=== PATIENT | male | born 1945 | race Caucasian/White ===

== ENCOUNTER 2017-07-05 13:41 | Inpatient (IN) ==
[2017-07-05] MEDS ORDERED: LACTATED RINGERS 1,000 ML IV ONE ×2 (14:01→15:40)
--- NOTE | 2017-07-05 14:39 | XRay Report ---
CLINICAL INFORMATION: Shortness of breath COMPARISON: 11/15/2015 FINDINGS: Moderate cardiomegaly is unchanged. Mediastinum is unremarkable. Pulmonary vessels are unremarkable. Moderate consolidated infiltrates have developed in both lung bases with moderate bilateral pleural effusions. IMPRESSION: Moderate sized consolidated bibasilar infiltrates and moderate effusions - new. Consider aspiration Interpreted and Authenticated by: Glen Hartley 07/05/17
[2017-07-05 14:46] LABS: Mean Cell Volume 102.5 fL (80.0-100.0); Mean Corpuscular HGB Conc 33.3 g/dL (31.0-36.0); Mean Corpuscular Hemoglobin 34.1 pg (26.0-34.0); Platelet Count 44 K/mcL (140-440); RBC 3.61 M/mcL (4.50-5.90)
[2017-07-05 15:00] LABS: proBNP 628.1 pg/ml (0-125)
[2017-07-05 15:04] LABS: ALT/SGPT 38 U/l (0-40); Albumin 2.2 gm/dL (3.2-5.2); Albumin/Globulin Ratio 0.6 (1.0-2.3); Alkaline Phosphatase 345 U/L (39-117); Blood Urea Nitrogen 46 mg/dl (8-23)
[2017-07-05] MEDS ORDERED: cefTRIAXone 1 GM in DEXTROSE 5% IN WATER 50 ML IV ONE (15:05)
[2017-07-05] MEDS ORDERED: LEVOFLOXACIN 500 MG/100 ML BAG IV ONE (15:05)
[2017-07-05 15:16] LABS: Anisocytosis 1+ (NONE SEEN); Band Neutrophils % 20 % (0-10); Lymphocytes % 11 % (15-49); Macrocytosis 1+ (NONE SEEN); Monocytes % (Manual) 5 % (1-12); Platelet Estimate MK DECR (NORMAL); RBC Morphology ABNORM (NORMAL); Segmented Neutrophils % 64 % (38-78); Toxic Granulation 1+ (NONE SEEN)
--- NOTE | 2017-07-05 15:42 | XRay Report ---
CLINICAL INFORMATION: Trauma COMPARISON: None. FINDINGS: No fracture identified. Mild degenerative change noted in the tibiofemoral, ankle mortise and posterior facets of the talocalcaneal joint. There is minimal diffuse soft tissue swelling IMPRESSION: No evidence of fracture. Mild degenerative change Interpreted and Authenticated by: Glen Hartley 07/05/17
[2017-07-05] MEDS ORDERED: ALBUTEROL SULFATE 2.5 MG/3 ML NEBULIZER NEB ONE (15:43)
--- NOTE | 2017-07-05 15:44 | XRay Report ---
CLINICAL INFORMATION: Trauma COMPARISON: None. FINDINGS: Intramedullary he and screw transfix a malunified old subtrochanteric fracture of the proximal femur. There is moderate callus providing solid osseous union but with moderate associated deformity. No acute fracture. Mild degenerative changes noted in the patellofemoral and tibiofemoral joint. IMPRESSION: No acute fracture. Malunified old fracture of the proximal femoral diaphysis - bony Union appears solid Interpreted and Authenticated by: Glen Hartley 07/05/17
--- NOTE | 2017-07-05 15:45 | XRay Report ---
CLINICAL INFORMATION: Trauma COMPARISON: 06/16/2013 plain films. FINDINGS: No fracture seen within the pelvis proper. Both SI and hip joint showing minimal degenerative change. There is a HABITAT CONSERVATION PLANNER shunt catheter in stable satisfactory position. IMPRESSION: No evidence of acute fracture following fall Interpreted and Authenticated by: Glen Hartley 07/05/17
--- NOTE | 2017-07-05 15:46 | Emergency Department Note ---
SOB HPI - General Chief Complaint: Shortness of Breath/Dyspnea Stated Complaint: short of breath Time Seen by Provider: 07/05/17 14:12 Source: patient, EMS Mode of arrival: EMS Limitations: physical limitation - History of Present Illness This 68-year-old male comes to the emergency room transported from a skilled facility where he was found to have gurgling respirations, shortness of breath, and was transported for these reasons. He has a history of being weak, gets out of his chair and falls frequently sometimes at night. He's had recent injuries to the elbows and knees. About 5-6 days ago he is evaluated by his lbifvua-un-mbz, Dr. Keenan, with bubble cellulitis to the right arm elbow area and was placed on Bactrim by his local PCP, Dr. Ibarra. Patient has a history of some swallowing difficulties. He has been on Zyprexa for schizophrenia for nearly 25 years. He has a history also of being in a wound clinic for a couple years ago for a long period of time due to chronic cellulitis of his lower extremities. He has a history of significant pretibial and pedal edema for which she wears compression hose. However, has not had a known history of CHF or heart disease. - Related Data Home Medications Medication Instructions Recorded Confirmed divalproex 500 mg tablet,delayed 500 mg PO QHS tab 06/24/15 07/05/17 release fluticasone 0.05 % topical cream 1 applic TOPICAL .COMPLEX g 06/24/15 07/05/17 furosemide 20 mg tablet 20 mg PO QDAY tab 06/24/15 07/05/17 ketoconazole 2 % shampoo 1 applic TOPICAL Q2W ml 06/24/15 07/05/17 loratadine 10 mg tablet 10 mg PO QDAY tab 06/24/15 07/05/17 multivitamin tablet 1 tab PO QDAY tab 06/24/15 07/05/17 olanzapine 15 mg tablet 15 mg PO QHS tab 06/24/15 07/05/17 potassium chloride ER 10 mEq 10 meq PO QDAY cap 06/24/15 07/05/17 capsule,extended release tamsulosin 0.4 mg capsule 0.4 mg PO QHS cap 06/24/15 07/05/17 triamcinolone acetonide-l.s.b. 0.5 0.5 % TOPICAL BID 06/24/15 07/05/17 % topical cream acetaminophen 500 mg tablet 1,000 mg PO Q4H PRN tab 10/19/16 07/05/17 coal tar 0.5 % shampoo 1 applic TOPICAL QDAY 10/19/16 07/05/17 dextromethorphan-guaifenesin 10 10 ml PO ONCE PRN 10/19/16 07/05/17 mg-100 mg/5 mL syrup divalproex 125 mg tablet,delayed 375 mg PO QDAY tab 10/19/16 07/05/17 release fluocinolone 0.01 % topical 1 applic TOPICAL QDAY ml 10/19/16 07/05/17 solution folic acid 1 mg tablet 1 mg PO QDAY 10/19/16 07/05/17 methotrexate sodium 2.5 mg tablet 15 mg PO QWEEK tab 10/19/16 07/05/17 LORazepam [Ativan] 0.5 mg PO PRN PRN 07/05/17 07/05/17 Sulfamethoxazole/Trimethoprim 1 tab PO BID 07/05/17 07/05/17 [Bactrim Ds] Allergies Allergy/AdvReac Type Severity Reaction Status Date / Time penicillin G [PENICILLIN G] Allergy Unknown RASH Verified 11/30/16 13:32 Review of Systems Review of Systems: see HPI and past medical history. Patient is unable to give history in that he is unable to speak significantly and limited additional other information. The difficulty swallowing is chronic and long-term. He has had mood behavior issues for which she is taking Depakote. However he has become sleepier on this when he was at 375 mg in the morning and 500 in the evening, and so was reduced to 250 and 500. This history is per his mnzopoh-ox-idp, Dr. Keenan. Patient usually is able to feed himself. No other specific symptoms reported. 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 Previous to that had fallen in the shower and had a very slow recovery. He has had shunts placed as well. He has had a long history of multiple falls and recurrent problems from falls, including a he in the right tibia due to a spiral fracture from approximately 3 yrs ago. Past Medical History - Past Medical History Source: obtained from family (brother in law, Dr. Keenan (retired car repairman)) Medical history: Reports: other (psoriasis (on methotrexate new 2017?); pneumonia 2015-?; cellulitis; falls; abrasions; alcoholism in his 30's; urinary incontinence; normopressure hydrocephalus.). Denies: asthma, cancer, CHF, coronary artery disease, CVA, diabetes Surgical history ED: Reports: other (right tibial intramedullary he (spiral fracture, 2014-?); shunt for normopressure hydrocephalus.) Psychiatric history: Reports: schizophrenia (long standing) - Social History Alcohol use: Reports: Occasionally Drug use: Reports: none Physical Exam - General Limitations: physical limitation General appearance: alert - Head Head exam: normocephalic, other (multiple scars from surgeries in the right frontal area and elevation compatible with shunt in the area above his Right ear.) - Eye Eye exam: Present: EOMI - Respiratory Respiratory exam: Present: respiratory distress, wheezes - Expanded Respiratory Exam Location: rhonchi: Left, Right (Severe and loud) - Cardiovascular Cardiovascular exam: Present: regular rate (quite difficult to hear due to his rhonchi.) - Abdominal Exam Abdominal exam: Present: soft. Absent: distention, tenderness, guarding, rebound, rigidity - Extremities Exam Extremities exam: Present: pedal edema (And tibial, 2/4 rightand 1/4 left.) - Neurological Exam Neurological exam: Present: alert, other (Unable to respond with words. Occasionalnegative or positive response to yes no questions.) - Psychiatric Psychiatric exam: Present: other (Unable to assess due to above neurologic status.) - Skin Skin exam: Present: warm, dry, other (There is thickening and lymphedema and cellulitis of the rightforearm and elbow area with a laceration on the external olecranon areaapproximately 2 cm across and slightly . Bilateral just below the knees abrasion/ulcers that are with yellow exudateand surrounding erythema.) Course Course Narrative: Patient's evaluation included hypotension, hypoxia, no tachycardia, no fever, and then with labs had an elevated white blood cell count elevated lactic acid and elevated pro calcitonin and elevated alkaline phosphatase. With these findings a sepsis workup and treatment was initiated with IV fluids and IV antibiotics in the form of Rocephin 1 g and Levaquin. Over a two-hour period of time he remained relatively stable but was still with these significant findings. The hospitalist was called with a need for admission to monitor his fluid status, continue antibiotics, continue to treat for aspiration pneumonia. Aspiration pneumonia was assumed given his history of poorly chewing food and swallowing with abnormal tongue protrusion which history was given by his texxplg-lo-ekx who is an car repairman. X-rays were done of his right upper extremity and right lower extremity.The findings included a malunified but solid ossification of a subtrochanteric fracture of the right femur (not of the tibia as given per her history). Right upper extremity exam was unremarkable as was pelvis. Chest x-ray showed bibasilar infiltrates that were moderate with moderate effusions also. cultures were also done of his knee abrasions/ulcer/cellulitis. Of note also was an elevated BNP and the mom moderate effusions bilaterally. He was given thefluid boluses to try to help maintain his perfusion and intravascular blood pressures but the caution of congestive heart failure certainly exists and will be monitored carefully by hospitalist Vital Signs Temperature 97.0 F 07/05/17 13:42 Pulse Rate 88 07/05/17 13:42 Respiratory Rate 20 07/05/17 13:42 Pulse Oximetry (%) 85 L 07/05/17 13:42 Temperature 97.0 F 07/05/17 13:42 Pulse Rate 79 07/05/17 15:30 Respiratory Rate 19 07/05/17 15:30 Blood Pressure 94/53 07/05/17 15:30 Pulse Oximetry (%) 92 07/05/17 15:30 Shortness of Breath/Dyspnea - Lab Data Lab results reviewed: Yes I reviewed the patient's lab results. Result diagrams: 07/05/17 13:55 07/05/17 13:55 Lab Results 07/05/17 07/05/17 07/05/17 Range/Units 13:55 13:55 13:55 WBC 32.0 H* (4.5-11.0) K/mcL RBC 3.61 L (4.50-5.90) M/mcL Hgb 12.3 L (13.5-16.5) g/dL Hct 37.0 L (41.0-55.0) % MCV 102.5 H (80.0-100.0) fL MCH 34.1 H (26.0-34.0) pg MCHC 33.3 (31.0-36.0) g/dL RDW 18.0 H (11.5-14.5) % Plt Count 44 L* (140-440) K/mcL MPV 10.3 (7.4-10.4) fL Total Counted 100 Seg Neutrophils % 64 (38-78) % Band Neutrophils % 20 H (0-10) % Lymphocytes % 11 L (15-49) % Monocytes % (Manual) 5 (1-12) % WBC Morphology Abnorm A (NORMAL) Toxic Granulation 1+ A (NONE SEEN) Platelet Estimate Mk decr A (NORMAL) RBC Morphology Abnorm A (NORMAL) Anisocytosis 1+ A (NONE SEEN) Macrocytosis 1+ A (NONE SEEN) VBG Lactic Acid 2.6 H (0.5-2.2) mmol/L Sodium 133 (133-145) mmol/L Potassium 5.1 (3.3-5.1) mmol/L Chloride 92 L (96-108) mmol/L Carbon Dioxide 25 (22-30) mmol/L Anion Gap 16.0 (8-16) BUN 46 H (8-23) mg/dl Creatinine 1.4 H (0.7-1.2) mg/dl GFR Calculation 49 Glucose 132 H (70-105) mg/dL Calcium 9.4 (8.6-10.4) mg/dl Magnesium (1.6-2.5) mg/dL Total Bilirubin 0.5 (0.0-1.0) mg/dL AST 53 H (0-37) U/l ALT 38 (0-40) U/l Alkaline Phosphatase 345 H (39-117) U/L NT-Pro-B Natriuret Pep 628.1 H (0-125) pg/ml Total Protein 5.8 L (5.9-8.4) gm/dL Albumin 2.2 L (3.2-5.2) gm/dL Globulin 3.6 (2.2-3.7) gm/dL Albumin/Globulin Ratio 0.6 L (1.0-2.3) Procalcitonin (<0.10) ng/mL 07/05/17 07/05/17 Range/Units 13:55 13:55 WBC (4.5-11.0) K/mcL RBC (4.50-5.90) M/mcL Hgb (13.5-16.5) g/dL Hct (41.0-55.0) % MCV (80.0-100.0) fL MCH (26.0-34.0) pg MCHC (31.0-36.0) g/dL RDW (11.5-14.5) % Plt Count (140-440) K/mcL MPV (7.4-10.4) fL Total Counted Seg Neutrophils % (38-78) % Band Neutrophils % (0-10) % Lymphocytes % (15-49) % Monocytes % (Manual) (1-12) % WBC Morphology (NORMAL) Toxic Granulation (NONE SEEN) Platelet Estimate (NORMAL) RBC Morphology (NORMAL) Anisocytosis (NONE SEEN) Macrocytosis (NONE SEEN) VBG Lactic Acid (0.5-2.2) mmol/L Sodium (133-145) mmol/L Potassium (3.3-5.1) mmol/L Chloride (96-108) mmol/L Carbon Dioxide (22-30) mmol/L Anion Gap (8-16) BUN (8-23) mg/dl Creatinine (0.7-1.2) mg/dl GFR Calculation Glucose (70-105) mg/dL Calcium (8.6-10.4) mg/dl Magnesium 3.0 H (1.6-2.5) mg/dL Total Bilirubin (0.0-1.0) mg/dL AST (0-37) U/l ALT (0-40) U/l Alkaline Phosphatase (39-117) U/L NT-Pro-B Natriuret Pep (0-125) pg/ml Total Protein (5.9-8.4) gm/dL Albumin (3.2-5.2) gm/dL Globulin (2.2-3.7) gm/dL Albumin/Globulin Ratio (1.0-2.3) Procalcitonin 3.67 (<0.10) ng/mL - Radiology Data Radiology results reviewed: Yes I reviewed the patient's radiology results. - EKG Data EKG attestation: Yes I reviewed and interpreted this EKG. EKG results narrative: Of note and interest is that patient never mounted a tachycardic response. He was in sinus rhythm. Disposition Pt seen by JAVA APPLICATION DEVELOPER/PA only: No Clinical Impression: SIRS (systemic inflammatory response syndrome), Elevated alkaline phosphatase level, Abrasion of skin with infection, Falls frequently, Hydrocephalus, idiopathic normal pressure, High risk medication use, Hypoxia Sepsis Qualifiers: Sepsis type: sepsis due to unspecified organism Qualified Code(s): A41.9 - Sepsis, unspecified organism Pneumonia Qualifiers: Pneumonia type: aspiration pneumonia Aspiration pneumonia type: unspecified Laterality: bilateral Lung location: lower lobe of lung Qualified Code(s): J69.0 - Pneumonitis due to inhalation of food and vomit Cellulitis Qualifiers: Site of cellulitis: extremity Site of cellulitis of extremity: upper extremity Laterality: right Qualified Code(s): L03.113 - Cellulitis of right upper limb Summary: see COURSE Disposition: Xfer As Inpt ([facility]) Condition: Fair Referrals: Juan Leal MD [Primary Care Provider] -
--- NOTE | 2017-07-05 15:46 | XRay Report ---
CLINICAL INFORMATION: Trauma COMPARISON: None. FINDINGS: No fracture identified. Minor ossification of the triceps tendon insertion on the olecranon noted. Joint spaces are unremarkable. Mild diffuse soft tissue swelling seen in the forearm IMPRESSION: No evidence of fracture or other significant abnormality Interpreted and Authenticated by: Glen Hartley 07/05/17
--- NOTE | 2017-07-05 15:47 | XRay Report ---
CLINICAL INFORMATION: Trauma COMPARISON: None. FINDINGS: No fracture identified. Moderate degenerative changes seen acromioclavicular joint. Glenohumeral joint and elbow are normal. Mild diffuse soft tissue swelling noted IMPRESSION: No evidence of fracture Interpreted and Authenticated by: Glen Hartley 07/05/17
[2017-07-05 16:16] LABS: Appearance,Urine CLEAR; Bacteria,Urine 0 /hpf (0); Bilirubin,Urine NEG (NEG); Color,Urine YELLOW; Glucose,Urine (UA) NEGATIVE (NEG); Leukocyte Esterase,Urine 500 /uL (NEG); Nitrate,Urine NEG (NEG); Protein,Urine NEG (NEG); Specific Gravity,Urine 1.015 (1.000-1.035); Urine Blood NEG mg/dL (<0.03); Urine RBC 2 /hpf (0-1); Urine Squamous Epithelial Cell < 1 /hpf (0-4); Urine WBC 24 /hpf (0-4)
--- NOTE | 2017-07-05 16:50 | Internal Med History&Physical ---
Medical - H&P: HPI Patient information: Note initiated : 07/05/17 at 4:48 pm Service Date, if different from initiated Date: [] Patient: Rodriguez Scales a 72 y/o M admitted on for short of breath. Chief Complaint: [] History of present illness: Mr. Scales is a 72 year old Male with h/o dementia, normal pressure hydrocephalus, schizophrenia, presently living in an assisted living facility, presents to the ER because of altered mentation and shortness of breath. The patient is accompanied byI believe his rwpzpua-dk-nad who is a retired internal medicine physician. the patient has had history of recurrent falls going on for the last few weeks, fall 2 weeks ago resulted in some abrasions in his right lower extremity as well as right upper extremity, one of the abrasions got secondarily infected and his primary care physician had placed the patient on Bactrim for same. The patient's cellulitis was somewhat better. This afternoon when the brother-in- law, i.e., the physician. went to to evaluate the patient, he noticed that the patient was not himself was more confused and also had difficulty in breathing. There was significant amount of conducted breath sounds. The patient was therefore brought to the hospital for further evaluation. in the emergency room, the patient was noted to be hypoxic on presentation and his blood pressure was borderline low with systolic in the 80s,the patient's heart rate was around in the 90s However, the patient was afebrile. Chest x- ray was done which showed bibasal infiltrates as well as effusion suggesting aspiration pneumonia. The labs are significant for white blood cell count of 32 ,000. his hemoglobin is 12, and platelets are 44. Sodium is 133, potassium 5.1 , bicarbonate 25, creatinine is 1.4 and glucose of 132, magnesium is 3.0. Patient has an elevated lactic acid of 2.6. His alkaline phosphatase is elevated at 345. However, the patient's ojvzbwr-nl-lhj noted that this likely is chronically elevated. Patient has low albumin of 2.2. I reviewed the advanced directives with the patient's phkleei-pa-cnr, who noted that he talked to his who is also the patient's power of environmental attorney and confirm that the patient is DNR. However, they're okay with antibiotics, pressors and BiPAP if necessary Patient was admitted to PCU status for further management ROS unobtainable: due to mental status Medical - H&P: PMH Medical history: Medical History (Last Updated 07/05/17 @ 16:17 by Jason Berumen DO) Bronchitis (Acute) Fracture of fifth toe, left, open (Acute) Schizoaffective disorder (Chronic) Pleural effusion (Chronic) Malignant melanoma of skin (Chronic) Obstructive hydrocephalus (Chronic) Gallbladder calculus (Chronic) Fracture of femoral neck, closed (Chronic) COPD (chronic obstructive pulmonary disease) (Chronic) Cholelithiasis (Chronic) Cholecystitis (Chronic) Bladder malignancy (Chronic) Surgical history: Past Surgical History (Last Updated 03/18/17 @ 14:33 by [employer] [place]) History of transurethral resection of prostate (Chronic) History of sebaceous cyst (Chronic) History of femur fracture (Chronic) History of abdominal surgery (Chronic) Pertinent family history: Family History Mother Malignant neoplasm of pancreas Medical - H&P: Meds Home Medications Medication Instructions Recorded Confirmed Type divalproex 500 mg tablet,delayed 500 mg PO QHS tab 06/24/15 07/05/17 History release fluticasone 0.05 % topical cream 1 applic TOPICAL .COMPLEX g 06/24/15 07/05/17 History furosemide 20 mg tablet 20 mg PO QDAY tab 06/24/15 07/05/17 History ketoconazole 2 % shampoo 1 applic TOPICAL Q2W ml 06/24/15 07/05/17 History loratadine 10 mg tablet 10 mg PO QDAY tab 06/24/15 07/05/17 History multivitamin tablet 1 tab PO QDAY tab 06/24/15 07/05/17 History olanzapine 15 mg tablet 15 mg PO QHS tab 06/24/15 07/05/17 History potassium chloride ER 10 mEq 10 meq PO QDAY cap 06/24/15 07/05/17 History capsule,extended release tamsulosin 0.4 mg capsule 0.4 mg PO QHS cap 06/24/15 07/05/17 History triamcinolone acetonide-l.s.b. 0.5 0.5 % TOPICAL BID 06/24/15 07/05/17 History % topical cream acetaminophen 500 mg tablet 1,000 mg PO Q4H PRN tab 10/19/16 07/05/17 History coal tar 0.5 % shampoo 1 applic TOPICAL QDAY 10/19/16 07/05/17 History dextromethorphan-guaifenesin 10 10 ml PO ONCE PRN 10/19/16 07/05/17 History mg-100 mg/5 mL syrup divalproex 125 mg tablet,delayed 375 mg PO QDAY tab 10/19/16 07/05/17 History release fluocinolone 0.01 % topical 1 applic TOPICAL QDAY ml 10/19/16 07/05/17 History solution folic acid 1 mg tablet 1 mg PO QDAY 10/19/16 07/05/17 History methotrexate sodium 2.5 mg tablet 15 mg PO QWEEK tab 10/19/16 07/05/17 History LORazepam [Ativan] 0.5 mg PO PRN PRN 07/05/17 07/05/17 History Sulfamethoxazole/Trimethoprim 1 tab PO BID 07/05/17 07/05/17 History [Bactrim Ds] Allergies Allergy/AdvReac Type Severity Reaction Status Date / Time penicillin G [PENICILLIN G] Allergy Unknown RASH Verified 11/30/16 13:32 Medical - H&P: Exam - Constitutional Vitals: Temp Pulse Resp BP Pulse Ox 97.0 F 88 20 105/68 96 07/05/17 13:42 07/05/17 16:19 07/05/17 16:19 07/05/17 16:16 07/05/17 16:19 Exam: GENERAL: The patient is a well-developed, well-nourished in no apparent distress. Is alert and oriented x 1 VITAL SIGNS: Reviewed and as noted elsewhere. HEENT: Head is normocephalic and atraumatic. Extraocular muscles are intact. Pupils are equal, round, and reactive to light. Nares appeared normal. Mouth appears any without lesions. Mucous membranes are dry NECK: Normal to inspection, Supple, No lymphadenopathy or thyromegaly. LUNGS: Air entry equal on both sides, [place] conducted breath sounds heard, no wheezing but pt has prolonged exp phase, Bibasilar crackles crackles . No accessory muscles of respiration HEART: Regular rate and rhythm normal, S1 and S2 heard, no Gallop, S3 or Rub Noted, No Gross murmur heard. ABDOMEN: Soft, nontender, and nondistended. Positive bowel sounds. No hepatosplenomegaly was noted. EXTREMITIES: No cyanosis, clubbing, rash, [place] edema Rt > left, Also significant edema in the right upper extremity with erythema and induration. [place] lower extremity has chr venous stasis changes. NEUROLOGIC: Cranial nerves II through XII are grossly intact. Motor and Sensory System Grossly Intact PSYCHIATRIC: drowsy, not agitated, SKIN: Noulcers, right arm has healing abrasions, w[place] legs has healing abrasions. , No jaundice, No rash noted. Medical - H&P: Reslt - Labs CBC & Chem 7: 07/05/17 13:55 07/05/17 13:55 Labs: Short CBC 07/05/17 Range/Units 13:55 WBC 32.0 H* (4.5-11.0) K/mcL Hgb 12.3 L (13.5-16.5) g/dL Hct 37.0 L (41.0-55.0) % Plt Count 44 L* (140-440) K/mcL BMP 07/05/17 13:55 Sodium 133 Potassium 5.1 Chloride 92 L Carbon Dioxide 25 BUN 46 H Creatinine 1.4 H Glucose 132 H Calcium 9.4 Liver Function 07/05/17 Range/Units 13:55 Total Bilirubin 0.5 (0.0-1.0) mg/dL AST 53 H (0-37) U/l ALT 38 (0-40) U/l Alkaline Phosphatase 345 H (39-117) U/L Albumin 2.2 L (3.2-5.2) gm/dL Urine 07/05/17 Range/Units 15:35 Urine Color Yellow Urine Appearance Clear Urine pH 7.0 (5.0-9.0) Ur Specific [place] 1.015 (1.000-1.035) Urine Protein Neg (NEG) mg/dL Urine Glucose (UA) Negative (NEG) mg/dL Medical - H&P: A/P - Narrative A/P Narrative: A/P Severe Sepsis: Low BP on presentation, elevated lactic acid, this is secondary to aspiration pneumonitis treated as per protocol, blood pressure is stable at this point in time. Will monitor in the PCU. Recheck lactic acid in 6 hours. Aspiration pneumonia-treat with imipenem as well as vancomycin, among the patient is to be considered as hospital-acquired infection given the fact that he has recently been treated with antibiotics, he also takes methotrexate, which is an immunosuppressant. COPD exacerbation: duo nebs for now. IV Solu-Medrol. He is already on antibiotics. Renal failure-creatinine is 1.4, acute versus chronic IV fluids and monitor. Urine analysis pending. Psoriasis-patient is on methotrexate for same hold methotrexate for now given acute infection. Cellulitis-of the right upper extremity, but it extremity is still swollen and is warm as well as has some erythema. The vancomycin and imipenem should cover the infection, I will get a duplex of the right upper extremity to ensure there is no DVT. Lower extremity swelling-this is a chronic issue, albumin is 2.2. This is likely secondary to same, as well as poor ambulation. According to the patient' s [id number]-uz-spc one week prior. A duplex of the lower extremity was done which was reported as negative for DVT. Elevated alkaline phosphatase- monitor for now, consider liver ultrasound in the a.m. Thrombocytopenia-likely secondary to severe sepsis-we'll get peripheral smear to rule out any other pathology. Check B12 and folic acid levels, thrombocytopenia can also be seen in patients on methotrexate. severe malnutrition-albumin is 2.2. According to the patient's relative. Patient has a good appetite and eats a lot, however, does have some swallowing issues. It is possible that the patient has liver issues resulting in low albumin value. We consider liver sonogram in the morning await urine analysis result, proceed there is significant proteinuria. Dementia/ Schizophremia: received home medications of olanzapine as well as divalproex. Fall precautions. h/o bladder cancer: follows with Dr Best DVT prophylaxis, Lovenox sq for now Diet NPO till seen by ST OT/ PT lavelle Poor prognosis, in light of severe sepsis, multisystem organ failure. Discussed same with the brother in law who was there with the patient. Social History - Tobacco smoking status: Former smoker - Alcohol alcohol intake frequency: former alcohol drinker
[2017-07-05] MEDS ORDERED: 0.9 % SODIUM CHLORIDE 1,000 ML IV ONE (17:26)
[2017-07-05] MEDS ORDERED: MAGNESIUM HYDROXIDE 30 ML ORAL.SUSP PO PRN (17:29)
[2017-07-05] MEDS ORDERED: NALOXONE HCL 0.4 MG/ML VIAL IV PRN (17:29)
[2017-07-05] MEDS ORDERED: VANCOMYCIN PER PHARMACY IV SCH (17:29)
[2017-07-05] MEDS ORDERED: ONDANSETRON 4 MG/2 ML VIAL IV PRN (17:29)
[2017-07-05] MEDS ORDERED: FLUTICASONE PROPIONATE 0.05% TOPICAL PRN (17:29)
[2017-07-05] MEDS ORDERED: ACETAMINOPHEN 325 MG TABLET PO PRN (17:29)
[2017-07-05] MEDS ORDERED: LORazepam 0.5 MG TABLET PO PRN (17:29)
[2017-07-05] MEDS ORDERED: IPRATROPIUM/ALBUTEROL 3 ML AMPUL.NEB NEB ONE (18:10)
[2017-07-05] MEDS ORDERED: LORazepam 2 MG/ML VIAL IV ONE ×2 (18:14→18:40)
[2017-07-05] MEDS: IPRATROPIUM/ALBUTEROL 3 ML AMPUL.NEB NEB SCH ×2 (18:17→22:38)
[2017-07-05] MEDS ORDERED: LORazepam 2 MG/ML VIAL ONE ×2 (18:22→18:37)
[2017-07-05] MEDS ORDERED: NOREPINEPHRINE BITARTRATE 4 MG/4 ML AMPUL IV ONE (18:24)
[2017-07-05] MEDS: NOREPINEPHRINE BITARTRATE 16 MG in 0.9 % SODIUM CHLORIDE 234 ML IV SCH (18:25)
[2017-07-05] MEDS: 0.9 % SODIUM CHLORIDE 250 ML IV SCH (18:25)
[2017-07-05 18:28] LABS: Vitamin B12 > 2000 pg/ml (243-894)
[2017-07-05] MEDS: IMIPENEM/CILASTATIN SODIUM 500 MG in 0.9 % SODIUM CHLORIDE 100 ML IV SCH (19:27)
[2017-07-05] MEDS ORDERED: IMIPENEM/CILASTATIN SODIUM 500 MG VIAL IV ONE (19:28)
[2017-07-05] MEDS ORDERED: VANCOMYCIN 500 MG VIAL ONE (19:28)
--- NOTE | 2017-07-05 19:34 | Procedure Note ---
Procedures - Central Line Placement Left IJ Consent obtained: verbal consent Time out performed: Yes Patient placed on monitor/pulse ox: Yes MD prep: mask, sterile gown, sterile gloves, cap Central line prep: 2% Chlorhexidine scrub Local anesthesia used: lidocaine 2% Ultrasound used for placement: Yes Central line lumen inserted: quad, 16 cm Post procedure: sutured in place, good blood return, all ports aspirated, flushed, capped, sterile dressing applied Post procedure x-ray: tip of catheter in good position, no pneumothorax seen Patient tolerated procedure: well Complications: none
--- NOTE | 2017-07-05 20:14 | XRay Report ---
CLINICAL INFORMATION: Line placement COMPARISON: 07/05/2017 FINDINGS: Moderate cardiomegaly is unchanged. Mediastinum is unremarkable. Left IJ central line tip overlies the SVC/brachycephalic junction. No pneumothorax or other complication from line placement. Bilateral infiltrates have worsened dramatically now with upper lobe involvement. There is dense consolidation of both lower lobes with moderate bilateral pleural effusions IMPRESSION: 1. Marked worsening in bilateral infiltrates with now diffuse involvement and increasing consolidation in bibasilar components. Consider aspiration or ARDS 2. IJ central line in satisfactory position Interpreted and Authenticated by: Glen Hartley 07/05/17
[2017-07-05 20:38] LABS: Basophils # (Auto) 0 K/mcL (0.0-0.3); Basophils % (Auto) 0 % (0.0-2.0); Eosinophils # (Auto) 0 K/mcL (0.0-0.7); Eosinophils % (Auto) 0 % (0.0-7.0); Lymphocytes # (Auto) 0.8 K/mcL (1.5-4.8); Lymphocytes % (Auto) 2.4 % (15.5-49.0); Mean Cell Volume 103.1 fL (80.0-100.0); Monocytes # (Auto) 0.2 K/mcL (0.1-0.9); Monocytes % (Auto) 0.6 % (1.0-12.0); Platelet Count 56 K/mcL (140-440); RBC 3.48 M/mcL (4.50-5.90); Red Cell Distribution Width 18.3 % (11.5-14.5)
[2017-07-05] MEDS: VANCOMYCIN 1,500 MG in 0.9 % SODIUM CHLORIDE 500 ML IV SCH (20:50)
[2017-07-05] MEDS ORDERED: DIVALPROEX 125 MG CAP.SPRINK PO SCH (21:00)
[2017-07-05 21:10] LABS: ALT/SGPT 34 U/l (0-40); Albumin 1.8 gm/dL (3.2-5.2); Albumin/Globulin Ratio 0.5 (1.0-2.3); Alkaline Phosphatase 319 U/L (39-117); Bilirubin,Direct 0.3 mg/dL (0.0-0.3); Blood Urea Nitrogen 41 mg/dl (8-23); Gamma Glutamyl Transpeptidase 156 U/L (8-61); Magnesium 2.1 mg/dL (1.6-2.5); Uric Acid 5.5 mg/dL (2.5-8.0)
[2017-07-05] MEDS: OLANZapine 5 MG TABLET PO SCH (21:23)
[2017-07-05] MEDS: TAMSULOSIN 0.4 MG CAPSULE PO SCH (21:23)
[2017-07-05] MEDS ORDERED: methylPREDNISolone SOD SUCC 125 MG/2 ML VIAL IV SCH (22:00)
[2017-07-05] MEDS: FAMOTIDINE/PF 20 MG/2 ML VIAL IV SCH (22:53)
[2017-07-05] MEDS: 0.9 % SODIUM CHLORIDE 10 ML SYRINGE IV SCH (22:53)
[2017-07-05] MEDS: methylPREDNISolone SOD SUCC 125 MG/2 ML VIAL IV SCH (22:57)
[2017-07-05] MEDS: 0.9 % SODIUM CHLORIDE 1,000 ML IV SCH (22:58)
[2017-07-06] MEDS: HYDROmorphone 2 MG/ML SYRINGE IV PRN ×3 (00:50→21:41)
[2017-07-06] MEDS ORDERED: IPRATROPIUM/ALBUTEROL 3 ML AMPUL.NEB NEB ONE (02:05)
[2017-07-06] MEDS ORDERED: FUROSEMIDE 20 MG/2 ML VIAL IV ONE ×2 (02:06→02:13)
[2017-07-06] MEDS: IMIPENEM/CILASTATIN SODIUM 500 MG in 0.9 % SODIUM CHLORIDE 100 ML IV SCH ×3 (03:00→19:46)
[2017-07-06] MEDS: IPRATROPIUM/ALBUTEROL 3 ML AMPUL.NEB NEB SCH ×6 (03:01→22:55)
[2017-07-06] MEDS ORDERED: IMIPENEM/CILASTATIN SODIUM 500 MG VIAL IV ONE (03:04)
[2017-07-06] MEDS: 0.9 % SODIUM CHLORIDE 1,000 ML IV SCH ×2 (05:13→12:08)
[2017-07-06] MEDS: methylPREDNISolone SOD SUCC 125 MG/2 ML VIAL IV SCH ×3 (05:35→23:37)
[2017-07-06] MEDS: 0.9 % SODIUM CHLORIDE 10 ML SYRINGE IV SCH ×3 (05:36→23:34)
[2017-07-06 05:56] LABS: Basophils # (Auto) 0 K/mcL (0.0-0.3); Basophils % (Auto) 0 % (0.0-2.0); Eosinophils # (Auto) 0 K/mcL (0.0-0.7); Eosinophils % (Auto) 0 % (0.0-7.0); Granulocytes % (Auto) 97.6 % (38.0-78.0); Lymphocytes # (Auto) 0.8 K/mcL (1.5-4.8); Mean Cell Volume 104.6 fL (80.0-100.0); Mean Corpuscular HGB Conc 32.5 g/dL (31.0-36.0); Monocytes # (Auto) 0.2 K/mcL (0.1-0.9); Monocytes % (Auto) 0.4 % (1.0-12.0); Platelet Count 65 K/mcL (140-440); RBC 3.72 M/mcL (4.50-5.90); Red Cell Distribution Width 18.4 % (11.5-14.5)
--- NOTE | 2017-07-06 05:56 | Ultrasound Report ---
CLINICAL INFORMATION: Right arm pain and swelling TECHNIQUE: Grayscale and color flow Doppler spectral imaging COMPARISON: None. FINDINGS: Technically difficult examination. Limited evaluation of the right brachial and basilic veins. No detectable venous thrombosis.] Internal jugular vein and subclavian vein are negative. Visualization of the right brachial and basilic veins is limited but no definite abnormality. The axillary and cephalic vein are negative. Forearm veins are negative IMPRESSION: 1. Technically limited evaluation 2. No detectable deep venous thrombosis Interpreted and Authenticated by: Glen Tejada 07/06/17
[2017-07-06 06:45] LABS: ALT/SGPT 36 U/l (0-40); Albumin 2.2 gm/dL (3.2-5.2); Albumin/Globulin Ratio 0.8 (1.0-2.3); Alkaline Phosphatase 363 U/L (39-117); Bilirubin,Direct 0.5 mg/dL (0.0-0.3); Blood Urea Nitrogen 38 mg/dl (8-23); Gamma Glutamyl Transpeptidase 169 U/L (8-61); Magnesium 2.2 mg/dL (1.6-2.5); Uric Acid 5.9 mg/dL (2.5-8.0)
[2017-07-06 09:32] LABS: Blood Urea Nitrogen 38 mg/dl (8-23)
[2017-07-06] MEDS ORDERED: CALCIUM GLUCONATE 4.65 MEQ/10 ML VIAL IV ONE (09:41)
[2017-07-06] MEDS ORDERED: INSULIN REGULAR, HUMAN 1 UNIT/0.01 ML UNIT IV ONE (09:42)
[2017-07-06] MEDS ORDERED: FUROSEMIDE 40 MG/4 ML VIAL IV ONE (09:42)
[2017-07-06] MEDS ORDERED: DEXTROSE 50% 50 ML VIAL IV ONE (09:42)
[2017-07-06] MEDS ORDERED: CALCIUM GLUCONATE 4.65 MEQ in 0.9 % SODIUM CHLORIDE 50 ML IV ONE (10:00)
[2017-07-06] MEDS: FOLIC ACID 1 MG TABLET PO SCH (11:28)
[2017-07-06] MEDS: DIVALPROEX 125 MG CAP.SPRINK PO SCH (11:28)
[2017-07-06] MEDS: ENOXAPARIN 40 MG/0.4 ML SYRINGE SQ SCH (11:28)
[2017-07-06] MEDS: MULTIVIT,THER IRON,CA,FA & MIN 1 TABLET PO SCH (11:29)
[2017-07-06] MEDS: FLUOCINOLONE ACETONIDE 0.01% TOPICAL SCH (11:29)
[2017-07-06] MEDS ORDERED: DEXTROSE 50% 50 ML SYRINGE IV ONE (11:45)
[2017-07-06] MEDS: 0.9 % SODIUM CHLORIDE 250 ML IV SCH ×2 (12:16→23:35)
[2017-07-06] MEDS: NOREPINEPHRINE BITARTRATE 16 MG in 0.9 % SODIUM CHLORIDE 234 ML IV SCH (12:17)
--- NOTE | 2017-07-06 12:37 | Internal Med Progress Note ---
Medical - PN: Subj Patient information: Note initiated : 07/06/17 at 12:30 pm Service Date, if different from initiated Date: [] Patient: Rodriguez Scales 72 y/o M admitted on 07/05/17 for short of breath. Chief Complaint: [] Interval history: Mr. Scales is a 72 year old Male with h/o dementia, normal pressure hydrocephalus, schizophrenia, presently living in an assisted living facility, presents to the ER because of altered mentation and shortness of breath. The patient is accompanied byI believe his [id number] who is a retired internal medicine physician. the patient has had history of recurrent falls going on for the last few weeks, fall 2 weeks ago resulted in some abrasions in his right lower extremity as well as right upper extremity, one of the abrasions got secondarily infected and his primary care physician had placed the patient on Bactrim for same. The patient's cellulitis was somewhat better. This afternoon when the brother-in- law, i.e., the physician. went to to evaluate the patient, he noticed that the patient was not himself was more confused and also had difficulty in breathing. There was significant amount of conducted breath sounds. The patient was therefore brought to the hospital for further evaluation. in the emergency room, the patient was noted to be hypoxic on presentation and his blood pressure was borderline low with systolic in the 80s,the patient's heart rate was around in the 90s However, the patient was afebrile. Chest x- ray was done which showed bibasal infiltrates as well as effusion suggesting aspiration pneumonia. The labs are significant for white blood cell count of 32 ,000. his hemoglobin is 12, and platelets are 44. Sodium is 133, potassium 5.1 , bicarbonate 25, creatinine is 1.4 and glucose of 132, magnesium is 3.0. Patient has an elevated lactic acid of 2.6. His alkaline phosphatase is elevated at 345. However, the patient's migdqsr-[id number]-spy noted that this likely is chronically elevated. Patient has low albumin of 2.2. I reviewed the advanced directives with the patient's ebumptt-aq-nck, who noted that he talked to his who is also the patient's power of carousel attendant and confirm that the patient is DNR. However, they're okay with antibiotics, pressors and BiPAP if necessary Overnight the patient after c oming to the floor desaturated and became hypotensive, Central line was placed and pressors started, pt was obtunded overnight saturating 95% on 100% via NRB. 07/06: patient seen, examined, overnight events noted. Patient's WBC count continues to trend up, peripheral smear reviewed, platelets stable, the patient' s temperature is now in the normal range, patient is hyperkalemic and has elevated phosphate, CK level is normal, patient becomes hypoxic on minimal movement, unstable to go for a CT scan. I had a meeting with the family members and the power of carousel attendant for the patient today, explaining them the poor prognosis, as well as expectation for medical management. At this point in time, they wish to continue with aggressive medical management short of intubation or CPR. They are waiting for family and was to arrive so they can take a final decision. Pertinent ROS: unable Additional PMFSH (Level 3 Only): Medical History (Last Updated 07/05/17 @ 16:17 by Jason Berumen DO) Bronchitis (Acute) Fracture of fifth toe, left, open (Acute) Schizoaffective disorder (Chronic) Pleural effusion (Chronic) Malignant melanoma of skin (Chronic) Obstructive hydrocephalus (Chronic) Gallbladder calculus (Chronic) Fracture of femoral neck, closed (Chronic) COPD (chronic obstructive pulmonary disease) (Chronic) Cholelithiasis (Chronic) Cholecystitis (Chronic) Bladder malignancy (Chronic) - Constitutional Vitals: Vital Signs Temp Pulse Resp BP Pulse Ox 98.4 F 105 H 23 H 126/66 88 L 07/06/17 12:01 07/06/17 12:05 07/06/17 12:05 07/06/17 12:01 07/06/17 12:05 Period Temp Pulse Resp BP Sys/Navarro Pulse Ox Last 24 Hr 94.0 F-99 F 75-106 13-32 69-126/41-96 76-100 Intake and Output 07/05/17 07/06/17 07/06/17 21:59 05:59 13:59 Intake Total 100 / 2250 52 / 52 2084 / 2084 Output Total 775 / 775 785 / 785 535 / 535 Balance -675 / 1475 -733 / -733 1549 / 1549 Weight 195 lb 9.6 oz Intake & Output: Intake & Output 07/05/17 07/06/17 07/06/17 21:59 05:59 13:59 Intake Total 100 / 2250 52 / 52 2083 Output Total 775 / 775 785 / 785 535 / 535 Balance -675 / 1475 -733 / -733 1549 / 1549 Weight 195 lb 9.6 oz Intake: IV 100 / 200 52 / 52 2083 Sodium Chloride 0.9% 250 250 / 250 ml @ 20 mls/hr IV . [id number] [facility] Rx#:[id number] Calcium Gluconate 4.65 60 / 60 Meq In Sodium Chloride 0. 9% 50 ml @ 120 mls/hr IV ONCE ONE Rx#:[id number] Primaxin 500 mg In Sodium 100 / 100 100 / 100 Chloride 0.9% 100 ml @ 100 mls/hr IV Q8H [facility] Rx# :[id number] Levophed 16 mg In Sodium 52 / 52 174 / 174 Chloride 0.9% 234 ml @ 10 MCG/MIN 9.37 mls/hr IV Q24H [facility] Rx#:[id number] Vancomycin 1,500 mg In 500 / 500 Sodium Chloride 0.9% 500 ml @ 333.3 mls/hr IV DAILY [facility] Rx#:[id number] Output: Urine Catheter Amount 775 / 775 785 / 785 535 / 535 Exam: Constitutional; Afebrile, drowsy, moans to deep stimulii Generalized anasarca Eyes- No icterus, , No periorbital swelling Ears- Ext ear normal, Neck- Midline trachea, supple Respiratory system: Air Entry equal on both sides,conducted breath sounds, wilton crackles CVS- Rate rhythm regular, S1,S2 heard, distant heart sounds. Abdomen- Soft nontender abdomen, no obvious organomegaly, no tenderness, no guarding or rigidity, SECURITIES ATTORNEY- AOOx0, moving all extremities, no gross focal deficit noted. Edema upto the pelvis. RUE is edematous, Medical - PN: Obj Da - Labs CBC & Chem 7: 07/06/17 04:00 07/06/17 08:20 Labs: Abnormal Lab Results 07/06/17 07/06/17 07/06/17 08:20 04:00 04:00 WBC 42.6 H* RBC 3.72 L Hgb 12.7 L Hct 38.9 L MCV 104.6 H RDW 18.4 H Plt Count 65 L Gran % 97.6 H Lymph % (Auto) 2.0 L Cobb % (Auto) 0.4 L Gran # 41.5 H Lymph # (Auto) 0.8 L Sodium Potassium 5.7 H 5.7 H BUN 38 H 38 H Calcium 8.3 L Phosphorus 8.3 H* Direct Bilirubin 0.5 H GGT 169 H AST 43 H Alkaline Phosphatase 363 H Lactate Dehydrogenase 330 H Total Protein 4.8 L Albumin 2.2 L Albumin/Globulin Ratio 0.8 L 07/05/17 07/05/17 19:50 19:50 WBC 35.6 H* RBC 3.48 L Hgb 11.8 L Hct 35.9 L MCV 103.1 H RDW 18.3 H Plt Count 56 L Gran % 97.0 H Lymph % (Auto) 2.4 L Cobb % (Auto) 0.6 L Gran # 34.6 H Lymph # (Auto) 0.8 L Sodium 131 L Potassium BUN 41 H Calcium 8.5 L Phosphorus 6.9 H* Direct Bilirubin GGT 156 H AST 45 H Alkaline Phosphatase 319 H Lactate Dehydrogenase 267 H Total Protein 5.1 L Albumin 1.8 L Albumin/Globulin Ratio 0.5 L Meds: Medications Acetaminophen (Tylenol) 650 mg PO Q4-6HP PRN PRN Reason: PAIN/FEVER > 101 Albuterol/Ipratropium (Duoneb) 3 ml NEB Q4HRT [facility] Last Admin: 07/06/17 11:38 Dose: 3 ml Divalproex Sodium (Depakote Sprinkles) 375 mg PO DAILY [facility] Last Admin: 07/06/17 11:28 Dose: Not Given Divalproex Sodium (Depakote Er) [address] [facility] Enoxaparin Sodium (Lovenox) 40 mg SQ DAILY [facility] Last Admin: 07/06/17 11:28 Dose: Not Given Famotidine (Pepcid) 20 mg IV HS [facility] Last Admin: 07/05/17 22:53 Dose: 20 mg Folic Acid (Folic Acid) 1 mg PO QDAY [facility] Last Admin: 07/06/17 11:28 Dose: Not Given Hydromorphone HCl (Dilaudid) 0.5 mg IV Q2HP PRN PRN Reason: Pain Last Admin: 07/06/17 05:36 Dose: 0.5 mg Imipenem/Cilastatin Sodium 500 (mg/ Sodium Chloride) 100 mls @ 100 mls/hr IV Q8H [facility] Last Admin: 07/06/17 11:06 Dose: 100 mls/hr Vancomycin HCl 1,500 mg/ (Sodium Chloride) 500 mls @ 333.3 mls/hr IV DAILY [facility] Last Infusion: 07/06/17 06:37 Dose: Infused Norepinephrine Bitartrate 16 (mg/ Sodium Chloride) 250 mls @ 9.37 mls/hr IV Q24H [facility]; 10 MCG/MIN PRN Reason: Protocol Last Admin: 07/06/17 12:17 Dose: 15 mcg/min, 14.06 mls/hr Sodium Chloride (Sodium Chloride 0.9%) 250 mls @ 20 mls/hr IV .[id number] [facility] Last Admin: 07/06/17 12:16 Dose: 20 mls/hr Iron Carb/Multivit/Account Resolution Analyst/Folic Acid (Multivitamin W/Minerals) 1 tab PO DAILY [facility] Last Admin: 07/06/17 11:29 Dose: Not Given Lorazepam (Ativan) 0.5 mg PO PRN PRN PRN Reason: Anxiety Magnesium Hydroxide (Milk Of Magnesia) 30 ml PO DAILYP PRN PRN Reason: Constipation Methylprednisolone Sodium Succinate (Solu-Medrol) 62.5 mg IV Q8 [facility] Last Admin: 07/06/17 05:35 Dose: 62.5 mg Naloxone HCl (Narcan) 0.1 mg IV Q2MIN PRN PRN Reason: Opiate Reversal Olanzapine (Zyprexa) 15 mg PO HS [facility] Last Admin: 07/05/17 21:23 Dose: Not Given Ondansetron HCl (Zofran) 4 mg IV Q4-6HP PRN PRN Reason: Nausea And Vomiting Fluocinolone Acetonide [Synalar] 0.01% Topical Solution 1 dose TOPICAL QDAY [facility] Last Admin: 07/06/17 11:29 Dose: Not Given Fluticasone Propionate [Cutivate ] 0.05% Cream 1 dose TOPICAL BIDP PRN PRN Reason: Itching Sodium Chloride (Saline Flush) 10 ml IV Q8 [facility] Last Admin: 07/06/17 05:36 Dose: 10 ml Tamsulosin HCl (Flomax) 0.4 mg PO QHS [facility] Last Admin: 07/05/17 21:23 Dose: Not Given Vancomycin HCl (Vancomycin Per Pharmacy) 1 order IV UD [facility] Medical - PN: A/P - Time Spent With Patient Total time spent is greater than 50% in coordination of care (as documented) at patient's floor/unit and/or counseling patient: - Narrative A/P Narrative: A/P Narrative: Severe Sepsis: Low BP on presentation, elevated lactic acid is now normal, patient is on Levophed, currently on 18-20 mics. Fluticasone station has been held in light of the chest x-ray showing ARDS like picture as well as do not intubation status of the patient. Aspiration pneumonia-treat with imipenem as well as vancomycin, among the patient is to be considered as hospital-acquired infection given the fact that he has recently been treated with antibiotics, he also takes methotrexate, which is an immunosuppressant. sputum culture is positive for gram-positive cocci ARDS/ Acute hypoxic REspiratory failure: supportive management, fluid restriction, IV lasix to clear up lungs to improve oxygenation. given no intubation difficult to manage sepsis as well as hypoxia. Not a candidate for bipap given poor mental status and gurgling sounds in the upper airways. bactermia:patient's blood cultures is positive for gram-positive cocci,his wound cultures are positive for staph aureus, sputum culture positive for staph aureus, urine culture positive for staph aureus. Patient has seated practically everywhere. he remains on vancomycin. We are awaiting sensitivities. COPD exacerbation: duo nebs for now. IV Solu-Medrol. He is already on antibiotics. Renal failure-creatinine is 1.2, acute versus chronic IV fluids and monitor. Psoriasis-patient is on methotrexate for same hold methotrexate for now given acute infection. Cellulitis-of the right upper extremity, but it extremity is still swollen and is warm as well as has some erythema. The vancomycin and imipenem should cover the infection, await result of duplex. Lower extremity swelling-this is a chronic issue, albumin is 2.2. This is likely secondary to same, as well as poor ambulation. According to the patient' s [id number] one week prior. A duplex of the lower extremity was done which was reported as negative for DVT. Elevated alkaline phosphatase- monitor for now, consider liver ultrasound in the a.m. Thrombocytopenia-likely secondary to severe sepsis-periphearl smear does not show any blast cells, b12 folate normal , thrombocytopenia can also be seen in patients on methotrexate. hyperkalemia/ Hyperphosphatemia: Treat Elevated K medically, unable to tolerate kayexalate, on duonebs, IV lasix 40 given, insulin with dextrose severe malnutrition-albumin is 2.2. improve nurtional status. Dementia/ Schizophremia: received home medications of olanzapine as well as divalproex. Fall precautions. h/o bladder cancer: follows with Dr Best DVT prophylaxis, Lovenox sq for now Diet NPO OT/ PT eval Very Poor prognosis, in light of severe sepsis, multisystem organ failure. Discussed same with the family. Medical - PN: Qual - VTE Deep Vein Thrombosis/Pulmonary Embolism Present on Admission: No
[2017-07-06] MEDS: VANCOMYCIN 1,500 MG in 0.9 % SODIUM CHLORIDE 500 ML IV SCH (14:06)
[2017-07-06] MEDS: DIVALPROEX SODIUM 250 MG TAB.ER.24H PO SCH (19:47)
[2017-07-06] MEDS: TAMSULOSIN 0.4 MG CAPSULE PO SCH (19:47)
[2017-07-06] MEDS: OLANZapine 5 MG TABLET PO SCH (19:48)
[2017-07-06] MEDS: FAMOTIDINE/PF 20 MG/2 ML VIAL IV SCH (19:57)
[2017-07-07] MEDS: HYDROmorphone 2 MG/ML SYRINGE IV PRN ×2 (02:37→20:13)
[2017-07-07] MEDS: IPRATROPIUM/ALBUTEROL 3 ML AMPUL.NEB NEB SCH ×6 (03:21→23:23)
[2017-07-07] MEDS: IMIPENEM/CILASTATIN SODIUM 500 MG in 0.9 % SODIUM CHLORIDE 100 ML IV SCH ×3 (03:21→19:12)
[2017-07-07] MEDS: methylPREDNISolone SOD SUCC 125 MG/2 ML VIAL IV SCH ×3 (05:31→22:08)
[2017-07-07] MEDS: 0.9 % SODIUM CHLORIDE 10 ML SYRINGE IV SCH ×3 (05:34→22:08)
[2017-07-07 07:26] LABS: Basophils # (Auto) 0 K/mcL (0.0-0.3); Basophils % (Auto) 0 % (0.0-2.0); Eosinophils # (Auto) 0 K/mcL (0.0-0.7); Eosinophils % (Auto) 0 % (0.0-7.0); Lymphocytes % (Auto) 4.2 % (15.5-49.0); Mean Cell Volume 104.5 fL (80.0-100.0); Mean Corpuscular HGB Conc 33.2 g/dL (31.0-36.0); Mean Corpuscular Hemoglobin 34.6 pg (26.0-34.0); Monocytes # (Auto) 0.7 K/mcL (0.1-0.9); Monocytes % (Auto) 2.8 % (1.0-12.0); Platelet Count 45 K/mcL (140-440); RBC 3.47 M/mcL (4.50-5.90); Red Cell Distribution Width 17.9 % (11.5-14.5)
--- NOTE | 2017-07-07 07:36 | XRay Report ---
CLINICAL INFORMATION: Pneumonia. History of ARDS TECHNIQUE: AP portable chest x-ray COMPARISON: Previous chest x-rays dated 07/05/2017, 11/15/2015, 01/03/2015 FINDINGS: No change in position of left central venous catheter. There is a catheter overlying the right hemithorax consistent with ventriculoperitoneal shunt catheter. Bilateral diffuse pulmonary parenchymal infiltrates. Findings are essentially unchanged. There is a probable large right pleural effusion and moderate left pleural effusion. Findings are stable There is cardiomegaly, unchanged. Diffuse infiltrates and pleural fluid are nonspecific. Findings may be due to congestive heart failure. Pneumonia is also likely. IMPRESSION: 1. Cardiomegaly. Bilateral diffuse parenchymal infiltrates and bilateral pleural effusions 2. No significant interval change since 07/05/2017 Interpreted and Authenticated by: Glen Tejada 07/07/17
[2017-07-07 07:39] LABS: ALT/SGPT 26 U/l (0-40); Albumin 1.9 gm/dL (3.2-5.2); Albumin/Globulin Ratio 0.5 (1.0-2.3); Alkaline Phosphatase 315 U/L (39-117); Bilirubin,Direct 0.3 mg/dL (0.0-0.3); Blood Urea Nitrogen 42 mg/dl (8-23); Gamma Glutamyl Transpeptidase 148 U/L (8-61); Magnesium 2.3 mg/dL (1.6-2.5); Uric Acid 7.6 mg/dL (2.5-8.0)
[2017-07-07] MEDS: DIVALPROEX 125 MG CAP.SPRINK PO SCH (09:12)
[2017-07-07] MEDS: FOLIC ACID 1 MG TABLET PO SCH (09:12)
[2017-07-07] MEDS: ENOXAPARIN 40 MG/0.4 ML SYRINGE SQ SCH (09:13)
[2017-07-07] MEDS: MULTIVIT,THER IRON,CA,FA & MIN 1 TABLET PO SCH (09:13)
[2017-07-07] MEDS: FLUOCINOLONE ACETONIDE 0.01% TOPICAL SCH (09:14)
[2017-07-07] MEDS: VANCOMYCIN 1,500 MG in 0.9 % SODIUM CHLORIDE 500 ML IV SCH (09:48)
[2017-07-07] MEDS: 0.9 % SODIUM CHLORIDE 250 ML IV SCH ×2 (11:38→20:05)
[2017-07-07] MEDS: NOREPINEPHRINE BITARTRATE 16 MG in 0.9 % SODIUM CHLORIDE 234 ML IV SCH (11:38)
--- NOTE | 2017-07-07 14:37 | Internal Med Progress Note ---
Medical - PN: Subj Patient information: Note initiated : 07/07/17 at 2:32 pm Service Date, if different from initiated Date: [] Patient: Rodriguez Scales a 72 y/o M admitted on 07/05/17 for SOB/Sepsis, Pneumonia, Cellulitis. Chief Complaint: [] Interval history: Mr. Scales is a 72 year old Male with h/o dementia, normal pressure hydrocephalus, schizophrenia, presently living in an assisted living facility, presents to the ER because of altered mentation and shortness of breath. The patient is accompanied byI believe his [id number] who is a retired internal medicine physician. the patient has had history of recurrent falls going on for the last few weeks, fall 2 weeks ago resulted in some abrasions in his right lower extremity as well as right upper extremity, one of the abrasions got secondarily infected and his primary care physician had placed the patient on Bactrim for same. The patient's cellulitis was somewhat better. This afternoon when the brother-in- law, i.e., the physician. went to to evaluate the patient, he noticed that the patient was not himself was more confused and also had difficulty in breathing. There was significant amount of conducted breath sounds. The patient was therefore brought to the hospital for further evaluation. in the emergency room, the patient was noted to be hypoxic on presentation and his blood pressure was borderline low with systolic in the 80s,the patient's heart rate was around in the 90s However, the patient was afebrile. Chest x- ray was done which showed bibasal infiltrates as well as effusion suggesting aspiration pneumonia. The labs are significant for white blood cell count of 32 ,000. his hemoglobin is 12, and platelets are 44. Sodium is 133, potassium 5.1 , bicarbonate 25, creatinine is 1.4 and glucose of 132, magnesium is 3.0. Patient has an elevated lactic acid of 2.6. His alkaline phosphatase is elevated at 345. However, the patient's [id number] noted that this likely is chronically elevated. Patient has low albumin of 2.2. I reviewed the advanced directives with the patient's [id number], who noted that he talked to his who is also the patient's power of state attorney and confirm that the patient is DNR. However, they're okay with antibiotics, pressors and BiPAP if necessary Overnight the patient after c oming to the floor desaturated and became hypotensive, Central line was placed and pressors started, pt was obtunded overnight saturating 95% on 100% via NRB. 07/06: patient seen, examined, overnight events noted. Patient's WBC count continues to trend up, peripheral smear reviewed, platelets stable, the patient' s temperature is now in the normal range, patient is hyperkalemic and has elevated phosphate, CK level is normal, patient becomes hypoxic on minimal movement, unstable to go for a CT scan. I had a meeting with the family members and the power of state attorney for the patient today, explaining them the poor prognosis, as well as expectation for medical management. At this point in time, they wish to continue with aggressive medical management short of intubation or CPR. They are waiting for family and was to arrive so they can take a final decision. 07/07: Patient seen examined, overnight events noted, pt was hypoxic much of the night, needing to clear secretions by suction. His bp is stable now, not needing pressors any more, WBC count is trending down. patient mental status is improved and he was able to follow commands and grasp my hand. Patient X ray chest is unchanged from before with wilton pna, effusions. Hyperkalemia resolved, phosphorus coming down. Given some improvement in patients mental status and the fact that he was 80-84% on 100% oxygen. we placed him on bipap today. he was not a candidate for bipap yesterday due to very poor mental status and increased secretions. Secretions are still there but I am hoping that he will respond to bipap as we have not other reasonable alternative. Patient condition with DR gao as well as the patients children. AT this time there seems to be a bit of difference of opinion on what needs be done. Patient respiratory status is needing support via bipap, but his hemodynamic status has improved and infection seems to be improving. It seems patients sister is the power of state attorney. At this time as per my conversation with Dr Gao, plan is to give patient another day and see how he does. Pertinent ROS: unable - Constitutional Vitals: Vital Signs Temp Pulse Resp BP Pulse Ox 97.3 F 99 H 14 120/68 99 07/07/17 13:01 07/07/17 14:31 07/07/17 14:31 07/07/17 14:31 07/07/17 14:31 Period Temp Pulse Resp BP Sys/Navarro Pulse Ox Last 24 Hr 97.3 F-98.6 F 77-123 13-32 90-202/56-186 71-100 Intake and Output 07/07/17 07/07/17 07/07/17 05:59 13:59 21:59 Intake Total 164 / 164 768 / 768 100 / 100 Output Total 620 / 620 500 / 500 Balance -456 / -456 268 / 268 100 / 100 Weight 197 lb 6.4 oz Patient Weight 07/08/17 05:59 Weight 197 lb 6.4 oz Intake & Output: Intake & Output 07/07/17 07/07/17 07/07/17 05:59 13:59 21:59 Intake Total 164 / 164 768 / 768 100 / 100 Output Total 620 / 620 500 / 500 Balance -456 / -456 268 / 268 100 / 100 Weight 197 lb 6.4 oz Intake: IV 164 / 164 768 / 768 100 / 100 Sodium Chloride 0.9% 250 250 / 250 ml @ 20 mls/hr IV . [id number] NATE Rx#:[id number] Primaxin 500 mg In Sodium 100 / 100 100 / 100 Chloride 0.9% 100 ml @ 100 mls/hr IV Q8H [facility] Rx# :[id number] Levophed 16 mg In Sodium 64 / 64 18 / 18 Chloride 0.9% 234 ml @ 10 MCG/MIN 9.37 mls/hr IV Q24H [facility] Rx#:[id number] Vancomycin 1,500 mg In 500 / 500 Sodium Chloride 0.9% 500 ml @ 333.3 mls/hr IV DAILY [facility] Rx#:[id number] Output: Urine Catheter Amount 620 / 620 500 / 500 Exam: Constitutional; Afebrile, opens eyes to verbal commands, followed commands ( grasped hands when asked) Eyes- No icterus, , No periorbital swelling Ears- Ext ear normal, Neck- Midline trachea, supple Respiratory system: Air Entry equal on both sides, decreased at both bases, bibasilar crackles. CVS- Rate rhythm regular, S1,S2 heard, no gallop, no rub. Abdomen- Soft nontender abdomen, no organomegaly, no tenderness, no guarding or rigidity, [employer]- AOOx0, moving all extremities, no gross focal deficit noted. wilton lower extremity edema, right upper extremity edema Medical - PN: Obj Da - Labs CBC & Chem 7: 07/07/17 04:00 07/07/17 04:00 Labs: Abnormal Lab Results 07/07/17 07/07/17 07/07/17 08:00 04:00 04:00 WBC 24.4 H RBC 3.47 L Hgb 12.0 L Hct 36.3 L MCV 104.5 H MCH 34.6 H RDW 17.9 H Plt Count 45 L* Gran % 93.0 H Lymph % (Auto) 4.2 L Beadle % (Auto) Gran # 22.7 H Lymph # (Auto) 1.0 L Sodium Potassium BUN 42 H Creatinine 1.4 H Calcium Phosphorus 6.9 H* Direct Bilirubin GGT 148 H AST Alkaline Phosphatase 315 H Lactate Dehydrogenase 267 H Total Protein 5.4 L Albumin 1.9 L Albumin/Globulin Ratio 0.5 L Vancomycin Trough 17.0 H 07/06/17 07/06/17 07/06/17 08:20 04:00 04:00 WBC 42.6 H* RBC 3.72 L Hgb 12.7 L Hct 38.9 L MCV 104.6 H MCH RDW 18.4 H Plt Count 65 L Gran % 97.6 H Lymph % (Auto) 2.0 L Beadle % (Auto) 0.4 L Gran # 41.5 H Lymph # (Auto) 0.8 L Sodium Potassium 5.7 H 5.7 H BUN 38 H 38 H Creatinine Calcium 8.3 L Phosphorus 8.3 H* Direct Bilirubin 0.5 H GGT 169 H AST 43 H Alkaline Phosphatase 363 H Lactate Dehydrogenase 330 H Total Protein 4.8 L Albumin 2.2 L Albumin/Globulin Ratio 0.8 L Vancomycin Trough 07/05/17 07/05/17 19:50 19:50 WBC 35.6 H* RBC 3.48 L Hgb 11.8 L Hct 35.9 L MCV 103.1 H MCH RDW 18.3 H Plt Count 56 L Gran % 97.0 H Lymph % (Auto) 2.4 L Beadle % (Auto) 0.6 L Gran # 34.6 H Lymph # (Auto) 0.8 L Sodium 131 L Potassium BUN 41 H Creatinine Calcium 8.5 L Phosphorus 6.9 H* Direct Bilirubin GGT 156 H AST 45 H Alkaline Phosphatase 319 H Lactate Dehydrogenase 267 H Total Protein 5.1 L Albumin 1.8 L Albumin/Globulin Ratio 0.5 L Vancomycin Trough Meds: Medications Acetaminophen (Tylenol) 650 mg PO Q4-6HP PRN PRN Reason: PAIN/FEVER > 101 Albuterol/Ipratropium (Duoneb) 3 ml NEB Q4HRT [facility] Last Admin: 07/07/17 11:03 Dose: 3 ml Divalproex Sodium (Depakote Sprinkles) 375 mg PO DAILY [facility] Last Admin: 07/07/17 09:12 Dose: Not Given Divalproex Sodium (Depakote Er) 500 mg PO HS [facility] Last Admin: 07/06/17 19:47 Dose: Not Given Enoxaparin Sodium (Lovenox) 40 mg SQ DAILY [facility] Last Admin: 07/07/17 09:13 Dose: Not Given Famotidine (Pepcid) 20 mg IV HS [facility] Last Admin: 07/06/17 19:57 Dose: 20 mg Folic Acid (Folic Acid) 1 mg PO QDAY [facility] Last Admin: 07/07/17 09:12 Dose: Not Given Hydromorphone HCl (Dilaudid) 0.5 mg IV Q2HP PRN PRN Reason: Pain Last Admin: 07/07/17 02:37 Dose: 0.5 mg Imipenem/Cilastatin Sodium 500 (mg/ Sodium Chloride) 100 mls @ 100 mls/hr IV Q8H [facility] Last Infusion: 07/07/17 14:26 Dose: Infused Vancomycin HCl 1,500 mg/ (Sodium Chloride) 500 mls @ 333.3 mls/hr IV DAILY [facility] Last Infusion: 07/07/17 11:52 Dose: Infused Norepinephrine Bitartrate 16 (mg/ Sodium Chloride) 250 mls @ 9.37 mls/hr IV Q24H [facility]; 10 MCG/MIN PRN Reason: Protocol Last Admin: 07/07/17 11:38 Dose: Not Given Sodium Chloride (Sodium Chloride 0.9%) 250 mls @ 20 mls/hr IV .[id number] [facility] Last Infusion: 07/07/17 11:48 Dose: Infused Iron Carb/Multivit/Bealeton/Folic Acid (Multivitamin W/Minerals) 1 tab PO DAILY [facility] Last Admin: 07/07/17 09:13 Dose: Not Given Lorazepam (Ativan) 0.5 mg PO PRN PRN PRN Reason: Anxiety Magnesium Hydroxide (Milk Of Magnesia) 30 ml PO DAILYP PRN PRN Reason: Constipation Methylprednisolone Sodium Succinate (Solu-Medrol) 62.5 mg IV Q8 [facility] Last Admin: 07/07/17 14:22 Dose: 62.5 mg Naloxone HCl (Narcan) 0.1 mg IV Q2MIN PRN PRN Reason: Opiate Reversal Olanzapine (Zyprexa) 15 mg PO HS [facility] Last Admin: 07/06/17 19:48 Dose: Not Given Ondansetron HCl (Zofran) 4 mg IV Q4-6HP PRN PRN Reason: Nausea And Vomiting Fluocinolone Acetonide [Synalar] 0.01% Topical Solution 1 dose TOPICAL QDAY [facility] Last Admin: 07/07/17 09:14 Dose: Not Given Fluticasone Propionate [Cutivate ] 0.05% Cream 1 dose TOPICAL BIDP PRN PRN Reason: Itching Sodium Chloride (Saline Flush) 10 ml IV Q8 [facility] Last Admin: 07/07/17 14:22 Dose: 10 ml Tamsulosin HCl (Flomax) 0.4 mg PO QHS [facility] Last Admin: 07/06/17 19:47 Dose: Not Given Vancomycin HCl (Vancomycin Per Pharmacy) 1 order IV UD [facility] Medical - PN: A/P - Time Spent With Patient Total time spent is greater than 50% in coordination of care (as documented) at patient's floor/unit and/or counseling patient: - Narrative A/P Narrative: A/P Narrative: Severe Sepsis: Low BP on presentation, improved with treatment, off pressors now. but patient still critical Aspiration pneumonia-continue to treat with vanco and imipenum for now. microbiology noted, growing mrsa. will desacalte abx once pt is more stable. ARDS/ Acute hypoxic REspiratory failure: secondary to aspiratin pna, status not much changed from yesterday, on bipap now, with good oxygenation. continue same for now. Bactermia:patient's blood cultures is positive for gram-positive cocci,his wound cultures are positive for staph aureus, sputum culture positive for staph aureus, urine culture positive for staph aureus. Patient has seated practically everywhere. he remains on vancomycin. MRSA noted continue vancomycin. COPD exacerbation: duo nebs for now. IV Solu-Medrol. He is already on antibiotics. no wheezing on exam, continue steroids and duonebs. Renal failure-creatinine is 1.4 slight worsening, good urine output. monitor closely. Psoriasis-patient is on methotrexate for same hold methotrexate for now given acute infection. Cellulitis-of the right upper extremity, but it extremity is still swollen and is warm as well as has some erythema. The vancomycin and imipenem should cover the infection, duplex neg for dvt Lower extremity swelling-this is a chronic issue, albumin is 2.2. This is likely secondary to same, as well as poor ambulation. According to the patient' s [id number] one week prior. A duplex of the lower extremity was done which was reported as negative for DVT. Elevated alkaline phosphatase- monitor for now, consider liver ultrasound if improves. Thrombocytopenia-likely secondary to severe sepsis-monitor, no bleeding reported. hyperkalemia/ Hyperphosphatemia: K normal, Phos improving, monitor. severe malnutrition-albumin is 1.9 improve nurtional status. NPO for now, consider starting diet once more awake. Dementia/ Schizophremia: received home medications of olanzapine as well as divalproex. Fall precautions. h/o bladder cancer: follows with Dr Best DVT prophylaxis, Lovenox sq for now Diet NPO OT/ PT eval Very Poor prognosis, in light of severe sepsis, multisystem organ failure. Discussed same with the family. Medical - PN: Qual - VTE Deep Vein Thrombosis/Pulmonary Embolism Present on Admission: No
[2017-07-07] MEDS: OLANZapine 5 MG TABLET PO SCH (20:04)
[2017-07-07] MEDS: TAMSULOSIN 0.4 MG CAPSULE PO SCH (20:04)
[2017-07-07] MEDS: DIVALPROEX SODIUM 250 MG TAB.ER.24H PO SCH (20:05)
[2017-07-07] MEDS: FAMOTIDINE/PF 20 MG/2 ML VIAL IV SCH (20:13)
[2017-07-08] MEDS: IMIPENEM/CILASTATIN SODIUM 500 MG in 0.9 % SODIUM CHLORIDE 100 ML IV SCH (02:52)
[2017-07-08] MEDS: IPRATROPIUM/ALBUTEROL 3 ML AMPUL.NEB NEB SCH ×6 (02:52→23:04)
[2017-07-08] MEDS: 0.9 % SODIUM CHLORIDE 10 ML SYRINGE IV SCH ×3 (05:37→22:03)
[2017-07-08] MEDS: methylPREDNISolone SOD SUCC 125 MG/2 ML VIAL IV SCH ×2 (05:37→20:51)
[2017-07-08] MEDS ORDERED: NOREPINEPHRINE BITARTRATE 16 MG in 0.9 % SODIUM CHLORIDE 234 ML IV PRN (07:15)
[2017-07-08 07:22] LABS: ALT/SGPT 28 U/l (0-40); Albumin 1.8 gm/dL (3.2-5.2); Albumin/Globulin Ratio 0.5 (1.0-2.3); Alkaline Phosphatase 309 U/L (39-117); Bilirubin,Direct 0.3 mg/dL (0.0-0.3); Blood Urea Nitrogen 53 mg/dl (8-23); Gamma Glutamyl Transpeptidase 179 U/L (8-61); Magnesium 2.5 mg/dL (1.6-2.5); Uric Acid 8.5 mg/dL (2.5-8.0)
[2017-07-08 07:32] LABS: Basophils # (Auto) 0 K/mcL (0.0-0.3); Basophils % (Auto) 0 % (0.0-2.0); Eosinophils # (Auto) 0 K/mcL (0.0-0.7); Eosinophils % (Auto) 0 % (0.0-7.0); Granulocytes % (Auto) 93.3 % (38.0-78.0); Lymphocytes # (Auto) 0.6 K/mcL (1.5-4.8); Lymphocytes % (Auto) 3.6 % (15.5-49.0); Mean Cell Volume 104.4 fL (80.0-100.0); Mean Corpuscular HGB Conc 33.4 g/dL (31.0-36.0); Mean Corpuscular Hemoglobin 34.9 pg (26.0-34.0); Monocytes # (Auto) 0.6 K/mcL (0.1-0.9); Monocytes % (Auto) 3.1 % (1.0-12.0); Platelet Count 39 K/mcL (140-440); RBC 3.45 M/mcL (4.50-5.90)
[2017-07-08] MEDS: VANCOMYCIN 1,500 MG in 0.9 % SODIUM CHLORIDE 500 ML IV SCH (10:07)
[2017-07-08] MEDS: MULTIVIT,THER IRON,CA,FA & MIN 1 TABLET PO SCH (10:07)
[2017-07-08] MEDS: FLUOCINOLONE ACETONIDE 0.01% TOPICAL SCH (10:07)
[2017-07-08] MEDS: ENOXAPARIN 40 MG/0.4 ML SYRINGE SQ SCH (10:07)
[2017-07-08] MEDS: FOLIC ACID 1 MG TABLET PO SCH (10:08)
[2017-07-08] MEDS: 0.9 % SODIUM CHLORIDE 250 ML IV SCH ×2 (10:08→20:46)
[2017-07-08] MEDS: DIVALPROEX 125 MG CAP.SPRINK PO SCH (10:08)
--- NOTE | 2017-07-08 10:46 | Internal Med Progress Note ---
Medical - PN: Subj Patient information: Note initiated : 07/08/17 at 10:43 am Service Date, if different from initiated Date: [] Patient: Rodriguez Scales a 72 y/o M admitted on 07/05/17 for SOB/Sepsis, Pneumonia, Cellulitis. Chief Complaint: [] Interval history: Mr. Scales is a 72 year old Male with h/o dementia, normal pressure hydrocephalus, schizophrenia, presently living in an assisted living facility, presents to the ER because of altered mentation and shortness of breath. The patient is accompanied byI believe his xiwutew-eo-ikg who is a retired internal medicine physician. the patient has had history of recurrent falls going on for the last few weeks, fall 2 weeks ago resulted in some abrasions in his right lower extremity as well as right upper extremity, one of the abrasions got secondarily infected and his primary care physician had placed the patient on Bactrim for same. The patient's cellulitis was somewhat better. This afternoon when the brother-in- law, i.e., the physician. went to to evaluate the patient, he noticed that the patient was not himself was more confused and also had difficulty in breathing. There was significant amount of conducted breath sounds. The patient was therefore brought to the hospital for further evaluation. in the emergency room, the patient was noted to be hypoxic on presentation and his blood pressure was borderline low with systolic in the 80s,the patient's heart rate was around in the 90s However, the patient was afebrile. Chest x- ray was done which showed bibasal infiltrates as well as effusion suggesting aspiration pneumonia. The labs are significant for white blood cell count of 32 ,000. his hemoglobin is 12, and platelets are 44. Sodium is 133, potassium 5.1 , bicarbonate 25, creatinine is 1.4 and glucose of 132, magnesium is 3.0. Patient has an elevated lactic acid of 2.6. His alkaline phosphatase is elevated at 345. However, the patient's [id number] noted that this likely is chronically elevated. Patient has low albumin of 2.2. I reviewed the advanced directives with the patient's [id number], who noted that he talked to his who is also the patient's power of commercial real estate attorney and confirm that the patient is DNR. However, they're okay with antibiotics, pressors and BiPAP if necessary Overnight the patient after coming to the floor desaturated and became hypotensive, Central line was placed and pressors started, pt was obtunded overnight saturating 95% on 100% via NRB. 07/06: patient seen, examined, overnight events noted. Patient's WBC count continues to trend up, peripheral smear reviewed, platelets stable, the patient' s temperature is now in the normal range, patient is hyperkalemic and has elevated phosphate, CK level is normal, patient becomes hypoxic on minimal movement, unstable to go for a CT scan. I had a meeting with the family members and the power of commercial real estate attorney for the patient today, explaining them the poor prognosis, as well as expectation for medical management. At this point in time, they wish to continue with aggressive medical management short of intubation or CPR. They are waiting for family and was to arrive so they can take a final decision. 07/07: Patient seen examined, overnight events noted, pt was hypoxic much of the night, needing to clear secretions by suction. His bp is stable now, not needing pressors any more, WBC count is trending down. patient mental status is improved and he was able to follow commands and grasp my hand. Patient X ray chest is unchanged from before with w[place] pna, effusions. Hyperkalemia resolved, phosphorus coming down. Given some improvement in patients mental status and the fact that he was 80-84% on 100% oxygen. we placed him on bipap today. he was not a candidate for bipap yesterday due to very poor mental status and increased secretions. Secretions are still there but I am hoping that he will respond to bipap as we have not other reasonable alternative. Patient condition with DR gao as well as the patients children. AT this time there seems to be a bit of difference of opinion on what needs be done. Patient respiratory status is needing support via bipap, but his hemodynamic status has improved and infection seems to be improving. It seems patients sister is the power of commercial real estate attorney. At this time as per my conversation with Dr Gao, plan is to give patient another day and see how he does. 07/08: patient seen examined, patient bit more awake today, obeyed commands to grasp hand, did not move his legs much but was responsive to touch and deep stimuli to extremities. The patient is on bipap still was on 50% fio2, will cut back to 30 and see if he is able to maintain his oxygen saturations No acute events. Family to still decide on overall course of treatment, at present to continue with medical management. Given that all his cultures are mrsa, will stop imipenum today, but add rocephin and flagyl to cover for pna/ aspiration. Platlet counts dropped, no acute bleed, no need for platlet transfusions yet. Pertinent ROS: unable - Constitutional Vitals: Vital Signs Temp Pulse Resp BP Pulse Ox 97.6 F 98 H 12 113/56 92 07/08/17 08:00 07/08/17 10:18 07/08/17 10:18 07/08/17 10:00 07/08/17 10:18 Period Temp Pulse Resp BP Sys/Navarro Pulse Ox Last 24 Hr 97.2 F-97.6 F 52-116 9-29 101-208/56-183 84-100 Intake and Output 07/07/17 07/08/17 07/08/17 21:59 05:59 13:59 Intake Total 200 / 200 100 / 100 Output Total 490 / 490 670 / 670 220 / 220 Balance -290 / -290 -570 / -570 -220 / -220 Weight 190 lb 4.8 oz Intake & Output: Intake & Output 07/07/17 07/08/17 07/08/17 21:59 05:59 13:59 Intake Total 200 / 200 100 / 100 Output Total 490 / 490 670 / 670 220 / 220 Balance -290 / -290 -570 / -570 -220 / -220 Weight 190 lb 4.8 oz Intake: IV 200 / 200 100 / 100 Primaxin 500 mg In Sodium 200 / 200 100 / 100 Chloride 0.9% 100 ml @ 100 mls/hr IV Q8H [facility] Rx# :[id number] Output: Urine Catheter Amount 490 / 490 670 / 670 220 / 220 Exam: Constitutional; Afebrile, awake. Eyes- No icterus, , No periorbital swelling , face in bipap. Ears- Ext ear normal, hearing ok to conversation Neck- Midline trachea, supple Respiratory system: Air Entry equal reduced both bases, right > left. on bipap for resp support. CVS- Rate rhythm regular, S1,S2 heard, no gallop, no rub. 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 Gen edema present. Medical - PN: Obj Da - Labs CBC & Chem 7: 07/08/17 04:00 07/08/17 04:00 Labs: Abnormal Lab Results 07/08/17 07/08/17 07/07/17 04:00 04:00 08:00 WBC 18.0 H RBC 3.45 L Hgb 12.1 L Hct 36.0 L MCV 104.4 H MCH 34.9 H RDW 18.0 H Plt Count 39 L* Gran % 93.3 H Lymph % (Auto) 3.6 L Ferry % (Auto) Gran # 16.7 H Lymph # (Auto) 0.6 L Sodium Potassium BUN 53 H Creatinine Glucose 112 H Uric Acid 8.5 H Calcium Phosphorus 5.5 H Direct Bilirubin GGT 179 H AST Alkaline Phosphatase 309 H Lactate Dehydrogenase 312 H Total Protein 5.6 L Albumin 1.8 L Globulin 3.8 H Albumin/Globulin Ratio 0.5 L Vancomycin Trough 17.0 H 07/07/17 07/07/17 07/06/17 04:00 04:00 08:20 WBC 24.4 H RBC 3.47 L Hgb 12.0 L Hct 36.3 L MCV 104.5 H MCH 34.6 H RDW 17.9 H Plt Count 45 L* Gran % 93.0 H Lymph % (Auto) 4.2 L Ferry % (Auto) Gran # 22.7 H Lymph # (Auto) 1.0 L Sodium Potassium 5.7 H BUN 42 H 38 H Creatinine 1.4 H Glucose Uric Acid Calcium Phosphorus 6.9 H* Direct Bilirubin GGT 148 H AST Alkaline Phosphatase 315 H Lactate Dehydrogenase 267 H Total Protein 5.4 L Albumin 1.9 L Globulin Albumin/Globulin Ratio 0.5 L Vancomycin Trough 07/06/17 07/06/17 07/05/17 04:00 04:00 19:50 WBC 42.6 H* RBC 3.72 L Hgb 12.7 L Hct 38.9 L MCV 104.6 H MCH RDW 18.4 H Plt Count 65 L Gran % 97.6 H Lymph % (Auto) 2.0 L Ferry % (Auto) 0.4 L Gran # 41.5 H Lymph # (Auto) 0.8 L Sodium 131 L Potassium 5.7 H BUN 38 H 41 H Creatinine Glucose Uric Acid Calcium 8.3 L 8.5 L Phosphorus 8.3 H* 6.9 H* Direct Bilirubin 0.5 H GGT 169 H 156 H AST 43 H 45 H Alkaline Phosphatase 363 H 319 H Lactate Dehydrogenase 330 H 267 H Total Protein 4.8 L 5.1 L Albumin 2.2 L 1.8 L Globulin Albumin/Globulin Ratio 0.8 L 0.5 L Vancomycin Trough 07/05/17 19:50 WBC 35.6 H* RBC 3.48 L Hgb 11.8 L Hct 35.9 L MCV 103.1 H MCH RDW 18.3 H Plt Count 56 L Gran % 97.0 H Lymph % (Auto) 2.4 L Ferry % (Auto) 0.6 L Gran # 34.6 H Lymph # (Auto) 0.8 L Sodium Potassium BUN Creatinine Glucose Uric Acid Calcium Phosphorus Direct Bilirubin GGT AST Alkaline Phosphatase Lactate Dehydrogenase Total Protein Albumin Globulin Albumin/Globulin Ratio Vancomycin Trough Meds: Medications Acetaminophen (Tylenol) 650 mg PO Q4-6HP PRN PRN Reason: PAIN/FEVER > 101 Albuterol/Ipratropium (Duoneb) 3 ml NEB Q4HRT [facility] Last Admin: 07/08/17 06:53 Dose: 3 ml Divalproex Sodium (Depakote Sprinkles) 375 mg PO DAILY [facility] Last Admin: 07/08/17 10:08 Dose: Not Given Divalproex Sodium (Depakote Er) 500 mg PO [facility] Last Admin: 07/07/17 20:05 Dose: Not Given Enoxaparin Sodium (Lovenox) 40 mg SQ DAILY [facility] Last Admin: 07/08/17 10:07 Dose: Not Given Famotidine (Pepcid) 20 mg IV [facility] Last Admin: 07/07/17 20:13 Dose: 20 mg Folic Acid (Folic Acid) 1 mg PO QDAY [facility] Last Admin: 07/08/17 10:08 Dose: Not Given Hydromorphone HCl (Dilaudid) 0.5 mg IV Q2HP PRN PRN Reason: Pain Last Admin: 07/07/17 20:13 Dose: 0.5 mg Imipenem/Cilastatin Sodium 500 (mg/ Sodium Chloride) 100 mls @ 100 mls/hr IV Q8H [facility] Last Infusion: 07/08/17 03:55 Dose: Infused Vancomycin HCl 1,500 mg/ (Sodium Chloride) 500 mls @ 333.3 mls/hr IV DAILY [facility] Last Admin: 07/08/17 10:07 Dose: 333 mls/hr Sodium Chloride (Sodium Chloride 0.9%) 250 mls @ 20 mls/hr IV .[id number] [facility] Last Admin: 07/08/17 10:08 Dose: Not Given Norepinephrine Bitartrate 16 (mg/ Sodium Chloride) 250 mls @ 9.37 mls/hr IV Q24HP PRN; Protocol; 10 MCG/MIN PRN Reason: Hypotension Iron Carb/Multivit/Civil Structural Engineer/Folic Acid (Multivitamin W/Minerals) 1 tab PO DAILY [facility] Last Admin: 07/08/17 10:07 Dose: Not Given Lorazepam (Ativan) 0.5 mg PO PRN PRN PRN Reason: Anxiety Magnesium Hydroxide (Milk Of Magnesia) 30 ml PO DAILYP PRN PRN Reason: Constipation Methylprednisolone Sodium Succinate (Solu-Medrol) 62.5 mg IV Q8 [facility] Last Admin: 07/08/17 05:37 Dose: 62.5 mg Naloxone HCl (Narcan) 0.1 mg IV Q2MIN PRN PRN Reason: Opiate Reversal Olanzapine (Zyprexa) 15 mg PO HS [facility] Last Admin: 07/07/17 20:04 Dose: Not Given Ondansetron HCl (Zofran) 4 mg IV Q4-6HP PRN PRN Reason: Nausea And Vomiting Fluocinolone Acetonide [Synalar] 0.01% Topical Solution 1 dose TOPICAL QDAY [facility] Last Admin: 07/08/17 10:07 Dose: Not Given Fluticasone Propionate [Cutivate ] 0.05% Cream 1 dose TOPICAL BIDP PRN PRN Reason: Itching Sodium Chloride (Saline Flush) 10 ml IV Q8 [facility] Last Admin: 07/08/17 05:37 Dose: 10 ml Tamsulosin HCl (Flomax) 0.4 mg PO QHS [facility] Last Admin: 07/07/17 20:04 Dose: Not Given Vancomycin HCl (Vancomycin Per Pharmacy) 1 order IV UD [facility] Medical - PN: A/P - Time Spent With Patient Total time spent is greater than 50% in coordination of care (as documented) at patient's floor/unit and/or counseling patient: - Narrative A/P Narrative: A/P Narrative: Severe Sepsis: Low BP on presentation, improved with treatment, off pressors now. but patient still critical thrombocytopenia: due to sepsis, count at 39, d/c lovenox and consider fondaparinaux. Aspiration pneumonia-continue to treat with vanco and imipenum for now. microbiology noted, growing mrsa. stop imipenu, add rocephin / flagyl for pna. ARDS/ Acute hypoxic REspiratory failure: secondary to aspiratin pna, status not much changed from yesterday, on bipap now, with good oxygenation. continue same for now. wean off bipap as tolerated. Bactermia:patient's blood cultures is positive for gram-positive cocci,his wound cultures are positive for staph aureus, sputum culture positive for staph aureus, urine culture positive for staph aureus. he remains on vancomycin. MRSA noted continue vancomycin. repeat cultures today, if remain positive get Echo. COPD exacerbation: duo nebs for now. IV Solu-Medrol. wean off dose of steroids to 60 q12 h Renal failure-creatinine is 1.2, urine output ok monitor closely Psoriasis-patient is on methotrexate for same hold methotrexate for now given acute infection. Cellulitis-of the right upper extremity, but it extremity is still swollen and is warm as well as has some erythema. The vancomycin and imipenem should cover the infection, duplex neg for dvt Lower extremity swelling-chr issue, dvt scan neg recently, likely from low albumin. Elevated alkaline phosphatase- monitor for now, consider liver ultrasound if improves. hyperkalemia/ Hyperphosphatemia: K normal, Phos improving, monitor. severe malnutrition-albumin is 1.9 improve nurtional status. NPO for now, consider starting diet once more awake. Dementia/ Schizophremia: received home medications of olanzapine as well as divalproex. Fall precautions. (none of meds given as pt is in bipap unable to swallow) h/o bladder cancer: follows with Dr Best DVT prophylaxis, arixtra Diet NPO OT/ PT eval Very Poor prognosis, in light of severe sepsis, multisystem organ failure. Discussed same with the family. Medical - PN: Qual - VTE Deep Vein Thrombosis/Pulmonary Embolism Present on Admission: No
[2017-07-08] MEDS: cefTRIAXone 1 GM in DEXTROSE 5% IN WATER 50 ML IV SCH (11:35)
[2017-07-08] MEDS: metroNIDAZOLE 500 MG/100 ML BAG IV SCH ×2 (12:00→22:03)
[2017-07-08] MEDS: HYDROmorphone 2 MG/ML SYRINGE IV PRN ×2 (15:18→21:11)
--- NOTE | 2017-07-08 15:27 | Cat Scan Report ---
CLINICAL INFORMATION: Pleural effusions. Sepsis. History of pneumonia. COMPARISON: Multiple previous chest x-rays including examinations dated 07/07/2017, 07/05/2017, 11/15/2015 TECHNIQUE: Axial noncontrast enhanced images through the chest. Sagittally and coronally reformatted images. MIP reformatted images. FINDINGS: Large bilateral pleural fluid collections, right larger than left. Fluid collections appear loculated with pleural thickening and convex pleural collections. There is significant right lower lobe volume loss. There are patchy infiltrates bilaterally, specially in the left upper lobe and lingula. Findings are consistent with pneumonia. There is a round mass in the superior segment of the left lower lobe. This measures 24 x 21 x 22 mm. This may be consolidated lung consistent with pneumonia. Neoplasm, however, is not excluded. Follow-up examination is recommended. There is a 12 mm right upper lobe rounded density with minimal cavitation. There are small subpleural densities bilaterally, several demonstrating central cavitation. Appearance is probably secondary to inflammatory disease. Fungal disease or mycobacterium are possible. No significant pericardial fluid. There is nonspecific mediastinal lymphadenopathy. No significant axillary or supraclavicular adenopathy. Esophagus is dilated and contains semisolid material. Distal esophageal mass is not excluded. Moderate compression deformity of the T6 vertebral body. No lytic lesion. There are healed left rib fractures. No lytic lesions. No evidence for metastatic disease. Sternum is negative. Images to the upper abdomen demonstrate mild ascites. There is density in the gallbladder fossa. This is consistent with densely calcified gallstone. IMPRESSION: 1. Bilateral pleural effusions, right greater than left. Appearance consistent with loculation. 2. Multiple subpleural pulmonary parenchymal densities with cavitation. Appearance is consistent with inflammatory disease. 3. Noncalcified mass in the superior segment left lower lobe. This may be due to pneumonia but neoplasm is possible 4. Nonspecific mediastinal adenopathy. 5. Esophageal dilatation. The esophagus containing semisolid material consistent with fluid. Distal esophageal mass is not excluded 6. Bilateral pulmonary parenchymal infiltrates consistent with pneumonia Interpreted and Authenticated by: Glen Tejada 07/08/17
[2017-07-08] MEDS ORDERED: TUBERCULIN PURIF PROT DERIV ID ONE (15:30)
[2017-07-08] MEDS: DEXTROSE 5%-NS 1,000 ML IV SCH (19:34)
[2017-07-08] MEDS: TAMSULOSIN 0.4 MG CAPSULE PO SCH (20:45)
[2017-07-08] MEDS: DIVALPROEX SODIUM 250 MG TAB.ER.24H PO SCH (20:45)
[2017-07-08] MEDS: OLANZapine 5 MG TABLET PO SCH (20:46)
[2017-07-08] MEDS: FAMOTIDINE/PF 20 MG/2 ML VIAL IV SCH (20:51)
[2017-07-09] MEDS: IPRATROPIUM/ALBUTEROL 3 ML AMPUL.NEB NEB SCH ×6 (03:23→23:11)
[2017-07-09] MEDS: HYDROmorphone 2 MG/ML SYRINGE IV PRN ×3 (05:23→21:08)
[2017-07-09] MEDS: metroNIDAZOLE 500 MG/100 ML BAG IV SCH ×3 (05:24→22:04)
[2017-07-09] MEDS: 0.9 % SODIUM CHLORIDE 10 ML SYRINGE IV SCH ×3 (05:25→22:04)
[2017-07-09] MEDS: DEXTROSE 5%-NS 1,000 ML IV SCH (05:25)
[2017-07-09 06:51] LABS: Basophils # (Auto) 0 K/mcL (0.0-0.3); Basophils % (Auto) 0 % (0.0-2.0); Eosinophils # (Auto) 0 K/mcL (0.0-0.7); Eosinophils % (Auto) 0 % (0.0-7.0); Granulocytes % (Auto) 92.6 % (38.0-78.0); Lymphocytes # (Auto) 0.6 K/mcL (1.5-4.8); Lymphocytes % (Auto) 3.7 % (15.5-49.0); Mean Cell Volume 104.5 fL (80.0-100.0); Mean Corpuscular HGB Conc 33.2 g/dL (31.0-36.0); Mean Corpuscular Hemoglobin 34.7 pg (26.0-34.0); Monocytes # (Auto) 0.6 K/mcL (0.1-0.9); Monocytes % (Auto) 3.7 % (1.0-12.0); Platelet Count 51 K/mcL (140-440); RBC 3.18 M/mcL (4.50-5.90); Red Cell Distribution Width 18.3 % (11.5-14.5)
[2017-07-09 08:59] LABS: ALT/SGPT 29 U/l (0-40); Albumin/Globulin Ratio 0.6 (1.0-2.3); Alkaline Phosphatase 274 U/L (39-117); Bilirubin,Direct 0.3 mg/dL (0.0-0.3); Blood Urea Nitrogen 54 mg/dl (8-23); Gamma Glutamyl Transpeptidase 204 U/L (8-61); Magnesium 2.5 mg/dL (1.6-2.5); Uric Acid 9.2 mg/dL (2.5-8.0)
[2017-07-09] MEDS: FOLIC ACID 1 MG TABLET PO SCH (09:28)
[2017-07-09] MEDS: MULTIVIT,THER IRON,CA,FA & MIN 1 TABLET PO SCH (09:28)
[2017-07-09] MEDS: DIVALPROEX 125 MG CAP.SPRINK PO SCH (09:28)
[2017-07-09] MEDS: FLUOCINOLONE ACETONIDE 0.01% TOPICAL SCH (09:29)
[2017-07-09] MEDS: cefTRIAXone 1 GM in DEXTROSE 5% IN WATER 50 ML IV SCH (09:38)
[2017-07-09] MEDS: VANCOMYCIN 1,500 MG in 0.9 % SODIUM CHLORIDE 500 ML IV SCH (09:39)
[2017-07-09] MEDS: methylPREDNISolone SOD SUCC 125 MG/2 ML VIAL IV SCH ×2 (09:39→20:52)
[2017-07-09] MEDS: 0.9 % SODIUM CHLORIDE 250 ML IV SCH ×2 (11:57→22:08)
--- NOTE | 2017-07-09 12:18 | XRay Report ---
CLINICAL INFORMATION: Feeding tube placement TECHNIQUE: AP portable supine abdomen COMPARISON: None. FINDINGS: Metallic tip feeding tube with its tip in the body of the stomach. Lung bases are abnormal with evidence for pleural fluid and bibasilar infiltrates IMPRESSION: Feeding tube with in the stomach Interpreted and Authenticated by: Glen Tejada 07/09/17
--- NOTE | 2017-07-09 13:09 | Internal Med Progress Note ---
Medical - PN: Subj Patient information: Note initiated : 07/09/17 at 12:56 pm Service Date, if different from initiated Date: [] Patient: Rodriguez Scales a 72 y/o M admitted on 07/05/17 for SOB/Sepsis, Pneumonia, Cellulitis. Chief Complaint: [] Interval history: Mr. Scales is a 72 year old Male with h/o dementia, normal pressure hydrocephalus, schizophrenia, presently living in an assisted living facility, presents to the ER because of altered mentation and shortness of breath. The patient is accompanied byI believe his oybljfs-oo-ffi who is a retired internal medicine physician. the patient has had history of recurrent falls going on for the last few weeks, fall 2 weeks ago resulted in some abrasions in his right lower extremity as well as right upper extremity, one of the abrasions got secondarily infected and his primary care physician had placed the patient on Bactrim for same. The patient's cellulitis was somewhat better. This afternoon when the brother-in- law, i.e., the physician. went to to evaluate the patient, he noticed that the patient was not himself was more confused and also had difficulty in breathing. There was significant amount of conducted breath sounds. The patient was therefore brought to the hospital for further evaluation. in the emergency room, the patient was noted to be hypoxic on presentation and his blood pressure was borderline low with systolic in the 80s,the patient's heart rate was around in the 90s However, the patient was afebrile. Chest x- ray was done which showed bibasal infiltrates as well as effusion suggesting aspiration pneumonia. The labs are significant for white blood cell count of 32 ,000. his hemoglobin is 12, and platelets are 44. Sodium is 133, potassium 5.1 , bicarbonate 25, creatinine is 1.4 and glucose of 132, magnesium is 3.0. Patient has an elevated lactic acid of 2.6. His alkaline phosphatase is elevated at 345. However, the patient's [id number] noted that this likely is chronically elevated. Patient has low albumin of 2.2. I reviewed the advanced directives with the patient's [id number]-glp, who noted that he talked to his who is also the patient's power of energy attorney and confirm that the patient is DNR. However, they're okay with antibiotics, pressors and BiPAP if necessary Overnight the patient after coming to the floor desaturated and became hypotensive, Central line was placed and pressors started, pt was obtunded overnight saturating 95% on 100% via NRB. 07/06: patient seen, examined, overnight events noted. Patient's WBC count continues to trend up, peripheral smear reviewed, platelets stable, the patient' s temperature is now in the normal range, patient is hyperkalemic and has elevated phosphate, CK level is normal, patient becomes hypoxic on minimal movement, unstable to go for a CT scan. I had a meeting with the family members and the power of energy attorney for the patient today, explaining them the poor prognosis, as well as expectation for medical management. At this point in time, they wish to continue with aggressive medical management short of intubation or CPR. They are waiting for family and was to arrive so they can take a final decision. 07/07: Patient seen examined, overnight events noted, pt was hypoxic much of the night, needing to clear secretions by suction. His bp is stable now, not needing pressors any more, WBC count is trending down. patient mental status is improved and he was able to follow commands and grasp my hand. Patient X ray chest is unchanged from before with wilton pna, effusions. Hyperkalemia resolved, phosphorus coming down. Given some improvement in patients mental status and the fact that he was 80-84% on 100% oxygen. we placed him on bipap today. he was not a candidate for bipap yesterday due to very poor mental status and increased secretions. Secretions are still there but I am hoping that he will respond to bipap as we have not other reasonable alternative. Patient condition with DR gao as well as the patients children. AT this time there seems to be a bit of difference of opinion on what needs be done. Patient respiratory status is needing support via bipap, but his hemodynamic status has improved and infection seems to be improving. It seems patients sister is the power of energy attorney. At this time as per my conversation with Dr Gao, plan is to give patient another day and see how he does. 07/08: patient seen examined, patient bit more awake today, obeyed commands to grasp hand, did not move his legs much but was responsive to touch and deep stimuli to extremities. The patient is on bipap still was on 50% fio2, will cut back to 30 and see if he is able to maintain his oxygen saturations No acute events. Family to still decide on overall course of treatment, at present to continue with medical management. Given that all his cultures are mrsa, will stop imipenum today, but add rocephin and flagyl to cover for pna/ aspiration. Platlet counts dropped, no acute bleed, no need for platlet transfusions yet. 07/09: Patient seen examined, overnight events not ed. I had a long discussion with the family members yesterday PM regarding the patients clinical condition and new findings. The patient has wilton loculated effusions which need to be drained. the patient has some cavitary lesions likely secondary due to mrsa pna. Patient family understood the patients clinical condition and wish to proceed with placement of pig tail cath if possible. They are aware that the patient will need multiple procedure to drain the fluid. they want to look at the patients condition on a case by case basis. The patient platlets are low and he is intermittently oozing from the Cental line site, therefore placement of chest tube/ pig tail catheter is deferred at thsi time. Platlets are at 51 today, plan to just drain the largest fluid collection for now and then reassess. Patient echo neg for endocarditis. Pt mental condition apperas better, he is able to follow commands, he briefly desaturated this AM needing bipap for a few hours, but is back on oxygen va nasal mask. Overall prognosis remains poor family aware of same. Pertinent ROS: unable - Constitutional Vitals: Vital Signs Temp Pulse Resp BP Pulse Ox 98.2 F 117 H 22 101/60 89 L 07/09/17 12:00 07/09/17 12:00 07/09/17 12:00 07/09/17 11:01 07/09/17 12:00 Period Temp Pulse Resp BP Sys/Navarro Pulse Ox Last 24 Hr 97.3 F-98.9 F 81-158 9-42 93-141/53-115 88-98 Intake and Output 07/08/17 07/09/17 07/09/17 21:59 05:59 13:59 Intake Total 400 / 400 1085 / 1085 Output Total 540 / 540 1145 / 1145 550 / 550 Balance -140 / -140 -60 / -60 -550 / -550 Weight 183 lb Intake & Output: Intake & Output 07/08/17 07/09/17 07/09/17 21:59 05:59 13:59 Intake Total 400 / 400 1085 / 1085 Output Total 540 / 540 1145 / 1145 550 / 550 Balance -140 / -140 -60 / -60 -550 / -550 Weight 183 lb Intake: IV 100 / 100 1085 / 1085 Dextrose 5%-Ns IV 985 / 985 Solution 1,000 ml @ 100 mls/hr IV .Q10H [facility] Rx#: [id number] Oral 300 / 300 Output: Urine Catheter Amount 540 / 540 1145 / 1145 550 / 550 Other: # of times incontinent of 1 Bowels Exam: Constitutional; Afebrile, cooperative, alert, not in distress. Eyes- No icterus, , No periorbital swelling Ears- Ext ear normal, Neck- Midline trachea, supple Respiratory system: Air Entry decreased bibasilar, left > right, bilbasilar crackles CVS- Rate rhythm regular, S1,S2 heard, no gallop, no rub. Abdomen- Soft nontender abdomen, no organomegaly, no tenderness, no guarding or rigidity, [employer]- AOOx1, moving all extremities, no gross focal deficit noted. Medical - PN: Obj Da - Labs CBC & Chem 7: 07/09/17 04:00 07/09/17 04:00 Labs: Abnormal Lab Results 07/09/17 07/09/17 07/09/17 08:10 08:10 04:00 WBC RBC Hgb Hct MCV MCH RDW Plt Count Gran % Lymph % (Auto) Gran # Lymph # (Auto) PT 16.9 H INR 1.3 H Sodium 152 H Chloride 113 H BUN 54 H Creatinine Glucose 111 H Uric Acid 9.2 H Phosphorus 4.6 H GGT 204 H Alkaline Phosphatase 274 H Lactate Dehydrogenase 267 H Total Protein 5.1 L Albumin 2.0 L Globulin Albumin/Globulin Ratio 0.6 L Vancomycin Trough 18.0 H 07/09/17 07/08/17 07/08/17 04:00 04:00 04:00 WBC 15.2 H 18.0 H RBC 3.18 L 3.45 L Hgb 11.0 L 12.1 L Hct 33.2 L 36.0 L MCV 104.5 H 104.4 H MCH 34.7 H 34.9 H RDW 18.3 H 18.0 H Plt Count 51 L 39 L* Gran % 92.6 H 93.3 H Lymph % (Auto) 3.7 L 3.6 L Gran # 14.1 H 16.7 H Lymph # (Auto) 0.6 L 0.6 L PT INR Sodium Chloride BUN 53 H Creatinine Glucose 112 H Uric Acid 8.5 H Phosphorus 5.5 H GGT 179 H Alkaline Phosphatase 309 H Lactate Dehydrogenase 312 H Total Protein 5.6 L Albumin 1.8 L Globulin 3.8 H Albumin/Globulin Ratio 0.5 L Vancomycin Trough 07/07/17 07/07/17 07/07/17 08:00 04:00 04:00 WBC 24.4 H RBC 3.47 L Hgb 12.0 L Hct 36.3 L MCV 104.5 H MCH 34.6 H RDW 17.9 H Plt Count 45 L* Gran % 93.0 H Lymph % (Auto) 4.2 L Gran # 22.7 H Lymph # (Auto) 1.0 L PT INR Sodium Chloride BUN 42 H Creatinine 1.4 H Glucose Uric Acid Phosphorus 6.9 H* GGT 148 H Alkaline Phosphatase 315 H Lactate Dehydrogenase 267 H Total Protein 5.4 L Albumin 1.9 L Globulin Albumin/Globulin Ratio 0.5 L Vancomycin Trough 17.0 H Meds: Medications Acetaminophen (Tylenol) 650 mg PO Q4-6HP PRN PRN Reason: PAIN/FEVER > 101 Albuterol/Ipratropium (Duoneb) 3 ml NEB Q4HRT [facility] Last Admin: 07/09/17 11:08 Dose: 3 ml Divalproex Sodium (Depakote Er) 500 mg PO [facility] Last Admin: 07/08/17 20:45 Dose: Not Given Divalproex Sodium (Depakote Sprinkles) 375 mg PO DAILY [facility] Last Admin: 07/09/17 09:28 Dose: Not Given Famotidine (Pepcid) 20 mg IV [facility] Last Admin: 07/08/17 20:51 Dose: 20 mg Folic Acid (Folic Acid) 1 mg PO QDAY [facility] Last Admin: 07/09/17 09:28 Dose: Not Given Fondaparinux (Arixtra) 2.5 mg SQ DAILY [facility] Hydromorphone HCl (Dilaudid) 0.5 mg IV Q2HP PRN PRN Reason: Pain Last Admin: 07/09/17 10:39 Dose: 0.5 mg Vancomycin HCl 1,500 mg/ (Sodium Chloride) 500 mls @ 333.3 mls/hr IV DAILY [facility] Last Admin: 07/09/17 09:39 Dose: 333 mls/hr Sodium Chloride (Sodium Chloride 0.9%) 250 mls @ 20 mls/hr IV .[id number] [facility] Last Admin: 07/09/17 11:57 Dose: Not Given Norepinephrine Bitartrate 16 (mg/ Sodium Chloride) 250 mls @ 9.37 mls/hr IV Q24HP PRN; Protocol; 10 MCG/MIN PRN Reason: Hypotension Ceftriaxone Sodium 1 gm/ (Dextrose) 50 mls @ 100 mls/hr IV Q24H [facility] Last Admin: 07/09/17 09:38 Dose: 100 mls/hr Metronidazole (Flagyl) 500 mg in 100 mls @ 100 mls/hr IV Q8H [facility] Last Admin: 07/09/17 05:24 Dose: 100 mls/hr Iron Carb/Multivit/Proposal Consultant/Folic Acid (Multivitamin W/Minerals) 1 tab PO DAILY [facility] Last Admin: 07/09/17 09:28 Dose: Not Given Lorazepam (Ativan) 0.5 mg PO PRN PRN PRN Reason: Anxiety Magnesium Hydroxide (Milk Of Magnesia) 30 ml PO DAILYP PRN PRN Reason: Constipation Methylprednisolone Sodium Succinate (Solu-Medrol) 62.5 mg IV Q12 [facility] Last Admin: 07/09/17 09:39 Dose: 62.5 mg Naloxone HCl (Narcan) 0.1 mg IV Q2MIN PRN PRN Reason: Opiate Reversal Olanzapine (Zyprexa) 15 mg PO HS [facility] Last Admin: 07/08/17 20:46 Dose: Not Given Ondansetron HCl (Zofran) 4 mg IV Q4-6HP PRN PRN Reason: Nausea And Vomiting Fluocinolone Acetonide [Synalar] 0.01% Topical Solution 1 dose TOPICAL QDAY [facility] Last Admin: 07/09/17 09:29 Dose: Not Given Fluticasone Propionate [Cutivate ] 0.05% Cream 1 dose TOPICAL BIDP PRN PRN Reason: Itching Sodium Chloride (Saline Flush) 10 ml IV Q8 [facility] Last Admin: 07/09/17 05:25 Dose: 10 ml Tamsulosin HCl (Flomax) 0.4 mg PO QHS [facility] Last Admin: 07/08/17 20:45 Dose: Not Given Vancomycin HCl (Vancomycin Per Pharmacy) 1 order IV [facility] [place] Medical - PN: A/P - Time Spent With Patient Total time spent is greater than 50% in coordination of care (as documented) at patient's floor/unit and/or counseling patient: - Narrative A/P Narrative: A/P Narrative: Severe Sepsis: improving, bp stable, good urine output, WBC trending down, platlets is 51, monitor for now thrombocytopenia: due to sepsis, count at 51, on arixtra for now. Aspiration pneumonia-was on vanco and imipenum for now. microbiology noted, growing mrsa. stop imipenu, add rocephin / flagyl for pna. ARDS/ Acute hypoxic REspiratory failure: secondary to aspiratin pna, status not much changed from yesterday, on bipap now, with good oxygenation. continue same for now. wean off bipap as tolerated. Pt needing bipap this AM, Bactermia: on vanco, mrsa bactermia, repet cx are neg so far at 24 hrs. COPD exacerbation: duo nebs for now. IV Solu-Medrol. wean off dose of steroids to 60 q12 h Renal failure-creatinine is 1.2, urine output ok monitor closely Psoriasis-patient is on methotrexate for same hold methotrexate for now given acute infection. Cellulitis-of the right upper extremity, but it extremity is still swollen and is warm as well as has some erythema. vanco should cover the cellutlitis. Lower extremity swelling-chr issue, dvt scan neg recently, likely from low albumin. Elevated alkaline phosphatase- monitor for now, consider liver ultrasound if improves. hyperkalemia/ Hyperphosphatemia: K normal, Phos improving, monitor. severe malnutrition-albumin is low improve nutritional status. NPO for now, plance NG tube, start tube feeds as doubt pt will be able to get adequate nutrition from just soft diet. will advance diet as per ST eval. Dementia/ Schizophremia: received home medications of olanzapine as well as divalproex. Fall precautions. (none of meds given as pt is in bipap unable to swallow) h/o bladder cancer: follows with Dr Best DVT prophylaxis, arixtra Diet NPO OT/ PT eval Very Poor prognosis, in light of sepsis, wilton loculated effusion,. Discussed same with the family. althought pt is imprvoving, he can deteriorate any time. Medical - PN: Qual - VTE Deep Vein Thrombosis/Pulmonary Embolism Present on Admission: No
[2017-07-09] MEDS: FONDAPARINUX SODIUM 2.5 MG/0.5 ML SYRINGE SQ SCH (14:23)
--- NOTE | 2017-07-09 14:25 | Ultrasound Report ---
CLINICAL INFORMATION: Bilateral pleural fluid collections consistent with empyema COMPARISON: Previous CT scan dated 07/08/2017 TECHNIQUE: Informed consent was obtained. Informed consent was obtained from the family. Both hemithoraces were evaluated with ultrasound. There is bilateral pleural fluid but it is extremely loculated bilaterally with multiple septations and soft tissue abnormalities. The right posterior hemithorax was prepped with ChloraPrep. 1% lidocaine was injected. A 6 [place] safety centesis set was utilized. Approximately 80 mL maris-colored fluid was removed. The tube was adjusted multiple times but were unable to obtain any more fluid. This fluid was sent to the laboratory for requested studies and culture. Post thoracentesis chest x-rays pending FINDINGS: Attempted right thoracentesis with ultrasound guidance. There are multiple septations within the pleural space. 80 mL maris-colored fluid removed IMPRESSION: Ultrasound guided right thoracentesis Interpreted and Authenticated by: Glen Tejada 07/09/17
--- NOTE | 2017-07-09 14:39 | XRay Report ---
CLINICAL INFORMATION: Post right thoracentesis TECHNIQUE: AP portable semiupright chest x-ray COMPARISON: Previous chest x-ray dated 07/07/2017 FINDINGS: No change in left central venous catheter position. There is a feeding tube in the stomach. Bilateral pleural effusions. Bilateral parenchymal infiltrates. There is no post thoracentesis pneumothorax. IMPRESSION: No pneumothorax, status post right thoracentesis Interpreted and Authenticated by: Glen Tejada 07/09/17
[2017-07-09 15:04] LABS: pH,Body Fluid 7.82
[2017-07-09 15:18] LABS: Glucose,Pleural Fluid 67 mg/dL; LDH,Pleural Fluid 1268 U/L
[2017-07-09 15:28] LABS: Lymphocytes,Pleural Fluid 3 %; Monocytes,Pleural Fluid 3 %; Neutrophils,Pleural Fluid 75 %
[2017-07-09 15:29] LABS: Appearance,Pleural Fluid CLOUDY; Color,Pleural Fluid DARK YELLOW; Nucleated Cells,Pleural Fld 3160 /cumm; RBC,Pleural Fluid < 50000 /cumm
[2017-07-09] MEDS: TAMSULOSIN 0.4 MG CAPSULE PO SCH (20:52)
[2017-07-09] MEDS: FAMOTIDINE/PF 20 MG/2 ML VIAL IV SCH (20:52)
[2017-07-09] MEDS: OLANZapine 5 MG TABLET PO SCH (20:52)
[2017-07-09] MEDS: CHLORHEXIDINE GLUCONATE 1 ML ORAL.SOL SWABMOUTH SCH (20:53)
[2017-07-09] MEDS: DIVALPROEX SODIUM 250 MG TAB.ER.24H PO SCH (21:04)
[2017-07-10] MEDS: IPRATROPIUM/ALBUTEROL 3 ML AMPUL.NEB NEB SCH ×6 (02:47→23:00)
[2017-07-10] MEDS: HYDROmorphone 2 MG/ML SYRINGE IV PRN ×2 (02:48→21:27)
[2017-07-10] MEDS: 0.9 % SODIUM CHLORIDE 10 ML SYRINGE IV SCH ×3 (05:30→21:16)
[2017-07-10] MEDS: metroNIDAZOLE 500 MG/100 ML BAG IV SCH ×3 (05:30→21:16)
[2017-07-10 05:50] LABS: ALT/SGPT 35 U/l (0-40); Albumin 1.7 gm/dL (3.2-5.2); Albumin/Globulin Ratio 0.6 (1.0-2.3); Alkaline Phosphatase 256 U/L (39-117); Bilirubin,Direct 0.4 mg/dL (0.0-0.3); Blood Urea Nitrogen 52 mg/dl (8-23); Gamma Glutamyl Transpeptidase 225 U/L (8-61); Magnesium 2.4 mg/dL (1.6-2.5); Uric Acid 9.4 mg/dL (2.5-8.0)
[2017-07-10 07:11] LABS: Basophils # (Auto) 0 K/mcL (0.0-0.3); Basophils % (Auto) 0 % (0.0-2.0); Eosinophils # (Auto) 0.1 K/mcL (0.0-0.7); Eosinophils % (Auto) 0.7 % (0.0-7.0); Granulocytes % (Auto) 88.4 % (38.0-78.0); Lymphocytes # (Auto) 0.6 K/mcL (1.5-4.8); Lymphocytes % (Auto) 4.8 % (15.5-49.0); Mean Cell Volume 104.2 fL (80.0-100.0); Mean Corpuscular HGB Conc 32.9 g/dL (31.0-36.0); Mean Corpuscular Hemoglobin 34.3 pg (26.0-34.0); Monocytes # (Auto) 0.7 K/mcL (0.1-0.9); Monocytes % (Auto) 6.1 % (1.0-12.0); Platelet Count 74 K/mcL (140-440); RBC 2.93 M/mcL (4.50-5.90); Red Cell Distribution Width 18.3 % (11.5-14.5)
--- NOTE | 2017-07-10 07:58 | XRay Report ---
CLINICAL INFORMATION: Feeding tube placement TECHNIQUE: AP supine abdomen COMPARISON: Previous examination dated 07/09/2017 FINDINGS: Metallic tipped feeding tube in the stomach. This is essentially unchanged in position as compared with previous examination. IMPRESSION: Metallic tipped feeding tube with its tip in the body of the stomach. Interpreted and Authenticated by: Glen Tejada 07/10/17
[2017-07-10] MEDS: cefTRIAXone 1 GM in DEXTROSE 5% IN WATER 50 ML IV SCH (08:44)
[2017-07-10] MEDS: VANCOMYCIN 1,500 MG in 0.9 % SODIUM CHLORIDE 500 ML IV SCH (08:50)
[2017-07-10] MEDS: CHLORHEXIDINE GLUCONATE 1 ML ORAL.SOL SWABMOUTH SCH ×2 (08:55→21:14)
[2017-07-10] MEDS: methylPREDNISolone SOD SUCC 125 MG/2 ML VIAL IV SCH (08:58)
[2017-07-10] MEDS: FLUOCINOLONE ACETONIDE 0.01% TOPICAL SCH (09:04)
[2017-07-10] MEDS: MULTIVIT,THER IRON,CA,FA & MIN 1 TABLET PO SCH (09:04)
--- NOTE | 2017-07-10 11:05 | Internal Med Progress Note ---
Medical - PN: Subj Patient information: Note initiated : 07/10/17 at 11:02 am Service Date, if different from initiated Date: [] Patient: Rodriguez Scales a 72 y/o M admitted on 07/05/17 for SOB/Sepsis, Pneumonia, Cellulitis. Chief Complaint: [] Interval history: Mr. Scales is a 72 year old Male with h/o dementia, normal pressure hydrocephalus, schizophrenia, presently living in an assisted living facility, presents to the ER because of altered mentation and shortness of breath. The patient is accompanied byI believe his [id number] who is a retired internal medicine physician. the patient has had history of recurrent falls going on for the last few weeks, fall 2 weeks ago resulted in some abrasions in his right lower extremity as well as right upper extremity, one of the abrasions got secondarily infected and his primary care physician had placed the patient on Bactrim for same. The patient's cellulitis was somewhat better. This afternoon when the brother-in- law, i.e., the physician. went to to evaluate the patient, he noticed that the patient was not himself was more confused and also had difficulty in breathing. There was significant amount of conducted breath sounds. The patient was therefore brought to the hospital for further evaluation. in the emergency room, the patient was noted to be hypoxic on presentation and his blood pressure was borderline low with systolic in the 80s,the patient's heart rate was around in the 90s However, the patient was afebrile. Chest x- ray was done which showed bibasal infiltrates as well as effusion suggesting aspiration pneumonia. The labs are significant for white blood cell count of 32 ,000. his hemoglobin is 12, and platelets are 44. Sodium is 133, potassium 5.1 , bicarbonate 25, creatinine is 1.4 and glucose of 132, magnesium is 3.0. Patient has an elevated lactic acid of 2.6. His alkaline phosphatase is elevated at 345. However, the patient's [id number] noted that this likely is chronically elevated. Patient has low albumin of 2.2. I reviewed the advanced directives with the patient's [id number], who noted that he talked to his who is also the patient's power of avionics shop supervisor and confirm that the patient is DNR. However, they're okay with antibiotics, pressors and BiPAP if necessary Overnight the patient after coming to the floor desaturated and became hypotensive, Central line was placed and pressors started, pt was obtunded overnight saturating 95% on 100% via NRB. 07/06: patient seen, examined, overnight events noted. Patient's WBC count continues to trend up, peripheral smear reviewed, platelets stable, the patient' s temperature is now in the normal range, patient is hyperkalemic and has elevated phosphate, CK level is normal, patient becomes hypoxic on minimal movement, unstable to go for a CT scan. I had a meeting with the family members and the power of avionics shop supervisor for the patient today, explaining them the poor prognosis, as well as expectation for medical management. At this point in time, they wish to continue with aggressive medical management short of intubation or CPR. They are waiting for family and was to arrive so they can take a final decision. 07/07: Patient seen examined, overnight events noted, pt was hypoxic much of the night, needing to clear secretions by suction. His bp is stable now, not needing pressors any more, WBC count is trending down. patient mental status is improved and he was able to follow commands and grasp my hand. Patient X ray chest is unchanged from before with amanda pna, effusions. Hyperkalemia resolved, phosphorus coming down. Given some improvement in patients mental status and the fact that he was 80-84% on 100% oxygen. we placed him on bipap today. he was not a candidate for bipap yesterday due to very poor mental status and increased secretions. Secretions are still there but I am hoping that he will respond to bipap as we have not other reasonable alternative. Patient condition with DR gao as well as the patients children. AT this time there seems to be a bit of difference of opinion on what needs be done. Patient respiratory status is needing support via bipap, but his hemodynamic status has improved and infection seems to be improving. It seems patients sister is the power of avionics shop supervisor. At this time as per my conversation with Dr Gao, plan is to give patient another day and see how he does. 07/08: patient seen examined, patient bit more awake today, obeyed commands to grasp hand, did not move his legs much but was responsive to touch and deep stimuli to extremities. The patient is on bipap still was on 50% fio2, will cut back to 30 and see if he is able to maintain his oxygen saturations No acute events. Family to still decide on overall course of treatment, at present to continue with medical management. Given that all his cultures are mrsa, will stop imipenum today, but add rocephin and flagyl to cover for pna/ aspiration. Platlet counts dropped, no acute bleed, no need for platlet transfusions yet. 07/09: Patient seen examined, overnight events not ed. I had a long discussion with the family members yesterday PM regarding the patients clinical condition and new findings. The patient has amanda loculated effusions which need to be drained. the patient has some cavitary lesions likely secondary due to mrsa pna. Patient family understood the patients clinical condition and wish to proceed with placement of pig tail cath if possible. They are aware that the patient will need multiple procedure to drain the fluid. they want to look at the patients condition on a case by case basis. The patient platlets are low and he is intermittently oozing from the Cental line site, therefore placement of chest tube/ pig tail catheter is deferred at thsi time. Platlets are at 51 today, plan to just drain the largest fluid collection for now and then reassess. Patient echo neg for endocarditis. Pt mental condition apperas better, he is able to follow commands, he briefly desaturated this AM needing bipap for a few hours, but is back on oxygen va nasal mask. Overall prognosis remains poor family aware of same. 07/10: patient seen examined, overnight events reviewed, he tried to remove his NG tube overnight, this was placed back, repeat X ray is neg. Discussed with radiology regarding tapping him again, but as per the radiologist he is not a good candidate given there are many loculations and only diagnostic taps can be done, therapeutic tap is not possible given lots of fibrous tissue and loculations. Will see if Chest tubes are possible, will review case with surgery patient clinically improving, platlets are better, bp stable, and oxygen need is stable, however he still has amanda loculated effusions which need to be drained and if not possible then will just treat with antibiotics and see how he does. Pleural fluid culture is positive for staph mrsa. The patient now seems more agitated as he is more awake, will try to see if we can resume his oral meds. Pertinent ROS: unable. - Constitutional Vitals: Vital Signs Temp Pulse Resp BP Pulse Ox 97.8 F 87 21 98/58 85 L 07/10/17 04:01 07/10/17 09:10 07/10/17 09:10 07/10/17 09:01 07/10/17 09:10 Period Temp Pulse Resp BP Sys/[place] Pulse Ox Last 24 Hr 97.6 F-98.4 F 77-117 8-25 98-144/53-96 85-99 Intake and Output 07/09/17 07/10/17 07/10/17 21:59 05:59 13:59 Intake Total 100 / 100 260 / 260 Output Total 610 / 610 1100 / 1100 750 / 750 Balance -510 / -510 -840 / -840 -750 / -750 Weight 184 lb 3.2 oz Intake & Output: Intake & Output 07/09/17 07/10/17 07/10/17 21:59 05:59 13:59 Intake Total 100 / 100 260 / 260 Output Total 610 / 610 1100 / 1100 750 / 750 Balance -510 / -510 -840 / -840 -750 / -750 Weight 184 lb 3.2 oz Intake: IV 100 / 100 100 / 100 GI Tube Flush 160 / 160 Output: Urine Catheter Amount 610 / 610 1100 / 1100 750 / 750 Exam: Constitutional; Afebrile, awake, intermittently cooperative not in distress. Eyes- No icterus, , No periorbital swelling Ears- Ext ear normal, Neck- Midline trachea, supple Respiratory system: Air Entry equal on both sides decreased at both bases, amanda basilar crackles No wheezing, no rhonchi. CVS- Rate rhythm regular, S1,S2 heard, no gallop, no rub. 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 Medical - PN: Obj Da - Labs CBC & Chem 7: 07/10/17 06:30 07/10/17 04:00 Labs: Abnormal Lab Results 07/10/17 07/10/17 07/09/17 06:30 04:00 08:10 WBC 11.7 H RBC 2.93 L Hgb 10.1 L Hct 30.5 L MCV 104.2 H MCH 34.3 H RDW 18.3 H Plt Count 74 L MPV 10.9 H Gran % 88.4 H Lymph % (Auto) 4.8 L Gran # 10.4 H Lymph # (Auto) 0.6 L PT 16.9 H INR 1.3 H Sodium 155 H Chloride 120 H BUN 52 H Glucose 127 H Uric Acid 9.4 H Phosphorus Direct Bilirubin 0.4 H GGT 225 H AST 42 H Alkaline Phosphatase 256 H Lactate Dehydrogenase Total Protein 4.7 L Albumin 1.7 L Globulin Albumin/Globulin Ratio 0.6 L Vancomycin Trough 07/09/17 07/09/17 07/09/17 08:10 04:00 04:00 WBC 15.2 H RBC 3.18 L Hgb 11.0 L Hct 33.2 L MCV 104.5 H MCH 34.7 H RDW 18.3 H Plt Count 51 L MPV Gran % 92.6 H Lymph % (Auto) 3.7 L Gran # 14.1 H Lymph # (Auto) 0.6 L PT INR Sodium 152 H Chloride 113 H BUN 54 H Glucose 111 H Uric Acid 9.2 H Phosphorus 4.6 H Direct Bilirubin GGT 204 H AST Alkaline Phosphatase 274 H Lactate Dehydrogenase 267 H Total Protein 5.1 L Albumin 2.0 L Globulin Albumin/Globulin Ratio 0.6 L Vancomycin Trough 18.0 H 07/08/17 07/08/17 04:00 04:00 WBC 18.0 H RBC 3.45 L Hgb 12.1 L Hct 36.0 L MCV 104.4 H MCH 34.9 H RDW 18.0 H Plt Count 39 L* MPV Gran % 93.3 H Lymph % (Auto) 3.6 L Gran # 16.7 H Lymph # (Auto) 0.6 L PT INR Sodium Chloride BUN 53 H Glucose 112 H Uric Acid 8.5 H Phosphorus 5.5 H Direct Bilirubin GGT 179 H AST Alkaline Phosphatase 309 H Lactate Dehydrogenase 312 H Total Protein 5.6 L Albumin 1.8 L Globulin 3.8 H Albumin/Globulin Ratio 0.5 L Vancomycin Trough Meds: Medications Acetaminophen (Tylenol) 650 mg PO Q4-6HP PRN PRN Reason: PAIN/FEVER > 101 Albuterol/Ipratropium (Duoneb) 3 ml NEB Q4HRT [facility] Last Admin: 07/10/17 07:26 Dose: 3 ml Chlorhexidine Gluconate (Peridex) 15 ml SWABMOUTH BID [facility] Last Admin: 07/10/17 08:55 Dose: 15 ml Divalproex Sodium (Depakote Er) 500 mg PO HS [facility] Last Admin: 07/09/17 21:04 Dose: Not Given Divalproex Sodium (Depakote Sprinkles) 375 mg PO DAILY [facility] Last Admin: 07/09/17 09:28 Dose: Not Given Famotidine (Pepcid) 20 mg IV HS [facility] Last Admin: 07/09/17 20:52 Dose: 20 mg Folic Acid (Folic Acid) 1 mg PO QDAY [facility] Last Admin: 07/09/17 09:28 Dose: Not Given Fondaparinux (Arixtra) 2.5 mg SQ DAILY [facility] Last Admin: 07/09/17 14:23 Dose: 2.5 mg Hydromorphone HCl (Dilaudid) 0.5 mg IV Q2HP PRN PRN Reason: Pain Last Admin: 07/10/17 02:48 Dose: 0.5 mg Vancomycin HCl 1,500 mg/ (Sodium Chloride) 500 mls @ 333.3 mls/hr IV DAILY [facility] Last Admin: 07/10/17 08:50 Dose: 333 mls/hr Sodium Chloride (Sodium Chloride 0.9%) 250 mls @ 20 mls/hr IV .[id number] [facility] Last Admin: 07/09/17 22:08 Dose: Not Given Norepinephrine Bitartrate 16 (mg/ Sodium Chloride) 250 mls @ 9.37 mls/hr IV Q24HP PRN; Protocol; 10 MCG/MIN PRN Reason: Hypotension Ceftriaxone Sodium 1 gm/ (Dextrose) 50 mls @ 100 mls/hr IV Q24H [facility] Last Admin: 07/10/17 08:44 Dose: 100 mls/hr Metronidazole (Flagyl) 500 mg in 100 mls @ 100 mls/hr IV Q8H [facility] Last Admin: 07/10/17 05:30 Dose: 100 mls/hr Iron Carb/Multivit/[place]/Folic Acid (Multivitamin W/Minerals) 1 tab PO DAILY [facility] Last Admin: 07/10/17 09:04 Dose: Not Given Lorazepam (Ativan) 0.5 mg PO PRN PRN PRN Reason: Anxiety Magnesium Hydroxide (Milk Of Magnesia) 30 ml PO DAILYP PRN PRN Reason: Constipation Methylprednisolone Sodium Succinate (Solu-Medrol) 62.5 mg IV QDAY [facility] Naloxone HCl (Narcan) 0.1 mg IV Q2MIN PRN PRN Reason: Opiate Reversal Olanzapine (Zyprexa) 15 mg PO HS [facility] Last Admin: 07/09/17 20:52 Dose: 15 mg Ondansetron HCl (Zofran) 4 mg IV Q4-6HP PRN PRN Reason: Nausea And Vomiting Fluocinolone Acetonide [Synalar] 0.01% Topical Solution 1 dose TOPICAL QDAY [facility] Last Admin: 07/10/17 09:04 Dose: Not Given Fluticasone Propionate [Cutivate ] 0.05% Cream 1 dose TOPICAL BIDP PRN PRN Reason: Itching Sodium Chloride (Saline Flush) 10 ml IV Q8 [facility] Last Admin: 07/10/17 05:30 Dose: 10 ml Tamsulosin HCl (Flomax) 0.4 mg PO QHS [facility] Last Admin: 07/09/17 20:52 Dose: 0.4 mg Vancomycin HCl (Vancomycin Per Pharmacy) 1 order IV [facility] Medical - PN: A/P - Time Spent With Patient Total time spent is greater than 50% in coordination of care (as documented) at patient's floor/unit and/or counseling patient: - Narrative A/P Narrative: A/P Narrative: Severe Sepsis: improving, bp stable, good urine output, WBC trending down, platlets improving > 70 now. thrombocytopenia: due to sepsis, count > 70 on arixtra for now. Aspiration pneumonia-was on vanco and rocephin and flagyl (possible aspiration component), will continue same for now, clinically improving. Amanda loculated pleural effusions: infected with multiple loculations, see if we can place chest tubes, if not will just have to treat medically. ARDS/ Acute hypoxic Respiratory failure: secondary to aspiration pna, on 4-6L oxygen via NC< prn bipap. Bactermia: on vanco, mrsa bactermia, repet cx are neg so far at 48 hrs COPD exacerbation: duo nebs for now. IV Solu-Medrol. wean off dose of steroids to 60 qd Renal failure-creatinine is stable good urine output Hypernatremia: noted on labs, recheck, if actual, start on free water bolus, via NG feeds. Psoriasis-patient is on methotrexate for same hold methotrexate for now given acute infection. Cellulitis-of the right upper extremity,dvt is neg, on vancomycin. Lower extremity swelling-chr issue, dvt scan neg recently, likely from low albumin. Elevated alkaline phosphatase- monitor for now, consider liver ultrasound if improves. hyperkalemia/ Hyperphosphatemia: K normal, Phos improving, monitor. severe malnutrition-albumin is low improve nutritional status. resumed feeding via NG tube. Dementia/ Schizophremia: received home medications of olanzapine as well as divalproex. Fall precautions. (none of meds given as pt is in bipap unable to swallow) try to resume same now. h/o bladder cancer: follows with Dr Best DVT prophylaxis, arixtra Diet NPO OT/ PT eval Medical - PN: Qual - VTE Deep Vein Thrombosis/Pulmonary Embolism Present on Admission: No
[2017-07-10 11:52] LABS: Blood Urea Nitrogen 51 mg/dl (8-23)
[2017-07-10] MEDS: FONDAPARINUX SODIUM 2.5 MG/0.5 ML SYRINGE SQ SCH (13:14)
[2017-07-10] MEDS: DIVALPROEX 125 MG CAP.SPRINK PO SCH (13:15)
[2017-07-10] MEDS: 0.9 % SODIUM CHLORIDE 250 ML IV SCH ×2 (13:16→19:17)
[2017-07-10] MEDS: FOLIC ACID 1 MG TABLET PO SCH (13:16)
[2017-07-10] MEDS ORDERED: VANCOMYCIN PER PHARMACY IV SCH (15:02)
[2017-07-10] MEDS ORDERED: ACETAMINOPHEN 325 MG TABLET PO PRN (15:02)
[2017-07-10] MEDS ORDERED: NOREPINEPHRINE BITARTRATE 16 MG in 0.9 % SODIUM CHLORIDE 234 ML IV PRN (15:02)
[2017-07-10] MEDS ORDERED: NALOXONE HCL 0.4 MG/ML VIAL IV PRN (15:02)
[2017-07-10] MEDS ORDERED: ONDANSETRON 4 MG/2 ML VIAL IV PRN (15:02)
[2017-07-10] MEDS ORDERED: MAGNESIUM HYDROXIDE 30 ML ORAL.SUSP PO PRN (15:02)
[2017-07-10] MEDS ORDERED: FLUTICASONE PROPIONATE 0.05% TOPICAL PRN (15:02)
[2017-07-10] MEDS: OLANZapine 5 MG TABLET PO SCH (21:14)
[2017-07-10] MEDS: FAMOTIDINE/PF 20 MG/2 ML VIAL IV SCH (21:15)
[2017-07-10] MEDS: LORazepam 0.5 MG TABLET PO PRN (21:15)
[2017-07-10] MEDS: TAMSULOSIN 0.4 MG CAPSULE PO SCH (21:15)
[2017-07-10] MEDS: DIVALPROEX SODIUM 250 MG TAB.ER.24H PO SCH (21:18)
[2017-07-11] MEDS: 0.9 % SODIUM CHLORIDE 250 ML IV SCH ×2 (03:00→15:56)
[2017-07-11] MEDS: IPRATROPIUM/ALBUTEROL 3 ML AMPUL.NEB NEB SCH ×6 (03:01→22:50)
[2017-07-11] MEDS: metroNIDAZOLE 500 MG/100 ML BAG IV SCH ×4 (05:42→21:36)
[2017-07-11] MEDS: 0.9 % SODIUM CHLORIDE 10 ML SYRINGE IV SCH ×3 (05:46→21:37)
[2017-07-11 07:10] LABS: Basophils # (Auto) 0 K/mcL (0.0-0.3); Basophils % (Auto) 0.1 % (0.0-2.0); Eosinophils # (Auto) 0.1 K/mcL (0.0-0.7); Eosinophils % (Auto) 0.8 % (0.0-7.0); Granulocytes % (Auto) 77.2 % (38.0-78.0); Lymphocytes # (Auto) 1.8 K/mcL (1.5-4.8); Mean Cell Volume 107.5 fL (80.0-100.0); Mean Corpuscular HGB Conc 32.6 g/dL (31.0-36.0); Mean Corpuscular Hemoglobin 35.1 pg (26.0-34.0); Monocytes # (Auto) 1.2 K/mcL (0.1-0.9); Monocytes % (Auto) 8.9 % (1.0-12.0); Platelet Count 114 K/mcL (140-440); RBC 2.99 M/mcL (4.50-5.90)
[2017-07-11 07:42] LABS: ALT/SGPT 43 U/l (0-40); Albumin 2.2 gm/dL (3.2-5.2); Albumin/Globulin Ratio 0.8 (1.0-2.3); Alkaline Phosphatase 278 U/L (39-117); Bilirubin,Direct 0.3 mg/dL (0.0-0.3); Blood Urea Nitrogen 55 mg/dl (8-23); Gamma Glutamyl Transpeptidase 250 U/L (8-61); Magnesium 2.6 mg/dL (1.6-2.5); Uric Acid 8.8 mg/dL (2.5-8.0)
[2017-07-11] MEDS: 0.45 % SODIUM CHLORIDE 1,000 ML IV SCH ×2 (08:34→19:20)
[2017-07-11] MEDS ORDERED: methylPREDNISolone SOD SUCC 125 MG/2 ML VIAL IV SCH ×2 (09:00)
[2017-07-11] MEDS: CHLORHEXIDINE GLUCONATE 1 ML ORAL.SOL SWABMOUTH SCH ×2 (09:39→20:12)
[2017-07-11] MEDS: DIVALPROEX 125 MG CAP.SPRINK PO SCH (09:40)
[2017-07-11] MEDS: FONDAPARINUX SODIUM 2.5 MG/0.5 ML SYRINGE SQ SCH (09:41)
[2017-07-11] MEDS: MULTIVIT,THER IRON,CA,FA & MIN 1 TABLET PO SCH (09:41)
[2017-07-11] MEDS: FLUOCINOLONE ACETONIDE 0.01% TOPICAL SCH (09:41)
[2017-07-11] MEDS: FOLIC ACID 1 MG TABLET PO SCH (09:41)
[2017-07-11] MEDS: VANCOMYCIN 1,500 MG in 0.9 % SODIUM CHLORIDE 500 ML IV SCH (09:42)
[2017-07-11] MEDS: cefTRIAXone 1 GM in DEXTROSE 5% IN WATER 50 ML IV SCH (11:05)
--- NOTE | 2017-07-11 11:17 | Ultrasound Report ---
CLINICAL INFORMATION: Elevated liver function tests TECHNIQUE: Grayscale and color flow Doppler spectral imaging COMPARISON: Previous chest CT scan dated 07/08/2017 FINDINGS: Examination is suboptimal as the patient was unable to cooperate. Chest CT scan demonstrates a densely calcified abnormality in the gallbladder fossa. This is probably a densely calcified gallstones although the gallbladder is not identified. If this patient had a previous cholecystectomy this may be a retained stone in the gallbladder fossa or granulomatous calcification. The surrounding fat is normal. There is no fluid collection. No abscess. Present examination demonstrates an area of acoustic shadowing the gallbladder fossa corresponding in location to this density calcified abnormality. Common bile duct is not optimally visualized but appears to measure less than 4 mm in diameter. This was also normal on previous CT scan. There is no intrahepatic bile duct dilatation. No focal intrahepatic abnormalities. Liver contour is smooth without evidence for cirrhosis. No discrete mass. Mild amount of ascites in the right upper quadrant, unchanged. Normal hepatopedal portal venous flow. Pancreas is suboptimally visualized. No definite abnormality. Right pleural fluid is demonstrated. This fluid is loculated and septated. IMPRESSION: 1. Densely calcified abnormality in the gallbladder fossa, unchanged and previous CT scan dated 07/08/2017 2. Small amount of ascitic fluid. Right pleural fluid 3. No focal intrahepatic abnormality Interpreted and Authenticated by: Glen Tejada 07/11/17
--- NOTE | 2017-07-11 15:57 | Internal Med Progress Note ---
Medical - PN: Subj Patient information: Note initiated : 07/11/17 at 3:56 pm Service Date, if different from initiated Date: [] Patient: Rodriguez Scales a 72 y/o M admitted on 07/05/17 for SOB/Sepsis, Pneumonia, Cellulitis. Chief Complaint: [] Interval history: Mr. Scales is a 72 year old Male with h/o dementia, normal pressure hydrocephalus, schizophrenia, presently living in an assisted living facility, presents to the ER because of altered mentation and shortness of breath. The patient is accompanied byI believe his luwiart-et-cne who is a retired internal medicine physician. the patient has had history of recurrent falls going on for the last few weeks, fall 2 weeks ago resulted in some abrasions in his right lower extremity as well as right upper extremity, one of the abrasions got secondarily infected and his primary care physician had placed the patient on Bactrim for same. The patient's cellulitis was somewhat better. This afternoon when the brother-in- law, i.e., the physician. went to to evaluate the patient, he noticed that the patient was not himself was more confused and also had difficulty in breathing. There was significant amount of conducted breath sounds. The patient was therefore brought to the hospital for further evaluation. in the emergency room, the patient was noted to be hypoxic on presentation and his blood pressure was borderline low with systolic in the 80s,the patient's heart rate was around in the 90s However, the patient was afebrile. Chest x- ray was done which showed bibasal infiltrates as well as effusion suggesting aspiration pneumonia. The labs are significant for white blood cell count of 32 ,000. his hemoglobin is 12, and platelets are 44. Sodium is 133, potassium 5.1 , bicarbonate 25, creatinine is 1.4 and glucose of 132, magnesium is 3.0. Patient has an elevated lactic acid of 2.6. His alkaline phosphatase is elevated at 345. However, the patient's [id number] noted that this likely is chronically elevated. Patient has low albumin of 2.2. I reviewed the advanced directives with the patient's [id number], who noted that he talked to his who is also the patient's power of plasterer stucco and confirm that the patient is DNR. However, they're okay with antibiotics, pressors and BiPAP if necessary Overnight the patient after coming to the floor desaturated and became hypotensive, Central line was placed and pressors started, pt was obtunded overnight saturating 95% on 100% via NRB. 07/06: patient seen, examined, overnight events noted. Patient's WBC count continues to trend up, peripheral smear reviewed, platelets stable, the patient' s temperature is now in the normal range, patient is hyperkalemic and has elevated phosphate, CK level is normal, patient becomes hypoxic on minimal movement, unstable to go for a CT scan. I had a meeting with the family members and the power of plasterer stucco for the patient today, explaining them the poor prognosis, as well as expectation for medical management. At this point in time, they wish to continue with aggressive medical management short of intubation or CPR. They are waiting for family and was to arrive so they can take a final decision. 07/07: Patient seen examined, overnight events noted, pt was hypoxic much of the night, needing to clear secretions by suction. His bp is stable now, not needing pressors any more, WBC count is trending down. patient mental status is improved and he was able to follow commands and grasp my hand. Patient X ray chest is unchanged from before with amanda pna, effusions. Hyperkalemia resolved, phosphorus coming down. Given some improvement in patients mental status and the fact that he was 80-84% on 100% oxygen. we placed him on bipap today. he was not a candidate for bipap yesterday due to very poor mental status and increased secretions. Secretions are still there but I am hoping that he will respond to bipap as we have not other reasonable alternative. Patient condition with DR gao as well as the patients children. AT this time there seems to be a bit of difference of opinion on what needs be done. Patient respiratory status is needing support via bipap, but his hemodynamic status has improved and infection seems to be improving. It seems patients sister is the power of plasterer stucco. At this time as per my conversation with Dr Gao, plan is to give patient another day and see how he does. 07/08: patient seen examined, patient bit more awake today, obeyed commands to grasp hand, did not move his legs much but was responsive to touch and deep stimuli to extremities. The patient is on bipap still was on 50% fio2, will cut back to 30 and see if he is able to maintain his oxygen saturations No acute events. Family to still decide on overall course of treatment, at present to continue with medical management. Given that all his cultures are mrsa, will stop imipenum today, but add rocephin and flagyl to cover for pna/ aspiration. Platlet counts dropped, no acute bleed, no need for platlet transfusions yet. 07/09: Patient seen examined, overnight events not ed. I had a long discussion with the family members yesterday PM regarding the patients clinical condition and new findings. The patient has amanda loculated effusions which need to be drained. the patient has some cavitary lesions likely secondary due to mrsa pna. Patient family understood the patients clinical condition and wish to proceed with placement of pig tail cath if possible. They are aware that the patient will need multiple procedure to drain the fluid. they want to look at the patients condition on a case by case basis. The patient platelets are low and he is intermittently oozing from the Central line site, therefore placement of chest tube/ pig tail catheter is deferred at thsi time. Platelets are at 51 today, plan to just drain the largest fluid collection for now and then reassess. Patient echo neg for endocarditis. Pt mental condition appears better, he is able to follow commands, he briefly desaturated this AM needing bipap for a few hours, but is back on oxygen va nasal mask. Overall prognosis remains poor family aware of same. 07/10: patient seen examined, overnight events reviewed, he tried to remove his NG tube overnight, this was placed back, repeat X ray is neg. Discussed with radiology regarding tapping him again, but as per the radiologist he is not a good candidate given there are many loculations and only diagnostic taps can be done, therapeutic tap is not possible given lots of fibrous tissue and loculations. Will see if Chest tubes are possible, will review case with surgery patient clinically improving, platlets are better, bp stable, and oxygen need is stable, however he still has amanda loculated effusions which need to be drained and if not possible then will just treat with antibiotics and see how he does. Pleural fluid culture is positive for staph mrsa. The patient now seems more agitated as he is more awake, will try to see if we can resume his oral meds. 07/11: patient seen examined, no acute overnight events, patient sodium is creeping up, now at 160, on free water 200cc q4 hrs, started on half ns today. Recheck basic. Patient overall continues to improve, mental status much better , able to answer some questions. Denies pain. he is also trying to participate in his care. I reviewed the plan of care with the patients family today, he wound need to go to [place] for CT surgery eval and possible pleural decortication to treat the bilateral loculated effusions. The family does not wish to send the patient up to [facility] or LTAC facility [place], they want to continue with IV antibiotics and conservative management and see how he does. The patients brother in law Dr Keenan discussed this with Dr Chapman who is patients PCP. They would prefer the patient be kept here as swing bed once the patient is more stable, and then discharged to [facility]. Pertinent ROS: unable to get good ros but denies any pain. - Constitutional Vitals: Vital Signs Temp Pulse Resp BP Pulse Ox 97.5 F 88 16 110/52 92 07/11/17 15:44 07/11/17 14:40 07/11/17 15:44 07/11/17 15:44 07/11/17 15:44 Period Temp Pulse Resp BP Sys/[place] Pulse Ox Last 24 Hr 96.9 F-98.0 F 56-114 9-31 82-130/39-95 88-97 Intake and Output 07/11/17 07/11/17 07/11/17 05:59 13:59 21:59 Intake Total 220 / 220 543 / 543 7 7 Output Total 750 / 750 650 / 650 Balance -530 / -530 543 / 543 -643 / -643 Intake & Output: Intake & Output 07/11/17 07/11/17 07/11/17 05:59 13:59 21:59 Intake Total 220 / 220 543 / 543 7 Output Total 750 / 750 650 / 650 Balance -530 / -530 543 / 543 -643 / -643 Intake: IV 100 / 100 143 / 143 7 / 7 Rocephin 1 gm In Dextrose 50 / 50 5% in Water 50 ml @ 100 mls/hr IV Q24H [facility] Rx#: [id number] Oral 0 / 0 GI Tube Flush 120 / 120 400 / 400 Output: Urine Catheter Amount 750 / 750 650 / 650 Other: # of times incontinent of 1 Bowels Exam: Constitutional; Afebrile, cooperative, alert, not in distress. Eyes- No icterus, , No periorbital swelling Ears- Ext ear normal, hearing normal to conversation. Neck- Midline trachea, supple Respiratory system: Air Entry equal on both sides, cecreased bilaterally, amanda crackles at bases. no wheezing CVS- Rate rhythm regular, S1,S2 heard, no gallop, no rub. gen edema on dependent region. 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 Medical - PN: Obj Da - Labs CBC & Chem 7: 07/11/17 05:30 07/11/17 05:30 Labs: Abnormal Lab Results 07/11/17 07/11/17 07/10/17 05:30 05:30 11:05 WBC 13.7 H RBC 2.99 L Hgb 10.5 L Hct 32.1 L MCV 107.5 H MCH 35.1 H RDW 18.0 H Plt Count 114 L MPV 12.3 H Gran % Lymph % (Auto) 13.0 L Gran # 10.5 H Lymph # (Auto) [place] # (Auto) 1.2 H PT INR Sodium 160 H 154 H Chloride 124 H 121 H Anion Gap 6.0 L BUN 55 H 51 H Glucose 114 H 130 H Uric Acid 8.8 H Phosphorus Magnesium 2.6 H Direct Bilirubin GGT 250 H AST 46 H ALT 43 H Alkaline Phosphatase 278 H Lactate Dehydrogenase 252 H Total Protein 4.8 L Albumin 2.2 L Albumin/Globulin Ratio 0.8 L Vancomycin Trough 07/10/17 07/10/17 07/09/17 06:30 04:00 08:10 WBC 11.7 H RBC 2.93 L Hgb 10.1 L Hct 30.5 L MCV 104.2 H MCH 34.3 H RDW 18.3 H Plt Count 74 L MPV 10.9 H Gran % 88.4 H Lymph % (Auto) 4.8 L Gran # 10.4 H Lymph # (Auto) 0.6 L [place] # (Auto) PT 16.9 H INR 1.3 H Sodium 155 H Chloride 120 H Anion Gap BUN 52 H Glucose 127 H Uric Acid 9.4 H Phosphorus Magnesium Direct Bilirubin 0.4 H GGT 225 H AST 42 H ALT Alkaline Phosphatase 256 H Lactate Dehydrogenase Total Protein 4.7 L Albumin 1.7 L Albumin/Globulin Ratio 0.6 L Vancomycin Trough 07/09/17 07/09/17 07/09/17 08:10 04:00 04:00 WBC 15.2 H RBC 3.18 L Hgb 11.0 L Hct 33.2 L MCV 104.5 H MCH 34.7 H RDW 18.3 H Plt Count 51 L MPV Gran % 92.6 H Lymph % (Auto) 3.7 L Gran # 14.1 H Lymph # (Auto) 0.6 L [place] # (Auto) PT INR Sodium 152 H Chloride 113 H Anion Gap BUN 54 H Glucose 111 H Uric Acid 9.2 H Phosphorus 4.6 H Magnesium Direct Bilirubin GGT 204 H AST ALT Alkaline Phosphatase 274 H Lactate Dehydrogenase 267 H Total Protein 5.1 L Albumin 2.0 L Albumin/Globulin Ratio 0.6 L Vancomycin Trough 18.0 H Meds: Medications Acetaminophen (Tylenol) 650 mg PO Q4-6HP PRN PRN Reason: PAIN/FEVER > 101 Albuterol/Ipratropium (Duoneb) 3 ml NEB Q4HRT [facility] Last Admin: 07/11/17 14:40 Dose: 3 ml Chlorhexidine Gluconate (Peridex) 15 ml SWABMOUTH BID [facility] Last Admin: 07/11/17 09:39 Dose: 15 ml Divalproex Sodium (Depakote Sprinkles) 375 mg PO DAILY [facility] Last Admin: 07/11/17 09:40 Dose: 375 mg Divalproex Sodium (Depakote Er) 500 mg PO [facility] Last Admin: 07/10/17 21:18 Dose: 500 mg Famotidine (Pepcid) 20 mg IV HS [facility] Last Admin: 07/10/17 21:15 Dose: 20 mg Folic Acid (Folic Acid) 1 mg PO QDAY [facility] Last Admin: 07/11/17 09:41 Dose: 1 mg Fondaparinux (Arixtra) 2.5 mg SQ DAILY [facility] Last Admin: 07/11/17 09:41 Dose: 2.5 mg Hydromorphone HCl (Dilaudid) 0.5 mg IV Q2HP PRN PRN Reason: Pain Last Admin: 07/10/17 21:27 Dose: 0.5 mg Ceftriaxone Sodium 1 gm/ (Dextrose) 50 mls @ 100 mls/hr IV Q24H [facility] Last Infusion: 07/11/17 13:00 Dose: Infused Metronidazole (Flagyl) 500 mg in 100 mls @ 100 mls/hr IV Q8H [facility] Last Infusion: 07/11/17 14:30 Dose: Infused Norepinephrine Bitartrate 16 (mg/ Sodium Chloride) 250 mls @ 9.37 mls/hr IV Q24HP PRN; Protocol; 10 MCG/MIN PRN Reason: Hypotension Sodium Chloride (Sodium Chloride 0.9%) 250 mls @ 20 mls/hr IV .[id number] [facility] Last Admin: 07/11/17 03:00 Dose: Not Given Vancomycin HCl 1,500 mg/ (Sodium Chloride) 500 mls @ 333.3 mls/hr IV DAILY [facility] Last Admin: 07/11/17 09:42 Dose: 333.3 mls/hr Sodium Chloride (Sodium Chloride 0.45%) 1,000 mls @ 100 mls/hr IV .Q10H [facility] Last Admin: 07/11/17 08:34 Dose: 100 mls/hr Iron Carb/Multivit/[place]/Folic Acid (Multivitamin W/Minerals) 1 tab PO DAILY [facility] Last Admin: 07/11/17 09:41 Dose: 1 tab Lorazepam (Ativan) 0.5 mg PO PRN PRN PRN Reason: Anxiety Last Admin: 07/10/17 21:15 Dose: 0.5 mg Magnesium Hydroxide (Milk Of Magnesia) 30 ml PO DAILYP PRN PRN Reason: Constipation Methylprednisolone Sodium Succinate (Solu-Medrol) 62.5 mg IV QDAY [facility] Last Admin: 07/11/17 09:40 Dose: 62.5 mg Naloxone HCl (Narcan) 0.1 mg IV Q2MIN PRN PRN Reason: Opiate Reversal Olanzapine (Zyprexa) 15 mg PO HS [facility] Last Admin: 07/10/17 21:14 Dose: 15 mg Ondansetron HCl (Zofran) 4 mg IV Q4-6HP PRN PRN Reason: Nausea And Vomiting Fluticasone Propionate [Cutivate ] 0.05% Cream 1 dose TOPICAL BIDP PRN PRN Reason: Itching Fluocinolone Acetonide [Synalar] 0.01% Topical Solution 1 dose TOPICAL QDAY [facility] Last Admin: 07/11/17 09:41 Dose: Not Given Sodium Chloride (Saline Flush) 10 ml IV Q8 [facility] Last Admin: 07/11/17 05:46 Dose: 10 ml Tamsulosin HCl (Flomax) 0.4 mg PO QHS [facility] Last Admin: 07/10/17 21:15 Dose: 0.4 mg Vancomycin HCl (Vancomycin Per Pharmacy) 1 order IV UD [facility] Medical - PN: A/P - Time Spent With Patient Total time spent is greater than 50% in coordination of care (as documented) at patient's floor/unit and/or counseling patient: - Narrative A/P Narrative: A/P Narrative: Severe Sepsis: improving, wbc 14k, platlet 114, improving. off pressors. Hypernatremia: due to free water restriction. half saline for now, 1200 cc free water given via NG tube. Will increase free water intake based on labs. thrombocytopenia: due to sepsis, count > 100 now , continue arixtra. Aspiration pneumonia-was on vanco and rocephin and flagyl (possible aspiration component), will continue same for now, clinically improving. will need 2 more days of flagyl and rocephin, then will just be on vanco for total of 4 weeks ( starting from the first negative blood culture) Amanda loculated pleural effusions: infected with multiple loculations, not a candidate for chest tubes, needs pleural decortication, family not wanting to persue same. THey just want IV antibiotics and see if the patient can recover. Fully aware that this is not the standard of care, aware that there is a high chance of relapse of disease if the infected fluid pockets are not drained. ARDS/ Acute hypoxic Respiratory failure: due to pna, on NC now, Bactermia: on vanco, mrsa bactermia, repet cx are neg so far at 48 hrs COPD exacerbation: duo nebs for now. IV Solu-Medrol. wean off dose of steroids to 40 qd in AM, and gradaully wean off Renal failure-creatinine is stable good urine output Psoriasis-patient is on methotrexate for same hold methotrexate for now given acute infection. Cellulitis-of the right upper extremity,dvt is neg, on vancomycin. Lower extremity swelling-chr issue, dvt scan neg recently, likely from low albumin. Elevated alkaline phosphatase- monitor for now, liver usg and CT chest with abodminal slice show a stone in deanna GB, but no wall thickening or fluid in the gb fossa. monitor hyperkalemia/ Hyperphosphatemia: K normal, Phos improving, monitor. severe malnutrition-albumin is low improve nutritional status. resumed feeding via NG tube. ST eval Dementia/ Schizophremia: received home medications of olanzapine as well as divalproex. Fall precautions. resume home meds h/o bladder cancer: follows with Dr Best DVT prophylaxis, arixtra Diet NPO OT/ PT eval Medical - PN: Qual - VTE Deep Vein Thrombosis/Pulmonary Embolism Present on Admission: No
[2017-07-11 19:58] LABS: Blood Urea Nitrogen 53 mg/dl (8-23)
[2017-07-11] MEDS: HYDROmorphone 2 MG/ML SYRINGE IV PRN (20:12)
[2017-07-11] MEDS: FAMOTIDINE/PF 20 MG/2 ML VIAL IV SCH (20:12)
[2017-07-11] MEDS: DIVALPROEX SODIUM 250 MG TAB.ER.24H PO SCH (20:13)
[2017-07-11] MEDS: LORazepam 0.5 MG TABLET PO PRN (20:13)
[2017-07-11] MEDS: TAMSULOSIN 0.4 MG CAPSULE PO SCH (20:13)
[2017-07-11] MEDS: OLANZapine 5 MG TABLET PO SCH (20:13)
[2017-07-11] MEDS ORDERED: SODIUM POLYSTYRENE SULFONATE 15 GM/60 ML SUSPENSION PO ONE (20:26)
[2017-07-12] MEDS: HYDROmorphone 2 MG/ML SYRINGE IV PRN ×2 (01:27→21:32)
[2017-07-12] MEDS: IPRATROPIUM/ALBUTEROL 3 ML AMPUL.NEB NEB SCH ×6 (02:25→23:22)
[2017-07-12] MEDS: 0.9 % SODIUM CHLORIDE 250 ML IV SCH ×2 (04:36→16:56)
[2017-07-12] MEDS: 0.45 % SODIUM CHLORIDE 1,000 ML IV SCH ×2 (04:39→05:05)
[2017-07-12] MEDS: metroNIDAZOLE 500 MG/100 ML BAG IV SCH ×3 (05:05→22:10)
[2017-07-12] MEDS: 0.9 % SODIUM CHLORIDE 10 ML SYRINGE IV SCH ×3 (05:07→22:10)
[2017-07-12 06:58] LABS: Basophils # (Auto) 0 K/mcL (0.0-0.3); Basophils % (Auto) 0.2 % (0.0-2.0); Eosinophils # (Auto) 0 K/mcL (0.0-0.7); Eosinophils % (Auto) 0.4 % (0.0-7.0); Granulocytes % (Auto) 79.5 % (38.0-78.0); Lymphocytes # (Auto) 1.3 K/mcL (1.5-4.8); Lymphocytes % (Auto) 13.5 % (15.5-49.0); Mean Cell Volume 109.1 fL (80.0-100.0); Mean Corpuscular HGB Conc 32.6 g/dL (31.0-36.0); Mean Corpuscular Hemoglobin 35.6 pg (26.0-34.0); Monocytes # (Auto) 0.6 K/mcL (0.1-0.9); Monocytes % (Auto) 6.4 % (1.0-12.0); Platelet Count 98 K/mcL (140-440)
[2017-07-12 07:14] LABS: ALT/SGPT 40 U/l (0-40); Albumin 1.7 gm/dL (3.2-5.2); Albumin/Globulin Ratio 0.7 (1.0-2.3); Alkaline Phosphatase 239 U/L (39-117); Bilirubin,Direct < 0.2 mg/dL (0.0-0.3); Blood Urea Nitrogen 54 mg/dl (8-23); Gamma Glutamyl Transpeptidase 229 U/L (8-61); Magnesium 2.3 mg/dL (1.6-2.5); Uric Acid 7.7 mg/dL (2.5-8.0)
[2017-07-12] MEDS: DEXTROSE 5% IN WATER 1,000 ML IV SCH ×2 (07:50→22:10)
[2017-07-12] MEDS ORDERED: 0.9 % SODIUM CHLORIDE 10 ML SYRINGE IV PRN (08:08)
[2017-07-12] MEDS: FONDAPARINUX SODIUM 2.5 MG/0.5 ML SYRINGE SQ SCH (09:25)
[2017-07-12] MEDS: DIVALPROEX 125 MG CAP.SPRINK PO SCH (09:25)
[2017-07-12] MEDS: FOLIC ACID 1 MG TABLET PO SCH (09:26)
[2017-07-12] MEDS: MULTIVIT,THER IRON,CA,FA & MIN 1 TABLET PO SCH (09:26)
[2017-07-12] MEDS: methylPREDNISolone SOD SUCC 125 MG/2 ML VIAL IV SCH (09:27)
[2017-07-12] MEDS: FLUOCINOLONE ACETONIDE 0.01% TOPICAL SCH (09:27)
[2017-07-12] MEDS: CHLORHEXIDINE GLUCONATE 1 ML ORAL.SOL SWABMOUTH SCH ×2 (09:27→21:29)
[2017-07-12] MEDS: VANCOMYCIN 1,500 MG in 0.9 % SODIUM CHLORIDE 500 ML IV SCH (09:28)
[2017-07-12] MEDS: cefTRIAXone 1 GM in DEXTROSE 5% IN WATER 50 ML IV SCH (11:22)
[2017-07-12 12:06] LABS: Blood Urea Nitrogen 49 mg/dl (8-23)
--- NOTE | 2017-07-12 20:27 | Internal Med Progress Note ---
Medical - PN: Subj Patient information: Note initiated : 07/12/17 at 8:22 pm Service Date, if different from initiated Date: [] Patient: Rodriguez Scales a 72 y/o M admitted on 07/05/17 for SOB/Sepsis, Pneumonia, Cellulitis. Chief Complaint: [] Interval history: Mr. Scales is a 72 year old Male with h/o dementia, normal pressure hydrocephalus, schizophrenia, presently living in an assisted living facility, presents to the ER because of altered mentation and shortness of breath. The patient is accompanied byI believe his [id number] who is a retired internal medicine physician. the patient has had history of recurrent falls going on for the last few weeks, fall 2 weeks ago resulted in some abrasions in his right lower extremity as well as right upper extremity, one of the abrasions got secondarily infected and his primary care physician had placed the patient on Bactrim for same. The patient's cellulitis was somewhat better. This afternoon when the brother-in- law, i.e., the physician. went to to evaluate the patient, he noticed that the patient was not himself was more confused and also had difficulty in breathing. There was significant amount of conducted breath sounds. The patient was therefore brought to the hospital for further evaluation. in the emergency room, the patient was noted to be hypoxic on presentation and his blood pressure was borderline low with systolic in the 80s,the patient's heart rate was around in the 90s However, the patient was afebrile. Chest x- ray was done which showed bibasal infiltrates as well as effusion suggesting aspiration pneumonia. The labs are significant for white blood cell count of 32 ,000. his hemoglobin is 12, and platelets are 44. Sodium is 133, potassium 5.1 , bicarbonate 25, creatinine is 1.4 and glucose of 132, magnesium is 3.0. Patient has an elevated lactic acid of 2.6. His alkaline phosphatase is elevated at 345. However, the patient's [id number] noted that this likely is chronically elevated. Patient has low albumin of 2.2. I reviewed the advanced directives with the patient's [id number], who noted that he talked to his who is also the patient's power of personal injury attorney and confirm that the patient is DNR. However, they're okay with antibiotics, pressors and BiPAP if necessary Overnight the patient after coming to the floor desaturated and became hypotensive, Central line was placed and pressors started, pt was obtunded overnight saturating 95% on 100% via NRB. 07/06: patient seen, examined, overnight events noted. Patient's WBC count continues to trend up, peripheral smear reviewed, platelets stable, the patient' s temperature is now in the normal range, patient is hyperkalemic and has elevated phosphate, CK level is normal, patient becomes hypoxic on minimal movement, unstable to go for a CT scan. I had a meeting with the family members and the power of personal injury attorney for the patient today, explaining them the poor prognosis, as well as expectation for medical management. At this point in time, they wish to continue with aggressive medical management short of intubation or CPR. They are waiting for family and was to arrive so they can take a final decision. 07/07: Patient seen examined, overnight events noted, pt was hypoxic much of the night, needing to clear secretions by suction. His bp is stable now, not needing pressors any more, WBC count is trending down. patient mental status is improved and he was able to follow commands and grasp my hand. Patient X ray chest is unchanged from before with wilton pna, effusions. Hyperkalemia resolved, phosphorus coming down. Given some improvement in patients mental status and the fact that he was 80-84% on 100% oxygen. we placed him on bipap today. he was not a candidate for bipap yesterday due to very poor mental status and increased secretions. Secretions are still there but I am hoping that he will respond to bipap as we have not other reasonable alternative. Patient condition with DR gao as well as the patients children. AT this time there seems to be a bit of difference of opinion on what needs be done. Patient respiratory status is needing support via bipap, but his hemodynamic status has improved and infection seems to be improving. It seems patients sister is the power of personal injury attorney. At this time as per my conversation with Dr Gao, plan is to give patient another day and see how he does. 07/08: patient seen examined, patient bit more awake today, obeyed commands to grasp hand, did not move his legs much but was responsive to touch and deep stimuli to extremities. The patient is on bipap still was on 50% fio2, will cut back to 30 and see if he is able to maintain his oxygen saturations No acute events. Family to still decide on overall course of treatment, at present to continue with medical management. Given that all his cultures are mrsa, will stop imipenum today, but add rocephin and flagyl to cover for pna/ aspiration. Platlet counts dropped, no acute bleed, no need for platlet transfusions yet. 07/09: Patient seen examined, overnight events not ed. I had a long discussion with the family members yesterday PM regarding the patients clinical condition and new findings. The patient has wilton loculated effusions which need to be drained. the patient has some cavitary lesions likely secondary due to mrsa pna. Patient family understood the patients clinical condition and wish to proceed with placement of pig tail cath if possible. They are aware that the patient will need multiple procedure to drain the fluid. they want to look at the patients condition on a case by case basis. The patient platelets are low and he is intermittently oozing from the Central line site, therefore placement of chest tube/ pig tail catheter is deferred at thsi time. Platelets are at 51 today, plan to just drain the largest fluid collection for now and then reassess. Patient echo neg for endocarditis. Pt mental condition appears better, he is able to follow commands, he briefly desaturated this AM needing bipap for a few hours, but is back on oxygen va nasal mask. Overall prognosis remains poor family aware of same. 07/10: patient seen examined, overnight events reviewed, he tried to remove his NG tube overnight, this was placed back, repeat X ray is neg. Discussed with radiology regarding tapping him again, but as per the radiologist he is not a good candidate given there are many loculations and only diagnostic taps can be done, therapeutic tap is not possible given lots of fibrous tissue and loculations. Will see if Chest tubes are possible, will review case with surgery patient clinically improving, platlets are better, bp stable, and oxygen need is stable, however he still has w[place] loculated effusions which need to be drained and if not possible then will just treat with antibiotics and see how he does. Pleural fluid culture is positive for staph mrsa. The patient now seems more agitated as he is more awake, will try to see if we can resume his oral meds. 07/11: patient seen examined, no acute overnight events, patient sodium is creeping up, now at 160, on free water 200cc q4 hrs, started on half ns today. Recheck basic. Patient overall continues to improve, mental status much better , able to answer some questions. Denies pain. he is also trying to participate in his care. I reviewed the plan of care with the patients family today, he wound need to go to [place] for CT surgery eval and possible pleural decortication to treat the bilateral loculated effusions. The family does not wish to send the patient up to [facility] or LTAC facility [place], they want to continue with IV antibiotics and conservative management and see how he does. The patients brother in law Dr Keenan discussed this with Dr Chapman who is patients PCP. They would prefer the patient be kept here as swing bed once the patient is more stable, and then discharged to snf. 07/12: Pt seen examined, no acute events, pt has wilton loculated effusions, which need CT surgery eval and likely decortication to treat the underlying infection. the patient this AM continues to improve , mental status better, denies any complaints I reviewed the case with the patients POHarry and Patients brother in law Dr Keenan who himself is an retired manager merchandise. Explained that patient needs to have the loculated pleura effusions treated and if not treated properly it has a high risk that infection will come back once antibiotics are done. The patients brother in law and juan (sister ) have chosen to treat the patient medically with just iV antibiotics, refused placement to LTAC or transfer to higher center for appropriate management of loculated pleural effusions. they are fully aware of the consequences of their decision. Pertinent ROS: Denies headache, dizziness Denies chest pain, palpitations Denies cough or shortness of breath Denies abdominal pain, nausea or vomiting. - Constitutional Vitals: Vital Signs Temp Pulse Resp BP Pulse Ox 97.7 F 82 20 106/66 94 07/12/17 16:00 07/12/17 19:31 07/12/17 19:31 07/12/17 16:00 07/12/17 19:31 Period Temp Pulse Resp BP Sys/[place]arro Pulse Ox Last 24 Hr 97.6 F-98.8 F 72-99 12-20 71-122/52-81 87-96 Intake and Output 09/11/17 09/11/17 09/11/17 05:59 13:59 21:59 Intake Total 1075 / 1075 400 / 400 2325 / 2325 Output Total 1000 / 1000 1000 / 1000 Balance 75 / 75 400 / 400 1325 / 1325 Weight 182 lb 6.4 oz Patient Weight 07/13/17 05:59 Weight 182 lb 6.4 oz Intake & Output: Intake & Output 07/12/17 07/12/17 07/12/17 05:59 13:59 21:59 Intake Total 1075 / 1075 400 / 400 2325 / 2325 Output Total 1000 / 1000 1000 / 1000 Balance 75 / 75 400 / 400 1325 / 1325 Weight 182 lb 6.4 oz Intake: IV 1075 / 1075 100 / 100 650 / 650 Sodium Chloride 0.45% 1, 975 / 975 000 ml @ 100 mls/hr IV . Q10H [facility] Rx#:[id number] Vancomycin 1,500 mg In 500 / 500 Sodium Chloride 0.9% 500 ml @ 333.3 mls/hr IV DAILY [facility] Rx#:[id number] Rocephin 1 gm In Dextrose 50 / 50 5% in Water 50 ml @ 100 mls/hr IV Q24H [facility] Rx#: [id number] Tube Feeding 1375 / 1375 GI Tube Flush 300 / 300 300 / 300 Output: Urine Catheter Amount 1000 / 1000 1000 / 1000 Other: # Bowel Movements 1 # of times incontinent of 1 1 Bowels Exam: Constitutional; Afebrile, cooperative, alert, not in distress. Eyes- No icterus, , No periorbital swelling Ears- Ext ear normal, hearing normal to conversation. Neck- Midline trachea, supple Respiratory system: Air Entry equal on both sides, decreased air entry at bases. w[place] crackles. CVS- Rate rhythm regular, S1,S2 heard, no gallop, no rub. Abdomen- Soft nontender abdomen, no organomegaly, no tenderness, no guarding or rigidity, STATOR PLATE WASHER- AOOx1, moving all extremities, no gross focal deficit noted. Medical - PN: Obj Da - Labs CBC & Chem 7: 07/12/17 04:00 07/12/17 11:00 Labs: Abnormal Lab Results 07/12/17 07/12/17 07/12/17 11:00 04:00 04:00 WBC RBC 2.40 L Hgb 8.5 L Hct 26.2 L MCV 109.1 H MCH 35.6 H RDW 18.0 H Plt Count 98 L MPV 10.8 H Gran % 79.5 H Lymph % (Auto) 13.5 L Gran # Lymph # (Auto) 1.3 L [place] # (Auto) Sodium 152 H 157 H Potassium Chloride 118 H 122 H Anion Gap 6.0 L BUN 49 H 54 H Glucose 151 H 130 H Uric Acid Calcium 8.1 L 8.3 L Magnesium Direct Bilirubin GGT 229 H AST 42 H ALT Alkaline Phosphatase 239 H Lactate Dehydrogenase Total Protein 4.2 L Albumin 1.7 L Albumin/Globulin Ratio 0.7 L 07/11/17 07/11/17 07/11/17 16:00 05:30 05:30 WBC 13.7 H RBC 2.99 L Hgb 10.5 L Hct 32.1 L MCV 107.5 H MCH 35.1 H RDW 18.0 H Plt Count 114 L MPV 12.3 H Gran % Lymph % (Auto) 13.0 L Gran # 10.5 H Lymph # (Auto) [place] # (Auto) 1.2 H Sodium 156 H 160 H Potassium 5.2 H Chloride 123 H 124 H Anion Gap 7.0 L BUN 53 H 55 H Glucose 154 H 114 H Uric Acid 8.8 H Calcium Magnesium 2.6 H Direct Bilirubin GGT 250 H AST 46 H ALT 43 H Alkaline Phosphatase 278 H Lactate Dehydrogenase 252 H Total Protein 4.8 L Albumin 2.2 L Albumin/Globulin Ratio 0.8 L 07/10/17 07/10/17 07/10/17 11:05 06:30 04:00 WBC 11.7 H RBC 2.93 L Hgb 10.1 L Hct 30.5 L MCV 104.2 H MCH 34.3 H RDW 18.3 H Plt Count 74 L MPV 10.9 H Gran % 88.4 H Lymph % (Auto) 4.8 L Gran # 10.4 H Lymph # (Auto) 0.6 L [place] # (Auto) Sodium 154 H 155 H Potassium Chloride 121 H 120 H Anion Gap 6.0 L BUN 51 H 52 H Glucose 130 H 127 H Uric Acid 9.4 H Calcium Magnesium Direct Bilirubin 0.4 H GGT 225 H AST 42 H ALT Alkaline Phosphatase 256 H Lactate Dehydrogenase Total Protein 4.7 L Albumin 1.7 L Albumin/Globulin Ratio 0.6 L Meds: Medications Acetaminophen (Tylenol) 650 mg PO Q4-6HP PRN PRN Reason: PAIN/FEVER > 101 Albuterol/Ipratropium (Duoneb) 3 ml NEB Q4HRT [facility] Last Admin: 07/12/17 19:25 Dose: 3 ml Chlorhexidine Gluconate (Peridex) 15 ml SWABMOUTH BID [facility] Last Admin: 07/12/17 09:27 Dose: 15 ml Divalproex Sodium (Depakote Sprinkles) 375 mg PO DAILY [facility] Last Admin: 07/12/17 09:25 Dose: 375 mg Divalproex Sodium (Depakote Er) 500 mg PO HS [facility] Last Admin: 07/11/17 20:13 Dose: 500 mg Famotidine (Pepcid) 20 mg IV HS [facility] Last Admin: 07/11/17 20:12 Dose: 20 mg Folic Acid (Folic Acid) 1 mg PO QDAY [facility] Last Admin: 07/12/17 09:26 Dose: 1 mg Fondaparinux (Arixtra) 2.5 mg SQ DAILY [facility] Last Admin: 07/12/17 09:25 Dose: 2.5 mg Heparin Sodium (Porcine) (Heparin Flush) 2 ml IV Q12 [facility] Last Admin: 07/12/17 09:26 Dose: 2 ml Hydromorphone HCl (Dilaudid) 0.5 mg IV Q2HP PRN PRN Reason: Pain Last Admin: 07/12/17 01:27 Dose: 0.5 mg Ceftriaxone Sodium 1 gm/ (Dextrose) 50 mls @ 100 mls/hr IV Q24H [facility] Last Infusion: 07/12/17 14:47 Dose: Infused Metronidazole (Flagyl) 500 mg in 100 mls @ 100 mls/hr IV Q8H [facility] Last Infusion: 07/12/17 16:56 Dose: Infused Vancomycin HCl 1,500 mg/ (Sodium Chloride) 500 mls @ 333.3 mls/hr IV DAILY [facility] Last Infusion: 07/12/17 14:47 Dose: Infused Dextrose (Dextrose 5% In Water) 1,000 mls @ 75 mls/hr IV .[id number] [facility] Last Admin: 07/12/17 07:50 Dose: 75 mls/hr Iron Carb/Multivit/[employer]/Folic Acid (Multivitamin W/Minerals) 1 tab PO DAILY [facility] Last Admin: 07/12/17 09:26 Dose: 1 tab Lorazepam (Ativan) 0.5 mg PO PRN PRN PRN Reason: Anxiety Last Admin: 07/11/17 20:13 Dose: 0.5 mg Magnesium Hydroxide (Milk Of Magnesia) 30 ml PO DAILYP PRN PRN Reason: Constipation Methylprednisolone Sodium Succinate (Solu-Medrol) 40 mg IV QDAY [facility] Last Admin: 07/12/17 09:27 Dose: 40 mg Naloxone HCl (Narcan) 0.1 mg IV Q2MIN PRN PRN Reason: Opiate Reversal Olanzapine (Zyprexa) 15 mg PO HS [facility] Last Admin: 07/11/17 20:13 Dose: 15 mg Ondansetron HCl (Zofran) 4 mg IV Q4-6HP PRN PRN Reason: Nausea And Vomiting Fluticasone Propionate [Cutivate ] 0.05% Cream 1 dose TOPICAL BIDP PRN PRN Reason: Itching Fluocinolone Acetonide [Synalar] 0.01% Topical Solution 1 dose TOPICAL QDAY [facility] Last Admin: 07/12/17 09:27 Dose: Not Given Sodium Chloride (Saline Flush) 10 ml IV Q8 [facility] Last Admin: 07/12/17 14:46 Dose: 10 ml Sodium Chloride (Saline Flush) 10 ml IV UD PRN PRN Reason: FLUSH Tamsulosin HCl (Flomax) 0.4 mg PO QHS [facility] Last Admin: 07/11/17 20:13 Dose: 0.4 mg Vancomycin HCl (Vancomycin Per Pharmacy) 1 order IV UD [facility] Medical - PN: A/P - Time Spent With Patient Total time spent is greater than 50% in coordination of care (as documented) at patient's floor/unit and/or counseling patient: - Narrative A/P Narrative: A/P Narrative: Hypernatremia: due to free water restriction. water 300cc q4h, d5 75cc/hr iv, sodium improving, will need total of 1600-2000ml of free water to keep sodium leve at goal. thrombocytopenia: due to sepsis, count > 100 now , continue arixtra. Aspiration pneumonia-was on vanco and rocephin and flagyl (possible aspiration component), will continue same for now, clinically improving. will need 1 more days of flagyl and rocephin, then will just be on vanco for total of 4 weeks ( starting from the first negative blood culture) [place] loculated pleural effusions: infected with multiple loculations, not a candidate for chest tubes, needs pleural decortication, family not wanting to pursue same. They just want IV antibiotics and see if the patient can recover. Fully aware that this is not the standard of care, aware that there is a high chance of relapse of disease if the infected fluid pockets are not drained. ARDS/ Acute hypoxic Respiratory failure: due to pna, on NC now, Pt needing bipap this evening. Bactermia: on vanco, mrsa bactermia, repet cx are neg so far COPD exacerbation: duo nebs for now. IV Solu-Medrol. wean off dose of steroids as tolerted Renal failure-creatinine is stable good urine output Psoriasis-patient is on methotrexate for same hold methotrexate for now given acute infection. Cellulitis-of the right upper extremity,dvt is neg, on vancomycin. Lower extremity swelling-chr issue, dvt scan neg recently, likely from low albumin. Elevated alkaline phosphatase- monitor for now, liver usg and CT chest with abodminal slice show a stone in deanna GB, but no wall thickening or fluid in the gb fossa. monitor severe malnutrition-albumin is low improve nutritional status. resumed feeding via NG tube. ST eval Dementia/ Schizophremia: received home medications of olanzapine as well as divalproex. Fall precautions. resume home meds h/o bladder cancer: follows with Dr Best DVT prophylaxis, arixtra Diet NPO OT/ PT eval Medical - PN: Qual - VTE Deep Vein Thrombosis/Pulmonary Embolism Present on Admission: No
[2017-07-12] MEDS: FAMOTIDINE/PF 20 MG/2 ML VIAL IV SCH (21:26)
[2017-07-12] MEDS: TAMSULOSIN 0.4 MG CAPSULE PO SCH (21:26)
[2017-07-12] MEDS: LORazepam 0.5 MG TABLET PO PRN (21:26)
[2017-07-12] MEDS: OLANZapine 5 MG TABLET PO SCH (21:26)
[2017-07-12] MEDS: DIVALPROEX SODIUM 250 MG TAB.ER.24H PO SCH (21:27)
[2017-07-13] MEDS: IPRATROPIUM/ALBUTEROL 3 ML AMPUL.NEB NEB SCH ×6 (03:01→23:51)
[2017-07-13] MEDS: metroNIDAZOLE 500 MG/100 ML BAG IV SCH ×3 (05:32→21:59)
[2017-07-13] MEDS: 0.9 % SODIUM CHLORIDE 10 ML SYRINGE IV SCH ×3 (05:32→22:00)
[2017-07-13 06:16] LABS: Basophils # (Auto) 0 K/mcL (0.0-0.3); Basophils % (Auto) 0.2 % (0.0-2.0); Eosinophils # (Auto) 0 K/mcL (0.0-0.7); Eosinophils % (Auto) 0.5 % (0.0-7.0); Lymphocytes # (Auto) 1.1 K/mcL (1.5-4.8); Lymphocytes % (Auto) 13.4 % (15.5-49.0); Mean Cell Volume 109.6 fL (80.0-100.0); Mean Corpuscular HGB Conc 33.1 g/dL (31.0-36.0); Mean Corpuscular Hemoglobin 36.3 pg (26.0-34.0); Monocytes # (Auto) 0.4 K/mcL (0.1-0.9); Monocytes % (Auto) 4.9 % (1.0-12.0); Platelet Count 112 K/mcL (140-440); RBC 2.33 M/mcL (4.50-5.90); Red Cell Distribution Width 18.3 % (11.5-14.5)
[2017-07-13 06:28] LABS: ALT/SGPT 41 U/l (0-40); Albumin 1.7 gm/dL (3.2-5.2); Albumin/Globulin Ratio 0.7 (1.0-2.3); Alkaline Phosphatase 240 U/L (39-117); Bilirubin,Direct < 0.2 mg/dL (0.0-0.3); Blood Urea Nitrogen 44 mg/dl (8-23); Gamma Glutamyl Transpeptidase 225 U/L (8-61); Magnesium 2.2 mg/dL (1.6-2.5); Uric Acid 6.6 mg/dL (2.5-8.0)
[2017-07-13] MEDS: FOLIC ACID 1 MG TABLET PO SCH (09:03)
[2017-07-13] MEDS: MULTIVIT,THER IRON,CA,FA & MIN 1 TABLET PO SCH (09:03)
[2017-07-13] MEDS: DIVALPROEX 125 MG CAP.SPRINK PO SCH (09:04)
[2017-07-13] MEDS: methylPREDNISolone SOD SUCC 125 MG/2 ML VIAL IV SCH (09:05)
[2017-07-13] MEDS: FONDAPARINUX SODIUM 2.5 MG/0.5 ML SYRINGE SQ SCH (09:06)
[2017-07-13] MEDS: CHLORHEXIDINE GLUCONATE 1 ML ORAL.SOL SWABMOUTH SCH ×2 (09:08→22:03)
[2017-07-13] MEDS: FLUOCINOLONE ACETONIDE 0.01% TOPICAL SCH (09:09)
[2017-07-13] MEDS: VANCOMYCIN 1,500 MG in 0.9 % SODIUM CHLORIDE 500 ML IV SCH (10:42)
[2017-07-13] MEDS: DEXTROSE 5% IN WATER 1,000 ML IV SCH (11:07)
--- NOTE | 2017-07-13 11:18 | Internal Med Progress Note ---
Medical - PN: Subj Patient information: Note initiated : 07/13/17 at 11:15 am Service Date, if different from initiated Date: [] Patient: Rodriguez Scales a 72 y/o M admitted on 07/05/17 for SOB/Sepsis, Pneumonia, Cellulitis. Chief Complaint: [] Interval history: Mr. Scales is a 72 year old Male with h/o dementia, normal pressure hydrocephalus, schizophrenia, presently living in an assisted living facility, presents to the ER because of altered mentation and shortness of breath. The patient is accompanied byI believe his [id number] who is a retired internal medicine physician. the patient has had history of recurrent falls going on for the last few weeks, fall 2 weeks ago resulted in some abrasions in his right lower extremity as well as right upper extremity, one of the abrasions got secondarily infected and his primary care physician had placed the patient on Bactrim for same. The patient's cellulitis was somewhat better. This afternoon when the brother-in- law, i.e., the physician. went to to evaluate the patient, he noticed that the patient was not himself was more confused and also had difficulty in breathing. There was significant amount of conducted breath sounds. The patient was therefore brought to the hospital for further evaluation. in the emergency room, the patient was noted to be hypoxic on presentation and his blood pressure was borderline low with systolic in the 80s,the patient's heart rate was around in the 90s However, the patient was afebrile. Chest x- ray was done which showed bibasal infiltrates as well as effusion suggesting aspiration pneumonia. The labs are significant for white blood cell count of 32 ,000. his hemoglobin is 12, and platelets are 44. Sodium is 133, potassium 5.1 , bicarbonate 25, creatinine is 1.4 and glucose of 132, magnesium is 3.0. Patient has an elevated lactic acid of 2.6. His alkaline phosphatase is elevated at 345. However, the patient's [id number] noted that this likely is chronically elevated. Patient has low albumin of 2.2. I reviewed the advanced directives with the patient's [id number], who noted that he talked to his who is also the patient's power of employment attorney and confirm that the patient is DNR. However, they're okay with antibiotics, pressors and BiPAP if necessary Overnight the patient after coming to the floor desaturated and became hypotensive, Central line was placed and pressors started, pt was obtunded overnight saturating 95% on 100% via NRB. 07/06: patient seen, examined, overnight events noted. Patient's WBC count continues to trend up, peripheral smear reviewed, platelets stable, the patient' s temperature is now in the normal range, patient is hyperkalemic and has elevated phosphate, CK level is normal, patient becomes hypoxic on minimal movement, unstable to go for a CT scan. I had a meeting with the family members and the power of employment attorney for the patient today, explaining them the poor prognosis, as well as expectation for medical management. At this point in time, they wish to continue with aggressive medical management short of intubation or CPR. They are waiting for family and was to arrive so they can take a final decision. 07/07: Patient seen examined, overnight events noted, pt was hypoxic much of the night, needing to clear secretions by suction. His bp is stable now, not needing pressors any more, WBC count is trending down. patient mental status is improved and he was able to follow commands and grasp my hand. Patient X ray chest is unchanged from before with wilton pna, effusions. Hyperkalemia resolved, phosphorus coming down. Given some improvement in patients mental status and the fact that he was 80-84% on 100% oxygen. we placed him on bipap today. he was not a candidate for bipap yesterday due to very poor mental status and increased secretions. Secretions are still there but I am hoping that he will respond to bipap as we have not other reasonable alternative. Patient condition with DR gao as well as the patients children. AT this time there seems to be a bit of difference of opinion on what needs be done. Patient respiratory status is needing support via bipap, but his hemodynamic status has improved and infection seems to be improving. It seems patients sister is the power of employment attorney. At this time as per my conversation with Dr Gao, plan is to give patient another day and see how he does. 07/08: patient seen examined, patient bit more awake today, obeyed commands to grasp hand, did not move his legs much but was responsive to touch and deep stimuli to extremities. The patient is on bipap still was on 50% fio2, will cut back to 30 and see if he is able to maintain his oxygen saturations No acute events. Family to still decide on overall course of treatment, at present to continue with medical management. Given that all his cultures are mrsa, will stop imipenum today, but add rocephin and flagyl to cover for pna/ aspiration. Platlet counts dropped, no acute bleed, no need for platlet transfusions yet. 07/09: Patient seen examined, overnight events not ed. I had a long discussion with the family members yesterday PM regarding the patients clinical condition and new findings. The patient has wilton loculated effusions which need to be drained. the patient has some cavitary lesions likely secondary due to mrsa pna. Patient family understood the patients clinical condition and wish to proceed with placement of pig tail cath if possible. They are aware that the patient will need multiple procedure to drain the fluid. they want to look at the patients condition on a case by case basis. The patient platelets are low and he is intermittently oozing from the Central line site, therefore placement of chest tube/ pig tail catheter is deferred at thsi time. Platelets are at 51 today, plan to just drain the largest fluid collection for now and then reassess. Patient echo neg for endocarditis. Pt mental condition appears better, he is able to follow commands, he briefly desaturated this AM needing bipap for a few hours, but is back on oxygen va nasal mask. Overall prognosis remains poor family aware of same. 07/10: patient seen examined, overnight events reviewed, he tried to remove his NG tube overnight, this was placed back, repeat X ray is neg. Discussed with radiology regarding tapping him again, but as per the radiologist he is not a good candidate given there are many loculations and only diagnostic taps can be done, therapeutic tap is not possible given lots of fibrous tissue and loculations. Will see if Chest tubes are possible, will review case with surgery patient clinically improving, platlets are better, bp stable, and oxygen need is stable, however he still has wilton loculated effusions which need to be drained and if not possible then will just treat with antibiotics and see how he does. Pleural fluid culture is positive for staph mrsa. The patient now seems more agitated as he is more awake, will try to see if we can resume his oral meds. 07/11: patient seen examined, no acute overnight events, patient sodium is creeping up, now at 160, on free water 200cc q4 hrs, started on half ns today. Recheck basic. Patient overall continues to improve, mental status much better , able to answer some questions. Denies pain. he is also trying to participate in his care. I reviewed the plan of care with the patients family today, he wound need to go to [place] for CT surgery eval and possible pleural decortication to treat the bilateral loculated effusions. The family does not wish to send the patient up to [facility] or LTAC facility [facility] [place], they want to continue with IV antibiotics and conservative management and see how he does. The patients brother in law Dr Keenan discussed this with Dr Chapman who is patients PCP. They would prefer the patient be kept here as swing bed once the patient is more stable, and then discharged to long term. 07/12: Pt seen examined, no acute events, pt has wilton loculated effusions, which need CT surgery eval and likely decortication to treat the underlying infection. the patient this AM continues to improve , mental status better, denies any complaints I reviewed the case with the patients POHarry and Patients brother in law Dr Keenan who himself is an retired mems engineer. Explained that patient needs to have the loculated pleura effusions treated and if not treated properly it has a high risk that infection will come back once antibiotics are done. The patients brother in law and juan (sister ) have chosen to treat the patient medically with just iV antibiotics, refused placement to LTAC or transfer to higher center for appropriate management of loculated pleural effusions. they are fully aware of the consequences of their decision. .-patient continuing on IV antibiotics. White count downtrending at 8.4. Appears at baseline ithout significant change since previous day.mumbling intermittently. No telemetry events. No concerns expressed by nursing staff. No family at bedside. Foleys drainingdark urine. Sodium down to 151.surveillance cultures negative so far.on 3 L oxygen - Constitutional Vitals: Vital Signs Temp Pulse Resp BP Pulse Ox 96.6 F L 94 H 20 96/74 95 07/13/17 07:42 07/13/17 08:06 07/13/17 07:47 07/13/17 08:06 07/13/17 08:06 Period Temp Pulse Resp BP Sys/[place] Pulse Ox Last 24 Hr 96.5 F-97.8 F 63-94 13-20 84-111/57-81 90-97 Intake and Output 07/12/17 07/13/17 07/13/17 21:59 05:59 13:59 Intake Total 3385 / 3385 944 / 944 400 / 400 Output Total 1000 / 1000 550 / 550 Balance 2385 / 2385 394 / 394 400 / 400 Weight 188 lb 4.8 oz Intake & Output: Intake & Output 07/12/17 07/13/17 07/13/17 21:59 05:59 13:59 Intake Total 3385 / 3385 944 / 944 400 / 400 Output Total 1000 / 1000 550 / 550 Balance 2385 / 2385 394 / 394 400 / 400 Weight 188 lb 4.8 oz Intake: IV 1650 / 1650 100 / 100 100 / 100 Dextrose 5% in Water 1, 1000 / 1000 000 ml @ 75 mls/hr IV . [id number] NTAE Rx#:[id number] Vancomycin 1,500 mg In 500 / 500 Sodium Chloride 0.9% 500 ml @ 333.3 mls/hr IV DAILY NATE Rx#:[id number] Rocephin 1 gm In Dextrose 50 / 50 5% in Water 50 ml @ 100 mls/hr IV Q24H [facility]ATE Rx#: [id number] Tube Feeding 1375 / 1375 724 / 724 GI Tube Flush 360 / 360 120 / 120 300 / 300 Output: Gastric Drainage 0 / 0 Left Nare 0 / 0 Urine Catheter Amount 1000 / 1000 550 / 550 Other: # Bowel Movements 1 # of times incontinent of 1 1 Bowels General appearance: moderate distress (SOB), no acute distress Exam: lower extremity and upper extremity lymphedema Mumbles but incoherent Nondistressed breathing Nondistended abdomen Foleys draining clear urine Medical - PN: Obj Da - Labs CBC & Chem 7: 07/13/17 04:18 07/13/17 04:18 Labs: Abnormal Lab Results 07/13/17 07/13/17 07/13/17 08:06 04:18 04:18 WBC RBC 2.33 L Hgb 8.5 L Hct 25.6 L MCV 109.6 H MCH 36.3 H RDW 18.3 H Plt Count 112 L MPV 13.3 H Gran % 81.0 H Lymph % (Auto) 13.4 L Gran # Lymph # (Auto) 1.1 L [place] # (Auto) Sodium 151 H Potassium Chloride 116 H Anion Gap BUN 44 H Glucose 199 H Uric Acid Calcium 8.1 L Magnesium GGT 225 H AST 38 H ALT 41 H Alkaline Phosphatase 240 H Lactate Dehydrogenase Total Protein 4.1 L Albumin 1.7 L Albumin/Globulin Ratio 0.7 L Vancomycin Trough 18.0 H 07/12/17 07/12/17 07/12/17 11:00 04:00 04:00 WBC RBC 2.40 L Hgb 8.5 L Hct 26.2 L MCV 109.1 H MCH 35.6 H RDW 18.0 H Plt Count 98 L MPV 10.8 H Gran % 79.5 H Lymph % (Auto) 13.5 L Gran # Lymph # (Auto) 1.3 L [place] # (Auto) Sodium 152 H 157 H Potassium Chloride 118 H 122 H Anion Gap 6.0 L BUN 49 H 54 H Glucose 151 H 130 H Uric Acid Calcium 8.1 L 8.3 L Magnesium GGT 229 H AST 42 H ALT Alkaline Phosphatase 239 H Lactate Dehydrogenase Total Protein 4.2 L Albumin 1.7 L Albumin/Globulin Ratio 0.7 L Vancomycin Trough 07/11/17 07/11/17 07/11/17 16:00 05:30 05:30 WBC 13.7 H RBC 2.99 L Hgb 10.5 L Hct 32.1 L MCV 107.5 H MCH 35.1 H RDW 18.0 H Plt Count 114 L MPV 12.3 H Gran % Lymph % (Auto) 13.0 L Gran # 10.5 H Lymph # (Auto) [place] # (Auto) 1.2 H Sodium 156 H 160 H Potassium 5.2 H Chloride 123 H 124 H Anion Gap 7.0 L BUN 53 H 55 H Glucose 154 H 114 H Uric Acid 8.8 H Calcium Magnesium 2.6 H GGT 250 H AST 46 H ALT 43 H Alkaline Phosphatase 278 H Lactate Dehydrogenase 252 H Total Protein 4.8 L Albumin 2.2 L Albumin/Globulin Ratio 0.8 L Vancomycin Trough 07/10/17 11:05 WBC RBC Hgb Hct MCV MCH RDW Plt Count MPV Gran % Lymph % (Auto) Gran # Lymph # (Auto) [place] # (Auto) Sodium 154 H Potassium Chloride 121 H Anion Gap 6.0 L BUN 51 H Glucose 130 H Uric Acid Calcium Magnesium GGT AST ALT Alkaline Phosphatase Lactate Dehydrogenase Total Protein Albumin Albumin/Globulin Ratio Vancomycin Trough Meds: Medications Acetaminophen (Tylenol) 650 mg PO Q4-6HP PRN PRN Reason: PAIN/FEVER > 101 Albuterol/Ipratropium (Duoneb) 3 ml NEB Q4HRT [facility] Last Admin: 07/13/17 07:21 Dose: 3 ml Chlorhexidine Gluconate (Peridex) 15 ml SWABMOUTH BID [facility] Last Admin: 07/13/17 09:08 Dose: 15 ml Divalproex Sodium (Depakote Sprinkles) 375 mg PO DAILY [facility] Last Admin: 07/13/17 09:04 Dose: 375 mg Divalproex Sodium (Depakote Er) 500 mg PO HS [facility] Last Admin: 07/12/17 21:27 Dose: 500 mg Famotidine (Pepcid) 20 mg IV HS [facility] Last Admin: 07/12/17 21:26 Dose: 20 mg Folic Acid (Folic Acid) 1 mg PO QDAY [facility] Last Admin: 07/13/17 09:03 Dose: 1 mg Fondaparinux (Arixtra) 2.5 mg SQ DAILY [facility] Last Admin: 07/13/17 09:06 Dose: 2.5 mg Heparin Sodium (Porcine) (Heparin Flush) 2 ml IV Q12 [facility] Last Admin: 07/13/17 09:03 Dose: 2 ml Hydromorphone HCl (Dilaudid) 0.5 mg IV Q2HP PRN PRN Reason: Pain Last Admin: 07/12/17 21:32 Dose: 0.5 mg Ceftriaxone Sodium 1 gm/ (Dextrose) 50 mls @ 100 mls/hr IV Q24H [facility] Last Infusion: 07/12/17 14:47 Dose: Infused Metronidazole (Flagyl) 500 mg in 100 mls @ 100 mls/hr IV Q8H [facility] Last Infusion: 07/13/17 09:10 Dose: Infused Vancomycin HCl 1,500 mg/ (Sodium Chloride) 500 mls @ 333.3 mls/hr IV DAILY [facility] Last Admin: 07/13/17 10:42 Dose: 333 mls/hr Dextrose (Dextrose 5% In Water) 1,000 mls @ 75 mls/hr IV .[id number] [facility] Last Admin: 07/13/17 11:07 Dose: Not Given Iron Carb/Multivit/[place]/Folic Acid (Multivitamin W/Minerals) 1 tab PO DAILY [facility] Last Admin: 07/13/17 09:03 Dose: 1 tab Lorazepam (Ativan) 0.5 mg PO PRN PRN PRN Reason: Anxiety Last Admin: 07/12/17 21:26 Dose: 0.5 mg Magnesium Hydroxide (Milk Of Magnesia) 30 ml PO DAILYP PRN PRN Reason: Constipation Methylprednisolone Sodium Succinate (Solu-Medrol) 40 mg IV QDAY [facility] Last Admin: 07/13/17 09:05 Dose: 40 mg Naloxone HCl (Narcan) 0.1 mg IV Q2MIN PRN PRN Reason: Opiate Reversal Olanzapine (Zyprexa) 15 mg PO HS [facility] Last Admin: 07/12/17 21:26 Dose: 15 mg Ondansetron HCl (Zofran) 4 mg IV Q4-6HP PRN PRN Reason: Nausea And Vomiting Fluticasone Propionate [Cutivate ] 0.05% Cream 1 dose TOPICAL BIDP PRN PRN Reason: Itching Fluocinolone Acetonide [Synalar] 0.01% Topical Solution 1 dose TOPICAL QDAY [facility] Last Admin: 07/13/17 09:09 Dose: Not Given Sodium Chloride (Saline Flush) 10 ml IV Q8 [facility] Last Admin: 07/13/17 05:32 Dose: 10 ml Sodium Chloride (Saline Flush) 10 ml IV UD PRN PRN Reason: FLUSH Tamsulosin HCl (Flomax) 0.4 mg PO QHS [facility] Last Admin: 07/12/17 21:26 Dose: 0.4 mg Vancomycin HCl (Vancomycin Per Pharmacy) 1 order IV UD [facility] Medical - PN: A/P - Time Spent With Patient Total time spent is greater than 50% in coordination of care (as documented) at patient's floor/unit and/or counseling patient: 25 - 35 minutes - Narrative A/P Narrative: A/P Narrative: * mRSA bacteremia-on vancomycin.target 6 weeks * mRSA empyema-Multiloculated. family does not want aggressive intervention or tertiary Center transfer despite recommendations and guidelines(includes tube thoracostomy and pleural decortication). patient currently being managed as per family recommendation on IV antibiotics. Family is aware that this treatment is not consistent with standard of care and carries a high risk of relapse. * Aspiration pneumonia-continue vanco, rocephin and flagyl (possible aspiration component). discontinue Rocephin and Flagyl in 24 hours * Hypovolemic Hypernatremia: continue free water deficit replacement 35 cc/hr iv , sodium improving * thrombocytopenia: due to sepsis-on Arixtra. Platelets >100 * ARDS/ Acute hypoxic Respiratory failure: due to pna, linically resolved. * Renal failure-resolvedand renal function stable * Psoriasis-held methotrexate for now given acute infection. * Cellulitis-of the right upper extremity,dvt is neg, Continue vancomycin. * Lower extremity swelling-chr issue, dvt scan neg recently, likely from low albumin. * Elevated alkaline phosphatase- monitor for now, liver usg and CT chest with abodminal slice show a stone in deanna GB, but no wall thickening or fluid in the gb fossa. monitor * severe malnutrition-albumin is low improve nutritional status. resumed feeding via NG tube. ST eval * Dementia/ Schizophremia: received home medications of olanzapine as well as divalproex. Fall precautions. resume home meds * h/o bladder cancer: follows with Dr Best * DVT prophylaxis, arixtra * Diet on tube feeds * OT/ PT Medical - PN: Qual - VTE Deep Vein Thrombosis/Pulmonary Embolism Present on Admission: No
[2017-07-13] MEDS ORDERED: DEXTROSE 5% IN WATER 1,000 ML IV SCH (11:19)
[2017-07-13] MEDS: cefTRIAXone 1 GM in DEXTROSE 5% IN WATER 50 ML IV SCH (11:31)
[2017-07-13] MEDS ORDERED: FLUTICASONE PROPIONATE 0.05% TOPICAL PRN (11:34)
[2017-07-13] MEDS ORDERED: 0.9 % SODIUM CHLORIDE 10 ML SYRINGE IV PRN (11:34)
[2017-07-13] MEDS ORDERED: NALOXONE HCL 0.4 MG/ML VIAL IV PRN (11:34)
[2017-07-13] MEDS ORDERED: HYDROmorphone 2 MG/ML SYRINGE IV PRN (11:34)
[2017-07-13] MEDS ORDERED: MAGNESIUM HYDROXIDE 30 ML ORAL.SUSP PO PRN (11:34)
[2017-07-13] MEDS ORDERED: ACETAMINOPHEN 325 MG TABLET PO PRN (11:34)
[2017-07-13] MEDS ORDERED: VANCOMYCIN PER PHARMACY IV SCH (11:34)
[2017-07-13] MEDS ORDERED: ONDANSETRON 4 MG/2 ML VIAL IV PRN (11:34)
[2017-07-13 12:26] LABS: ANCA Screen NEGATIVE (NEGATIVE); Myeloperoxidase Antibody <1.0 AI (<1.0)
[2017-07-13] MEDS: DIVALPROEX SODIUM 250 MG TAB.ER.24H PO SCH (21:59)
[2017-07-13] MEDS: OLANZapine 5 MG TABLET PO SCH (22:00)
[2017-07-13] MEDS: TAMSULOSIN 0.4 MG CAPSULE PO SCH (22:00)
[2017-07-13] MEDS: FAMOTIDINE/PF 20 MG/2 ML VIAL IV SCH (22:02)
[2017-07-14] MEDS: IPRATROPIUM/ALBUTEROL 3 ML AMPUL.NEB NEB SCH ×6 (05:07→23:36)
[2017-07-14] MEDS: metroNIDAZOLE 500 MG/100 ML BAG IV SCH (05:49)
[2017-07-14] MEDS: 0.9 % SODIUM CHLORIDE 10 ML SYRINGE IV SCH ×3 (05:51→22:25)
[2017-07-14 07:24] LABS: ALT/SGPT 40 U/l (0-40); Albumin 1.4 gm/dL (3.2-5.2); Albumin/Globulin Ratio 0.6 (1.0-2.3); Alkaline Phosphatase 222 U/L (39-117); Bilirubin,Direct < 0.2 mg/dL (0.0-0.3); Blood Urea Nitrogen 35 mg/dl (8-23); Gamma Glutamyl Transpeptidase 212 U/L (8-61); Uric Acid 5.3 mg/dL (2.5-8.0)
[2017-07-14] MEDS: MULTIVIT,THER IRON,CA,FA & MIN 1 TABLET PO SCH (07:49)
[2017-07-14] MEDS: DIVALPROEX 125 MG CAP.SPRINK PO SCH (07:49)
[2017-07-14] MEDS: FOLIC ACID 1 MG TABLET PO SCH (07:49)
[2017-07-14] MEDS: methylPREDNISolone SOD SUCC 125 MG/2 ML VIAL IV SCH (07:51)
[2017-07-14] MEDS: FONDAPARINUX SODIUM 2.5 MG/0.5 ML SYRINGE SQ SCH (07:51)
[2017-07-14] MEDS: CHLORHEXIDINE GLUCONATE 1 ML ORAL.SOL SWABMOUTH SCH ×2 (07:52→22:25)
[2017-07-14 09:09] LABS: Basophils # (Auto) 0 K/mcL (0.0-0.3); Basophils % (Auto) 0.2 % (0.0-2.0); Eosinophils # (Auto) 0.1 K/mcL (0.0-0.7); Eosinophils % (Auto) 0.6 % (0.0-7.0); Lymphocytes # (Auto) 1.3 K/mcL (1.5-4.8); Lymphocytes % (Auto) 14.2 % (15.5-49.0); Mean Cell Volume 107.4 fL (80.0-100.0); Mean Corpuscular HGB Conc 32.9 g/dL (31.0-36.0); Mean Corpuscular Hemoglobin 35.3 pg (26.0-34.0); Monocytes # (Auto) 0.5 K/mcL (0.1-0.9); Platelet Count 120 K/mcL (140-440); Red Cell Distribution Width 18.4 % (11.5-14.5)
--- NOTE | 2017-07-14 09:51 | Internal Med Progress Note ---
Medical - PN: Subj Patient information: Note initiated : 07/14/17 at 9:47 am Service Date, if different from initiated Date: [] Patient: Rodriguez Scales a 72 y/o M admitted on 07/05/17 for SOB/Sepsis, Pneumonia, Cellulitis. Chief Complaint: [] Interval history: Mr. Scales is a 72 year old Male with h/o dementia, normal pressure hydrocephalus, schizophrenia, presently living in an assisted living facility, presents to the ER because of altered mentation and shortness of breath. The patient is accompanied byI believe his [id number]-jhl who is a retired internal medicine physician. the patient has had history of recurrent falls going on for the last few weeks, fall 2 weeks ago resulted in some abrasions in his right lower extremity as well as right upper extremity, one of the abrasions got secondarily infected and his primary care physician had placed the patient on Bactrim for same. The patient's cellulitis was somewhat better. This afternoon when the brother-in- law, i.e., the physician. went to to evaluate the patient, he noticed that the patient was not himself was more confused and also had difficulty in breathing. There was significant amount of conducted breath sounds. The patient was therefore brought to the hospital for further evaluation. in the emergency room, the patient was noted to be hypoxic on presentation and his blood pressure was borderline low with systolic in the 80s,the patient's heart rate was around in the 90s However, the patient was afebrile. Chest x- ray was done which showed bibasal infiltrates as well as effusion suggesting aspiration pneumonia. The labs are significant for white blood cell count of 32 ,000. his hemoglobin is 12, and platelets are 44. Sodium is 133, potassium 5.1 , bicarbonate 25, creatinine is 1.4 and glucose of 132, magnesium is 3.0. Patient has an elevated lactic acid of 2.6. His alkaline phosphatase is elevated at 345. However, the patient's [id number] noted that this likely is chronically elevated. Patient has low albumin of 2.2. I reviewed the advanced directives with the patient's [id number], who noted that he talked to his who is also the patient's power of tax associate attorney and confirm that the patient is DNR. However, they're okay with antibiotics, pressors and BiPAP if necessary Overnight the patient after coming to the floor desaturated and became hypotensive, Central line was placed and pressors started, pt was obtunded overnight saturating 95% on 100% via NRB. 07/06: patient seen, examined, overnight events noted. Patient's WBC count continues to trend up, peripheral smear reviewed, platelets stable, the patient' s temperature is now in the normal range, patient is hyperkalemic and has elevated phosphate, CK level is normal, patient becomes hypoxic on minimal movement, unstable to go for a CT scan. I had a meeting with the family members and the power of tax associate attorney for the patient today, explaining them the poor prognosis, as well as expectation for medical management. At this point in time, they wish to continue with aggressive medical management short of intubation or CPR. They are waiting for family and was to arrive so they can take a final decision. 07/07: Patient seen examined, overnight events noted, pt was hypoxic much of the night, needing to clear secretions by suction. His bp is stable now, not needing pressors any more, WBC count is trending down. patient mental status is improved and he was able to follow commands and grasp my hand. Patient X ray chest is unchanged from before with wilton pna, effusions. Hyperkalemia resolved, phosphorus coming down. Given some improvement in patients mental status and the fact that he was 80-84% on 100% oxygen. we placed him on bipap today. he was not a candidate for bipap yesterday due to very poor mental status and increased secretions. Secretions are still there but I am hoping that he will respond to bipap as we have not other reasonable alternative. Patient condition with DR gao as well as the patients children. AT this time there seems to be a bit of difference of opinion on what needs be done. Patient respiratory status is needing support via bipap, but his hemodynamic status has improved and infection seems to be improving. It seems patients sister is the power of tax associate attorney. At this time as per my conversation with Dr Gao, plan is to give patient another day and see how he does. 07/08: patient seen examined, patient bit more awake today, obeyed commands to grasp hand, did not move his legs much but was responsive to touch and deep stimuli to extremities. The patient is on bipap still was on 50% fio2, will cut back to 30 and see if he is able to maintain his oxygen saturations No acute events. Family to still decide on overall course of treatment, at present to continue with medical management. Given that all his cultures are mrsa, will stop imipenum today, but add rocephin and flagyl to cover for pna/ aspiration. Platlet counts dropped, no acute bleed, no need for platlet transfusions yet. 07/09: Patient seen examined, overnight events not ed. I had a long discussion with the family members yesterday PM regarding the patients clinical condition and new findings. The patient has wilotn loculated effusions which need to be drained. the patient has some cavitary lesions likely secondary due to mrsa pna. Patient family understood the patients clinical condition and wish to proceed with placement of pig tail cath if possible. They are aware that the patient will need multiple procedure to drain the fluid. they want to look at the patients condition on a case by case basis. The patient platelets are low and he is intermittently oozing from the Central line site, therefore placement of chest tube/ pig tail catheter is deferred at thsi time. Platelets are at 51 today, plan to just drain the largest fluid collection for now and then reassess. Patient echo neg for endocarditis. Pt mental condition appears better, he is able to follow commands, he briefly desaturated this AM needing bipap for a few hours, but is back on oxygen va nasal mask. Overall prognosis remains poor family aware of same. 07/10: patient seen examined, overnight events reviewed, he tried to remove his NG tube overnight, this was placed back, repeat X ray is neg. Discussed with radiology regarding tapping him again, but as per the radiologist he is not a good candidate given there are many loculations and only diagnostic taps can be done, therapeutic tap is not possible given lots of fibrous tissue and loculations. Will see if Chest tubes are possible, will review case with surgery patient clinically improving, platlets are better, bp stable, and oxygen need is stable, however he still has wilton loculated effusions which need to be drained and if not possible then will just treat with antibiotics and see how he does. Pleural fluid culture is positive for staph mrsa. The patient now seems more agitated as he is more awake, will try to see if we can resume his oral meds. 07/11: patient seen examined, no acute overnight events, patient sodium is creeping up, now at 160, on free water 200cc q4 hrs, started on half ns today. Recheck basic. Patient overall continues to improve, mental status much better , able to answer some questions. Denies pain. he is also trying to participate in his care. I reviewed the plan of care with the patients family today, he wound need to go to [place] for CT surgery eval and possible pleural decortication to treat the bilateral loculated effusions. The family does not wish to send the patient up to [facility] or LTAC facility at [place], they want to continue with IV antibiotics and conservative management and see how he does. The patients brother in law Dr Keenan discussed this with Dr Chapman who is patients PCP. They would prefer the patient be kept here as swing bed once the patient is more stable, and then discharged to care home. 07/12: Pt seen examined, no acute events, pt has wilton loculated effusions, which need CT surgery eval and likely decortication to treat the underlying infection. the patient this AM continues to improve , mental status better, denies any complaints I reviewed the case with the patients POHarry and Patients brother in law Dr Keenan who himself is an retired gypsum block setter. Explained that patient needs to have the loculated pleura effusions treated and if not treated properly it has a high risk that infection will come back once antibiotics are done. The patients brother in law and juan (sister ) have chosen to treat the patient medically with just iV antibiotics, refused placement to LTAC or transfer to higher center for appropriate management of loculated pleural effusions. they are fully aware of the consequences of their decision. 07/13.-patient continuing on IV antibiotics. White count downtrending at 8.4. Appears at baseline ithout significant change since previous day.mumbling intermittently. No telemetry events. No concerns expressed by nursing staff. No family at bedside. Foleys drainingdark urine. Sodium down to 151.surveillance cultures negative so far.on 3 L oxygen 07/14-patient doing well. On antibiotic coverage. Continues to mumble. No shortness of breath. No family at bedside. abs and hemodynamics stable. Sodium 143. Continue 6 recent antibiotic coverage for MRSA. - Constitutional Vitals: Vital Signs Temp Pulse Resp BP Pulse Ox 96.6 F L 64 16 105/61 95 07/14/17 07:31 07/14/17 08:17 07/14/17 08:17 07/14/17 07:31 07/14/17 08:17 Period Temp Pulse Resp BP Sys/Navarro Pulse Ox Last 24 Hr 96.0 F-96.7 F 61-73 16-20 96-120/51-71 91-96 Intake and Output 07/13/17 07/14/17 07/14/17 21:59 05:59 13:59 Intake Total 1374 / 1374 2228 / 2228 Output Total 850 / 850 600 / 600 Balance 524 / 524 1628 / 1628 Weight 186 lb 1.6 oz Intake & Output: Intake & Output 07/13/17 07/14/17 07/14/17 21:59 05:59 13:59 Intake Total 1374 / 1374 2228 / 2228 Output Total 850 / 850 600 / 600 Balance 524 / 524 1628 / 1628 Weight 186 lb 1.6 oz Intake: IV 100 / 100 100 / 100 Tube Feeding 674 / 674 1528 / 1528 GI Tube Flush 600 / 600 600 / 600 Output: Urine Catheter Amount 850 / 850 600 / 600 General appearance: cooperative, no acute distress Medical - PN: Obj Da - Labs CBC & Chem 7: 07/14/17 05:30 07/14/17 05:30 Labs: Abnormal Lab Results 07/14/17 07/14/17 07/13/17 05:30 05:30 08:06 RBC 2.20 L Hgb 7.8 L Hct 23.6 L MCV 107.4 H MCH 35.3 H RDW 18.4 H Plt Count 120 L MPV 13.8 H Gran % 80.0 H Lymph % (Auto) 14.2 L Lymph # (Auto) 1.3 L Sodium Potassium Chloride 110 H Anion Gap 4.0 L BUN 35 H Creatinine 0.6 L Glucose 172 H Calcium 7.8 L GGT 212 H AST 42 H ALT Alkaline Phosphatase 222 H Total Protein 3.9 L Albumin 1.4 L Albumin/Globulin Ratio 0.6 L Vancomycin Trough 18.0 H 07/13/17 07/13/17 07/12/17 04:18 04:18 11:00 RBC 2.33 L Hgb 8.5 L Hct 25.6 L MCV 109.6 H MCH 36.3 H RDW 18.3 H Plt Count 112 L MPV 13.3 H Gran % 81.0 H Lymph % (Auto) 13.4 L Lymph # (Auto) 1.1 L Sodium 151 H 152 H Potassium Chloride 116 H 118 H Anion Gap 6.0 L BUN 44 H 49 H Creatinine Glucose 199 H 151 H Calcium 8.1 L 8.1 L GGT 225 H AST 38 H ALT 41 H Alkaline Phosphatase 240 H Total Protein 4.1 L Albumin 1.7 L Albumin/Globulin Ratio 0.7 L Vancomycin Trough 07/12/17 07/12/17 07/11/17 04:00 04:00 16:00 RBC 2.40 L Hgb 8.5 L Hct 26.2 L MCV 109.1 H MCH 35.6 H RDW 18.0 H Plt Count 98 L MPV 10.8 H Gran % 79.5 H Lymph % (Auto) 13.5 L Lymph # (Auto) 1.3 L Sodium 157 H 156 H Potassium 5.2 H Chloride 122 H 123 H Anion Gap 7.0 L BUN 54 H 53 H Creatinine Glucose 130 H 154 H Calcium 8.3 L GGT 229 H AST 42 H ALT Alkaline Phosphatase 239 H Total Protein 4.2 L Albumin 1.7 L Albumin/Globulin Ratio 0.7 L Vancomycin Trough Meds: Medications Acetaminophen (Tylenol) 650 mg PO Q4-6HP PRN PRN Reason: PAIN/FEVER > 101 Albuterol/Ipratropium (Duoneb) 3 ml NEB Q4HRT [facility] Last Admin: 07/14/17 08:14 Dose: 3 ml Chlorhexidine Gluconate (Peridex) 15 ml SWABMOUTH BID [facility] Last Admin: 07/14/17 07:52 Dose: 15 ml Divalproex Sodium (Depakote Sprinkles) 375 mg PO DAILY [facility] Last Admin: 07/14/17 07:49 Dose: 375 mg Divalproex Sodium (Depakote Er) 500 mg PO HS [facility] Last Admin: 07/13/17 21:59 Dose: 500 mg Famotidine (Pepcid) 20 mg IV HS [facility] Last Admin: 07/13/17 22:02 Dose: 20 mg Folic Acid (Folic Acid) 1 mg PO QDAY [facility] Last Admin: 07/14/17 07:49 Dose: 1 mg Fondaparinux (Arixtra) 2.5 mg SQ DAILY [facility] Last Admin: 07/14/17 07:51 Dose: 2.5 mg Heparin Sodium (Porcine) (Heparin Flush) 2 ml IV Q12 [facility] Last Admin: 07/14/17 00:21 Dose: Not Given Hydromorphone HCl (Dilaudid) 0.5 mg IV Q2HP PRN PRN Reason: Pain Dextrose (Dextrose 5% In Water) 1,000 mls @ 35 mls/hr IV .Q24H [facility] Stop: 07/14/17 11:18 Last Admin: 07/13/17 12:57 Dose: Not Given Ceftriaxone Sodium 1 gm/ (Dextrose) 50 mls @ 100 mls/hr IV Q24H [facility] Metronidazole (Flagyl) 500 mg in 100 mls @ 100 mls/hr IV Q8H [facility] Last Admin: 07/14/17 05:49 Dose: 100 mls/hr Vancomycin HCl 1,500 mg/ (Sodium Chloride) 500 mls @ 333.3 mls/hr IV DAILY [facility] Iron Carb/Multivit/Loco/Folic Acid (Multivitamin W/Minerals) 1 tab PO DAILY [facility] Last Admin: 07/14/17 07:49 Dose: 1 tab Lorazepam (Ativan) 0.5 mg PO PRN PRN PRN Reason: Anxiety Magnesium Hydroxide (Milk Of Magnesia) 30 ml PO DAILYP PRN PRN Reason: Constipation Methylprednisolone Sodium Succinate (Solu-Medrol) 40 mg IV QDAY [facility] Last Admin: 07/14/17 07:51 Dose: 40 mg Naloxone HCl (Narcan) 0.1 mg IV Q2MIN PRN PRN Reason: Opiate Reversal Olanzapine (Zyprexa) 15 mg PO HS [facility] Last Admin: 07/13/17 22:00 Dose: 15 mg Ondansetron HCl (Zofran) 4 mg IV Q4-6HP PRN PRN Reason: Nausea And Vomiting Fluticasone Propionate [Cutivate ] 0.05% Cream 1 dose TOPICAL BIDP PRN PRN Reason: Itching Fluocinolone Acetonide [Synalar] 0.01% Topical Solution 1 dose TOPICAL QDAY [facility] Sodium Chloride (Saline Flush) 10 ml IV UD PRN PRN Reason: FLUSH Sodium Chloride (Saline Flush) 10 ml IV Q8 [facility] Last Admin: 07/14/17 05:51 Dose: 10 ml Tamsulosin HCl (Flomax) 0.4 mg PO QHS [facility] Last Admin: 07/13/17 22:00 Dose: 0.4 mg Vancomycin HCl (Vancomycin Per Pharmacy) 1 order IV UD [facility] Medical - PN: A/P - Time Spent With Patient Total time spent is greater than 50% in coordination of care (as documented) at patient's floor/unit and/or counseling patient: 25 - 35 minutes - Narrative A/P Narrative: A/P Narrative: * MRSA bacteremia-continue six-week vancomycin. Place PICC line. DC central line * MRSA empyema-Multiloculated. family does not want aggressive intervention or tertiary Center transfer despite recommendations and guidelines(includes tube thoracostomy and pleural decortication). patient currently being managed as per family recommendation on IV antibiotics. Family is aware that this treatment is not consistent with standard of care and carries a high risk of relapse. * Aspiration pneumonia-Status post antibiotic coverage. DC Flagyl and Rocephin * Hypovolemic Hypernatremia: esolved with free water replacement. Sodium at 143 * thrombocytopenia: due to sepsis-on Arixtra. Platelets >100 * ARDS/ Acute hypoxic Respiratory failure: resolved * Renal failure-resolved * Psoriasis-held methotrexate for now given acute infection. * Cellulitis-of the right upper extremity,dvt is neg, Continue vancomycin. * severe malnutrition-continue feeding via NG tube. ST eval * Dementia/ Schizophremia: ontinue home medications of olanzapine as well as divalproex. * h/o bladder cancer: follows with Dr Best * DVT prophylaxis, arixtra * Diet on tube feeds * OT/ PT Plan * 6 weeks antibiotic coverage * PICC line * Enteral nutrition Medical - PN: Qual - VTE Deep Vein Thrombosis/Pulmonary Embolism Present on Admission: No
[2017-07-14] MEDS: VANCOMYCIN 1,500 MG in 0.9 % SODIUM CHLORIDE 500 ML IV SCH (10:05)
[2017-07-14] MEDS: FLUOCINOLONE ACETONIDE 0.01% TOPICAL SCH (10:05)
[2017-07-14] MEDS ORDERED: cefTRIAXone 1 GM in DEXTROSE 5% IN WATER 50 ML IV SCH (11:00)
[2017-07-14 11:30] LABS: SCL-7-ANTIBODY <1.0 NEG AI (<1.0 NEG); SSA <1.0 NEG AI (<1.0 NEG); SSB <1.0 NEG AI (<1.0 NEG)
--- NOTE | 2017-07-14 17:29 | XRay Report ---
INDICATION: PICC line placement TECHNIQUE: AP chest x-ray, COMPARISON: 07/09/2017 FINDINGS:Interval placement of left-sided PICC line with its tip at the junction of the right atrium and superior vena cava. Metallic tip feeding tube in the stomach. Left central venous catheter remains unchanged with its tip at the junction of brachiocephalic vein and superior vena cava Bilateral diffuse pulmonary parenchymal infiltrates and bilateral pleural effusions. These are essentially unchanged IMPRESSION: Left-sided PICC line with its tip at the junction of superior vena cava and right atrium Interpreted and Authenticated by: Glen Tejada 07/14/17
[2017-07-14] MEDS: OLANZapine 5 MG TABLET PO SCH (22:17)
[2017-07-14] MEDS: FAMOTIDINE/PF 20 MG/2 ML VIAL IV SCH (22:17)
[2017-07-14] MEDS: DIVALPROEX SODIUM 250 MG TAB.ER.24H PO SCH (22:17)
[2017-07-14] MEDS: TAMSULOSIN 0.4 MG CAPSULE PO SCH (22:18)
[2017-07-15] MEDS: IPRATROPIUM/ALBUTEROL 3 ML AMPUL.NEB NEB SCH ×6 (02:59→23:15)
[2017-07-15] MEDS: LORazepam 0.5 MG TABLET PO PRN ×2 (04:50→21:58)
[2017-07-15] MEDS: 0.9 % SODIUM CHLORIDE 10 ML SYRINGE IV SCH ×4 (04:50→20:18)
[2017-07-15 06:50] LABS: ALT/SGPT 50 U/l (0-40); Albumin 1.9 gm/dL (3.2-5.2); Albumin/Globulin Ratio 0.7 (1.0-2.3); Alkaline Phosphatase 278 U/L (39-117); Bilirubin,Direct < 0.2 mg/dL (0.0-0.3); Blood Urea Nitrogen 34 mg/dl (8-23); Gamma Glutamyl Transpeptidase 279 U/L (8-61); Uric Acid 5.2 mg/dL (2.5-8.0)
[2017-07-15 07:39] LABS: Basophils # (Auto) 0 K/mcL (0.0-0.3); Basophils % (Auto) 0.2 % (0.0-2.0); Eosinophils # (Auto) 0.2 K/mcL (0.0-0.7); Eosinophils % (Auto) 1.2 % (0.0-7.0); Granulocytes % (Auto) 78.5 % (38.0-78.0); Lymphocytes # (Auto) 1.9 K/mcL (1.5-4.8); Lymphocytes % (Auto) 15.1 % (15.5-49.0); Mean Corpuscular HGB Conc 32.8 g/dL (31.0-36.0); Mean Corpuscular Hemoglobin 35.1 pg (26.0-34.0); Monocytes # (Auto) 0.6 K/mcL (0.1-0.9); Platelet Count 149 K/mcL (140-440); Red Cell Distribution Width 18.7 % (11.5-14.5)
[2017-07-15] MEDS: VANCOMYCIN 1,500 MG in 0.9 % SODIUM CHLORIDE 500 ML IV SCH (09:19)
[2017-07-15] MEDS: FONDAPARINUX SODIUM 2.5 MG/0.5 ML SYRINGE SQ SCH (09:19)
[2017-07-15] MEDS: DIVALPROEX 125 MG CAP.SPRINK PO SCH (09:19)
[2017-07-15] MEDS: methylPREDNISolone SOD SUCC 125 MG/2 ML VIAL IV SCH (09:19)
[2017-07-15] MEDS: FOLIC ACID 1 MG TABLET PO SCH (09:20)
[2017-07-15] MEDS: MULTIVIT,THER IRON,CA,FA & MIN 1 TABLET PO SCH (09:20)
[2017-07-15] MEDS: FLUOCINOLONE ACETONIDE 0.01% TOPICAL SCH (09:21)
[2017-07-15] MEDS: CHLORHEXIDINE GLUCONATE 1 ML ORAL.SOL SWABMOUTH SCH ×2 (09:21→20:57)
[2017-07-15] MEDS ORDERED: FUROSEMIDE 20 MG/2 ML VIAL IV ONE (10:45)
--- NOTE | 2017-07-15 10:47 | Internal Med Progress Note ---
Medical - PN: Subj Patient information: Note initiated : 07/15/17 at 10:44 am Service Date, if different from initiated Date: [] Patient: Rodriguez Scales a 72 y/o M admitted on 07/05/17 for SOB/Sepsis, Pneumonia, Cellulitis. Chief Complaint: [] Interval history: Mr. Scales is a 72 year old Male with h/o dementia, normal pressure hydrocephalus, schizophrenia, presently living in an assisted living facility, presents to the ER because of altered mentation and shortness of breath. The patient is accompanied byI believe his [id number] who is a retired internal medicine physician. the patient has had history of recurrent falls going on for the last few weeks, fall 2 weeks ago resulted in some abrasions in his right lower extremity as well as right upper extremity, one of the abrasions got secondarily infected and his primary care physician had placed the patient on Bactrim for same. The patient's cellulitis was somewhat better. This afternoon when the brother-in- law, i.e., the physician. went to to evaluate the patient, he noticed that the patient was not himself was more confused and also had difficulty in breathing. There was significant amount of conducted breath sounds. The patient was therefore brought to the hospital for further evaluation. in the emergency room, the patient was noted to be hypoxic on presentation and his blood pressure was borderline low with systolic in the 80s,the patient's heart rate was around in the 90s However, the patient was afebrile. Chest x- ray was done which showed bibasal infiltrates as well as effusion suggesting aspiration pneumonia. The labs are significant for white blood cell count of 32 ,000. his hemoglobin is 12, and platelets are 44. Sodium is 133, potassium 5.1 , bicarbonate 25, creatinine is 1.4 and glucose of 132, magnesium is 3.0. Patient has an elevated lactic acid of 2.6. His alkaline phosphatase is elevated at 345. However, the patient's [id number] noted that this likely is chronically elevated. Patient has low albumin of 2.2. I reviewed the advanced directives with the patient's [id number], who noted that he talked to his who is also the patient's power of mergers and acquisitions attorney and confirm that the patient is DNR. However, they're okay with antibiotics, pressors and BiPAP if necessary Overnight the patient after coming to the floor desaturated and became hypotensive, Central line was placed and pressors started, pt was obtunded overnight saturating 95% on 100% via NRB. 07/06: patient seen, examined, overnight events noted. Patient's WBC count continues to trend up, peripheral smear reviewed, platelets stable, the patient' s temperature is now in the normal range, patient is hyperkalemic and has elevated phosphate, CK level is normal, patient becomes hypoxic on minimal movement, unstable to go for a CT scan. I had a meeting with the family members and the power of mergers and acquisitions attorney for the patient today, explaining them the poor prognosis, as well as expectation for medical management. At this point in time, they wish to continue with aggressive medical management short of intubation or CPR. They are waiting for family and was to arrive so they can take a final decision. 07/07: Patient seen examined, overnight events noted, pt was hypoxic much of the night, needing to clear secretions by suction. His bp is stable now, not needing pressors any more, WBC count is trending down. patient mental status is improved and he was able to follow commands and grasp my hand. Patient X ray chest is unchanged from before with wilton pna, effusions. Hyperkalemia resolved, phosphorus coming down. Given some improvement in patients mental status and the fact that he was 80-84% on 100% oxygen. we placed him on bipap today. he was not a candidate for bipap yesterday due to very poor mental status and increased secretions. Secretions are still there but I am hoping that he will respond to bipap as we have not other reasonable alternative. Patient condition with DR gao as well as the patients children. AT this time there seems to be a bit of difference of opinion on what needs be done. Patient respiratory status is needing support via bipap, but his hemodynamic status has improved and infection seems to be improving. It seems patients sister is the power of mergers and acquisitions attorney. At this time as per my conversation with Dr Gao, plan is to give patient another day and see how he does. 07/08: patient seen examined, patient bit more awake today, obeyed commands to grasp hand, did not move his legs much but was responsive to touch and deep stimuli to extremities. The patient is on bipap still was on 50% fio2, will cut back to 30 and see if he is able to maintain his oxygen saturations No acute events. Family to still decide on overall course of treatment, at present to continue with medical management. Given that all his cultures are mrsa, will stop imipenum today, but add rocephin and flagyl to cover for pna/ aspiration. Platlet counts dropped, no acute bleed, no need for platlet transfusions yet. 07/09: Patient seen examined, overnight events not ed. I had a long discussion with the family members yesterday PM regarding the patients clinical condition and new findings. The patient has wilton loculated effusions which need to be drained. the patient has some cavitary lesions likely secondary due to mrsa pna. Patient family understood the patients clinical condition and wish to proceed with placement of pig tail cath if possible. They are aware that the patient will need multiple procedure to drain the fluid. they want to look at the patients condition on a case by case basis. The patient platelets are low and he is intermittently oozing from the Central line site, therefore placement of chest tube/ pig tail catheter is deferred at thsi time. Platelets are at 51 today, plan to just drain the largest fluid collection for now and then reassess. Patient echo neg for endocarditis. Pt mental condition appears better, he is able to follow commands, he briefly desaturated this AM needing bipap for a few hours, but is back on oxygen va nasal mask. Overall prognosis remains poor family aware of same. 07/10: patient seen examined, overnight events reviewed, he tried to remove his NG tube overnight, this was placed back, repeat X ray is neg. Discussed with radiology regarding tapping him again, but as per the radiologist he is not a good candidate given there are many loculations and only diagnostic taps can be done, therapeutic tap is not possible given lots of fibrous tissue and loculations. Will see if Chest tubes are possible, will review case with surgery patient clinically improving, platlets are better, bp stable, and oxygen need is stable, however he still has wilton loculated effusions which need to be drained and if not possible then will just treat with antibiotics and see how he does. Pleural fluid culture is positive for staph mrsa. The patient now seems more agitated as he is more awake, will try to see if we can resume his oral meds. 07/11: patient seen examined, no acute overnight events, patient sodium is creeping up, now at 160, on free water 200cc q4 hrs, started on half ns today. Recheck basic. Patient overall continues to improve, mental status much better , able to answer some questions. Denies pain. he is also trying to participate in his care. I reviewed the plan of care with the patients family today, he wound need to go to [place] for CT surgery eval and possible pleural decortication to treat the bilateral loculated effusions. The family does not wish to send the patient up to [facility] or LTAC facility [facility] [place], they want to continue with IV antibiotics and conservative management and see how he does. The patients brother in law Dr Keenan discussed this with Dr Chapman who is patients PCP. They would prefer the patient be kept here as swing bed once the patient is more stable, and then discharged to [facility]. 07/12: Pt seen examined, no acute events, pt has wilton loculated effusions, which need CT surgery eval and likely decortication to treat the underlying infection. the patient this AM continues to improve , mental status better, denies any complaints I reviewed the case with the patients POHarry and Patients brother in law Dr Keenan who himself is an retired frickert[employer] checker. Explained that patient needs to have the loculated pleura effusions treated and if not treated properly it has a high risk that infection will come back once antibiotics are done. The patients brother in law and juan (sister ) have chosen to treat the patient medically with just iV antibiotics, refused placement to LTAC or transfer to higher center for appropriate management of loculated pleural effusions. they are fully aware of the consequences of their decision. 07/13.-patient continuing on IV antibiotics. White count downtrending at 8.4. Appears at baseline ithout significant change since previous day.mumbling intermittently. No telemetry events. No concerns expressed by nursing staff. No family at bedside. Foleys drainingdark urine. Sodium down to 151.surveillance cultures negative so far.on 3 L oxygen 07/14-patient doing well. On antibiotic coverage. Continues to mumble. No shortness of breath. No family at bedside. abs and hemodynamics stable. Sodium 143. Continue 6 recent antibiotic coverage for MRSA. 07/15-odium improved. DC free water replacement. Overall 6 L volume up. Start low-dose Lasix. continue vancomycin for 6 weeks. no significant changes since previous day. on 3 L oxygen. Tube feeds ongoing. limited physical therapy in light of max assist for bed mobility. Patient is unable to sit or follow verbal cues - Constitutional Vitals: Vital Signs Temp Pulse Resp BP Pulse Ox 96.9 F L 75 16 115/53 95 07/15/17 07:40 07/15/17 07:45 07/15/17 07:45 07/15/17 07:40 07/15/17 07:45 Period Temp Pulse Resp BP Sys/[place]arro Pulse Ox Last 24 Hr 96.7 F-97.4 F 64-83 16-20 104-119/53-71 91-97 Intake and Output 07/14/17 07/15/17 07/15/17 21:59 05:59 13:59 Intake Total 490 / 490 711 / 711 611 / 611 Output Total 0 / 0 525 / 525 Balance 490 / 490 186 / 186 611 / 611 Weight 190 lb Intake & Output: Intake & Output 07/14/17 07/15/17 07/15/17 21:59 05:59 13:59 Intake Total 490 / 490 711 / 711 611 / 611 Output Total 0 / 0 525 / 525 Balance 490 / 490 186 / 186 611 / 611 Weight 190 lb Intake: Oral 0 / 0 Tube Feeding 190 / 190 711 / 711 311 / 311 GI Tube Flush 300 / 300 0 / 0 300 / 300 Output: Gastric Drainage 0 / 0 Left Nare 0 / 0 Urine Catheter Amount 525 / 525 Other: # of times incontinent of 1 1 Bowels General appearance: cooperative, no acute distress Exam: unable to follow verbal cues nonlabored breathing No anxiety ondistended abdomen lymphedema Medical - PN: Obj Da - Labs CBC & Chem 7: 07/15/17 04:40 07/15/17 04:40 Labs: Abnormal Lab Results 07/15/17 07/15/17 07/14/17 04:40 04:40 05:30 WBC 12.5 H RBC 2.60 L Hgb 9.1 L Hct 27.8 L MCV 107.0 H MCH 35.1 H RDW 18.7 H Plt Count MPV 14.8 H Gran % 78.5 H Lymph % (Auto) 15.1 L Gran # 9.8 H Lymph # (Auto) Sodium Chloride 109 H 110 H Anion Gap 7.0 L 4.0 L BUN 34 H 35 H Creatinine 0.6 L 0.6 L Glucose 170 H 172 H Calcium 8.3 L 7.8 L GGT 279 H 212 H AST 46 H 42 H ALT 50 H Alkaline Phosphatase 278 H 222 H Lactate Dehydrogenase 268 H Total Protein 4.5 L 3.9 L Albumin 1.9 L 1.4 L Albumin/Globulin Ratio 0.7 L 0.6 L Vancomycin Trough 07/14/17 07/13/17 07/13/17 05:30 08:06 04:18 WBC RBC 2.20 L Hgb 7.8 L Hct 23.6 L MCV 107.4 H MCH 35.3 H RDW 18.4 H Plt Count 120 L MPV 13.8 H Gran % 80.0 H Lymph % (Auto) 14.2 L Gran # Lymph # (Auto) 1.3 L Sodium 151 H Chloride 116 H Anion Gap BUN 44 H Creatinine Glucose 199 H Calcium 8.1 L GGT 225 H AST 38 H ALT 41 H Alkaline Phosphatase 240 H Lactate Dehydrogenase Total Protein 4.1 L Albumin 1.7 L Albumin/Globulin Ratio 0.7 L Vancomycin Trough 18.0 H 07/13/17 07/12/17 04:18 11:00 WBC RBC 2.33 L Hgb 8.5 L Hct 25.6 L MCV 109.6 H MCH 36.3 H RDW 18.3 H Plt Count 112 L MPV 13.3 H Gran % 81.0 H Lymph % (Auto) 13.4 L Gran # Lymph # (Auto) 1.1 L Sodium 152 H Chloride 118 H Anion Gap 6.0 L BUN 49 H Creatinine Glucose 151 H Calcium 8.1 L GGT AST ALT Alkaline Phosphatase Lactate Dehydrogenase Total Protein Albumin Albumin/Globulin Ratio Vancomycin Trough Meds: Medications Acetaminophen (Tylenol) 650 mg PO Q4-6HP PRN PRN Reason: PAIN/FEVER > 101 Albuterol/Ipratropium (Duoneb) 3 ml NEB Q4HRT [facility] Last Admin: 07/15/17 07:19 Dose: 3 ml Chlorhexidine Gluconate (Peridex) 15 ml SWABMOUTH BID [facility] Last Admin: 07/15/17 09:21 Dose: 15 ml Divalproex Sodium (Depakote Sprinkles) 375 mg PO DAILY [facility] Last Admin: 07/15/17 09:19 Dose: 375 mg Divalproex Sodium (Depakote Er) 500 mg PO HS [facility] Last Admin: 07/14/17 22:17 Dose: 500 mg Famotidine (Pepcid) 20 mg IV HS [facility] Last Admin: 07/14/17 22:17 Dose: 20 mg Folic Acid (Folic Acid) 1 mg PO QDAY [facility] Last Admin: 07/15/17 09:20 Dose: 1 mg Fondaparinux (Arixtra) 2.5 mg SQ DAILY [facility] Last Admin: 07/15/17 09:19 Dose: 2.5 mg Heparin Sodium (Porcine) (Heparin Flush) 2 ml IV Q12 [facility] Last Admin: 07/15/17 09:21 Dose: 2 ml Hydromorphone HCl (Dilaudid) 0.5 mg IV Q2HP PRN PRN Reason: Pain Vancomycin HCl 1,500 mg/ (Sodium Chloride) 500 mls @ 333.3 mls/hr IV DAILY [facility] Last Admin: 07/15/17 09:19 Dose: 333.3 mls/hr Iron Carb/Multivit/[place]/Folic Acid (Multivitamin W/Minerals) 1 tab PO DAILY [facility] Last Admin: 07/15/17 09:20 Dose: 1 tab Lorazepam (Ativan) 0.5 mg PO PRN PRN PRN Reason: Anxiety Last Admin: 07/15/17 04:50 Dose: 0.5 mg Magnesium Hydroxide (Milk Of Magnesia) 30 ml PO DAILYP PRN PRN Reason: Constipation Methylprednisolone Sodium Succinate (Solu-Medrol) 40 mg IV QDAY [facility] Last Admin: 07/15/17 09:19 Dose: 40 mg Naloxone HCl (Narcan) 0.1 mg IV Q2MIN PRN PRN Reason: Opiate Reversal Olanzapine (Zyprexa) 15 mg PO HS [facility] Last Admin: 07/14/17 22:17 Dose: 15 mg Ondansetron HCl (Zofran) 4 mg IV Q4-6HP PRN PRN Reason: Nausea And Vomiting Fluticasone Propionate [Cutivate ] 0.05% Cream 1 dose TOPICAL BIDP PRN PRN Reason: Itching Fluocinolone Acetonide [Synalar] 0.01% Topical Solution 1 dose TOPICAL QDAY [facility] Last Admin: 07/15/17 09:21 Dose: Not Given Sodium Chloride (Saline Flush) 10 ml IV UD PRN PRN Reason: FLUSH Sodium Chloride (Saline Flush) 10 ml IV Q8 [facility] Last Admin: 07/15/17 04:50 Dose: 10 ml Tamsulosin HCl (Flomax) 0.4 mg PO QHS [facility] Last Admin: 07/14/17 22:18 Dose: 0.4 mg Vancomycin HCl (Vancomycin Per Pharmacy) 1 order IV UD [facility] Medical - PN: A/P - Time Spent With Patient Total time spent is greater than 50% in coordination of care (as documented) at patient's floor/unit and/or counseling patient: 25 - 35 minutes - Narrative A/P Narrative: A/P Narrative: * MRSA bacteremia-continue six-week vancomycin. PICC line placed. central line DC'd * MRSA empyema-Multiloculated. family does not want aggressive intervention or tertiary Center transfer despite recommendations and guidelines(includes tube thoracostomy and pleural decortication). patient currently being managed as per family recommendation on IV antibiotics. Family is aware that this treatment is not consistent with standard of care and carries a high risk of relapse. * Aspiration pneumonia-Status post antibiotic coverage. * Hypovolemic Hypernatremia: resolved * thrombocytopenia: resolved * ARDS/ Acute hypoxic Respiratory failure: resolved * Renal failure-resolved * Psoriasis- ethotrexate on hold * Cellulitis-of the right upper extremity,dvt is neg, Continue vancomycin. * severe malnutrition-continue feeding via NG tube. ST eval * Dementia/ Schizophremia: ontinue home medications of olanzapine as well as divalproex. * h/o bladder cancer: follows with Dr Best * DVT prophylaxis, arixtra * Diet on tube feeds * OT/ PT Plan * 6 weeks IV vancomycin for MRSA bacteremia * discontinue steroids * ontinue Enteral nutrition * PT OT * Lasix * DC [place] replacement Medical - PN: Qual - VTE Deep Vein Thrombosis/Pulmonary Embolism Present on Admission: No
[2017-07-15] MEDS: DIVALPROEX SODIUM 250 MG TAB.ER.24H PO SCH (20:17)
[2017-07-15] MEDS: OLANZapine 5 MG TABLET PO SCH (20:17)
[2017-07-15] MEDS: FAMOTIDINE/PF 20 MG/2 ML VIAL IV SCH (20:18)
[2017-07-15] MEDS: TAMSULOSIN 0.4 MG CAPSULE PO SCH (20:18)
[2017-07-16] MEDS: IPRATROPIUM/ALBUTEROL 3 ML AMPUL.NEB NEB SCH ×6 (03:05→23:45)
[2017-07-16 06:52] LABS: ALT/SGPT 51 U/l (0-40); Albumin 1.6 gm/dL (3.2-5.2); Albumin/Globulin Ratio 0.6 (1.0-2.3); Alkaline Phosphatase 267 U/L (39-117); Bilirubin,Direct < 0.2 mg/dL (0.0-0.3); Blood Urea Nitrogen 33 mg/dl (8-23); Gamma Glutamyl Transpeptidase 281 U/L (8-61); Uric Acid 5.5 mg/dL (2.5-8.0)
[2017-07-16 07:19] LABS: Basophils # (Auto) 0 K/mcL (0.0-0.3); Basophils % (Auto) 0.3 % (0.0-2.0); Eosinophils # (Auto) 0.1 K/mcL (0.0-0.7); Eosinophils % (Auto) 0.8 % (0.0-7.0); Granulocytes % (Auto) 80.1 % (38.0-78.0); Lymphocytes # (Auto) 1.4 K/mcL (1.5-4.8); Lymphocytes % (Auto) 13.7 % (15.5-49.0); Mean Cell Volume 107.3 fL (80.0-100.0); Mean Corpuscular HGB Conc 32.7 g/dL (31.0-36.0); Mean Corpuscular Hemoglobin 35.1 pg (26.0-34.0); Monocytes # (Auto) 0.5 K/mcL (0.1-0.9); Monocytes % (Auto) 5.1 % (1.0-12.0); Platelet Count 128 K/mcL (140-440); RBC 2.45 M/mcL (4.50-5.90); Red Cell Distribution Width 19.4 % (11.5-14.5)
[2017-07-16] MEDS: 0.9 % SODIUM CHLORIDE 10 ML SYRINGE IV SCH ×3 (08:07→22:06)
[2017-07-16] MEDS: DIVALPROEX 125 MG CAP.SPRINK PO SCH (08:09)
[2017-07-16] MEDS: MULTIVIT,THER IRON,CA,FA & MIN 1 TABLET PO SCH (08:10)
[2017-07-16] MEDS: FOLIC ACID 1 MG TABLET PO SCH (08:10)
[2017-07-16] MEDS: FONDAPARINUX SODIUM 2.5 MG/0.5 ML SYRINGE SQ SCH (08:11)
[2017-07-16] MEDS: VANCOMYCIN 1,500 MG in 0.9 % SODIUM CHLORIDE 500 ML IV SCH (08:27)
[2017-07-16] MEDS: FLUOCINOLONE ACETONIDE 0.01% TOPICAL SCH (08:28)
[2017-07-16] MEDS ORDERED: FUROSEMIDE 20 MG/2 ML VIAL IV ONE (08:56)
[2017-07-16] MEDS: CHLORHEXIDINE GLUCONATE 1 ML ORAL.SOL SWABMOUTH SCH ×2 (09:12→22:07)
--- NOTE | 2017-07-16 09:49 | Internal Med Progress Note ---
Medical - PN: Subj Patient information: Note initiated : 07/16/17 at 9:47 am Service Date, if different from initiated Date: [] Patient: Rodriguez Scales a 72 y/o M admitted on 07/05/17 for SOB/Sepsis, Pneumonia, Cellulitis. Chief Complaint: [] Interval history: Mr. Scales is a 72 year old Male with h/o dementia, normal pressure hydrocephalus, schizophrenia, presently living in an assisted living facility, presents to the ER because of altered mentation and shortness of breath. The patient is accompanied byI believe his [id number] who is a retired internal medicine physician. the patient has had history of recurrent falls going on for the last few weeks, fall 2 weeks ago resulted in some abrasions in his right lower extremity as well as right upper extremity, one of the abrasions got secondarily infected and his primary care physician had placed the patient on Bactrim for same. The patient's cellulitis was somewhat better. This afternoon when the brother-in- law, i.e., the physician. went to to evaluate the patient, he noticed that the patient was not himself was more confused and also had difficulty in breathing. There was significant amount of conducted breath sounds. The patient was therefore brought to the hospital for further evaluation. in the emergency room, the patient was noted to be hypoxic on presentation and his blood pressure was borderline low with systolic in the 80s,the patient's heart rate was around in the 90s However, the patient was afebrile. Chest x- ray was done which showed bibasal infiltrates as well as effusion suggesting aspiration pneumonia. The labs are significant for white blood cell count of 32 ,000. his hemoglobin is 12, and platelets are 44. Sodium is 133, potassium 5.1 , bicarbonate 25, creatinine is 1.4 and glucose of 132, magnesium is 3.0. Patient has an elevated lactic acid of 2.6. His alkaline phosphatase is elevated at 345. However, the patient's [id number] noted that this likely is chronically elevated. Patient has low albumin of 2.2. I reviewed the advanced directives with the patient's [id number], who noted that he talked to his who is also the patient's power of commercial litigation attorney and confirm that the patient is DNR. However, they're okay with antibiotics, pressors and BiPAP if necessary Overnight the patient after coming to the floor desaturated and became hypotensive, Central line was placed and pressors started, pt was obtunded overnight saturating 95% on 100% via NRB. 07/06: patient seen, examined, overnight events noted. Patient's WBC count continues to trend up, peripheral smear reviewed, platelets stable, the patient' s temperature is now in the normal range, patient is hyperkalemic and has elevated phosphate, CK level is normal, patient becomes hypoxic on minimal movement, unstable to go for a CT scan. I had a meeting with the family members and the power of commercial litigation attorney for the patient today, explaining them the poor prognosis, as well as expectation for medical management. At this point in time, they wish to continue with aggressive medical management short of intubation or CPR. They are waiting for family and was to arrive so they can take a final decision. 07/07: Patient seen examined, overnight events noted, pt was hypoxic much of the night, needing to clear secretions by suction. His bp is stable now, not needing pressors any more, WBC count is trending down. patient mental status is improved and he was able to follow commands and grasp my hand. Patient X ray chest is unchanged from before with wilton pna, effusions. Hyperkalemia resolved, phosphorus coming down. Given some improvement in patients mental status and the fact that he was 80-84% on 100% oxygen. we placed him on bipap today. he was not a candidate for bipap yesterday due to very poor mental status and increased secretions. Secretions are still there but I am hoping that he will respond to bipap as we have not other reasonable alternative. Patient condition with DR gao as well as the patients children. AT this time there seems to be a bit of difference of opinion on what needs be done. Patient respiratory status is needing support via bipap, but his hemodynamic status has improved and infection seems to be improving. It seems patients sister is the power of commercial litigation attorney. At this time as per my conversation with Dr Gao, plan is to give patient another day and see how he does. 07/08: patient seen examined, patient bit more awake today, obeyed commands to grasp hand, did not move his legs much but was responsive to touch and deep stimuli to extremities. The patient is on bipap still was on 50% fio2, will cut back to 30 and see if he is able to maintain his oxygen saturations No acute events. Family to still decide on overall course of treatment, at present to continue with medical management. Given that all his cultures are mrsa, will stop imipenum today, but add rocephin and flagyl to cover for pna/ aspiration. Platlet counts dropped, no acute bleed, no need for platlet transfusions yet. 07/09: Patient seen examined, overnight events not ed. I had a long discussion with the family members yesterday PM regarding the patients clinical condition and new findings. The patient has wilton loculated effusions which need to be drained. the patient has some cavitary lesions likely secondary due to mrsa pna. Patient family understood the patients clinical condition and wish to proceed with placement of pig tail cath if possible. They are aware that the patient will need multiple procedure to drain the fluid. they want to look at the patients condition on a case by case basis. The patient platelets are low and he is intermittently oozing from the Central line site, therefore placement of chest tube/ pig tail catheter is deferred at thsi time. Platelets are at 51 today, plan to just drain the largest fluid collection for now and then reassess. Patient echo neg for endocarditis. Pt mental condition appears better, he is able to follow commands, he briefly desaturated this AM needing bipap for a few hours, but is back on oxygen va nasal mask. Overall prognosis remains poor family aware of same. 07/10: patient seen examined, overnight events reviewed, he tried to remove his NG tube overnight, this was placed back, repeat X ray is neg. Discussed with radiology regarding tapping him again, but as per the radiologist he is not a good candidate given there are many loculations and only diagnostic taps can be done, therapeutic tap is not possible given lots of fibrous tissue and loculations. Will see if Chest tubes are possible, will review case with surgery patient clinically improving, platlets are better, bp stable, and oxygen need is stable, however he still has wilton loculated effusions which need to be drained and if not possible then will just treat with antibiotics and see how he does. Pleural fluid culture is positive for staph mrsa. The patient now seems more agitated as he is more awake, will try to see if we can resume his oral meds. 07/11: patient seen examined, no acute overnight events, patient sodium is creeping up, now at 160, on free water 200cc q4 hrs, started on half ns today. Recheck basic. Patient overall continues to improve, mental status much better , able to answer some questions. Denies pain. he is also trying to participate in his care. I reviewed the plan of care with the patients family today, he wound need to go to [place] [facility] for CT surgery eval and possible pleural decortication to treat the bilateral loculated effusions. The family does not wish to send the patient up to [facility] or LTAC facility [place], they want to continue with IV antibiotics and conservative management and see how he does. The patients brother in law Dr Keenan discussed this with Dr Chapman who is patients PCP. They would prefer the patient be kept here as swing bed once the patient is more stable, and then discharged to assisted. 07/12: Pt seen examined, no acute events, pt has wilton loculated effusions, which need CT surgery eval and likely decortication to treat the underlying infection. the patient this AM continues to improve , mental status better, denies any complaints I reviewed the case with the patients POHarry and Patients brother in law Dr Keenan who himself is an retired senior security analyst. Explained that patient needs to have the loculated pleura effusions treated and if not treated properly it has a high risk that infection will come back once antibiotics are done. The patients brother in law and juan (sister ) have chosen to treat the patient medically with just iV antibiotics, refused placement to LTAC or transfer to higher center for appropriate management of loculated pleural effusions. they are fully aware of the consequences of their decision. 07/13.-patient continuing on IV antibiotics. White count downtrending at 8.4. Appears at baseline ithout significant change since previous day.mumbling intermittently. No telemetry events. No concerns expressed by nursing staff. No family at bedside. Foleys drainingdark urine. Sodium down to 151.surveillance cultures negative so far.on 3 L oxygen 07/14-patient doing well. On antibiotic coverage. Continues to mumble. No shortness of breath. No family at bedside. abs and hemodynamics stable. Sodium 143. Continue 6 recent antibiotic coverage for MRSA. 07/15-odium improved. DC free water replacement. Overall 6 L volume up. Start low-dose Lasix. continue vancomycin for 6 weeks. no significant changes since previous day. on 3 L oxygen. Tube feeds ongoing. limited physical therapy in light of max assist for bed mobility. Patient is unable to sit or follow verbal cues 07/16-adequate response to Lasix. Sodium at 143. Ongoing tube feeds. Speech therapy evaluation and target discontinuing tube feedings and transition to oral diet as per ST recommendations. bonita count 10.5. HERBER screen negative. Continue gentle diuresis. IV antibiotics to continue for 6 weeks. Anticipate transition to SNFin 24-48 hours. - Constitutional Vitals: Vital Signs Temp Pulse Resp BP Pulse Ox 96.3 F L 72 20 78/42 89 L 07/16/17 08:05 07/16/17 07:38 07/16/17 08:05 07/16/17 08:05 07/16/17 08:05 Period Temp Pulse Resp BP Sys/Navarro Pulse Ox Last 24 Hr 96.3 F-98.4 F 68-89 14-20 78-114/42-71 89-95 Intake and Output 07/15/17 07/16/17 07/16/17 21:59 05:59 13:59 Intake Total / 30 1381 / 1381 500 / 500 Output Total 1551 / 1551 850 / 850 Balance -1521 / -1521 531 / 531 500 / 500 Weight 201 lb Intake & Output: Intake & Output 07/15/17 07/16/17 07/16/17 21:59 05:59 13:59 Intake Total 30 / 30 1381 / 1381 500 / 500 Output Total 1551 / 1551 850 / 850 Balance -1521 / -1521 531 / 531 500 / 500 Weight 201 lb Intake: IV 500 / 500 Vancomycin 1,500 mg In 500 / 500 Sodium Chloride 0.9% 500 ml @ 333.3 mls/hr IV DAILY [facility] Rx#:[id number] Tube Feeding 1321 / 1321 GI Tube Flush 60 / 60 Output: Gastric Drainage 0 / 0 Urine Catheter Amount 1550 / 1550 850 / 850 # of times incontinent of 1 / 1 urine Other: # of times incontinent of 1 1 Bowels # Emeses 0 General appearance: cooperative, no acute distress Exam: alert but unable to follow commands onlabored breathing significant lymphedema but improved since previous day foleys draining clear urine Tube feeds ongoing via [facility] - PN: Obj Da - Labs CBC & Chem 7: 07/16/17 05:00 07/16/17 05:00 Labs: Abnormal Lab Results 07/16/17 07/16/17 07/15/17 05:00 05:00 04:40 WBC RBC 2.45 L Hgb 8.6 L Hct 26.3 L MCV 107.3 H MCH 35.1 H RDW 19.4 H Plt Count 128 L MPV 14.7 H Gran % 80.1 H Lymph % (Auto) 13.7 L Gran # 8.4 H Lymph # (Auto) 1.4 L Chloride 109 H Anion Gap 7.0 L BUN 33 H 34 H Creatinine 0.6 L 0.6 L Glucose 178 H 170 H Calcium 8.2 L 8.3 L GGT 281 H 279 H AST 40 H 46 H ALT 51 H 50 H Alkaline Phosphatase 267 H 278 H Lactate Dehydrogenase 268 H Total Protein 4.4 L 4.5 L Albumin 1.6 L 1.9 L Albumin/Globulin Ratio 0.6 L 0.7 L 07/15/17 07/14/17 07/14/17 04:40 05:30 05:30 WBC 12.5 H RBC 2.60 L 2.20 L Hgb 9.1 L 7.8 L Hct 27.8 L 23.6 L MCV 107.0 H 107.4 H MCH 35.1 H 35.3 H RDW 18.7 H 18.4 H Plt Count 120 L MPV 14.8 H 13.8 H Gran % 78.5 H 80.0 H Lymph % (Auto) 15.1 L 14.2 L Gran # 9.8 H Lymph # (Auto) 1.3 L Chloride 110 H Anion Gap 4.0 L BUN 35 H Creatinine 0.6 L Glucose 172 H Calcium 7.8 L GGT 212 H AST 42 H ALT Alkaline Phosphatase 222 H Lactate Dehydrogenase Total Protein 3.9 L Albumin 1.4 L Albumin/Globulin Ratio 0.6 L Meds: Medications Acetaminophen (Tylenol) 650 mg PO Q4-6HP PRN PRN Reason: PAIN/FEVER > 101 Albuterol/Ipratropium (Duoneb) 3 ml NEB Q4HRT NATE Last Admin: 09/15/17 07:37 Dose: 3 ml Chlorhexidine Gluconate (Peridex) 15 ml SWABMOUTH BID [facility] Last Admin: 07/16/17 09:12 Dose: 15 ml Divalproex Sodium (Depakote Sprinkles) 375 mg PO DAILY [facility] Last Admin: 07/16/17 08:09 Dose: 375 mg Divalproex Sodium (Depakote Er) 500 mg PO HS [facility] Last Admin: 07/15/17 20:17 Dose: 500 mg Famotidine (Pepcid) 20 mg IV HS [facility] Last Admin: 07/15/17 20:18 Dose: 20 mg Folic Acid (Folic Acid) 1 mg PO QDAY [facility] Last Admin: 07/16/17 08:10 Dose: 1 mg Fondaparinux (Arixtra) 2.5 mg SQ DAILY [facility] Last Admin: 07/16/17 08:11 Dose: 2.5 mg Heparin Sodium (Porcine) (Heparin Flush) 2 ml IV Q12 [facility] Last Admin: 07/16/17 08:08 Dose: 2 ml Hydromorphone HCl (Dilaudid) 0.5 mg IV Q2HP PRN PRN Reason: Pain Vancomycin HCl 1,500 mg/ (Sodium Chloride) 500 mls @ 333.3 mls/hr IV DAILY [facility] Last Infusion: 07/16/17 09:35 Dose: Infused Iron Carb/Multivit/Oyster Fisherman/Folic Acid (Multivitamin W/Minerals) 1 tab PO DAILY [facility] Last Admin: 07/16/17 08:10 Dose: 1 tab Lorazepam (Ativan) 0.5 mg PO PRN PRN PRN Reason: Anxiety Last Admin: 07/15/17 21:58 Dose: 0.5 mg Magnesium Hydroxide (Milk Of Magnesia) 30 ml PO DAILYP PRN PRN Reason: Constipation Naloxone HCl (Narcan) 0.1 mg IV Q2MIN PRN PRN Reason: Opiate Reversal Olanzapine (Zyprexa) 15 mg PO [facility] Last Admin: 07/15/17 20:17 Dose: 15 mg Ondansetron HCl (Zofran) 4 mg IV Q4-6HP PRN PRN Reason: Nausea And Vomiting Fluticasone Propionate [Cutivate ] 0.05% Cream 1 dose TOPICAL BIDP PRN PRN Reason: Itching Fluocinolone Acetonide [Synalar] 0.01% Topical Solution 1 dose TOPICAL QDAY [facility] Last Admin: 07/16/17 08:28 Dose: Not Given Sodium Chloride (Saline Flush) 10 ml IV UD PRN PRN Reason: FLUSH Sodium Chloride (Saline Flush) 10 ml IV Q8 [facility] Last Admin: 07/16/17 08:07 Dose: 10 ml Tamsulosin HCl (Flomax) 0.4 mg PO QHS [facility] Last Admin: 07/15/17 20:18 Dose: 0.4 mg Vancomycin HCl (Vancomycin Per Pharmacy) 1 order IV UD [facility] Medical - PN: A/P - Time Spent With Patient Total time spent is greater than 50% in coordination of care (as documented) at patient's floor/unit and/or counseling patient: 25 - 35 minutes - Narrative A/P Narrative: A/P Narrative: * MRSA bacteremia-Continue six-week vancomycin. * MRSA empyema-Multiloculated. family does not want aggressive intervention or tertiary Center transfer despite recommendations and guidelines(includes tube thoracostomy and pleural decortication). patient currently being managed as per family recommendation on IV antibiotics. Family is aware that this treatment is not consistent with standard of care and carries a high risk of relapse. * Aspiration pneumonia-Status post antibiotic coverage. * Hypovolemic Hypernatremia: resolved.odium 143 * Thrombocytopenia: resolved * ARDS/ Acute hypoxic Respiratory failure: resolved * Renal failure-resolved * Psoriasis- Methotrexate on hold * Cellulitis-of the right upper extremity,dvt is neg, Continue vancomycin. * severe malnutrition-continue feeding via NG tube. ST eval * Dementia/ Schizophremia: ontinue home medications of olanzapine as well as divalproex. * h/o bladder cancer: follows with Dr Best * DVT prophylaxis, arixtra * Diet on tube feeds * OT/ PT Plan * 6 weeks IV vancomycin for MRSA bacteremia * sT eval * wean to feed and transition to oral diet as per ST * continue PT OT * Lasix as needed * nticipate SNF transfer in 24-48 hours Medical - PN: Qual - VTE Deep Vein Thrombosis/Pulmonary Embolism Present on Admission: No
[2017-07-16] MEDS: LORazepam 0.5 MG TABLET PO PRN (22:05)
[2017-07-16] MEDS: TAMSULOSIN 0.4 MG CAPSULE PO SCH (22:05)
[2017-07-16] MEDS: DIVALPROEX SODIUM 250 MG TAB.ER.24H PO SCH (22:05)
[2017-07-16] MEDS: FAMOTIDINE/PF 20 MG/2 ML VIAL IV SCH (22:06)
[2017-07-16] MEDS: OLANZapine 5 MG TABLET PO SCH (22:06)
[2017-07-17] MEDS: IPRATROPIUM/ALBUTEROL 3 ML AMPUL.NEB NEB SCH ×6 (03:24→23:18)
[2017-07-17] MEDS: 0.9 % SODIUM CHLORIDE 10 ML SYRINGE IV SCH ×4 (04:34→21:05)
[2017-07-17 06:15] LABS: Basophils # (Auto) 0 K/mcL (0.0-0.3); Basophils % (Auto) 0.2 % (0.0-2.0); Eosinophils # (Auto) 0.1 K/mcL (0.0-0.7); Granulocytes % (Auto) 83.5 % (38.0-78.0); Lymphocytes # (Auto) 1.5 K/mcL (1.5-4.8); Lymphocytes % (Auto) 10.2 % (15.5-49.0); Mean Cell Volume 106.4 fL (80.0-100.0); Mean Corpuscular HGB Conc 33.2 g/dL (31.0-36.0); Mean Corpuscular Hemoglobin 35.4 pg (26.0-34.0); Monocytes # (Auto) 0.7 K/mcL (0.1-0.9); Monocytes % (Auto) 5.1 % (1.0-12.0); Platelet Count 158 K/mcL (140-440); RBC 2.84 M/mcL (4.50-5.90); Red Cell Distribution Width 19.2 % (11.5-14.5)
[2017-07-17 06:30] LABS: ALT/SGPT 53 U/l (0-40); Albumin/Globulin Ratio 0.6 (1.0-2.3); Alkaline Phosphatase 302 U/L (39-117); Bilirubin,Direct < 0.2 mg/dL (0.0-0.3); Blood Urea Nitrogen 28 mg/dl (8-23); Gamma Glutamyl Transpeptidase 336 U/L (8-61); Uric Acid 5.7 mg/dL (2.5-8.0)
[2017-07-17] MEDS: FOLIC ACID 1 MG TABLET PO SCH (08:25)
[2017-07-17] MEDS: MULTIVIT,THER IRON,CA,FA & MIN 1 TABLET PO SCH (08:25)
[2017-07-17] MEDS: FONDAPARINUX SODIUM 2.5 MG/0.5 ML SYRINGE SQ SCH (08:25)
[2017-07-17] MEDS: DIVALPROEX 125 MG CAP.SPRINK PO SCH (08:25)
[2017-07-17] MEDS: CHLORHEXIDINE GLUCONATE 1 ML ORAL.SOL SWABMOUTH SCH ×2 (08:26→21:12)
[2017-07-17] MEDS: FLUOCINOLONE ACETONIDE 0.01% TOPICAL SCH (08:26)
[2017-07-17] MEDS: VANCOMYCIN 1,500 MG in 0.9 % SODIUM CHLORIDE 500 ML IV SCH (10:10)
--- NOTE | 2017-07-17 11:54 | Internal Med Progress Note ---
Medical - PN: Subj Patient information: Note initiated : 07/17/17 at 11:54 am Patient: Rodriguez Scales 72 y/o M admitted on 07/05/17 for SOB/Sepsis, Pneumonia, Cellulitis. Interval history: July 05, 2017: History of present illness: Mr. Scales is a 72 year old Male with h/o dementia, normal pressure hydrocephalus, schizophrenia, presently living in an assisted living facility, presents to the ER because of altered mentation and shortness of breath. The patient is accompanied byI believe his [id number]-nlg who is a retired internal medicine physician. the patient has had history of recurrent falls going on for the last few weeks, fall 2 weeks ago resulted in some abrasions in his right lower extremity as well as right upper extremity, one of the abrasions got secondarily infected and his primary care physician had placed the patient on Bactrim for same. The patient's cellulitis was somewhat better. This afternoon when the brother-in- law, i.e., the physician. went to to evaluate the patient, he noticed that the patient was not himself was more confused and also had difficulty in breathing. There was significant amount of conducted breath sounds. The patient was therefore brought to the hospital for further evaluation. in the emergency room, the patient was noted to be hypoxic on presentation and his blood pressure was borderline low with systolic in the 80s,the patient's heart rate was around in the 90s However, the patient was afebrile. Chest x- ray was done which showed bibasal infiltrates as well as effusion suggesting aspiration pneumonia. The labs are significant for white blood cell count of 32 ,000. his hemoglobin is 12, and platelets are 44. Sodium is 133, potassium 5.1 , bicarbonate 25, creatinine is 1.4 and glucose of 132, magnesium is 3.0. Patient has an elevated lactic acid of 2.6. His alkaline phosphatase is elevated at 345. However, the patient's [id number] noted that this likely is chronically elevated. Patient has low albumin of 2.2. I reviewed the advanced directives with the patient's [id number], who noted that he talked to his who is also the patient's power of garden center manager and confirm that the patient is DNR. However, they're okay with antibiotics, pressors and BiPAP if necessary. Overnight the patient after coming to the floor desaturated and became hypotensive, Central line was placed and pressors started, pt was obtunded overnight saturating 95% on 100% via NRB. July 17, 2017: On service note: -This patient was admitted with sepsis which apparently started with cellulitis , followed by aspiration pneumonia. He has been diagnosed with MRSA empyema as well as bacteremia and cellulitis. He has loculated pleural effusions. It has been explained to the family on numerous occasions that these cannot be cured without more aggressive intervention, including thoracostomy. The family has continued to decline more invasive measures, and continues to want only IV antibiotics, although they did allow short-term management with BiPAP.. At this point in time I believe they have all agreed that they would like to try IV antibiotics for 6-8 weeks. After that, if the patient declines again, they would apparently be willing to consider comfort care. It has been explained to them that loculated empyema is not likely to resolve with IV antibiotics alone. -The patient has severe malnutrition, and is now on tube feedings, Via Dobbhoff tube. There is a tentative plan to eventually put him back on an oral diet, as per speech therapist recommendations. -The patient has long-standing history of schizophrenia, dementia, normal pressure hydrocephalus. His family is wanting to continue usual treatments for these, but no new aggressive treatments. Next -The patient also has history of bladder cancer, followed by Dr. Best. -They would prefer the patient be kept here as swing bed once the patient is more stable, and then discharged to skilled nursing. -Today, the patient is awake and alert, but speech is mostly unintelligible. He seems to indicate that he is not having any pain, chest pain, or shortness of breath. He is not really able to give me history, and there is no family in the room with him this morning. His feeding tube is clotted off today, so the nurses plan on replacing it, although my understanding is that speech therapy would like to eventually have him resume oral nutrition. The patient is really not able to clearly give me a history or review of systems , regarding fevers or chills, chest pain or cough, GI or symptoms. - Constitutional Vitals: Vital Signs Temp Pulse Resp BP Pulse Ox 96.8 F L 84 18 118/76 92 07/17/17 08:00 07/17/17 11:45 07/17/17 11:45 07/17/17 08:00 07/17/17 08:30 Period Temp Pulse Resp BP Sys/Navarro Pulse Ox Last 24 Hr 96.8 F-97.6 F 78-113 16-24 95-166/68-83 90-94 Intake and Output 07/16/17 07/17/17 07/17/17 21:59 05:59 13:59 Intake Total 705 / 705 346 / 346 Output Total 275 / 275 1100 / 1100 Balance -275 / -275 -395 / -395 346 / 346 Weight 203 lb Intake & Output: Intake & Output 07/16/17 07/17/17 07/17/17 21:59 05:59 13:59 Intake Total 705 / 705 346 / 346 Output Total 275 / 275 1100 / 1100 Balance -275 / -275 -395 / -395 346 / 346 Weight 203 lb Intake: Tube Feeding 615 / 615 316 / 316 GI Tube Flush 90 / 90 30 / 30 Output: Gastric Drainage 0 / 0 Urine Catheter Amount 275 / 275 1100 / 1100 Other: # Emeses 0 He is awake and alert, and in no acute distress. Intake and output since admission indicate that he is about 10 L ahead on fluids. Weight has increased from 188 pounds to 203 pounds. Neck is supple without obvious lymphadenopathy or JVD. Cardiac exam shows regular rate and rhythm. Lung exam: Shows fairly diffuse sounds with scattered rhonchi. There is no significant wheezing or obvious accessory muscle use. Abdomen is soft and nontender. Bowel sounds are somewhat high-pitched. There is no guarding or rebound. Extremities show about 2+ pitting edema of the right upper extremity as well as both lower extremities. Neurologic: As noted above, the patient's speech is mostly unintelligible. He does follow some commands. Neuro exam is not otherwise tested in detail. Medical - PN: Obj Da - Labs CBC & Chem 7: 07/18/17 08:55 07/18/17 08:55 Labs: Abnormal Lab Results 07/17/17 07/17/17 07/17/17 08:40 04:40 04:40 WBC 14.4 H RBC 2.84 L Hgb 10.1 L Hct 30.3 L MCV 106.4 H MCH 35.4 H RDW 19.2 H Plt Count MPV 15.5 H Gran % 83.5 H Lymph % (Auto) 10.2 L Gran # 12.0 H Lymph # (Auto) Chloride Carbon Dioxide 32 H Anion Gap 5.0 L BUN 28 H Creatinine 0.6 L Glucose 123 H Calcium GGT 336 H AST 49 H ALT 53 H Alkaline Phosphatase 302 H Lactate Dehydrogenase 273 H Total Protein 5.1 L Albumin 2.0 L Albumin/Globulin Ratio 0.6 L Vancomycin Trough 21.0 H* 07/16/17 07/16/17 07/15/17 05:00 05:00 04:40 WBC RBC 2.45 L Hgb 8.6 L Hct 26.3 L MCV 107.3 H MCH 35.1 H RDW 19.4 H Plt Count 128 L MPV 14.7 H Gran % 80.1 H Lymph % (Auto) 13.7 L Gran # 8.4 H Lymph # (Auto) 1.4 L Chloride 109 H Carbon Dioxide Anion Gap 7.0 L BUN 33 H 34 H Creatinine 0.6 L 0.6 L Glucose 178 H 170 H Calcium 8.2 L 8.3 L GGT 281 H 279 H AST 40 H 46 H ALT 51 H 50 H Alkaline Phosphatase 267 H 278 H Lactate Dehydrogenase 268 H Total Protein 4.4 L 4.5 L Albumin 1.6 L 1.9 L Albumin/Globulin Ratio 0.6 L 0.7 L Vancomycin Trough 07/15/17 04:40 WBC 12.5 H RBC 2.60 L Hgb 9.1 L Hct 27.8 L MCV 107.0 H MCH 35.1 H RDW 18.7 H Plt Count MPV 14.8 H Gran % 78.5 H Lymph % (Auto) 15.1 L Gran # 9.8 H Lymph # (Auto) Chloride Carbon Dioxide Anion Gap BUN Creatinine Glucose Calcium GGT AST ALT Alkaline Phosphatase Lactate Dehydrogenase Total Protein Albumin Albumin/Globulin Ratio Vancomycin Trough July 14: Chest x-ray: Left-sided PICC is noted with tip at junction of superior vena cava and right atrium. Feeding tube noted in the stomach. Bilateral diffuse pulmonary parenchymal infiltrates and bilateral pleural effusions, unchanged. July 11: Liver ultrasound: Calcified abnormality in the gallbladder fossa, possibly gallstones. No abscess noted. Small amount of ascitic fluid and right pleural fluid. July 09: Pleural fluid grew MRSA. July 08: Echocardiogram: Normal left ventricle, with LVH. Ejection fraction 70%. Mild pulmonary hypertension. No obvious vegetations. Chest CT: Bilateral pleural effusions with loculations. Multiple parenchymal densities with cavitation. Mass in the left lower lobe. Nonspecific mediastinal adenopathy. Esophageal dilation consistent with fluid. Bilateral infiltrates consistent with pneumonia. July 05: Urine culture grew MRSA. Blood culture grew MRSA. Right knee culture grew MRSA. Meds: Medications Acetaminophen (Tylenol) 650 mg PO Q4-6HP PRN PRN Reason: PAIN/FEVER > 101 Albuterol/Ipratropium (Duoneb) 3 ml NEB Q4HRT [facility] Last Admin: 07/17/17 11:41 Dose: 3 ml Chlorhexidine Gluconate (Peridex) 15 ml SWABMOUTH BID [facility] Last Admin: 07/17/17 08:26 Dose: 15 ml Divalproex Sodium (Depakote Sprinkles) 375 mg PO DAILY [facility] Last Admin: 07/17/17 08:25 Dose: 375 mg Divalproex Sodium (Depakote Er) 500 mg PO HS [facility] Last Admin: 07/16/17 22:05 Dose: 500 mg Famotidine (Pepcid) 20 mg IV HS [facility] Last Admin: 07/16/17 22:06 Dose: 20 mg Folic Acid (Folic Acid) 1 mg PO QDAY [facility] Last Admin: 07/17/17 08:25 Dose: 1 mg Fondaparinux (Arixtra) 2.5 mg SQ DAILY [facility] Last Admin: 07/17/17 08:25 Dose: 2.5 mg Heparin Sodium (Porcine) (Heparin Flush) 2 ml IV Q12 [facility] Last Admin: 07/17/17 08:25 Dose: 2 ml Hydromorphone HCl (Dilaudid) 0.5 mg IV Q2HP PRN PRN Reason: Pain Iron Carb/Multivit/Emery/Folic Acid (Multivitamin W/Minerals) 1 tab PO DAILY [facility] Last Admin: 07/17/17 08:25 Dose: 1 tab Lorazepam (Ativan) 0.5 mg PO PRN PRN PRN Reason: Anxiety Last Admin: 07/16/17 22:05 Dose: 0.5 mg Magnesium Hydroxide (Milk Of Magnesia) 30 ml PO DAILYP PRN PRN Reason: Constipation Naloxone HCl (Narcan) 0.1 mg IV Q2MIN PRN PRN Reason: Opiate Reversal Olanzapine (Zyprexa) 15 mg PO HS [facility] Last Admin: 07/16/17 22:06 Dose: 15 mg Ondansetron HCl (Zofran) 4 mg IV Q4-6HP PRN PRN Reason: Nausea And Vomiting Fluticasone Propionate [Cutivate ] 0.05% Cream 1 dose TOPICAL BIDP PRN PRN Reason: Itching Fluocinolone Acetonide [Synalar] 0.01% Topical Solution 1 dose TOPICAL QDAY [facility] Last Admin: 07/17/17 08:26 Dose: Not Given Sodium Chloride (Saline Flush) 10 ml IV UD PRN PRN Reason: FLUSH Sodium Chloride (Saline Flush) 10 ml IV Q8 [facility] Last Admin: 07/17/17 08:26 Dose: 10 ml Tamsulosin HCl (Flomax) 0.4 mg PO QHS [facility] Last Admin: 07/16/17 22:05 Dose: 0.4 mg Vancomycin HCl (Vancomycin Per Pharmacy) 1 order IV [facility] Medical - PN: A/P - Time Spent With Patient Total time spent is greater than 50% in coordination of care (as documented) at patient's floor/unit and/or counseling patient: Greater than 35 minutes - Narrative A/P Narrative: A/P Narrative: #1. Infectious disease. -MRSA bacteremia-Continue six-week vancomycin. -MRSA empyema-Multiloculated. family does not want aggressive intervention or tertiary Center transfer despite recommendations and guidelines(includes tube thoracostomy and pleural decortication). patient currently being managed as per family recommendation on IV antibiotics. Family is aware that this treatment is not consistent with standard of care and carries a high risk of relapse. -Aspiration pneumonia-Status post antibiotic coverage. Continue vancomycin for MRSA. -White blood cell count is climbing today, for uncertain reasons. The patient is certainly at risk for both gram-negative and anaerobic infection. Unfortunately he is penicillin allergic. Add imipenem to also cover Pseudomonas. Cellulitis-of the right upper extremity,dvt is neg, Continue vancomycin. #2. Endocrine. * Hypovolemic Hypernatremia: resolved. * #3. Hematologic. * Thrombocytopenia: resolved. * #4. Pulmonary. * ARDS/ Acute hypoxic Respiratory failure: resolved * #5. Renal. * Renal failure-resolved. * * #6. Rheumatologic. Psoriasis- Methotrexate on hold. Resume topical clobetasol. #7. Nutrition. * severe malnutrition-continue feeding via NG tube. Speech therapy and dietary following. * #8. Neurologic/psychiatric. * Dementia/ Schizophremia: continue home medications of olanzapine as well as divalproex. * #9. . * h/o bladder cancer: follows with Dr Best * #10. * DVT prophylaxis, arixtra * * * OT/ PT #11. CODE STATUS: No CPR. #12. GI. Elevated LFTs. It is unclear if this is related to recent sepsis, current medications, or other. Continue to monitor. Today's visit took approximately 40 minutes, to review the patient's chart and test results, interview and examine the patient, review plan of care with nursing staff, and write orders. Medical - PN: Qual - VTE Deep Vein Thrombosis/Pulmonary Embolism Present on Admission: No
--- NOTE | 2017-07-17 16:35 | XRay Report ---
INDICATION: Feeding tube placement TECHNIQUE: AP chest x-ray,portable supine COMPARISON: None FINDINGS:Metallic tip feeding tube with its tip in the proximal stomach. Tip is joint disease in the gastric fundus. Left-sided PICC line is unchanged. The tip is in the right atrium. Large amount of small bowel gas visualized. No significant dilatation. There is some gas in the transverse colon. Lungs remain abnormal. Routine chest x-ray was not obtained. There is bilateral pleural fluid. There are bilateral infiltrates IMPRESSION: Metallic tip feeding tube in the proximal stomach Interpreted and Authenticated by: Glen Tejada 07/17/17
--- NOTE | 2017-07-17 17:58 | XRay Report ---
INDICATION: Advancement of feeding tube TECHNIQUE: AP chest x-ray,portable supine COMPARISON: Previous examination dated 07/17/2017 FINDINGS:Metallic tipped feeding tube is been advanced. The tip is now curled in the gastric antrum. There continues to be gas throughout the small bowel with very little colonic gas identified. Small bowel does not appear significantly dilated at this time. Follow-up examination recommended. IMPRESSION: Feeding tube tip in the gastric antrum. Interpreted and Authenticated by: Glen Tejada 07/17/17
[2017-07-17] MEDS ORDERED: IMIPENEM/CILASTATIN SODIUM 500 MG VIAL IV ONE (18:20)
[2017-07-17] MEDS: IMIPENEM/CILASTATIN SODIUM 250 MG in 0.9 % SODIUM CHLORIDE 100 ML IV SCH (18:50)
[2017-07-17] MEDS: FAMOTIDINE/PF 20 MG/2 ML VIAL IV SCH (21:04)
[2017-07-17] MEDS: OLANZapine 5 MG TABLET PO SCH (21:04)
[2017-07-17] MEDS: DIVALPROEX SODIUM 250 MG TAB.ER.24H PO SCH (21:05)
[2017-07-17] MEDS: TAMSULOSIN 0.4 MG CAPSULE PO SCH (21:05)
[2017-07-18] MEDS: IMIPENEM/CILASTATIN SODIUM 250 MG in 0.9 % SODIUM CHLORIDE 100 ML IV SCH ×4 (01:40→21:44)
[2017-07-18] MEDS: IPRATROPIUM/ALBUTEROL 3 ML AMPUL.NEB NEB SCH ×6 (03:58→23:10)
--- NOTE | 2017-07-18 08:46 | XRay Report ---
CLINICAL INFORMATION: Feeding tube placement TECHNIQUE: AP supine portable abdomen COMPARISON: Previous examinations dated 07/17 and 07/14/2017 FINDINGS: Metallic tipped Dobbhoff feeding tube has migrated distally and is now probably beyond the ligament of Treitz. Bowel gas pattern is much more normal than on prior examination. Previous study demonstrated a large amount of small bowel gas nonvisualization of:. Bowel gas pattern is present within normal small bowel gas in the small and large bowel. IMPRESSION: Dobbhoff feeding tube with its tip just past the ligament of Treitz Interpreted and Authenticated by: Glen Tejada 07/18/17
[2017-07-18] MEDS: VANCOMYCIN 1,500 MG in 0.9 % SODIUM CHLORIDE 500 ML IV SCH (09:10)
[2017-07-18] MEDS: DIVALPROEX 125 MG CAP.SPRINK PO SCH (09:11)
[2017-07-18] MEDS: FONDAPARINUX SODIUM 2.5 MG/0.5 ML SYRINGE SQ SCH (09:11)
[2017-07-18] MEDS: FOLIC ACID 1 MG TABLET PO SCH (09:12)
[2017-07-18] MEDS: FLUOCINOLONE ACETONIDE 0.01% TOPICAL SCH (09:12)
[2017-07-18] MEDS: CHLORHEXIDINE GLUCONATE 1 ML ORAL.SOL SWABMOUTH SCH ×2 (09:12→21:52)
[2017-07-18] MEDS: 0.9 % SODIUM CHLORIDE 10 ML SYRINGE IV SCH ×3 (09:16→21:50)
[2017-07-18] MEDS: MULTIVIT,THER IRON,CA,FA & MIN 1 TABLET PO SCH (09:16)
[2017-07-18 10:03] LABS: Basophils # (Auto) 0 K/mcL (0.0-0.3); Basophils % (Auto) 0.3 % (0.0-2.0); Eosinophils # (Auto) 0.1 K/mcL (0.0-0.7); Eosinophils % (Auto) 1.2 % (0.0-7.0); Granulocytes % (Auto) 82.7 % (38.0-78.0); Lymphocytes # (Auto) 1.4 K/mcL (1.5-4.8); Lymphocytes % (Auto) 11.5 % (15.5-49.0); Mean Cell Volume 105.7 fL (80.0-100.0); Mean Corpuscular HGB Conc 32.7 g/dL (31.0-36.0); Mean Corpuscular Hemoglobin 34.5 pg (26.0-34.0); Monocytes # (Auto) 0.5 K/mcL (0.1-0.9); Monocytes % (Auto) 4.3 % (1.0-12.0); Platelet Count 108 K/mcL (140-440); RBC 2.58 M/mcL (4.50-5.90); Red Cell Distribution Width 19.4 % (11.5-14.5)
[2017-07-18 10:16] LABS: ALT/SGPT 40 U/l (0-40); Albumin 1.5 gm/dL (3.2-5.2); Albumin/Globulin Ratio 0.5 (1.0-2.3); Alkaline Phosphatase 243 U/L (39-117); Bilirubin,Direct < 0.2 mg/dL (0.0-0.3); Blood Urea Nitrogen 22 mg/dl (8-23); Gamma Glutamyl Transpeptidase 261 U/L (8-61); Uric Acid 6.9 mg/dL (2.5-8.0)
--- NOTE | 2017-07-18 11:52 | Internal Med Progress Note ---
Medical - PN: Subj Patient information: Note initiated : 07/18/17 at 11:52 am Patient: Rodriguez Scalse 72 y/o M admitted on 07/05/17 for SOB/Sepsis, Pneumonia, Cellulitis. Interval history: July 05, 2017: History of present illness: Mr. Scales is a 72 year old Male with h/o dementia, normal pressure hydrocephalus, schizophrenia, presently living in an assisted living facility, presents to the ER because of altered mentation and shortness of breath. The patient is accompanied byI believe his [id number] who is a retired internal medicine physician. the patient has had history of recurrent falls going on for the last few weeks, fall 2 weeks ago resulted in some abrasions in his right lower extremity as well as right upper extremity, one of the abrasions got secondarily infected and his primary care physician had placed the patient on Bactrim for same. The patient's cellulitis was somewhat better. This afternoon when the brother-in- law, i.e., the physician. went to to evaluate the patient, he noticed that the patient was not himself was more confused and also had difficulty in breathing. There was significant amount of conducted breath sounds. The patient was therefore brought to the hospital for further evaluation. in the emergency room, the patient was noted to be hypoxic on presentation and his blood pressure was borderline low with systolic in the 80s,the patient's heart rate was around in the 90s However, the patient was afebrile. Chest x- ray was done which showed bibasal infiltrates as well as effusion suggesting aspiration pneumonia. The labs are significant for white blood cell count of 32 ,000. his hemoglobin is 12, and platelets are 44. Sodium is 133, potassium 5.1 , bicarbonate 25, creatinine is 1.4 and glucose of 132, magnesium is 3.0. Patient has an elevated lactic acid of 2.6. His alkaline phosphatase is elevated at 345. However, the patient's [id number] noted that this likely is chronically elevated. Patient has low albumin of 2.2. I reviewed the advanced directives with the patient's [id number], who noted that he talked to his who is also the patient's power of director business development and confirm that the patient is DNR. However, they're okay with antibiotics, pressors and BiPAP if necessary. Overnight the patient after coming to the floor desaturated and became hypotensive, Central line was placed and pressors started, pt was obtunded overnight saturating 95% on 100% via NRB. July 17, 2017: On service note: -This patient was admitted with sepsis which apparently started with cellulitis , followed by aspiration pneumonia. He has been diagnosed with MRSA empyema as well as bacteremia and cellulitis. He has loculated pleural effusions. It has been explained to the family on numerous occasions that these cannot be cured without more aggressive intervention, including thoracostomy. The family has continued to decline more invasive measures, and continues to want only IV antibiotics, although they did allow short-term management with BiPAP.. At this point in time I believe they have all agreed that they would like to try IV antibiotics for 6-8 weeks. After that, if the patient declines again, they would apparently be willing to consider comfort care. It has been explained to them that loculated empyema is not likely to resolve with IV antibiotics alone. -The patient has severe malnutrition, and is now on tube feedings, Via Dobbhoff tube. There is a tentative plan to eventually put him back on an oral diet, as per speech therapist recommendations. -The patient has long-standing history of schizophrenia, dementia, normal pressure hydrocephalus. His family is wanting to continue usual treatments for these, but no new aggressive treatments. Next -The patient also has history of bladder cancer, followed by Dr. Best. -They would prefer the patient be kept here as swing bed once the patient is more stable, and then discharged to [facility]. -Today, the patient is awake and alert, but speech is mostly unintelligible. He seems to indicate that he is not having any pain, chest pain, or shortness of breath. He is not really able to give me history, and there is no family in the room with him this morning. His feeding tube is clotted off today, so the nurses plan on replacing it, although my understanding is that speech therapy would like to eventually have him resume oral nutrition. The patient is really not able to clearly give me a history or review of systems , regarding fevers or chills, chest pain or cough, GI or symptoms. July 18: Last night, the patient pulled his feeding tube most of the way out. That was reinserted. X-ray this morning shows it is in good position, so tube feedings will be resumed. Today, the patient's speech is even less intelligible than yesterday. He keeps holding his fingers up to his mouth, and seems to be mimicking smoking a cigarette. He seems to deny pain, but I really cannot understand his answers to most questions. Nursing staff reports that they were able to sit him up on the side of the bed today and to stand briefly, as he said yes when I asked him if he wanted to. He remains afebrile, without respiratory distress. White blood cell count had bumped up yesterday, so imipenem was added to vancomycin, to be sure he had good coverage for Pseudomonas and anaerobes. Leukocytosis is improved today. - Constitutional Vitals: Vital Signs Temp Pulse Resp BP Pulse Ox 97.3 F 99 H 22 137/79 91 07/18/17 11:43 07/18/17 07:19 07/18/17 11:43 07/18/17 11:43 07/18/17 11:43 Period Temp Pulse Resp BP Sys/[place] Pulse Ox Last 24 Hr 97.3 F-97.9 F 84-102 18-22 104-137/54-79 89-95 Intake and Output 07/17/17 07/18/17 07/18/17 21:59 05:59 13:59 Intake Total 682 / 682 1094 / 1094 30 / 30 Output Total 1250 / 1250 1250 / 1250 Balance -568 / -568 -156 / -156 30 / 30 Weight 200 lb Intake & Output: Intake & Output 07/17/17 07/18/17 07/18/17 21:59 05:59 13:59 Intake Total 682 / 682 1094 / 1094 30 / 30 Output Total 1250 / 1250 1250 / 1250 Balance -568 / -568 -156 / -156 30 / 30 Weight 200 lb Intake: IV 100 / 100 Primaxin 250 mg In Sodium 100 / 100 Chloride 0.9% 100 ml @ 100 mls/hr IV Q8H [facility] Rx# :[id number] Tube Feeding 622 / 622 984 / 984 GI Tube Flush 60 / 60 10 / 10 30 / 30 Output: Urine Catheter Amount 1250 / 1250 1250 / 1250 Other: # of times incontinent of 1 Bowels He had his eyes closed when I entered the room, but does arouse to voice. Speech is difficult to understand, although he does follow some commands. O2 saturation ranges from 89-91% on 2 L nasal cannula. Heart rate continues in the 90s. Neck is supple without obvious lymphadenopathy or JVD. Cardiac exam shows regular rate and rhythm. Lung exam: Shows fairly diffuse sounds with scattered rhonchi. There is no significant wheezing or obvious accessory muscle use. Abdomen is soft and nontender. Bowel sounds are somewhat high-pitched. There is no guarding or rebound. Extremities show about 2+ pitting edema of the right upper extremity as well as both lower extremities. Neurologic: As noted above, the patient's speech is mostly unintelligible. He does follow some commands. Neuro exam is not otherwise tested in detail. Medical - PN: Obj Da - Labs CBC & Chem 7: 07/18/17 08:55 07/18/17 08:55 Labs: Abnormal Lab Results 07/18/17 07/18/17 07/18/17 08:55 08:55 05:54 WBC 11.9 H RBC 2.58 L Hgb 8.9 L Hct 27.3 L MCV 105.7 H MCH 34.5 H RDW 19.4 H Plt Count 108 L MPV 11.9 H Gran % 82.7 H Lymph % (Auto) 11.5 L Gran # 9.8 H Lymph # (Auto) 1.4 L Carbon Dioxide Anion Gap BUN Creatinine Glucose Calcium 8.4 L GGT 261 H AST 38 H ALT Alkaline Phosphatase 243 H Lactate Dehydrogenase 272 H Total Protein 4.5 L Albumin 1.5 L Albumin/Globulin Ratio 0.5 L Vancomycin Trough Random Vancomycin 12.0 H 07/17/17 07/17/17 07/17/17 08:40 04:40 04:40 WBC 14.4 H RBC 2.84 L Hgb 10.1 L Hct 30.3 L MCV 106.4 H MCH 35.4 H RDW 19.2 H Plt Count MPV 15.5 H Gran % 83.5 H Lymph % (Auto) 10.2 L Gran # 12.0 H Lymph # (Auto) Carbon Dioxide 32 H Anion Gap 5.0 L BUN 28 H Creatinine 0.6 L Glucose 123 H Calcium GGT 336 H AST 49 H ALT 53 H Alkaline Phosphatase 302 H Lactate Dehydrogenase 273 H Total Protein 5.1 L Albumin 2.0 L Albumin/Globulin Ratio 0.6 L Vancomycin Trough 21.0 H* Random Vancomycin 07/16/17 07/16/17 05:00 05:00 WBC RBC 2.45 L Hgb 8.6 L Hct 26.3 L MCV 107.3 H MCH 35.1 H RDW 19.4 H Plt Count 128 L MPV 14.7 H Gran % 80.1 H Lymph % (Auto) 13.7 L Gran # 8.4 H Lymph # (Auto) 1.4 L Carbon Dioxide Anion Gap BUN 33 H Creatinine 0.6 L Glucose 178 H Calcium 8.2 L GGT 281 H AST 40 H ALT 51 H Alkaline Phosphatase 267 H Lactate Dehydrogenase Total Protein 4.4 L Albumin 1.6 L Albumin/Globulin Ratio 0.6 L Vancomycin Trough Random Vancomycin July 18: Abdominal x-ray: Dobbhoff feeding tube is noted with tip past the ligament of Treitz. Bowel gas pattern has normalized. July 14: Chest x-ray: Left-sided PICC is noted with tip at junction of superior vena cava and right atrium. Feeding tube noted in the stomach. Bilateral diffuse pulmonary parenchymal infiltrates and bilateral pleural effusions, unchanged. July 11: Liver ultrasound: Calcified abnormality in the gallbladder fossa, possibly gallstones. No abscess noted. Small amount of ascitic fluid and right pleural fluid. July 09: Pleural fluid grew MRSA. Sensitive to vancomycin, Bactrim, tetracycline, rifampin, linezolid, gentamicin, clindamycin. July 08: Echocardiogram: Normal left ventricle, with LVH. Ejection fraction 70%. Mild pulmonary hypertension. No obvious vegetations. Chest CT: Bilateral pleural effusions with loculations. Multiple parenchymal densities with cavitation. Mass in the left lower lobe. Nonspecific mediastinal adenopathy. Esophageal dilation consistent with fluid. Bilateral infiltrates consistent with pneumonia. July 05: Urine culture grew MRSA. Blood culture grew MRSA. Right knee culture grew MRSA. Meds: Medications Acetaminophen (Tylenol) 650 mg PO Q4-6HP PRN PRN Reason: PAIN/FEVER > 101 Albuterol/Ipratropium (Duoneb) 3 ml NEB Q4HRT [facility] Last Admin: 07/18/17 07:16 Dose: 3 ml Chlorhexidine Gluconate (Peridex) 15 ml SWABMOUTH BID [facility] Last Admin: 07/18/17 09:12 Dose: 15 ml Divalproex Sodium (Depakote Sprinkles) 375 mg PO DAILY [facility] Last Admin: 07/18/17 09:11 Dose: 375 mg Divalproex Sodium (Depakote Er) 500 mg PO HS [facility] Last Admin: 07/17/17 21:05 Dose: 500 mg Famotidine (Pepcid) 20 mg IV HS [facility] Last Admin: 07/17/17 21:04 Dose: 20 mg Folic Acid (Folic Acid) 1 mg PO QDAY [facility] Last Admin: 07/18/17 09:12 Dose: 1 mg Fondaparinux (Arixtra) 2.5 mg SQ DAILY [facility] Last Admin: 07/18/17 09:11 Dose: 2.5 mg Heparin Sodium (Porcine) (Heparin Flush) 2 ml IV Q12 [facility] Last Admin: 07/18/17 09:11 Dose: 2 ml Hydromorphone HCl (Dilaudid) 0.5 mg IV Q2HP PRN PRN Reason: Pain Imipenem/Cilastatin Sodium 250 (mg/ Sodium Chloride) 100 mls @ 100 mls/hr IV Q8H [facility] Last Admin: 07/18/17 08:08 Dose: 100 mls/hr Vancomycin HCl 1,500 mg/ (Sodium Chloride) 500 mls @ 333.3 mls/hr IV Q24H [facility] Last Admin: 07/18/17 09:10 Dose: 333.3 mls/hr Iron Carb/Multivit/[place]/Folic Acid (Multivitamin W/Minerals) 1 tab PO DAILY [facility] Last Admin: 07/18/17 09:16 Dose: 1 tab Lorazepam (Ativan) 0.5 mg PO PRN PRN PRN Reason: Anxiety Last Admin: 07/16/17 22:05 Dose: 0.5 mg Magnesium Hydroxide (Milk Of Magnesia) 30 ml PO DAILYP PRN PRN Reason: Constipation Naloxone HCl (Narcan) 0.1 mg IV Q2MIN PRN PRN Reason: Opiate Reversal Olanzapine (Zyprexa) 15 mg PO HS [facility] Last Admin: 07/17/17 21:04 Dose: 15 mg Ondansetron HCl (Zofran) 4 mg IV Q4-6HP PRN PRN Reason: Nausea And Vomiting Fluticasone Propionate [Cutivate ] 0.05% Cream 1 dose TOPICAL BIDP PRN PRN Reason: Itching Fluocinolone Acetonide [Synalar] 0.01% Topical Solution 1 dose TOPICAL QDAY [facility] Last Admin: 07/18/17 09:12 Dose: Not Given Sodium Chloride (Saline Flush) 10 ml IV UD PRN PRN Reason: FLUSH Sodium Chloride (Saline Flush) 10 ml IV Q8 [facility] Last Admin: 07/18/17 09:16 Dose: 10 ml Tamsulosin HCl (Flomax) 0.4 mg PO QHS [facility] Last Admin: 07/17/17 21:05 Dose: 0.4 mg Vancomycin HCl (Vancomycin Per Pharmacy) 1 order IV UD [facility] Medical - PN: A/P - Time Spent With Patient Total time spent is greater than 50% in coordination of care (as documented) at patient's floor/unit and/or counseling patient: 25 - 35 minutes - Narrative A/P Narrative: A/P Narrative: #1. Infectious disease. -MRSA bacteremia-Continue six-week vancomycin. -MRSA empyema-Multiloculated. family does not want aggressive intervention or tertiary Center transfer despite recommendations and guidelines(includes tube thoracostomy and pleural decortication). patient currently being managed as per family recommendation on IV antibiotics. Family is aware that this treatment is not consistent with standard of care and carries a high risk of relapse. -Aspiration pneumonia-. Continue vancomycin for MRSA. -White blood cell count was climbing yesterday, for uncertain reasons. The patient is certainly at risk for both gram-negative and anaerobic infection, so imipenem was added, to be sure we also have some coverage for Pseudomonas, as he is certainly at risk for this. Cellulitis-of the right upper extremity,dvt is neg, Continue vancomycin. #2. Endocrine. * Hypovolemic Hypernatremia: resolved. * #3. Hematologic. * Thrombocytopenia: Platelets are lower again today. Continue to follow. * He is also more anemic today, but this appears to fluctuate, looking over previous labs. * #4. Pulmonary. * ARDS/ Acute hypoxic Respiratory failure: resolved * #5. Renal. * Renal failure-resolved. * * #6. Rheumatologic. Psoriasis- Methotrexate on hold. Resume topical clobetasol. #7. Nutrition. * severe malnutrition-resume feeding via NG tube. Speech therapy and dietary following. * #8. Neurologic/psychiatric. * Dementia/ Schizophremia: continue home medications of olanzapine as well as divalproex. * #9. . * h/o bladder cancer: follows with Dr Best * #10. * DVT prophylaxis, arixtra * * OT/ PT #11. CODE STATUS: No CPR. #12. GI. Elevated LFTs. It is unclear if this is related to recent sepsis, current medications, or other. -Improving. Today's visit took approximately 40 minutes, to review the patient's chart and test results, interview and examine the patient, review plan of care with nursing staff, and write orders. Medical - PN: Qual - VTE Deep Vein Thrombosis/Pulmonary Embolism Present on Admission: No
[2017-07-18] MEDS: TAMSULOSIN 0.4 MG CAPSULE PO SCH (21:44)
[2017-07-18] MEDS: OLANZapine 5 MG TABLET PO SCH (21:44)
[2017-07-18] MEDS: FAMOTIDINE/PF 20 MG/2 ML VIAL IV SCH (21:45)
[2017-07-18] MEDS: DIVALPROEX SODIUM 250 MG TAB.ER.24H PO SCH (21:45)
[2017-07-19] MEDS: IPRATROPIUM/ALBUTEROL 3 ML AMPUL.NEB NEB SCH ×6 (03:04→23:09)
[2017-07-19] MEDS: 0.9 % SODIUM CHLORIDE 10 ML SYRINGE IV SCH ×3 (07:48→21:14)
[2017-07-19] MEDS: IMIPENEM/CILASTATIN SODIUM 250 MG in 0.9 % SODIUM CHLORIDE 100 ML IV SCH ×3 (07:48→23:56)
[2017-07-19 08:16] LABS: Basophils # (Auto) 0.1 K/mcL (0.0-0.3); Basophils % (Auto) 1.2 % (0.0-2.0); Eosinophils # (Auto) 0.1 K/mcL (0.0-0.7); Eosinophils % (Auto) 1.2 % (0.0-7.0); Granulocytes % (Auto) 76.7 % (38.0-78.0); Lymphocytes # (Auto) 1.2 K/mcL (1.5-4.8); Lymphocytes % (Auto) 14.1 % (15.5-49.0); Mean Corpuscular HGB Conc 32.8 g/dL (31.0-36.0); Mean Corpuscular Hemoglobin 34.8 pg (26.0-34.0); Monocytes # (Auto) 0.6 K/mcL (0.1-0.9); Monocytes % (Auto) 6.8 % (1.0-12.0); Platelet Count 135 K/mcL (140-440); RBC 2.39 M/mcL (4.50-5.90); Red Cell Distribution Width 19.3 % (11.5-14.5)
[2017-07-19 08:33] LABS: ALT/SGPT 33 U/l (0-40); Albumin 1.5 gm/dL (3.2-5.2); Albumin/Globulin Ratio 0.6 (1.0-2.3); Alkaline Phosphatase 227 U/L (39-117); Bilirubin,Direct < 0.2 mg/dL (0.0-0.3); Blood Urea Nitrogen 22 mg/dl (8-23); Gamma Glutamyl Transpeptidase 222 U/L (8-61); Uric Acid 7.3 mg/dL (2.5-8.0)
--- NOTE | 2017-07-19 10:29 | Discharge Summary ---
Medical - DS: Prov Patient information: Note initiated : 07/19/17 at 10:29 am Service Date, if different from initiated Date: [] Patient: Rodriguez Scales 72 y/o M admitted on 07/05/17 for SOB/Sepsis, Pneumonia, Cellulitis. Chief Complaint: [] Date of admission: 07/05/17 17:27 Primary care physician: Juan Leal Consults: 07/13/17 11:25 Consult to Physician [CONS] Routine Comment: Consulting Provider: [facility] Reason For Exam: Physician to Consult Medical - DS: Meds - Discharge Medications Active and Home Medications: Home Medications divalproex 500 mg tablet,delayed release 500 mg PO QHS tab 06/24/15 [History Confirmed 07/05/17 Last Taken Unknown] fluticasone 0.05 % topical cream 1 applic TOPICAL .COMPLEX g 06/24/15 [History Confirmed 07/05/17 Last Taken Unknown] loratadine 10 mg tablet 10 mg PO QDAY PRN tab 06/24/15 [History Confirmed 07/05 Last Taken Unknown] multivitamin tablet 1 tab PO QDAY tab 06/24/15 [History Confirmed 07/05/17 Last Taken Unknown] olanzapine 15 mg tablet 15 mg PO QHS tab 06/24/15 [History Confirmed 07/05/17 Last Taken Unknown] potassium chloride ER 10 mEq capsule,extended release 10 meq PO QDAY cap [History Confirmed 07/05/17 Last Taken Unknown] tamsulosin 0.4 mg capsule 0.4 mg PO QHS cap 06/24/15 [History Confirmed Last Taken Unknown] triamcinolone acetonide-l.s.b. 0.5 % topical cream 0.5 % TOPICAL BID 06/24/15 [ History Confirmed 07/05/17 Last Taken Unknown] acetaminophen 500 mg tablet 1,000 mg PO Q4H PRN tab 10/19/16 [History Confirmed 07/05/17 Last Taken Unknown] coal tar 0.5 % shampoo 1 applic TOPICAL Q48H 10/19/16 [History Confirmed Last Taken 07/05/17] dextromethorphan-guaifenesin 10 mg-100 mg/5 mL syrup 15 ml PO Q6HP PRN 10/19/16 [History Confirmed 07/05/17 Last Taken Unknown] divalproex 125 mg tablet,delayed release 125 mg PO QDAY tab 10/19/16 [History Confirmed 07/05/17 Last Taken Unknown] fluocinolone 0.01 % topical solution 1 applic TOPICAL 3XW ml 10/19/16 [History Confirmed 07/05/17 Last Taken Unknown] folic acid 1 mg tablet 1 mg PO QDAY 10/19/16 [History Confirmed 07/05/17 Last Taken Unknown] methotrexate sodium 2.5 mg tablet 15 mg PO WEEKLY tab 10/19/16 [History Confirmed 07/05/17 Last Taken Unknown] Aspirin [Adult Low Dose Aspirin EC] 81 mg PO DAILY 07/05/17 [History Confirmed 07/05/17 Last Taken Unknown] Compression Socks, Medium [Futuro Restoring] 1 each MC DAILY MDD off at HS 07/05 [History Confirmed 07/05/17 Last Taken Unknown] Diphenhydram/PE/Dm/Acetamin/GG [Mucinex Fast-Max Day-Nite Liq] 20 ml PO Q12HP PRN 07/05/17 [History Confirmed 07/05/17 Last Taken Unknown] Finasteride [Proscar] 5 mg PO DAILY 07/05/17 [History Confirmed 07/05/17 Last Taken Unknown] LORazepam [Ativan] 0.5 mg PO BID MDD see notes 07/05/17 [History Confirmed 07/05/17 Last Taken Unknown] Pyrithione Zinc [Dhs Zinc] 240 ml TP Q48H 07/05/17 [History Confirmed 07/05/17 Last Taken 07/04/17] Sulfamethoxazole/Trimethoprim [Bactrim Ds] 1 tab PO BID MDD for 10 days [History Confirmed 07/05/17 Last Taken Unknown] Medical - DS: Hosp Hospital course: Mr. Scales is a 72 year old M - Time Spent with Patient Total time spent providing and/or coordinating discharge services: Medical - DS: Exam - Constitutional Vitals: Vital Signs Temp Pulse Pulse Resp BP Pulse Ox 07/19/17 08:33 95 07/19/17 08:32 68 12 95 07/19/17 08:30 68 12 07/19/17 06:37 98.6 F 111 H 22 98/61 92 07/19/17 03:08 86 20 108/60 07/18/17 23:27 97.4 F 71 18 99/63 90 07/18/17 23:10 71 18 07/18/17 20:00 98.0 F 76 18 110/70 92 07/18/17 19:38 82 18 91 07/18/17 16:00 97.5 F 20 140/67 91 07/18/17 15:25 89 20 94 07/18/17 11:43 97.3 F 22 137/79 91 07/18/17 11:34 20 95 Intake and Output 07/18/17 07/19/17 07/19/17 21:59 05:59 13:59 Intake Total 572 / 572 1180 / 1180 Output Total 950 / 950 1275 / 1275 Balance -378 / -378 -95 / -95 Intake: IV 100 / 100 100 / 100 Primaxin 250 mg In Sodium 100 / 100 100 / 100 Chloride 0.9% 100 ml @ 100 mls/hr IV Q8H [facility] Rx# :[id number] Oral 30 / 30 Tube Feeding 382 / 382 1020 / 1020 GI Tube Flush 60 / 60 60 / 60 Output: Urine Catheter Amount 950 / 950 1275 / 1275 Other: # of times incontinent of 1 Bowels Weight 197 lb Medical - DS: Data Labs on day of discharge: Labs from last 24 hours 07/19/17 07/19/17 07:40 07:40 WBC 8.9 RBC 2.39 L Hgb 8.3 L Hct 25.3 L MCV 106.0 H MCH 34.8 H MCHC 32.8 RDW 19.3 H Plt Count 135 L MPV 14.4 H Gran % 76.7 Lymph % (Auto) 14.1 L [place] % (Auto) 6.8 Eos % (Auto) 1.2 Baso % (Auto) 1.2 Gran # 6.8 Lymph # (Auto) 1.2 L [place] # (Auto) 0.6 Eos # (Auto) 0.1 Baso # (Auto) 0.1 Sodium 148 H Potassium 4.4 Chloride 112 H Carbon Dioxide 27 Anion Gap 9.0 BUN 22 Creatinine 0.7 GFR Calculation 93 Glucose 137 H Uric Acid 7.3 Calcium 8.4 L Phosphorus 3.9 Magnesium 2.0 Total Bilirubin 0.4 Direct Bilirubin < 0.2 GGT 222 H AST 31 ALT 33 Alkaline Phosphatase 227 H Lactate Dehydrogenase 205 Total Protein 4.2 L Albumin 1.5 L Globulin 2.7 Albumin/Globulin Ratio 0.6 L Triglycerides 60 Medical - DS: A/P - Patient/Caregiver Discharge Instructions Additional Instructions: Patient to follow up at wound healing clinic in a week as new patient after discharge. - Follow up Plan Follow up with: Juan Leal MD [Primary Care Provider] - Prognosis: Fair Medical - DS: Qual - VTE Deep Vein Thrombosis/Pulmonary Embolism Present on Admission: No
[2017-07-19] MEDS: FLUOCINOLONE ACETONIDE 0.01% TOPICAL SCH (11:22)
[2017-07-19] MEDS: MULTIVIT,THER IRON,CA,FA & MIN 1 TABLET PO SCH (11:22)
[2017-07-19] MEDS: DIVALPROEX 125 MG CAP.SPRINK PO SCH (11:22)
[2017-07-19] MEDS: FONDAPARINUX SODIUM 2.5 MG/0.5 ML SYRINGE SQ SCH (11:22)
[2017-07-19] MEDS: FOLIC ACID 1 MG TABLET PO SCH (11:22)
[2017-07-19] MEDS: CHLORHEXIDINE GLUCONATE 1 ML ORAL.SOL SWABMOUTH SCH ×2 (11:22→21:14)
[2017-07-19] MEDS: VANCOMYCIN 1,500 MG in 0.9 % SODIUM CHLORIDE 500 ML IV SCH (11:23)
--- NOTE | 2017-07-19 19:10 | Internal Med Progress Note ---
Medical - PN: Subj Patient information: Note initiated : 07/19/17 at 7:07 pm Patient: Rodriguez Sclaes 72 y/o M admitted on 07/05/17 for SOB/Sepsis, Pneumonia, Cellulitis. Interval history: July 05, 2017: History of present illness: Mr. Scales is a 72 year old Male with h/o dementia, normal pressure hydrocephalus, schizophrenia, presently living in an assisted living facility, presents to the ER because of altered mentation and shortness of breath. The patient is accompanied byI believe his aerfsew-cu-mlp who is a retired internal medicine physician. the patient has had history of recurrent falls going on for the last few weeks, fall 2 weeks ago resulted in some abrasions in his right lower extremity as well as right upper extremity, one of the abrasions got secondarily infected and his primary care physician had placed the patient on Bactrim for same. The patient's cellulitis was somewhat better. This afternoon when the brother-in- law, i.e., the physician. went to to evaluate the patient, he noticed that the patient was not himself was more confused and also had difficulty in breathing. There was significant amount of conducted breath sounds. The patient was therefore brought to the hospital for further evaluation. in the emergency room, the patient was noted to be hypoxic on presentation and his blood pressure was borderline low with systolic in the 80s,the patient's heart rate was around in the 90s However, the patient was afebrile. Chest x- ray was done which showed bibasal infiltrates as well as effusion suggesting aspiration pneumonia. The labs are significant for white blood cell count of 32 ,000. his hemoglobin is 12, and platelets are 44. Sodium is 133, potassium 5.1 , bicarbonate 25, creatinine is 1.4 and glucose of 132, magnesium is 3.0. Patient has an elevated lactic acid of 2.6. His alkaline phosphatase is elevated at 345. However, the patient's [id number] noted that this likely is chronically elevated. Patient has low albumin of 2.2. I reviewed the advanced directives with the patient's [id number], who noted that he talked to his who is also the patient's power of assistant county attorney and confirm that the patient is DNR. However, they're okay with antibiotics, pressors and BiPAP if necessary. Overnight the patient after coming to the floor desaturated and became hypotensive, Central line was placed and pressors started, pt was obtunded overnight saturating 95% on 100% via NRB. July 17, 2017: On service note: -This patient was admitted with sepsis which apparently started with cellulitis , followed by aspiration pneumonia. He has been diagnosed with MRSA empyema as well as bacteremia and cellulitis. He has loculated pleural effusions. It has been explained to the family on numerous occasions that these cannot be cured without more aggressive intervention, including thoracostomy. The family has continued to decline more invasive measures, and continues to want only IV antibiotics, although they did allow short-term management with BiPAP.. At this point in time I believe they have all agreed that they would like to try IV antibiotics for 6-8 weeks. After that, if the patient declines again, they would apparently be willing to consider comfort care. It has been explained to them that loculated empyema is not likely to resolve with IV antibiotics alone. -The patient has severe malnutrition, and is now on tube feedings, Via Dobbhoff tube. There is a tentative plan to eventually put him back on an oral diet, as per speech therapist recommendations. -The patient has long-standing history of schizophrenia, dementia, normal pressure hydrocephalus. His family is wanting to continue usual treatments for these, but no new aggressive treatments. Next -The patient also has history of bladder cancer, followed by Dr. Best. -They would prefer the patient be kept here as swing bed once the patient is more stable, and then discharged to [facility]. -Today, the patient is awake and alert, but speech is mostly unintelligible. He seems to indicate that he is not having any pain, chest pain, or shortness of breath. He is not really able to give me history, and there is no family in the room with him this morning. His feeding tube is clotted off today, so the nurses plan on replacing it, although my understanding is that speech therapy would like to eventually have him resume oral nutrition. The patient is really not able to clearly give me a history or review of systems , regarding fevers or chills, chest pain or cough, GI or symptoms. July 18: Last night, the patient pulled his feeding tube most of the way out. That was reinserted. X-ray this morning shows it is in good position, so tube feedings will be resumed. Today, the patient's speech is even less intelligible than yesterday. He keeps holding his fingers up to his mouth, and seems to be mimicking smoking a cigarette. He seems to deny pain, but I really cannot understand his answers to most questions. Nursing staff reports that they were able to sit him up on the side of the bed today and to stand briefly, as he said yes when I asked him if he wanted to. He remains afebrile, without respiratory distress. White blood cell count had bumped up yesterday, so imipenem was added to vancomycin, to be sure he had good coverage for Pseudomonas and anaerobes. Leukocytosis is improved today. July 19: Today, the patient does not appear to have any complaints. His speech remains mostly unintelligible. He seems to say no when asked if he is having any pain or trouble breathing or GI problems. Nurses note he still follows simple commands. He remains afebrile, and white blood cell count has now trended back to normal, after the addition of ertapenem to his antibiotic regimen. - Constitutional Vitals: Vital Signs Temp Pulse Resp BP Pulse Ox 98.2 F 81 16 112/76 93 07/19/17 16:00 07/19/17 15:32 07/19/17 16:00 07/19/17 16:00 07/19/17 18:56 Period Temp Pulse Resp BP Sys/Navarro Pulse Ox Last 24 Hr 97.4 F-98.6 F 68-111 12-22 98-112/60-76 90-95 Intake and Output 07/19/17 07/19/17 07/19/17 05:59 13:59 21:59 Intake Total 1180 / 1180 600 / 600 Output Total 1275 / 1275 1400 / 1400 Balance -95 / -95 600 / 600 -1400 / -1400 Weight 197 lb Patient Weight 07/20/17 05:59 Weight 197 lb Intake & Output: Intake & Output 07/19/17 07/19/17 07/19/17 05:59 13:59 21:59 Intake Total 1180 / 1180 600 / 600 Output Total 1275 / 1275 1400 / 1400 Balance -95 / -95 600 / 600 -1400 / -1400 Weight 197 lb Intake: IV 100 / 100 600 / 600 Primaxin 250 mg In Sodium 100 / 100 100 / 100 Chloride 0.9% 100 ml @ 100 mls/hr IV Q8H [facility] Rx# :[id number] Vancomycin 1,500 mg In 500 / 500 Sodium Chloride 0.9% 500 ml @ 333.3 mls/hr IV Q24H [facility] Rx#:[id number] Tube Feeding 1020 / 1020 GI Tube Flush 60 / 60 Output: Urine Catheter Amount 1275 / 1275 1400 / 1400 Other: # Bowel Movements 1 Speech is difficult to understand, although he does follow some commands. He does not appear to be in any acute distress. He is afebrile. Heart rate ranges from 79-99 and respiratory rate 16. Blood pressure 112/76. O2 saturation is 93% on 2 L nasal cannula Neck is supple without obvious lymphadenopathy or JVD. Cardiac exam shows regular rate and rhythm. Lung exam: Shows scattered crackles. He does have rhonchi that appear to reside in the upper airway. There is no significant wheezing or obvious accessory muscle use. Abdomen is soft and nontender. Bowel sounds are somewhat high-pitched. There is no guarding or rebound. Extremities show about 2+ pitting edema of the right upper extremity as well as both lower extremities. Neurologic: As noted above, the patient's speech is mostly unintelligible. He does follow some commands. Neuro exam is not otherwise tested in detail. Medical - PN: Obj Da - Labs CBC & Chem 7: 07/19/17 07:40 07/19/17 07:40 Labs: Abnormal Lab Results 07/19/17 07/19/17 07/18/17 07:40 07:40 08:55 WBC RBC 2.39 L Hgb 8.3 L Hct 25.3 L MCV 106.0 H MCH 34.8 H RDW 19.3 H Plt Count 135 L MPV 14.4 H Gran % Lymph % (Auto) 14.1 L Gran # Lymph # (Auto) 1.2 L Sodium 148 H Chloride 112 H Carbon Dioxide Anion Gap BUN Creatinine Glucose 137 H Calcium 8.4 L 8.4 L GGT 222 H 261 H AST 38 H ALT Alkaline Phosphatase 227 H 243 H Lactate Dehydrogenase 272 H Total Protein 4.2 L 4.5 L Albumin 1.5 L 1.5 L Albumin/Globulin Ratio 0.6 L 0.5 L Vancomycin Trough Random Vancomycin 07/18/17 07/18/17 07/17/17 08:55 05:54 08:40 WBC 11.9 H RBC 2.58 L Hgb 8.9 L Hct 27.3 L MCV 105.7 H MCH 34.5 H RDW 19.4 H Plt Count 108 L MPV 11.9 H Gran % 82.7 H Lymph % (Auto) 11.5 L Gran # 9.8 H Lymph # (Auto) 1.4 L Sodium Chloride Carbon Dioxide Anion Gap BUN Creatinine Glucose Calcium GGT AST ALT Alkaline Phosphatase Lactate Dehydrogenase Total Protein Albumin Albumin/Globulin Ratio Vancomycin Trough 21.0 H* Random Vancomycin 12.0 H 07/17/17 07/17/17 04:40 04:40 WBC 14.4 H RBC 2.84 L Hgb 10.1 L Hct 30.3 L MCV 106.4 H MCH 35.4 H RDW 19.2 H Plt Count MPV 15.5 H Gran % 83.5 H Lymph % (Auto) 10.2 L Gran # 12.0 H Lymph # (Auto) Sodium Chloride Carbon Dioxide 32 H Anion Gap 5.0 L BUN 28 H Creatinine 0.6 L Glucose 123 H Calcium GGT 336 H AST 49 H ALT 53 H Alkaline Phosphatase 302 H Lactate Dehydrogenase 273 H Total Protein 5.1 L Albumin 2.0 L Albumin/Globulin Ratio 0.6 L Vancomycin Trough Random Vancomycin July 18: Abdominal x-ray: Dobbhoff feeding tube is noted with tip past the ligament of Treitz. Bowel gas pattern has normalized. July 14: Chest x-ray: Left-sided PICC is noted with tip at junction of superior vena cava and right atrium. Feeding tube noted in the stomach. Bilateral diffuse pulmonary parenchymal infiltrates and bilateral pleural effusions, unchanged. July 11: Liver ultrasound: Calcified abnormality in the gallbladder fossa, possibly gallstones. No abscess noted. Small amount of ascitic fluid and right pleural fluid. July 09: Pleural fluid grew MRSA. Sensitive to vancomycin, Bactrim, tetracycline, rifampin, linezolid, gentamicin, clindamycin. July 08: Echocardiogram: Normal left ventricle, with LVH. Ejection fraction 70%. Mild pulmonary hypertension. No obvious vegetations. Chest CT: Bilateral pleural effusions with loculations. Multiple parenchymal densities with cavitation. Mass in the left lower lobe. Nonspecific mediastinal adenopathy. Esophageal dilation consistent with fluid. Bilateral infiltrates consistent with pneumonia. July 05: Urine culture grew MRSA. Blood culture grew MRSA. Right knee culture grew MRSA. Meds: Medications Acetaminophen (Tylenol) 650 mg PO Q4-6HP PRN PRN Reason: PAIN/FEVER > 101 Albuterol/Ipratropium (Duoneb) 3 ml NEB Q4HRT [facility] Last Admin: 07/19/17 15:32 Dose: 3 ml Chlorhexidine Gluconate (Peridex) 15 ml SWABMOUTH BID [facility] Last Admin: 07/19/17 11:22 Dose: 15 ml Divalproex Sodium (Depakote Sprinkles) 375 mg PO DAILY [facility] Last Admin: 07/19/17 11:22 Dose: 375 mg Divalproex Sodium (Depakote Er) 500 mg PO HS [facility] Last Admin: 07/18/17 21:45 Dose: 500 mg Famotidine (Pepcid) 20 mg IV HS [facility] Last Admin: 07/18/17 21:45 Dose: 20 mg Folic Acid (Folic Acid) 1 mg PO QDAY [facility] Last Admin: 07/19/17 11:22 Dose: 1 mg Fondaparinux (Arixtra) 2.5 mg SQ DAILY [facility] Last Admin: 07/19/17 11:22 Dose: 2.5 mg Heparin Sodium (Porcine) (Heparin Flush) 2 ml IV Q12 [facility] Last Admin: 07/19/17 11:22 Dose: 2 ml Hydromorphone HCl (Dilaudid) 0.5 mg IV Q2HP PRN PRN Reason: Pain Imipenem/Cilastatin Sodium 250 (mg/ Sodium Chloride) 100 mls @ 100 mls/hr IV Q8H [facility] Last Admin: 07/19/17 18:34 Dose: 100 mls/hr Vancomycin HCl 1,500 mg/ (Sodium Chloride) 500 mls @ 333.3 mls/hr IV Q24H [facility] Last Infusion: 07/19/17 13:47 Dose: Infused Iron Carb/Multivit/Dougherty/Folic Acid (Multivitamin W/Minerals) 1 tab PO DAILY [facility] Last Admin: 07/19/17 11:22 Dose: 1 tab Lorazepam (Ativan) 0.5 mg PO PRN PRN PRN Reason: Anxiety Last Admin: 07/16/17 22:05 Dose: 0.5 mg Magnesium Hydroxide (Milk Of Magnesia) 30 ml PO DAILYP PRN PRN Reason: Constipation Naloxone HCl (Narcan) 0.1 mg IV Q2MIN PRN PRN Reason: Opiate Reversal Olanzapine (Zyprexa) 15 mg PO HS [facility] Last Admin: 07/18/17 21:44 Dose: 15 mg Ondansetron HCl (Zofran) 4 mg IV Q4-6HP PRN PRN Reason: Nausea And Vomiting Fluticasone Propionate [Cutivate ] 0.05% Cream 1 dose TOPICAL BIDP PRN PRN Reason: Itching Fluocinolone Acetonide [Synalar] 0.01% Topical Solution 1 dose TOPICAL QDAY [facility] Last Admin: 07/19/17 11:22 Dose: Not Given Sodium Chloride (Saline Flush) 10 ml IV UD PRN PRN Reason: FLUSH Last Admin: 07/19/17 13:48 Dose: 10 ml Sodium Chloride (Saline Flush) 10 ml IV Q8 [facility] Last Admin: 07/19/17 14:55 Dose: 10 ml Tamsulosin HCl (Flomax) 0.4 mg PO QHS [facility] Last Admin: 07/18/17 21:44 Dose: 0.4 mg Vancomycin HCl (Vancomycin Per Pharmacy) 1 order IV [facility] [place] Medical - PN: A/P - Time Spent With Patient Total time spent is greater than 50% in coordination of care (as documented) at patient's floor/unit and/or counseling patient: 25 - 35 minutes - Narrative A/P Narrative: A/P Narrative: #1. Infectious disease. -MRSA bacteremia-Continue six-week vancomycin. -MRSA empyema-Multiloculated. family does not want aggressive intervention or tertiary Center transfer despite recommendations and guidelines(includes tube thoracostomy and pleural decortication). patient currently being managed as per family recommendation on IV antibiotics. Family is aware that this treatment is not consistent with standard of care and carries a high risk of relapse. -Aspiration pneumonia-. Continue vancomycin for MRSA. -White blood cell count was climbing , for uncertain reasons. The patient is certainly at risk for both gram-negative and anaerobic infection, so imipenem was added, to be sure we also have some coverage for Pseudomonas, as he is certainly at risk for this. White blood cell count is now back down to normal again. Continue vancomycin plus imipenem. Cellulitis-of the right upper extremity,dvt is neg, Continue vancomycin. #2. Endocrine. * Hypovolemic Hypernatremia: Sodium is climbing again. I will increase his free water flushes that are given with his tube feeds. * #3. Hematologic. * Thrombocytopenia: Platelets are a bit improved today.. Continue to follow. * He is also more anemic today, but this appears to fluctuate, looking over previous labs. He is trending downward, but seems to be tolerating the anemia okay so far. * #4. Pulmonary. * ARDS/ Acute hypoxic Respiratory failure: resolved * #5. Renal. * Renal failure-resolved. * * #6. Rheumatologic. Psoriasis- Methotrexate on hold. Resume topical clobetasol. #7. Nutrition. * severe malnutrition-resume feeding via NG tube. Speech therapy and dietary following. * #8. Neurologic/psychiatric. * Dementia/ Schizophremia: continue home medications of olanzapine as well as divalproex. * #9. . * h/o bladder cancer: follows with Dr Best * #10. * DVT prophylaxis, arixtra * * OT/ PT #11. CODE STATUS: No CPR. #12. GI. Elevated LFTs. It is unclear if this is related to recent sepsis, current medications, or other. -Improving. Disposition: We are discussing whether to send the patient to rehab for ongoing IV antibiotics and other respiratory toilet, versus admitting him here to swing bed status. This appears to be his family's preference. If his numbers all look better to improve tomorrow, this will be our plan. Today's visit took [id number] minutes, to review the patient's chart and test results, interview and examine the patient, review plan of care with nursing staff, and write orders. Medical - PN: Qual - VTE Deep Vein Thrombosis/Pulmonary Embolism Present on Admission: No
[2017-07-19] MEDS: DIVALPROEX SODIUM 250 MG TAB.ER.24H PO SCH (21:13)
[2017-07-19] MEDS: FAMOTIDINE/PF 20 MG/2 ML VIAL IV SCH (21:13)
[2017-07-19] MEDS: OLANZapine 5 MG TABLET PO SCH (21:13)
[2017-07-19] MEDS: TAMSULOSIN 0.4 MG CAPSULE PO SCH (21:13)
[2017-07-20] MEDS: IPRATROPIUM/ALBUTEROL 3 ML AMPUL.NEB NEB SCH ×4 (03:03→15:59)
[2017-07-20] MEDS: IMIPENEM/CILASTATIN SODIUM 250 MG in 0.9 % SODIUM CHLORIDE 100 ML IV SCH ×2 (06:10→14:51)
[2017-07-20] MEDS: 0.9 % SODIUM CHLORIDE 10 ML SYRINGE IV SCH ×2 (06:15→14:51)
[2017-07-20 08:22] LABS: Basophils # (Auto) 0.1 K/mcL (0.0-0.3); Basophils % (Auto) 0.7 % (0.0-2.0); Eosinophils # (Auto) 0.1 K/mcL (0.0-0.7); Eosinophils % (Auto) 1.4 % (0.0-7.0); Granulocytes % (Auto) 75.8 % (38.0-78.0); Lymphocytes # (Auto) 1.3 K/mcL (1.5-4.8); Lymphocytes % (Auto) 14.2 % (15.5-49.0); Mean Cell Volume 105.2 fL (80.0-100.0); Mean Corpuscular HGB Conc 32.2 g/dL (31.0-36.0); Mean Corpuscular Hemoglobin 33.8 pg (26.0-34.0); Monocytes # (Auto) 0.7 K/mcL (0.1-0.9); Monocytes % (Auto) 7.9 % (1.0-12.0); Platelet Count 121 K/mcL (140-440); RBC 2.63 M/mcL (4.50-5.90); Red Cell Distribution Width 18.2 % (11.5-14.5)
[2017-07-20 08:48] LABS: ALT/SGPT 28 U/l (0-40); Albumin 1.7 gm/dL (3.2-5.2); Albumin/Globulin Ratio 0.5 (1.0-2.3); Alkaline Phosphatase 226 U/L (39-117); Bilirubin,Direct < 0.2 mg/dL (0.0-0.3); Blood Urea Nitrogen 20 mg/dl (8-23); Gamma Glutamyl Transpeptidase 202 U/L (8-61); Magnesium 2.1 mg/dL (1.6-2.5); Uric Acid 6.2 mg/dL (2.5-8.0)
[2017-07-20] MEDS: FONDAPARINUX SODIUM 2.5 MG/0.5 ML SYRINGE SQ SCH (08:54)
[2017-07-20] MEDS: DIVALPROEX 125 MG CAP.SPRINK PO SCH (08:56)
[2017-07-20] MEDS: CHLORHEXIDINE GLUCONATE 1 ML ORAL.SOL SWABMOUTH SCH (08:57)
[2017-07-20] MEDS: MULTIVIT,THER IRON,CA,FA & MIN 1 TABLET PO SCH (08:57)
[2017-07-20] MEDS: FOLIC ACID 1 MG TABLET PO SCH (08:57)
[2017-07-20] MEDS: FLUOCINOLONE ACETONIDE 0.01% TOPICAL SCH (09:00)
[2017-07-20] MEDS: VANCOMYCIN 1,500 MG in 0.9 % SODIUM CHLORIDE 500 ML IV SCH (09:54)
--- NOTE | 2017-07-20 17:44 | Discharge Summary ---
Medical - DS: Prov Patient information: Note initiated : 07/20/17 at 10:31 am Patient: Rodriguez Scales 72 y/o M admitted on 07/05/17 for SOB/Sepsis, Pneumonia, Cellulitis. Date of admission: 07/05/17 17:27 Discharge date: 07/20/17 Primary care physician: Juan Leal Admitting clinician: Sky Oakley Consults: 07/13/17 11:25 Consult to Physician [CONS] Routine Comment: Consulting Provider: [facility] Reason For Exam: Physician to Consult Attending physician on discharge: Yesenia Jolley Medical - DS: Meds - Discharge Medications Active and Home Medications: Swing discharge medications: Acetaminophen 650 mg every 4-6 hours as needed Vancomycin per pharmacy Imipenem 250 mg IV every 8 hours Duo nebs every 4 hours Yandel Chlorhexidine swabs twice daily as needed Depakote sprinkles 375 mg daily Depakote ER 500 mg nightly Pepcid 20 mg IV nightly Fluocinolone acetonide 0.01% topical solution daily Fluticasone Propine 8 0.05% cream topically twice daily as needed Folate 1 mg daily Fondaparinux 2.5 mg subcu daily Heparin flushes every 12 hours Multivitamin with minerals 1 daily Ativan 0.5 mg as needed Milk of magnesia 30 mL as needed Narcan 0.1 mg IV as needed Zyprexa 15 mg p.o. nightly next line Zofran 4 mg IV every 4 hours as needed Flomax 0.4 mg p.o. nightly Aspirin 81 mg daily Bent tar shampoo 0.5% topically every 48 hours Compression socks daily, off at at bedtime Guaifenesin with dextromethorphan every 6 hours as needed Previous home Medications: divalproex 500 mg tablet,delayed release 500 mg PO QHS tab 06/24/15 [History Confirmed 07/05/17 Last Taken Unknown] fluticasone 0.05 % topical cream 1 applic TOPICAL .COMPLEX g 06/24/15 [History Confirmed 07/05/17 Last Taken Unknown] loratadine 10 mg tablet 10 mg PO QDAY PRN tab 06/24/15 [History Confirmed 07/05 Last Taken Unknown] multivitamin tablet 1 tab PO QDAY tab 06/24/15 [History Confirmed 07/05/17 Last Taken Unknown] olanzapine 15 mg tablet 15 mg PO QHS tab 06/24/15 [History Confirmed 07/05/17 Last Taken Unknown] potassium chloride ER 10 mEq capsule,extended release 10 meq PO QDAY cap [History Confirmed 07/05/17 Last Taken Unknown] tamsulosin 0.4 mg capsule 0.4 mg PO QHS cap 06/24/15 [History Confirmed Last Taken Unknown] triamcinolone acetonide-l.s.b. 0.5 % topical cream 0.5 % TOPICAL BID 06/24/15 [ History Confirmed 07/05/17 Last Taken Unknown] acetaminophen 500 mg tablet 1,000 mg PO Q4H PRN tab 10/19/16 [History Confirmed 07/05/17 Last Taken Unknown] coal tar 0.5 % shampoo 1 applic TOPICAL Q48H 10/19/16 [History Confirmed Last Taken 07/05/17] dextromethorphan-guaifenesin 10 mg-100 mg/5 mL syrup 15 ml PO Q6HP PRN 10/19/16 [History Confirmed 07/05/17 Last Taken Unknown] divalproex 125 mg tablet,delayed release 125 mg PO QDAY tab 10/19/16 [History Confirmed 07/05/17 Last Taken Unknown] fluocinolone 0.01 % topical solution 1 applic TOPICAL 3XW ml 10/19/16 [History Confirmed 07/05/17 Last Taken Unknown] folic acid 1 mg tablet 1 mg PO QDAY 10/19/16 [History Confirmed 07/05/17 Last Taken Unknown] methotrexate sodium 2.5 mg tablet 15 mg PO WEEKLY tab 10/19/16 [History Confirmed 07/05/17 Last Taken Unknown] Aspirin [Adult Low Dose Aspirin EC] 81 mg PO DAILY 07/05/17 [History Confirmed 07/05/17 Last Taken Unknown] Compression Socks, Medium [Futuro Restoring] 1 each MC DAILY MDD off at HS 07/05 [History Confirmed 07/05/17 Last Taken Unknown] Diphenhydram/PE/Dm/Acetamin/GG [Mucinex Fast-Max Day-Nite Liq] 20 ml PO Q12HP PRN 07/05/17 [History Confirmed 07/05/17 Last Taken Unknown] Finasteride [Proscar] 5 mg PO DAILY 07/05/17 [History Confirmed 07/05/17 Last Taken Unknown] LORazepam [Ativan] 0.5 mg PO BID MDD see notes 07/05/17 [History Confirmed 07/05/17 Last Taken Unknown] Pyrithione Zinc [Dhs Zinc] 240 ml TP Q48H 07/05/17 [History Confirmed 07/05/17 Last Taken 07/04/17] Sulfamethoxazole/Trimethoprim [Bactrim Ds] 1 tab PO BID MDD for 10 days [History Confirmed 07/05/17 Last Taken Unknown] Medical - DS: Hosp Hospital course: Mr. Scales is a 72 year old M July 05, 2017: History of present illness: Mr. Scales is a 72 year old Male with h/o dementia, normal pressure hydrocephalus, schizophrenia, presently living in an assisted living facility, presents to the ER because of altered mentation and shortness of breath. The patient is accompanied byI believe his [id number] who is a retired internal medicine physician. the patient has had history of recurrent falls going on for the last few weeks, fall 2 weeks ago resulted in some abrasions in his right lower extremity as well as right upper extremity, one of the abrasions got secondarily infected and his primary care physician had placed the patient on Bactrim for same. The patient's cellulitis was somewhat better. This afternoon when the brother-in- law, i.e., the physician. went to to evaluate the patient, he noticed that the patient was not himself was more confused and also had difficulty in breathing. There was significant amount of conducted breath sounds. The patient was therefore brought to the hospital for further evaluation. in the emergency room, the patient was noted to be hypoxic on presentation and his blood pressure was borderline low with systolic in the 80s,the patient's heart rate was around in the 90s However, the patient was afebrile. Chest x- ray was done which showed bibasal infiltrates as well as effusion suggesting aspiration pneumonia. The labs are significant for white blood cell count of 32 ,000. his hemoglobin is 12, and platelets are 44. Sodium is 133, potassium 5.1 , bicarbonate 25, creatinine is 1.4 and glucose of 132, magnesium is 3.0. Patient has an elevated lactic acid of 2.6. His alkaline phosphatase is elevated at 345. However, the patient's [id number] noted that this likely is chronically elevated. Patient has low albumin of 2.2. I reviewed the advanced directives with the patient's [id number], who noted that he talked to his who is also the patient's power of branch mechanic and confirm that the patient is DNR. However, they're okay with antibiotics, pressors and BiPAP if necessary. Overnight the patient after coming to the floor desaturated and became hypotensive, Central line was placed and pressors started, pt was obtunded overnight saturating 95% on 100% via NRB. July 17, 2017: On service note: -This patient was admitted with sepsis which apparently started with cellulitis , followed by aspiration pneumonia. He has been diagnosed with MRSA empyema as well as bacteremia and cellulitis. He has loculated pleural effusions. It has been explained to the family on numerous occasions that these cannot be cured without more aggressive intervention, including thoracostomy. The family has continued to decline more invasive measures, and continues to want only IV antibiotics, although they did allow short-term management with BiPAP.. At this point in time I believe they have all agreed that they would like to try IV antibiotics for 6-8 weeks. After that, if the patient declines again, they would apparently be willing to consider comfort care. It has been explained to them that loculated empyema is not likely to resolve with IV antibiotics alone. -The patient has severe malnutrition, and is now on tube feedings, Via Dobbhoff tube. There is a tentative plan to eventually put him back on an oral diet, as per speech therapist recommendations. -The patient has long-standing history of schizophrenia, dementia, normal pressure hydrocephalus. His family is wanting to continue usual treatments for these, but no new aggressive treatments. Next -The patient also has history of bladder cancer, followed by Dr. Best. -They would prefer the patient be kept here as swing bed once the patient is more stable, and then discharged to [facility]. -Today, the patient is awake and alert, but speech is mostly unintelligible. He seems to indicate that he is not having any pain, chest pain, or shortness of breath. He is not really able to give me history, and there is no family in the room with him this morning. His feeding tube is clotted off today, so the nurses plan on replacing it, although my understanding is that speech therapy would like to eventually have him resume oral nutrition. The patient is really not able to clearly give me a history or review of systems , regarding fevers or chills, chest pain or cough, GI or symptoms. July 18: Last night, the patient pulled his feeding tube most of the way out. That was reinserted. X-ray this morning shows it is in good position, so tube feedings will be resumed. Today, the patient's speech is even less intelligible than yesterday. He keeps holding his fingers up to his mouth, and seems to be mimicking smoking a cigarette. He seems to deny pain, but I really cannot understand his answers to most questions. Nursing staff reports that they were able to sit him up on the side of the bed today and to stand briefly, as he said yes when I asked him if he wanted to. He remains afebrile, without respiratory distress. White blood cell count had bumped up yesterday, so imipenem was added to vancomycin, to be sure he had good coverage for Pseudomonas and anaerobes. Leukocytosis is improved today. July 19: Today, the patient does not appear to have any complaints. His speech remains mostly unintelligible. He seems to say no when asked if he is having any pain or trouble breathing or GI problems. Nurses note he still follows simple commands. He remains afebrile, and white blood cell count has now trended back to normal, after the addition of ertapenem to his antibiotic regimen. July 20: Hospital course: -Is chronically disabled patient was admitted on July 05 with a right arm cellulitis, that progressed to sepsis, with MRSA cellulitis, MRSA aspiration pneumonia with empyema and bacteremia. Respiratory failure was initially treated with BiPAP, as the family wanted to avoid intubation. The patient clinically responded to IV vancomycin, but it was explained to the patient's family that the loculated empyema could not be cured with antibiotics alone, and would require an invasive procedure. The family declined to have the patient transferred for more aggressive care. After numerous discussions, they have ultimately decided on IV antibiotics for 6 weeks. If the patient is not cured, or recurs after that, it sounds like they would be willing to move him towards comfort care. They do not want him to go further invasive procedures at this time. Currently he is clinically stable. He still has a fairly wet sounding cough, but has been able to swallow some medications in applesauce. 2 days ago his white blood cell count started to climb again, and as he is at risk for Pseudomonas infection as well, imipenem was added to his regimen. He is now afebrile with a normal white blood cell count. -Because of high aspiration risk, he had a Dobbhoff feeding tube placed, and has been receiving tube feeds, for his malnourishment. Speech therapy continues to work with him, and hopes to slowly advance him back to an oral diet. -The patient has had intermittent hypernatremia since admission, but this seems to clear up with additional free water. -For the most part his psychiatric medications have been continued, and he has remained quite calm and cooperative over the last week or so. Speech continues to be very difficult to understand, but he can usually make his needs known to nursing staff. He does follow some simple commands. On exam today, the patient is awake and alert. He is making a high-pitched whining sound at the moment. The nurses think sometimes when they are moving him around to bathe him he developed some discomfort. However, when he starts pretending to be smoking cigarettes, which he often does, this seems to calm him considerably. He is afebrile. Heart rate is 100. Respiratory rate 20. Blood pressure 91/ 50. O2 saturation 93% on 2 L nasal cannula. Neck is supple without obvious lymphadenopathy or JVD. Cardiac exam shows regular rate and rhythm. Lung exam: Shows scattered crackles. He does have rhonchi that appear to reside in the upper airway. There is no significant wheezing or obvious accessory muscle use. Abdomen is soft and nontender. Bowel sounds are somewhat high-pitched. There is no guarding or rebound. Extremities show about 2+ pitting edema of the right upper extremity as well as both lower extremities. Neurologic: As noted above, the patient's speech is mostly unintelligible. He does follow some commands. Neuro exam is not otherwise tested in detail. Medical - PN: Obj Da - Labs CBC & Chem 7: A/P Narrative: #1. Infectious disease. -MRSA bacteremia-Continue six-week vancomycin. Imipenem added for climbing white blood cell count, suspicious for possible superimposed Pseudomonas infection. Leukocytosis has improved. -MRSA empyema-Multiloculated. family does not want aggressive intervention or tertiary Center transfer despite recommendations and guidelines(includes tube thoracostomy and pleural decortication). patient currently being managed as per family recommendation on IV antibiotics. Family is aware that this treatment is not consistent with standard of care and carries a high risk of relapse. -Aspiration pneumonia-. Speech therapy is working with the patient trying to improve his aspiration risk. -Cellulitis-of the right upper extremity,dvt is neg, Continue vancomycin. #2. Endocrine. * Hypovolemic Hypernatremia: Sodium climbing again yesterday, so free water flushes for his tube feeds were increased to 600 mL every 4 hours. * This is improved today. * #3. Hematologic. * Thrombocytopenia: Platelets are a bit improved today.. Continue to follow. * He is slightly more anemic, but this appears to fluctuate, looking over previous labs. He is trending downward, but seems to be tolerating the anemia okay so far. * #4. Pulmonary. * ARDS/ Acute hypoxic Respiratory failure: resolved * #5. Renal. * Renal failure-resolved. * * #6. Rheumatologic. Psoriasis- Methotrexate on hold. Resume topical clobetasol. I think we can try resuming methotrexate, as this may be part of his pain issue. If it looks like his pneumonia is progressing, we would need to hold it again. #7. Nutrition. * severe malnutrition-resume feeding via NG tube. Speech therapy and dietary following. * #8. Neurologic/psychiatric. * Dementia/ Schizophremia: continue home medications of olanzapine as well as divalproex. * #9. . * h/o bladder cancer: follows with Dr Best * #10. * DVT prophylaxis, arixtra * * OT/ PT #11. CODE STATUS: No CPR. #12. GI. Elevated LFTs. It is unclear if this was related to recent sepsis, current medications, or other. -Improving. Discharge diagnosis: Aspiration pneumonia. MRSA empyema, cellulitis, bacteremia. Secondary discharge diagnosis: Dysphagia with aspiration. - Time Spent with Patient Total time spent providing and/or coordinating discharge services: Greater than 30 minutes Medical - DS: Exam - Constitutional Vitals: Vital Signs Temp Pulse Pulse Resp BP Pulse Ox 07/20/17 08:00 97.3 F 105 H 20 95/52 93 07/20/17 07:48 108 H 16 94 07/20/17 07:42 100 H 16 07/20/17 03:36 97.2 F 109 H 20 124/70 96 07/20/17 00:00 97.0 F 109 H 20 108/64 93 07/19/17 23:09 90 18 07/19/17 20:00 98.3 F 100 H 28 H 90/50 93 07/19/17 19:47 71 20 93 07/19/17 18:56 93 07/19/17 16:00 98.2 F 16 112/76 91 07/19/17 15:32 81 20 07/19/17 11:39 97.6 F 22 106/61 92 07/19/17 11:37 95 07/19/17 11:36 81 16 95 07/19/17 11:32 88 16 Intake and Output 07/19/17 07/20/17 07/20/17 21:59 05:59 13:59 Intake Total 160 / 160 1957 / 1957 100 / 100 Output Total 1400 / 1400 1000 / 1000 Balance -1240 / -1240 957 / 957 100 / 100 Intake: IV 100 / 100 100 / 100 Primaxin 250 mg In Sodium 100 / 100 100 / 100 Chloride 0.9% 100 ml @ 100 mls/hr IV Q8H [facility] Rx# :[id number] Tube Feeding 1657 / 1657 GI Tube Flush 60 / 60 200 / 200 100 / 100 Output: Urine Catheter Amount 1400 / 1400 1000 / 1000 Other: # Bowel Movements 1 # of times incontinent of 1 Bowels Weight 197 lb 197 lb Patient Weight 07/21/17 05:59 Weight 197 lb Medical - DS: Data Labs on day of discharge: Labs from last 24 hours 07/20/17 07/20/17 07/20/17 07:50 07:50 07:50 WBC 9.0 RBC 2.63 L Hgb 8.9 L Hct 27.7 L MCV 105.2 H MCH 33.8 MCHC 32.2 RDW 18.2 H Plt Count 121 L MPV 14.4 H Gran % 75.8 Lymph % (Auto) 14.2 L [place] % (Auto) 7.9 Eos % (Auto) 1.4 Baso % (Auto) 0.7 Gran # 6.8 Lymph # (Auto) 1.3 L [place] # (Auto) 0.7 Eos # (Auto) 0.1 Baso # (Auto) 0.1 Sodium 145 Potassium 4.3 Chloride 112 H Carbon Dioxide 28 Anion Gap 5.0 L BUN 20 Creatinine 0.7 GFR Calculation 93 Glucose 152 H Uric Acid 6.2 Calcium 8.7 Phosphorus 3.8 Magnesium 2.1 Total Bilirubin 0.4 Direct Bilirubin < 0.2 GGT 202 H AST 26 ALT 28 Alkaline Phosphatase 226 H Lactate Dehydrogenase 227 Total Protein 4.9 L Albumin 1.7 L Globulin 3.2 Albumin/Globulin Ratio 0.5 L Triglycerides 75 Vancomycin Trough 16.0 H July 18: Abdominal x-ray: Dobbhoff feeding tube is noted with tip past the ligament of Treitz. Bowel gas pattern has normalized. July 14: Chest x-ray: Left-sided PICC is noted with tip at junction of superior vena cava and right atrium. Feeding tube noted in the stomach. Bilateral diffuse pulmonary parenchymal infiltrates and bilateral pleural effusions, unchanged. July 11: Liver ultrasound: Calcified abnormality in the gallbladder fossa, possibly gallstones. No abscess noted. Small amount of ascitic fluid and right pleural fluid. July 09: Pleural fluid grew MRSA. Sensitive to vancomycin, Bactrim, tetracycline, rifampin, linezolid, gentamicin, clindamycin. July 08: Echocardiogram: Normal left ventricle, with LVH. Ejection fraction 70%. Mild pulmonary hypertension. No obvious vegetations. Chest CT: Bilateral pleural effusions with loculations. Multiple parenchymal densities with cavitation. Mass in the left lower lobe. Nonspecific mediastinal adenopathy. Esophageal dilation consistent with fluid. Bilateral infiltrates consistent with pneumonia. July 05: Urine culture grew MRSA. Blood culture grew MRSA. Right knee culture grew MRSA. Medical - DS: A/P - Patient/Caregiver Discharge Instructions Activity: as per physical therapy Diet: NPO Additional Instructions: Patient to follow up at wound healing clinic in a week as new patient after discharge. Other Amb Orders: Aspiration Precautions Location: Determined By Patient Fall Risk Location: Determined By Patient OT Discharge Order Location: Determined By Patient Physical Therapy at Discharge - General Location: Determined By Patient ST Discharge Order Location: Determined By Patient Wound Care/Dressings Location: Determined By Patient Outpatient PICC Care Location: Determined By Patient - Follow up Plan Follow up with: Juan Leal MD [Primary Care Provider] - Disposition: Xfer Hospital Swing Bed Prognosis: Fair Rehab Potential: Fair I certify that the patient requires SNF services: Yes Overall status at discharge: patient is progressing back to baseline Medical - DS: Qual - VTE Deep Vein Thrombosis/Pulmonary Embolism Present on Admission: No
== END 2017-07-20 12:25 | disposition other institution (70) | DRG 871 ==
LOC: ED 13:41 → ICU 17:27 → MEDSUR 07-13 13:25
PROVIDERS: ADMIT Internal Medicine; ATTEND Internal Medicine

== ENCOUNTER 2017-07-20 13:14 | Inpatient (IN) ==
[2017-07-20] MEDS ORDERED: ALBUTEROL SULFATE 2.5 MG/3 ML NEBULIZER NEB PRN (13:27)
[2017-07-20] MEDS ORDERED: guaiFENesin/DEXTROMETHORPHAN ORAL SOL PO PRN (15:00)
[2017-07-20] MEDS ORDERED: ONDANSETRON 4 MG/2 ML VIAL IV PRN (15:00)
[2017-07-20] MEDS ORDERED: ACETAMINOPHEN 325 MG TABLET PO PRN (15:00)
[2017-07-20] MEDS ORDERED: MAGNESIUM HYDROXIDE 30 ML ORAL.SUSP PO PRN (15:00)
[2017-07-20] MEDS ORDERED: 0.9 % SODIUM CHLORIDE 10 ML SYRINGE IV PRN (15:00)
[2017-07-20] MEDS ORDERED: VANCOMYCIN 500 MG VIAL IV SCH (15:00)
[2017-07-20] MEDS ORDERED: IMIPENEM IV SCH (15:00)
[2017-07-20] MEDS ORDERED: NALOXONE HCL 0.4 MG/ML VIAL IV PRN (15:00)
[2017-07-20] MEDS ORDERED: CILASTATIN IV SCH (15:00)
[2017-07-20] MEDS ORDERED: LORATADINE 10 MG TABLET PO PRN (15:00)
[2017-07-20] MEDS ORDERED: VANCOMYCIN PER PHARMACY IV SCH (15:04)
[2017-07-20] MEDS: 0.9 % SODIUM CHLORIDE 10 ML SYRINGE IV SCH ×3 (15:34→21:40)
[2017-07-20] MEDS ORDERED: FLUOCINOLONE ACETONIDE TOPICAL SCH (16:15)
[2017-07-20] MEDS: IPRATROPIUM/ALBUTEROL 3 ML AMPUL.NEB NEB SCH ×3 (19:16→22:47)
[2017-07-20] MEDS: DIVALPROEX SODIUM 250 MG TAB.ER.24H PO SCH (21:38)
[2017-07-20] MEDS: LORazepam 0.5 MG TABLET PO SCH (21:38)
[2017-07-20] MEDS: TAMSULOSIN 0.4 MG CAPSULE PO SCH (21:38)
[2017-07-20] MEDS: FAMOTIDINE/PF 20 MG/2 ML VIAL IV SCH (21:38)
[2017-07-20] MEDS: OLANZapine 5 MG TABLET PO SCH (21:38)
[2017-07-20] MEDS: HEPARIN 5,000 UNIT/ML VIAL SQ SCH (21:38)
[2017-07-20] MEDS: [UNRECOGNIZED DRUG - OTHER] TOPICAL SCH (21:39)
[2017-07-20] MEDS: FLUTICASONE PROPIONATE TOPICAL SCH (21:39)
[2017-07-20] MEDS: CHLORHEXIDINE GLUCONATE 1 ML ORAL.SOL SWABMOUTH SCH (21:39)
[2017-07-20] MEDS ORDERED: IMIPENEM/CILASTATIN SODIUM 500 MG VIAL IV ONE (22:23)
[2017-07-20] MEDS: IMIPENEM/CILASTATIN SODIUM 250 MG in 0.9 % SODIUM CHLORIDE 100 ML IV SCH (22:36)
[2017-07-21] MEDS: IPRATROPIUM/ALBUTEROL 3 ML AMPUL.NEB NEB SCH ×6 (03:29→22:44)
[2017-07-21] MEDS: IMIPENEM/CILASTATIN SODIUM 250 MG in 0.9 % SODIUM CHLORIDE 100 ML IV SCH (06:36)
[2017-07-21] MEDS: 0.9 % SODIUM CHLORIDE 10 ML SYRINGE IV SCH ×6 (06:36→21:40)
[2017-07-21] MEDS: POTASSIUM CHLORIDE 10 MEQ TABLET PO SCH (07:17)
[2017-07-21] MEDS: VANCOMYCIN 1,500 MG in 0.9 % SODIUM CHLORIDE 500 ML IV SCH (08:50)
[2017-07-21] MEDS: DIVALPROEX 125 MG CAP.SPRINK PO SCH (08:53)
[2017-07-21] MEDS: FOLIC ACID 1 MG TABLET PO SCH (08:53)
[2017-07-21] MEDS: FINASTERIDE 5 MG TABLET PO SCH (08:53)
[2017-07-21] MEDS: LORazepam 0.5 MG TABLET PO SCH ×2 (08:53→21:05)
[2017-07-21] MEDS: ASPIRIN 81 MG TAB.CHEW PO SCH (08:53)
[2017-07-21] MEDS: MULTIVIT,THER IRON,CA,FA & MIN 1 TABLET PO SCH (08:53)
[2017-07-21] MEDS: FONDAPARINUX SODIUM 2.5 MG/0.5 ML SYRINGE SQ SCH (08:54)
[2017-07-21] MEDS: CHLORHEXIDINE GLUCONATE 1 ML ORAL.SOL SWABMOUTH SCH ×2 (08:55→21:18)
[2017-07-21] MEDS ORDERED: [UNRECOGNIZED DRUG - OTHER] MC SCH (09:00)
[2017-07-21] MEDS: [UNRECOGNIZED DRUG - OTHER] TOPICAL SCH ×2 (09:38→22:48)
[2017-07-21] MEDS: HEPARIN 5,000 UNIT/ML VIAL SQ SCH (09:38)
[2017-07-21] MEDS: FLUTICASONE PROPIONATE TOPICAL SCH ×2 (09:38→22:48)
[2017-07-21] MEDS: COAL TAR TOPICAL SCH (09:38)
--- NOTE | 2017-07-21 10:07 | Internal Med History&Physical ---
Medical - H&P: HPI Patient information: Note initiated : 07/21/17 at 10:06 am Service Date, if different from initiated Date: [] Patient: Rodriguez Scales a 72 y/o M admitted on 07/20/17 for Pneumonia, Sepsis. Chief Complaint: [] History of present illness: Mr. Scales is a 72 year old man . This chronically disabled patient was admitted on July 05 with a right arm cellulitis, that progressed to sepsis, with MRSA cellulitis, MRSA aspiration pneumonia with empyema and bacteremia. Respiratory failure was initially treated with BiPAP, as the family wanted to avoid intubation. The patient clinically responded to IV vancomycin, but it was explained to the patient's family that the loculated empyema could not be cured with antibiotics alone, and would require an invasive procedure. The family declined to have the patient transferred for more aggressive care. After numerous discussions, they have ultimately decided on IV antibiotics for 6 weeks. If the patient is not cured, or recurs after that, it sounds like they would be willing to move him towards comfort care. They do not want him to go further invasive procedures at this time. Currently he is clinically stable. He still has a fairly wet sounding cough, but has been able to swallow some medications in applesauce. 2 days ago his white blood cell count started to climb again, and as he is at risk for Pseudomonas infection as well, imipenem was added to his regimen. He is now afebrile with a normal white blood cell count. -Because of high aspiration risk, he had a Dobbhoff feeding tube placed, and has been receiving tube feeds, for his malnourishment. Speech therapy continues to work with him, and hopes to slowly advance him back to an oral diet. -The patient has had intermittent hypernatremia since admission, but this seems to clear up with additional free water. -For the most part his psychiatric medications have been continued, and he has remained quite calm and cooperative over the last week or so. Speech continues to be very difficult to understand, but he can usually make his needs known to nursing staff. He does follow some simple commands. Since all of these issues appeared fairly stable as of yesterday, he was discharged to swing bed status. His case is again reviewed today, and he is admitted formally for ongoing IV antibiotic therapy, ongoing speech therapy for dysphagia with aspiration, and ongoing physical therapy to try to help him regain some mobility. His family member that is here today says that he could previously walk a few steps. Medical History Bronchitis (Acute) Fracture of fifth toe, left, open (Acute) Schizoaffective disorder (Chronic) Pleural effusion (Chronic) Malignant melanoma of skin (Chronic) Obstructive hydrocephalus (Chronic) Gallbladder calculus (Chronic) Fracture of femoral neck, closed (Chronic) COPD (chronic obstructive pulmonary disease) (Chronic) Cholelithiasis (Chronic) Cholecystitis (Chronic) Bladder malignancy (Chronic) Past Surgical History History of transurethral resection of prostate (Chronic) History of sebaceous cyst (Chronic) History of femur fracture (Chronic) History of abdominal surgery (Chronic) Swing discharge medications: Acetaminophen 650 mg every 4-6 hours as needed Vancomycin per pharmacy Imipenem 250 mg IV every 8 hours Duo nebs every 4 hours Yandel Chlorhexidine swabs twice daily as needed Depakote sprinkles 375 mg daily Depakote ER 500 mg nightly Pepcid 20 mg IV nightly Fluocinolone acetonide 0.01% topical solution daily Fluticasone Propine 8 0.05% cream topically twice daily as needed Folate 1 mg daily Fondaparinux 2.5 mg subcu daily Heparin flushes every 12 hours Multivitamin with minerals 1 daily Ativan 0.5 mg as needed Milk of magnesia 30 mL as needed Narcan 0.1 mg IV as needed Zyprexa 15 mg p.o. nightly next line Zofran 4 mg IV every 4 hours as needed Flomax 0.4 mg p.o. nightly Aspirin 81 mg daily [place] tar shampoo 0.5% topically every 48 hours Compression socks daily, off at at bedtime Guaifenesin with dextromethorphan every 6 hours as needed Allergies: Penicillin G Family History Mother Malignant neoplasm of pancreas Social History smoking status: Former smoker alcohol intake frequency: former alcohol drinker Medical - H&P: Meds Home Medications Medication Instructions Recorded Confirmed Type divalproex 500 mg tablet,delayed 500 mg PO QHS tab 06/24/15 07/20/17 History release fluticasone 0.05 % topical cream 1 applic TOPICAL .COMPLEX g 06/24/15 07/20/17 History loratadine 10 mg tablet 10 mg PO QDAY PRN tab 06/24/15 07/20/17 History multivitamin tablet 1 tab PO QDAY tab 06/24/15 07/20/17 History olanzapine 15 mg tablet 15 mg PO QHS tab 06/24/15 07/20/17 History potassium chloride ER 10 mEq 10 meq PO QDAY cap 06/24/15 07/20/17 History capsule,extended release tamsulosin 0.4 mg capsule 0.4 mg PO QHS cap 06/24/15 07/20/17 History triamcinolone acetonide-l.s.b. 0.5 0.5 % TOPICAL BID 06/24/15 07/20/17 History % topical cream coal tar 0.5 % shampoo 1 applic TOPICAL Q48H 10/19/16 07/20/17 History dextromethorphan-guaifenesin 10 15 ml PO Q6HP PRN 10/19/16 07/20/17 History mg-100 mg/5 mL syrup divalproex 125 mg tablet,delayed 375 mg PO QDAY tab 10/19/16 07/20/17 History release fluocinolone 0.01 % topical 1 applic TOPICAL 3XW ml 10/19/16 07/20/17 History solution folic acid 1 mg tablet 1 mg PO QDAY 10/19/16 07/20/17 History methotrexate sodium 2.5 mg tablet 15 mg PO WEEKLY tab 10/19/16 07/20/17 History Aspirin [Adult Low Dose Aspirin EC] 81 mg PO DAILY 07/05/17 07/20/17 History Compression Socks, Medium [Futuro 1 each MC DAILY MDD off at HS 07/05/17 History Restoring] Finasteride [Proscar] 5 mg PO DAILY 07/05/17 07/20/17 History LORazepam [Ativan] 0.5 mg PO BID MDD see notes 07/05/17 07/20/17 History Pyrithione Zinc [Dhs Zinc] 240 ml TP Q48H 07/05/17 07/20/17 History 0.9 % Sodium Chloride [Saline 10 ml IV Q8 07/20/17 07/20/17 Rx Flush] 0.9 % Sodium Chloride [Saline 10 ml IV UD PRN 07/20/17 07/20/17 Rx Flush] Acetaminophen [Tylenol] 650 mg PO Q4-6HP PRN tablet 07/20/17 07/20/17 Rx Chlorhexidine Gluconate [Peridex] 15 ml SWABMOUTH BID 07/20/17 07/20/17 Rx Famotidine/Pf [Pepcid] 20 mg IV HS vial 07/20/17 07/20/17 Rx Fondaparinux Sodium [Arixtra] 2.5 mg SQ DAILY 07/20/17 07/20/17 Rx Heparin Flush 2 ml IV Q12 07/20/17 07/20/17 Rx Imipenem/Cilastatin Sodium 250 mg IV Q8H vial 07/20/17 07/20/17 Rx [Primaxin] Ipratropium/Albuterol [Duoneb] 3 ml NEB Q4HRT 07/20/17 07/20/17 Rx Magnesium Hydroxide [Milk of 30 ml PO DAILYP PRN 07/20/17 07/20/17 Rx Magnesia] Naloxone HCl [Narcan] 0.1 mg IV Q2MIN PRN vial 07/20/17 07/20/17 Rx Ondansetron [Zofran] 4 mg IV Q4-6HP PRN vial 07/20/17 07/20/17 Rx Vancomycin 1,500 mg IV Q24H vial 07/20/17 07/20/17 Rx Allergies Allergy/AdvReac Type Severity Reaction Status Date / Time penicillin G [PENICILLIN G] Allergy Mild RASH Verified 07/06/17 16:05 Medical - H&P: Exam - Constitutional Vitals: Temp Pulse Resp BP Pulse Ox 98.3 F 89 24 H 96/65 96 07/21/17 07:30 07/21/17 07:58 07/21/17 07:58 07/21/17 07:30 07/21/17 07:58 The patient is a frail elderly man who tends to lay back curled up into a bit of a ball. He definitely responds to people talking to him, but his speech is mostly unintelligible. He seems in good spirits today, and was able to cooperate with physical therapy to sit up on the side of the bed. Head: Normocephalic, atraumatic. Eyes: PERRLA, EOMI. Anicteric. Ears: TMs are clear. Pharynx: Is difficult to get the patient to cooperate with mouth opening. Teeth appear to be in fairly poor condition. Mucosa appears a bit dry. Nasogastric feeding tube is in place. Neck: Shows no obvious lymphadenopathy, JVD, thyromegaly, bruits. Cardiac exam: Shows regular rate and rhythm with normal S1 and S2. No murmurs, rubs, gallops are noted. Lungs: He has a few scattered crackles today, but overall lungs are fairly clear , with generally diminished breath sounds. No significant wheezing or rhonchi are noted today. Abdomen: Is soft, without apparent tenderness. Garcia catheter is draining clear yellow urine. Extremities: He continues to have moderate swelling of his right upper extremity as well as both lower extremities, and has fairly diffuse general dependent edema. Neurologic exam: The patient is awake and alert, and can cooperate with some simple commands. He can occasionally be understood to say yes or no. He has a fairly constant comfort measure where he holds his fingers up to his mouth and pretends that he smoking. This seems to have the effect of a pacifier. Cranial nerves appear grossly intact. Motor strength appears intact but he has what appears to be mild contractures throughout, and is not fully cooperative with exam. Medical - H&P: Reslt - Labs Labs: July 20, 2017: CBC: White blood cell count is 9000, him hemoglobin 8.9, hematocrit 27.7, MCV 105, RDW 18, platelets 121,000. Differential shows 6800 granulocytes, and 1300 lymphocytes. Chemistry panel: Show sodium 145, potassium 4.3, chloride 112, CO2 28, BUN 20, creatinine 0.7, glucose 152 Alkaline phosphatase 226, GGT 202, albumin 1.7 Vancomycin trough level is 16 X July 18: Abdominal x-ray shows Dobbhoff feeding tube with its tip just past the ligament of Treitz. Bowel gas pattern much more normal than previous exam. July 14: Chest x-ray: Continues to show bilateral diffuse pulmonary parenchymal infiltrates and bilateral pleural effusions, essentially unchanged. July 09: Pleural fluid culture grew methicillin-resistant staph aureus, sensitive to vancomycin, clindamycin, gentamicin, linezolid, rifampin, tetracycline, Bactrim. Resistant to amoxicillin, ampicillin, cefazolin, erythromycin, imipenem, Levaquin, meropenem, oxacillin, Zosyn Urine culture also grew MRSA. Blood cultures also grew MRSA from July 05, 2017. Blood cultures from July 08, had no growth.. Medical - H&P: A/P - Narrative A/P Narrative: A/P Narrative: #1. Infectious disease. -MRSA bacteremia-Continue six-week vancomycin. Imipenem added for climbing white blood cell count, suspicious for possible superimposed Pseudomonas infection. Leukocytosis has improved. The hospital did run out of imipenem today, so patient is being changed over to cefepime, again to cover Pseudomonas. -MRSA empyema-Multiloculated. -family does not want aggressive intervention or tertiary Center transfer despite recommendations and guidelines(includes tube thoracostomy and pleural decortication). patient currently being managed as per family recommendation on IV antibiotics. Family is aware that this treatment is not consistent with standard of care and carries a high risk of relapse. -Aspiration pneumonia-. Speech therapy is working with the patient trying to improve his aspiration risk. -Cellulitis-of the right upper extremity,dvt is neg, Continue vancomycin. -Clinically, overall, the patient is slowly improving. He is not in any distress, and vital signs remained fairly normal. #2. Endocrine. * Hypovolemic Hypernatremia: Sodium climbing again on July 19, so free water flushes for his tube feeds were increased to 600 mL every 4 hours. * This is improved . * #3. Hematologic. * Thrombocytopenia: Platelets are a bit improved ... Continue to follow. * He is slightly more anemic, but this appears to fluctuate, looking over previous labs. He is trending downward, but seems to be tolerating the anemia okay so far. * #4. Pulmonary. * ARDS/ Acute hypoxic Respiratory failure: resolved * #5. Renal. * Renal failure-resolved. * * #6. Rheumatologic. Psoriasis- Methotrexate on hold. Resume topical clobetasol. I think we can try resuming methotrexate, as this may be part of his pain issue. If it looks like his pneumonia is progressing, we would need to hold it again. #7. Nutrition. * severe malnutrition-resume feeding via NG tube. Speech therapy and dietary following. * #8. Neurologic/psychiatric. * Dementia/ Schizophremia: continue home medications of olanzapine as well as divalproex. * #9. . * h/o bladder cancer: follows with Dr Best * #10. * DVT prophylaxis, arixtra * * OT/ PT #11. CODE STATUS: No CPR. #12. GI. Elevated LFTs. It is unclear if this was related to recent sepsis, current medications, or other. -Improving. Today's visit took approximately 40 minutes, to review patient's previous chart and records, interview and examine the patient, review his case briefly with staff including physical therapy staff, and also with 1 of his relatives. Medical - H&P: Qual - Stroke Symptom Onset Unknown: No - VTE Deep Vein Thrombosis/Pulmonary Embolism Present on Admission: No
[2017-07-21] MEDS ORDERED: IMIPENEM/CILASTATIN SODIUM 250 MG in 0.9 % SODIUM CHLORIDE 100 ML IV SCH (14:00)
[2017-07-21] MEDS ORDERED: FLU VACC QS2017-18 36MOS UP/PF 60 MCG/0.5 ML SYRINGE IM ONE (16:15)
[2017-07-21] MEDS: CEFEPIME 1 GM in DEXTROSE 5% IN WATER 50 ML IV SCH (21:04)
[2017-07-21] MEDS: FAMOTIDINE/PF 20 MG/2 ML VIAL IV SCH (21:04)
[2017-07-21] MEDS: TAMSULOSIN 0.4 MG CAPSULE PO SCH (21:05)
[2017-07-21] MEDS: OLANZapine 5 MG TABLET PO SCH (21:05)
[2017-07-21] MEDS: DIVALPROEX SODIUM 250 MG TAB.ER.24H PO SCH (21:05)
[2017-07-22] MEDS: IPRATROPIUM/ALBUTEROL 3 ML AMPUL.NEB NEB SCH ×6 (04:00→23:22)
[2017-07-22] MEDS: 0.9 % SODIUM CHLORIDE 10 ML SYRINGE IV SCH ×6 (04:08→21:57)
[2017-07-22 06:37] LABS: ALT/SGPT 21 U/l (0-40); Albumin 1.6 gm/dL (3.2-5.2); Albumin/Globulin Ratio 0.5 (1.0-2.3); Alkaline Phosphatase 197 U/L (39-117); Bilirubin,Direct < 0.2 mg/dL (0.0-0.3); Blood Urea Nitrogen 19 mg/dl (8-23); Gamma Glutamyl Transpeptidase 143 U/L (8-61); Magnesium 2.1 mg/dL (1.6-2.5); Uric Acid 4.8 mg/dL (2.5-8.0)
[2017-07-22 07:22] LABS: Basophils # (Auto) 0 K/mcL (0.0-0.3); Basophils % (Auto) 0.6 % (0.0-2.0); Eosinophils # (Auto) 0.2 K/mcL (0.0-0.7); Eosinophils % (Auto) 2.9 % (0.0-7.0); Granulocytes % (Auto) 64.7 % (38.0-78.0); Lymphocytes # (Auto) 1.4 K/mcL (1.5-4.8); Lymphocytes % (Auto) 20.2 % (15.5-49.0); Mean Cell Volume 107.3 fL (80.0-100.0); Mean Corpuscular HGB Conc 32.5 g/dL (31.0-36.0); Mean Corpuscular Hemoglobin 34.9 pg (26.0-34.0); Monocytes # (Auto) 0.8 K/mcL (0.1-0.9); Monocytes % (Auto) 11.6 % (1.0-12.0); Platelet Count 77 K/mcL (140-440); RBC 2.43 M/mcL (4.50-5.90); Red Cell Distribution Width 18.1 % (11.5-14.5)
[2017-07-22] MEDS: CEFEPIME 1 GM in DEXTROSE 5% IN WATER 50 ML IV SCH ×2 (09:45→20:56)
[2017-07-22] MEDS: DIVALPROEX 125 MG CAP.SPRINK PO SCH (10:35)
[2017-07-22] MEDS: POTASSIUM CHLORIDE 10 MEQ TABLET PO SCH (10:35)
[2017-07-22] MEDS: FINASTERIDE 5 MG TABLET PO SCH (10:35)
[2017-07-22] MEDS: MULTIVIT,THER IRON,CA,FA & MIN 1 TABLET PO SCH (10:35)
[2017-07-22] MEDS: ASPIRIN 81 MG TAB.CHEW PO SCH (10:36)
[2017-07-22] MEDS: FONDAPARINUX SODIUM 2.5 MG/0.5 ML SYRINGE SQ SCH (10:36)
[2017-07-22] MEDS: FOLIC ACID 1 MG TABLET PO SCH (10:36)
[2017-07-22] MEDS: VANCOMYCIN 1,500 MG in 0.9 % SODIUM CHLORIDE 500 ML IV SCH (11:00)
[2017-07-22] MEDS: CHLORHEXIDINE GLUCONATE 1 ML ORAL.SOL SWABMOUTH SCH ×2 (11:01→21:56)
[2017-07-22] MEDS: LORazepam 0.5 MG TABLET PO SCH ×2 (12:51→20:56)
[2017-07-22] MEDS: [UNRECOGNIZED DRUG - OTHER] TOPICAL SCH ×2 (12:52→21:56)
[2017-07-22] MEDS: PYRITHIONE ZINC TOPICAL SCH (18:41)
[2017-07-22] MEDS: FLUTICASONE PROPIONATE TOPICAL SCH ×2 (18:41→21:56)
[2017-07-22] MEDS: TAMSULOSIN 0.4 MG CAPSULE PO SCH (20:55)
[2017-07-22] MEDS: DIVALPROEX SODIUM 250 MG TAB.ER.24H PO SCH (20:55)
[2017-07-22] MEDS: OLANZapine 5 MG TABLET PO SCH (20:55)
[2017-07-22] MEDS: FAMOTIDINE/PF 20 MG/2 ML VIAL IV SCH (20:55)
[2017-07-23] MEDS: IPRATROPIUM/ALBUTEROL 3 ML AMPUL.NEB NEB SCH ×5 (03:02→20:02)
[2017-07-23] MEDS: 0.9 % SODIUM CHLORIDE 10 ML SYRINGE IV SCH ×6 (03:58→20:53)
[2017-07-23] MEDS ORDERED: METHOTREXATE SODIUM 2.5 MG TABLET PO SCH (09:00)
[2017-07-23] MEDS: CEFEPIME 1 GM in DEXTROSE 5% IN WATER 50 ML IV SCH ×2 (09:48→20:48)
[2017-07-23] MEDS: VANCOMYCIN 1,500 MG in 0.9 % SODIUM CHLORIDE 500 ML IV SCH (09:48)
[2017-07-23] MEDS: ASPIRIN 81 MG TAB.CHEW PO SCH (10:12)
[2017-07-23] MEDS: FINASTERIDE 5 MG TABLET PO SCH (10:12)
[2017-07-23] MEDS: FOLIC ACID 1 MG TABLET PO SCH (10:12)
[2017-07-23] MEDS: MULTIVIT,THER IRON,CA,FA & MIN 1 TABLET PO SCH (10:13)
[2017-07-23] MEDS: LORazepam 0.5 MG TABLET PO SCH (10:13)
[2017-07-23] MEDS: POTASSIUM CHLORIDE 10 MEQ TABLET PO SCH (10:13)
[2017-07-23] MEDS: FONDAPARINUX SODIUM 2.5 MG/0.5 ML SYRINGE SQ SCH (10:14)
[2017-07-23] MEDS: DIVALPROEX 125 MG CAP.SPRINK PO SCH (10:15)
[2017-07-23] MEDS: FLUTICASONE PROPIONATE TOPICAL SCH ×2 (10:17→20:56)
[2017-07-23] MEDS: CHLORHEXIDINE GLUCONATE 1 ML ORAL.SOL SWABMOUTH SCH ×2 (10:17→20:55)
[2017-07-23] MEDS: [UNRECOGNIZED DRUG - OTHER] TOPICAL SCH ×2 (10:17→20:56)
[2017-07-23] MEDS: COAL TAR TOPICAL SCH (10:17)
[2017-07-23] MEDS ORDERED: LORazepam 0.5 MG TABLET PO PRN (11:52)
--- NOTE | 2017-07-23 13:33 | General Surgery Progress Note ---
Subjective Patient reports: no new complaints, other (Wound Care Follow up. Patient now in [facility]. F/U for ulcers right and left LE.) Narrative: Note initiated : 07/23/17 at 1:29 pm Service Date, if different from initiated Date: [] Patient: Rodriguez Scales 72 y/o M admitted on 07/20/17 for Pneumonia, Sepsis. Chief Complaint: [] Objective Temp Pulse Resp BP Pulse Ox 97.1 F 85 18 118/72 96 07/22/17 20:00 07/23/17 08:00 07/23/17 08:00 07/23/17 08:00 07/23/17 08:00 AVSS. JOHNY No acute findings. L/E: I had seen this gentleman in past and reassessed him again today along with Mary, saw tailer Nurse. Both leg wounds are pressure ulcers being treated with protective moist foam dressings with borders, There is clean demarcation of dry adherent black skin and sub q eschar, which is still adherent to wound base. No foul odor, drainage or other acute inflammatory findings. - Additional Data Intake & Output - Last 24 hours: Intake & Output 07/21/17 07/22/17 07/23/17 07/24/17 05:59 05:59 05:59 05:59 Intake Total 1490 / 1490 2760 / 2760 1440 / 1440 200 / 200 Output Total 2400 / 2400 1750 / 1750 1900 / 1900 Balance -910 / -910 1010 / 1010 -460 / -460 200 / 200 Weight 196 lb 195 lb 195 lb - Labs 07/22/17 04:00 07/22/17 04:00 Assessment and Plan - Narrative A/P Narrative: Assessment: Patient is responding well to current local wound care. Will continue present treatment. Plan: Reassess after week end. Possible debridement of demarcating eschar. If patient were to be discharged over the week end, Please give him a f/u appointment at wound center in ONE week. - Time Spent With Patient Total time spent is greater than 50% in coordination of care (as documented) at patient's floor/unit and/or counseling patient: less than 15 minutes
[2017-07-23] MEDS: FAMOTIDINE/PF 20 MG/2 ML VIAL IV SCH (20:53)
[2017-07-23] MEDS: TAMSULOSIN 0.4 MG CAPSULE PO SCH (20:55)
[2017-07-23] MEDS: OLANZapine 5 MG TABLET PO SCH (20:55)
[2017-07-23] MEDS: DIVALPROEX SODIUM 250 MG TAB.ER.24H PO SCH (20:55)
[2017-07-24] MEDS: IPRATROPIUM/ALBUTEROL 3 ML AMPUL.NEB NEB SCH ×6 (01:33→19:34)
[2017-07-24] MEDS: 0.9 % SODIUM CHLORIDE 10 ML SYRINGE IV SCH ×6 (05:55→20:27)
[2017-07-24] MEDS: POTASSIUM CHLORIDE 10 MEQ TABLET PO SCH (09:15)
[2017-07-24] MEDS: FINASTERIDE 5 MG TABLET PO SCH (09:15)
[2017-07-24] MEDS: DIVALPROEX 125 MG CAP.SPRINK PO SCH (09:15)
[2017-07-24] MEDS: FOLIC ACID 1 MG TABLET PO SCH (09:16)
[2017-07-24] MEDS: ASPIRIN 81 MG TAB.CHEW PO SCH (09:16)
[2017-07-24] MEDS: MULTIVIT,THER IRON,CA,FA & MIN 1 TABLET PO SCH (09:16)
[2017-07-24] MEDS: FONDAPARINUX SODIUM 2.5 MG/0.5 ML SYRINGE SQ SCH (09:16)
[2017-07-24] MEDS: CHLORHEXIDINE GLUCONATE 1 ML ORAL.SOL SWABMOUTH SCH (09:17)
[2017-07-24] MEDS: CEFEPIME 1 GM in DEXTROSE 5% IN WATER 50 ML IV SCH (09:19)
[2017-07-24 10:04] LABS: ALT/SGPT 17 U/l (0-40); Albumin 1.6 gm/dL (3.2-5.2); Albumin/Globulin Ratio 0.5 (1.0-2.3); Alkaline Phosphatase 181 U/L (39-117); Bilirubin,Direct < 0.2 mg/dL (0.0-0.3); Blood Urea Nitrogen 17 mg/dl (8-23); Gamma Glutamyl Transpeptidase 112 U/L (8-61); Magnesium 1.9 mg/dL (1.6-2.5); Uric Acid 3.7 mg/dL (2.5-8.0)
[2017-07-24] MEDS: PYRITHIONE ZINC TOPICAL SCH (10:08)
[2017-07-24] MEDS: VANCOMYCIN 1,500 MG in 0.9 % SODIUM CHLORIDE 500 ML IV SCH (10:08)
[2017-07-24] MEDS: FLUTICASONE PROPIONATE TOPICAL SCH (10:08)
[2017-07-24] MEDS: [UNRECOGNIZED DRUG - OTHER] TOPICAL SCH (10:08)
--- NOTE | 2017-07-24 10:13 | XRay Report ---
CLINICAL INFORMATION: Hypoxia COMPARISON: 07/14/2017 FINDINGS: Marked cardiomegaly is unchanged. PICC line tip overlies the right atrium. Feeding tube or NG tube elevation as well as the gastric body. There is now complete opacification of the right thorax with associated volume loss likely due to complete right lung atelectasis from mucous plugging in the right mainstem bronchus. Moderate to large right pleural effusion has also progressed. Moderate atelectasis in the left lower lobe - retrocardiac region and small left pleural effusion are unchanged. Left upper lobe is well expanded and clear IMPRESSION: 1. Complete opacification of the right hemithorax with volume loss likely due to complete right lung collapse. Suspect mucous plugging of the right mainstem bronchus. Moderate right pleural effusion also noted. 2. Consolidation atelectasis left lower lobe with small left pleural effusion - stable Interpreted and Authenticated by: Glen Hartley 07/24/17
[2017-07-24 10:18] LABS: Basophils # (Auto) 0 K/mcL (0.0-0.3); Basophils % (Auto) 0.5 % (0.0-2.0); Eosinophils # (Auto) 0.2 K/mcL (0.0-0.7); Eosinophils % (Auto) 3.1 % (0.0-7.0); Granulocytes % (Auto) 69.7 % (38.0-78.0); Lymphocytes % (Auto) 15.8 % (15.5-49.0); Mean Cell Volume 104.8 fL (80.0-100.0); Mean Corpuscular HGB Conc 32.5 g/dL (31.0-36.0); Monocytes # (Auto) 0.7 K/mcL (0.1-0.9); Monocytes % (Auto) 10.9 % (1.0-12.0); Platelet Count 62 K/mcL (140-440); RBC 2.21 M/mcL (4.50-5.90); Red Cell Distribution Width 17.5 % (11.5-14.5)
--- NOTE | 2017-07-24 13:22 | Internal Med Progress Note ---
Medical - PN: Subj Patient information: Note initiated : 07/24/17 at 1:22 pm Patient: Rodriguez Scales 72 y/o M admitted on 07/20/17 for Pneumonia, Sepsis. Interval history: July 21, 2017: History of present illness: Mr. Scales is a 72 year old man . This chronically disabled patient was admitted on July 05 with a right arm cellulitis, that progressed to sepsis, with MRSA cellulitis, MRSA aspiration pneumonia with empyema and bacteremia. Respiratory failure was initially treated with BiPAP, as the family wanted to avoid intubation. The patient clinically responded to IV vancomycin, but it was explained to the patient's family that the loculated empyema could not be cured with antibiotics alone, and would require an invasive procedure. The family declined to have the patient transferred for more aggressive care. After numerous discussions, they have ultimately decided on IV antibiotics for 6 weeks. If the patient is not cured, or recurs after that, it sounds like they would be willing to move him towards comfort care. They do not want him to go further invasive procedures at this time. Currently he is clinically stable. He still has a fairly wet sounding cough, but has been able to swallow some medications in applesauce. 2 days ago his white blood cell count started to climb again, and as he is at risk for Pseudomonas infection as well, imipenem was added to his regimen. He is now afebrile with a normal white blood cell count. -Because of high aspiration risk, he had a Dobbhoff feeding tube placed, and has been receiving tube feeds, for his malnourishment. Speech therapy continues to work with him, and hopes to slowly advance him back to an oral diet. -The patient has had intermittent hypernatremia since admission, but this seems to clear up with additional free water. -For the most part his psychiatric medications have been continued, and he has remained quite calm and cooperative over the last week or so. Speech continues to be very difficult to understand, but he can usually make his needs known to nursing staff. He does follow some simple commands. Since all of these issues appeared fairly stable as of yesterday, he was discharged to swing bed status. His case is again reviewed today, and he is admitted formally for ongoing IV antibiotic therapy, ongoing speech therapy for dysphagia with aspiration, and ongoing physical therapy to try to help him regain some mobility. His family member that is here today says that he could previously walk a few steps. July 24, 2017: I was called to urgently see this patient this morning, after he was discovered hypoxic and gurgling in his room. When I entered the room, the patient was awake and alert, and making his usual unintelligible verbalizations. Nursing staff and respiratory therapy had suctioned him and given him a breathing treatment and put him on oxygen by facemask. He did look a little pale, but does not otherwise seem to be in significant distress. He is unable to give a history, as his verbalizations are difficult to understand. - Constitutional Vitals: Vital Signs Temp Pulse Resp BP Pulse Ox 98.6 F 82 20 112/56 95 07/24/17 07:48 07/24/17 11:27 07/24/17 11:27 07/24/17 07:48 07/24/17 11:24 Period Temp Pulse Resp BP Sys/[place] Pulse Ox Last 24 Hr 97.3 F-98.6 F 82-100 18-24 112-117/56-74 90-95 Intake and Output 07/23/17 07/24/17 07/24/17 21:59 05:59 13:59 Intake Total 1176 / 1176 620 / 620 210 / 210 Output Total 1150 / 1150 900 / 900 Balance 26 / 26 -280 / -280 210 / 210 Weight 196 lb Intake & Output: Intake & Output 07/23/17 07/24/17 07/24/17 21:59 05:59 13:59 Intake Total 1176 / 1176 620 / 620 210 / 210 Output Total 1150 / 1150 900 / 900 Balance / 26 -280 / -280 210 / 210 Weight 196 lb Intake: IV 50 / 50 Maxipime 1 gm In Dextrose 50 / 50 5% in Water 50 ml @ 100 mls/hr IV Q12H [facility] Rx#: [id number] Oral 0 / 0 Tube Feeding 926 / 926 420 / 420 GI Tube Flush 200 / 200 200 / 200 210 / 210 Output: Urine Catheter Amount 1150 / 1150 900 / 900 When the nurse got to him this morning, O2 saturations were 80% on 4 L. This improved to 91% on a 7 L oxygen mask. A small amount of wood secretions were suctioned. Patient was encouraged to cough, but was not able to clear secretions, due to weak cough. Temperature 98.6. Heart rate 94. Respiratory rate 24. Pressure 112/56. O2 saturation is currently 95% on 8 L oxygen mask. The patient was awake and alert. He does have gurgling upper airway sounds. Neck is supple without obvious lymphadenopathy or JVD. Cardiac exam shows regular rate and rhythm. Left lung is fairly clear. There is a lot of upper airway noise and gurgling. Right lung sounds are markedly decreased. Abdomen: Is soft and nontender with normal bowel sounds. Extremities: Continue to show 2+ or more edema of the right arm and both lower extremities, as well as dependent edema. Medical - PN: Obj Da - Labs CBC & Chem 7: 07/24/17 08:53 07/24/17 08:53 Labs: Abnormal Lab Results 07/24/17 07/24/17 07/23/17 08:53 08:53 08:12 RBC 2.21 L Hgb 7.5 L Hct 23.2 L MCV 104.8 H MCH RDW 17.5 H Plt Count 62 L MPV 13.3 H Lymph # (Auto) 1.0 L Chloride Creatinine 0.6 L Glucose 115 H GGT 112 H Alkaline Phosphatase 181 H Total Protein 4.9 L Albumin 1.6 L Albumin/Globulin Ratio 0.5 L Vancomycin Trough 15.0 H 07/22/17 07/22/17 04:00 04:00 RBC 2.43 L Hgb 8.5 L Hct 26.1 L MCV 107.3 H MCH 34.9 H RDW 18.1 H Plt Count 77 L MPV 11.7 H Lymph # (Auto) 1.4 L Chloride 109 H Creatinine Glucose 115 H GGT 143 H Alkaline Phosphatase 197 H Total Protein 5.0 L Albumin 1.6 L Albumin/Globulin Ratio 0.5 L Vancomycin Trough July 24: Chest x-ray: Shows complete opacification of the right hemithorax with volume loss, likely due to right lung collapse. Suspect mucous plugging of the right mainstem bronchus. Moderate right pleural effusion also noted. Also consolidation atelectasis is noted of the left lower lobe with small left pleural effusion, this is stable. July 20, 2017: CBC: White blood cell count is 9000, him hemoglobin 8.9, hematocrit 27.7, MCV 105, RDW 18, platelets 121,000. Differential shows 6800 granulocytes, and 1300 lymphocytes. Chemistry panel: Show sodium 145, potassium 4.3, chloride 112, CO2 28, BUN 20, creatinine 0.7, glucose 152 Alkaline phosphatase 226, GGT 202, albumin 1.7 Vancomycin trough level is 16 X July 18: Abdominal x-ray shows Dobbhoff feeding tube with its tip just past the ligament of Treitz. Bowel gas pattern much more normal than previous exam. July 14: Chest x-ray: Continues to show bilateral diffuse pulmonary parenchymal infiltrates and bilateral pleural effusions, essentially unchanged. July 09: Pleural fluid culture grew methicillin-resistant staph aureus, sensitive to vancomycin, clindamycin, gentamicin, linezolid, rifampin, tetracycline, Bactrim. Resistant to amoxicillin, ampicillin, cefazolin, erythromycin, imipenem, Levaquin, meropenem, oxacillin, Zosyn Urine culture also grew MRSA. Blood cultures also grew MRSA from July 05, 2017. Blood cultures from July 08, had no growth.. Meds: Medications Acetaminophen (Tylenol) 650 mg PO Q4-6HP PRN PRN Reason: PAIN/FEVER > 101 Albuterol Sulfate (Ventolin) 2.5 mg NEB Q4HP PRN PRN Reason: Shortness Of Breath Albuterol/Ipratropium (Duoneb) 3 ml NEB Q4HRT [facility] Last Admin: 07/24/17 11:13 Dose: 3 ml Aspirin (Aspirin) 81 mg PO DAILY [facility] Last Admin: 07/24/17 09:16 Dose: 81 mg Chlorhexidine Gluconate (Peridex) 15 ml SWABMOUTH BID [facility] Last Admin: 07/24/17 09:17 Dose: 15 ml Divalproex Sodium (Depakote Sprinkles) 375 mg PO DAILY [facility] Last Admin: 07/24/17 09:15 Dose: 375 mg Divalproex Sodium (Depakote Er) 500 mg PO HS [facility] Last Admin: 07/23/17 20:55 Dose: 500 mg Famotidine (Pepcid) 20 mg IV HS [facility] Last Admin: 07/23/17 20:53 Dose: 20 mg Finasteride (Proscar) 5 mg PO DAILY [facility] Last Admin: 07/24/17 09:15 Dose: 5 mg Folic Acid (Folic Acid) 1 mg PO QDAY [facility] Last Admin: 07/24/17 09:16 Dose: 1 mg Fondaparinux (Arixtra) 2.5 mg SQ DAILY [facility] Last Admin: 07/24/17 09:16 Dose: 2.5 mg Guaifenesin (Robitussin Dm) 15 ml PO Q6HP PRN PRN Reason: Cough Heparin Sodium (Porcine) (Heparin Flush) 2 ml IV Q12 [facility] Last Admin: 07/24/17 11:45 Dose: 2 ml Vancomycin HCl 1,500 mg/ (Sodium Chloride) 500 mls @ 333.3 mls/hr IV Q24H [facility] Last Admin: 07/24/17 10:08 Dose: 333.3 mls/hr Cefepime HCl 1 gm/ Dextrose 50 mls @ 100 mls/hr IV Q12H [facility] Last Admin: 07/24/17 09:19 Dose: 100 mls/hr Iron Carb/Multivit/[place]/Folic Acid (Multivitamin W/Minerals) 1 tab PO DAILY [facility] Last Admin: 07/24/17 09:16 Dose: 1 tab Loratadine (Claritin) 10 mg PO QDAY PRN PRN Reason: Allergy Symptoms Lorazepam (Ativan) 0.5 mg PO BIDP PRN PRN Reason: Agitation Magnesium Hydroxide (Milk Of Magnesia) 30 ml PO DAILYP PRN PRN Reason: Constipation Methotrexate (Methotrexate) 15 mg PO Fr@0900 [facility] Last Admin: 07/23/17 10:16 Dose: 15 mg Naloxone HCl (Narcan) 0.1 mg IV Q2MIN PRN PRN Reason: Opiate Reversal Olanzapine (Zyprexa) 15 mg PO HS [facility] Last Admin: 07/23/17 20:55 Dose: 15 mg Ondansetron HCl (Zofran) 4 mg IV Q4-6HP PRN PRN Reason: Nausea And Vomiting Attala Tar [Dhs Tar] (Shampoo) 1 dose TOPICAL Q48H [facility] Last Admin: 07/23/17 10:17 Dose: Not Given Fluocinolone Acetonide [Synalar] Top Natalia 1 dose TOPICAL 3XW [facility] Fluticasone Propionate [Cutivate ] 1 Applic) 0 dose TOPICAL BID [facility] Last Admin: 07/24/17 10:08 Dose: Not Given Pyrithione Zinc [Dhs (Zinc] Shampoo) 1 dose TOPICAL Q48H [facility] Last Admin: 07/24/17 10:08 Dose: Not Given Triamcinolone Acetonide-L.S.B. 0.5 % 1 dose TOPICAL BID [facility] Last Admin: 07/24/17 10:08 Dose: Not Given Potassium Chloride (Kdur) 10 meq PO QAMCC [facility] Last Admin: 07/24/17 09:15 Dose: 10 meq Sodium Chloride (Saline Flush) 10 ml IV Q8 [facility] Last Admin: 07/24/17 05:55 Dose: 10 ml Sodium Chloride (Saline Flush) 10 ml IV Q8 [facility] Last Admin: 07/24/17 05:55 Dose: 10 ml Tamsulosin HCl (Flomax) 0.4 mg PO QHS [facility] Last Admin: 07/23/17 20:55 Dose: 0.4 mg Vancomycin HCl (Vancomycin Per Pharmacy) 1 order IV UD [facility] Medical - PN: A/P - Time Spent With Patient Total time spent is greater than 50% in coordination of care (as documented) at patient's floor/unit and/or counseling patient: Greater than 35 minutes - Narrative A/P Narrative: #1. Pulmonary. The patient appears to have had a large mucous plug lodged in his right mainstem bronchus today, causing near collapse of his right lung. Respiratory therapy has tried deep suctioning as well as nebulized bronchodilators, without much success. The patient is maintaining O2 saturations currently via oxygen mask, but this is a very concerning development. Dr. Manuel, who is the of the patient's POA, is now in the room with him. I discussed with him that her options at this time would be to transfer the patient to a facility that has a industrial truck driver, and could possibly bronchoscope him to remove any plugs, versus keep him here and work on pulmonary toilet and keeping him comfortable, versus moving more towards comfort care. He is unwilling to decide this right at this time. He would like to meet with the POA and other family members later this afternoon, and then give us a decision. We both agree that the patient's ability to recover from yet another significant medical problem is rather slim. ... Subsequent discussion with the family, and then pulmonary at [place], led to a decision to transfer the patient to [place], for further pulmonary evaluation, with possible bronchoscopy to remove mucous plug. Please see discharge summary for further evaluation. #2. Infectious disease. -MRSA bacteremia-Continue six-week vancomycin. Imipenem was added for climbing white blood cell count, suspicious for possible superimposed Pseudomonas infection. Leukocytosis has improved. The hospital did run out of imipenem today, so patient is being changed over to cefepime, again to cover Pseudomonas. -MRSA empyema-Multiloculated. -family does not want aggressive intervention or tertiary Center transfer despite recommendations and guidelines(includes tube thoracostomy and pleural decortication). patient currently being managed as per family recommendation on IV antibiotics. Family is aware that this treatment is not consistent with standard of care and carries a high risk of relapse. -Aspiration pneumonia-. Speech therapy is working with the patient trying to improve his aspiration risk. Yesterday's evaluation indicated the patient is really at high risk to swallow anything by mouth, so he was again made n.p.o. Oral meds are being given through the feeding tube. -Cellulitis-of the right upper extremity,dvt is neg, Continue vancomycin. #3. Hematologic. * Thrombocytopenia: Platelets are lower again today. He is at increased risk for bleeding at this level. However, there are no clinical signs of bleeding at this time. * * He is slightly more anemic, but this appears to fluctuate, looking over previous labs. He is trending downward, but seems to be tolerating the anemia okay so far. * (#4. Pulmonary. * ARDS/ Acute hypoxic Respiratory failure: resolved). * #5. Renal. * Renal failure-resolved. * * #6. Rheumatologic. Psoriasis- Methotrexate on hold. Resume topical clobetasol. I think we can try resuming methotrexate, as this may be part of his pain issue. If it looks like his pneumonia is progressing, we would need to hold it again. #7. Nutrition. * severe malnutrition-resume feeding via NG tube. Speech therapy and dietary following. * #8. Neurologic/psychiatric. * Dementia/ Schizophremia: continue home medications of olanzapine as well as divalproex. * #9. . * h/o bladder cancer: follows with Dr Best * #10. * DVT prophylaxis, arixtra * * OT/ PT #11. CODE STATUS: No CPR. #12. GI. Elevated LFTs. It is unclear if this was related to recent sepsis, current medications, or other. -Improving. #13.. Endocrine. * Hypovolemic Hypernatremia: Sodium climbing again on July 19, so free water flushes for his tube feeds were increased to 600 mL every 4 hours. * This is improved . * * Approximately 40 minutes has been spent so far today, examining the patient, reviewing test results, reviewing plan of care with nursing staff and respiratory therapy, as well as with Dr. aMnuel. Medical - PN: Qual - Stroke Symptom Onset Unknown: No - VTE Deep Vein Thrombosis/Pulmonary Embolism Present on Admission: No
--- NOTE | 2017-07-24 19:21 | Discharge Summary ---
Medical - DS: Prov Patient information: Note initiated : 07/24/17 at 7:13 pm Patient: Rodriguez Scales 72 y/o M admitted on 07/20/17 for Pneumonia, Sepsis. Date of admission: 07/20/17 13:14 Discharge date: 07/24/17 Primary care physician: Juan Leal, phone number [phone] Admitting clinician: Yesenia Jolley Consults: 07/23/17 08:21 Consult to Physician [CONS] Routine Comment: Consulting Provider: Syd Jean-Baptiste Reason For Exam: Physician to Consult Attending physician on discharge: Yesenia Jolley Medical - DS: Meds - Discharge Medications Active and Home Medications: Discharge medications: divalproex 500 mg tablet,delayed release 500 mg PO QHS tab 06/24/15 [History Confirmed 07/20/17 Last Taken 07/19/17 21:13] fluticasone 0.05 % topical cream 1 applic TOPICAL .COMPLEX g 06/24/15 [History Confirmed 07/20/17 Last Taken Unknown] loratadine 10 mg tablet 10 mg PO QDAY PRN tab 06/24/15 [History Confirmed 07/20 Last Taken Unknown] multivitamin tablet 1 tab PO QDAY tab 06/24/15 [History Confirmed 07/20/17 Last Taken 07/20/17 08:57] olanzapine 15 mg tablet 15 mg PO QHS tab 06/24/15 [History Confirmed 07/20/17 Last Taken 07/19/17 21:13] potassium chloride ER 10 mEq capsule,extended release 10 meq PO QDAY cap [History Confirmed 07/20/17 Last Taken Unknown] tamsulosin 0.4 mg capsule 0.4 mg PO QHS cap 06/24/15 [History Confirmed Last Taken 07/19/17 21:13] triamcinolone acetonide-l.s.b. 0.5 % topical cream 0.5 % TOPICAL BID 06/24/15 [ History Confirmed 07/20/17 Last Taken Unknown] coal tar 0.5 % shampoo 1 applic TOPICAL Q48H 10/19/16 [History Confirmed Last Taken 07/05/17] dextromethorphan-guaifenesin 10 mg-100 mg/5 mL syrup 15 ml PO Q6HP PRN 10/19/16 [History Confirmed 07/20/17 Last Taken Unknown] divalproex 125 mg tablet,delayed release 375 mg PO QDAY tab 10/19/16 [History Confirmed 07/20/17 Last Taken 07/20/17 08:56] fluocinolone 0.01 % topical solution 1 applic TOPICAL 3XW ml 10/19/16 [History Confirmed 07/20/17 Last Taken Unknown] folic acid 1 mg tablet 1 mg PO QDAY 10/19/16 [History Confirmed 07/20/17 Last Taken 07/20/17 08:57] methotrexate sodium 2.5 mg tablet 15 mg PO WEEKLY tab 10/19/16 [History Confirmed 07/20/17 Last Taken Unknown] Aspirin [Adult Low Dose Aspirin EC] 81 mg PO DAILY 07/05/17 [History Confirmed 07/20/17 Last Taken Unknown] Compression Socks, Medium [Futuro Restoring] 1 each MC DAILY MDD off at HS 07/05 [History Confirmed 07/20/17 Last Taken Unknown] Finasteride [Proscar] 5 mg PO DAILY 07/05/17 [History Confirmed 07/20/17 Last Taken Unknown] LORazepam [Ativan] 0.5 mg PO BID MDD see notes 07/05/17 [History Confirmed 07/20/17 Last Taken 07/16/17 22:05] Pyrithione Zinc [Dhs Zinc] 240 ml TP Q48H 07/05/17 [History Confirmed 07/20/17 Last Taken 07/04/17] 0.9 % Sodium Chloride [Saline Flush] 10 ml IV Q8 07/20/17 [Rx Confirmed Last Taken 07/20/17 06:15] 0.9 % Sodium Chloride [Saline Flush] 10 ml IV UD PRN 07/20/17 [Rx Confirmed Last Taken Unknown] Acetaminophen [Tylenol] 650 mg PO Q4-6HP PRN tablet 07/20/17 [Rx Confirmed Last Taken Unknown] Chlorhexidine Gluconate [Peridex] 15 ml SWABMOUTH BID 07/20/17 [Rx Confirmed Last Taken 07/20/17 08:57] Famotidine/Pf [Pepcid] 20 mg IV HS vial 07/20/17 [Rx Confirmed 07/20/17 Last Taken 07/19/17 21:13] Fondaparinux Sodium [Arixtra] 2.5 mg SQ DAILY 07/20/17 [Rx Confirmed 07/20/17 Last Taken 07/20/17 08:54] Heparin Flush 2 ml IV Q12 07/20/17 [Rx Confirmed 07/20/17 Last Taken 07/20/17 08 :57] Ipratropium/Albuterol [Duoneb] 3 ml NEB Q4HRT 07/20/17 [Rx Confirmed 07/20/17 Last Taken 07/20/17 11:00] Magnesium Hydroxide [Milk of Magnesia] 30 ml PO DAILYP PRN 07/20/17 [Rx Confirmed 07/20/17 Last Taken Unknown] Naloxone HCl [Narcan] 0.1 mg IV Q2MIN PRN vial 07/20/17 [Rx Confirmed 07/20/17 Last Taken Unknown] Ondansetron [Zofran] 4 mg IV Q4-6HP PRN vial 07/20/17 [Rx Confirmed 07/20/17 Last Taken Unknown] Vancomycin 1,500 mg IV Q24H vial 07/20/17 [Rx Confirmed 07/20/17 Last Taken 11:30] Cefepime 1 g IV every 12 hours Oxygen Via Oxymizer mask, 8 L continuous. Albuterol 2.5 mg nebulizers every 4 hours as needed Prior home medications: Divalproex 500 mg XR 500 mg nightly Divalproex 125 mg XR, 375 mg daily Fluocinolone 0.01% topical solution apply topically daily Folate 1 mg daily Methotrexate 2.5 mg 15 mg p.o. weekly Ativan 0.5 mg 3 times daily as needed Bactrim DS 1 p.o. twice daily Fluticasone topical cream 0.05% apply topically daily as needed Lasix 20 mg daily Ketoconazole 2% shampoo apply topically 2 times per week Loratadine 10 mg daily Multivitamin 1 daily Olanzapine 15 mg nightly Potassium ER 10 mEq daily Flomax 0.4 mg nightly Triamcinolone cream 0.5% topical twice daily Tylenol 500 mg every 4 hours as needed [place] tar shampoo 0.5% apply daily Dextromethorphan with guaifenesin 10 mL every 4 hours as needed Medical - DS: Hosp Hospital course: Mr. Scales is a 72 year old M July 21, 2017: History of present illness: Mr. Scales is a 72 year old man . This chronically disabled patient was admitted on July 05 with a right arm cellulitis, that progressed to sepsis, with MRSA cellulitis, MRSA aspiration pneumonia with empyema and bacteremia. Respiratory failure was initially treated with BiPAP, as the family wanted to avoid intubation. The patient clinically responded to IV vancomycin, but it was explained to the patient's family that the loculated empyema could not be cured with antibiotics alone, and would require an invasive procedure. The family declined to have the patient transferred for more aggressive care. After numerous discussions, they have ultimately decided on IV antibiotics for 6 weeks. If the patient is not cured, or recurs after that, it sounds like they would be willing to move him towards comfort care. They do not want him to go further invasive procedures at this time. Currently he is clinically stable. He still has a fairly wet sounding cough, but has been able to swallow some medications in applesauce. 2 days ago his white blood cell count started to climb again, and as he is at risk for Pseudomonas infection as well, imipenem was added to his regimen. He is now afebrile with a normal white blood cell count. -Because of high aspiration risk, he had a Dobbhoff feeding tube placed, and has been receiving tube feeds, for his malnourishment. Speech therapy continues to work with him, and hopes to slowly advance him back to an oral diet. -The patient has had intermittent hypernatremia since admission, but this seems to clear up with additional free water. -For the most part his psychiatric medications have been continued, and he has remained quite calm and cooperative over the last week or so. Speech continues to be very difficult to understand, but he can usually make his needs known to nursing staff. He does follow some simple commands. Since all of these issues appeared fairly stable as of yesterday, he was discharged to swing bed status. His case is again reviewed today, and he is admitted formally for ongoing IV antibiotic therapy, ongoing speech therapy for dysphagia with aspiration, and ongoing physical therapy to try to help him regain some mobility. His family member that is here today says that he could previously walk a few steps. July 24, 2017: I was called to urgently see this patient this morning, after he was discovered hypoxic and gurgling in his room. When I entered the room, the patient was awake and alert, and making his usual unintelligible verbalizations. Nursing staff and respiratory therapy had suctioned him and given him a breathing treatment and put him on oxygen by facemask. He did look a little pale, but does not otherwise seem to be in significant distress. He is unable to give a history, as his verbalizations are difficult to understand. Follow-up chest x-ray showed likely right mainstem bronchus plugging, with complete right-sided lung collapse. The patient has been maintaining oxygen saturations above 90% on an 8 L mask, but continues to gurgle quite a bit, and is tachypneic. Findings were reviewed with the patient's [id number], Dr. Manuel. The patient's sister/POA, and other family members, subsequently had a family meeting. They reviewed all of the pros and cons of dealing with the right-sided lung collapse, as well as the longer-term question of a G-tube for permanent tube feedings. I met with them briefly, and they ask if I would give my opinion about what they should do, but I explained to them since they know the patient so well, and they have a doctor in the family, that I really thought this should be their decision. I clarified that they could lean towards comfort care, and letting nature take its course, or they could continue to be aggressive, in the hopes of clearing the patient's MRSA infection , mucous plugging, and addressing his swallowing difficulties, and hopes that he can regain some quality of life. They really are not ready to withdraw care at this point. Medical History Bronchitis (Acute) Fracture of fifth toe, left, open (Acute) Schizoaffective disorder (Chronic) Pleural effusion (Chronic) Malignant melanoma of skin (Chronic) Obstructive hydrocephalus (Chronic) Gallbladder calculus (Chronic) Fracture of femoral neck, closed (Chronic) COPD (chronic obstructive pulmonary disease) (Chronic) Cholelithiasis (Chronic) Cholecystitis (Chronic) Bladder malignancy (Chronic) Past Surgical History History of transurethral resection of prostate (Chronic) History of sebaceous cyst (Chronic) History of femur fracture (Chronic) History of abdominal surgery (Chronic) Allergies: Penicillin G Family History Mother Malignant neoplasm of pancreas Social History smoking status: Former smoker alcohol intake frequency: former alcohol drinker Exam. When the nurse got to him this morning, O2 saturations were 80% on 4 L. This improved to 91% on a 7 L oxygen mask. A small amount of wood secretions were suctioned. Patient was encouraged to cough, but was not able to clear secretions, due to weak cough. Temperature 98.6. Heart rate 94. Respiratory rate 24. Pressure 112/56. O2 saturation is currently 95% on 8 L oxygen mask. Current vital signs show temperature 98.6, heart rate 94, respiratory rate 24, blood pressure 112/56, O2 saturation 91% on a 7 L oxygen mask. The patient was awake and alert. He does have gurgling upper airway sounds. Neck is supple without obvious lymphadenopathy or JVD. Cardiac exam shows regular rate and rhythm. Left lung is fairly clear. There is a lot of upper airway noise and gurgling. Right lung sounds are markedly decreased. Abdomen: Is soft and nontender with normal bowel sounds. Extremities: Continue to show 2+ or more edema of the right arm and both lower extremities, as well as dependent edema. Assessment and plan: #1. Pulmonary. The patient appears to have had a large mucous plug lodged in his right mainstem bronchus today, causing near collapse of his right lung. Respiratory therapy has tried deep suctioning as well as nebulized bronchodilators, without much success. The patient is maintaining O2 saturations currently via oxygen mask, but this is a very concerning development. As noted above, the situation was reviewed with Dr. Manuel, and later with the patient's sister/POA, and other family members. At the request, I contacted Dr. Posada at [facility] in [place], and then Dr. Gomez, hospitalist at [facility]. They have agreed to accept the patient in transfer, where he will have pulmonary consultation, with follow-up bronchoscopy to remove any mucus plugging, if that is deemed appropriate. Since the patient may become more unstable at any time, he will be flown via helicopter. #2. Infectious disease. -MRSA bacteremia-Continue six-week vancomycin. Imipenem was added for climbing white blood cell count, suspicious for possible superimposed Pseudomonas infection. Leukocytosis has improved. The hospital did run out of imipenem, so patient was changed over to cefepime, again to cover Pseudomonas. -MRSA empyema-Multiloculated. -Family previously did not want transfer to a tertiary care center to address the patient's empyema, but now they think they do want transfer to address the right lung collapse. Pulmonary consultation will be helpful, to further clarify for the family what their treatment options are. The most recent plan that the family agreed to, was 6 weeks of IV antibiotics, Family is aware that this treatment is not consistent with standard of care and carries a high risk of relapse. -Aspiration pneumonia-. Speech therapy is working with the patient trying to improve his aspiration risk. Yesterday's evaluation indicated the patient is really at high risk to swallow anything by mouth, so he was again made n.p.o. Oral meds are being given through the feeding tube. -Cellulitis-of the right upper extremity,dvt is neg, Continue vancomycin. #3. Hematologic. * Thrombocytopenia: Platelets are lower again today. He is at increased risk for bleeding at this level. However, there are no clinical signs of bleeding at this time. * * He is slightly more anemic, but this appears to fluctuate, looking over previous labs. He is trending downward, but seems to be tolerating the anemia okay so far. * (#4. Pulmonary. * ARDS/ Acute hypoxic Respiratory failure: resolved). * #5. Renal. * Renal failure-resolved. * * #6. Rheumatologic. Psoriasis- Methotrexate on hold. Resume topical clobetasol. I think we can try resuming methotrexate, as this may be part of his pain issue. If it looks like his pneumonia is progressing, we would need to hold it again. #7. Nutrition. * severe malnutrition-resume feeding via NG tube. Speech therapy and dietary following. * #8. Neurologic/psychiatric. * Dementia/ Schizophremia: continue home medications of olanzapine as well as divalproex. * #9. . * h/o bladder cancer: follows with Dr Best * #10. * DVT prophylaxis, arixtra * * OT/ PT #11. CODE STATUS: No CPR. #12. GI. Elevated LFTs. It is unclear if this was related to recent sepsis, current medications, or other. -Improving. #13.. Endocrine. * Hypovolemic Hypernatremia: Sodium climbing again on July 19, so free water flushes for his tube feeds were increased to 600 mL every 4 hours. * This is improved . * * Discharge diagnosis: Right mainstem bronchus mucous plug, with lung collapse. Secondary discharge diagnosis: MRSA pneumonia, bacteremia, pleural effusions. Severe aspiration, currently on tube feedings Via Dobbhoff tube. Decision regarding PEG tube pending. Schizoaffective disorder. COPD. - Time Spent with Patient Total time spent providing and/or coordinating discharge services: Greater than 30 minutes Medical - DS: Exam - Constitutional Vitals: Vital Signs Temp Pulse Pulse Resp BP Pulse Ox 07/24/17 15:45 80 22 07/24/17 14:37 100 H 94 07/24/17 13:15 22 91 07/24/17 11:27 82 20 07/24/17 11:24 95 07/24/17 08:10 91 07/24/17 07:48 98.6 F 24 H 112/56 90 07/24/17 07:11 94 H 22 94 07/23/17 20:02 94 H 22 07/23/17 20:00 97.3 F 100 H 18 117/74 92 Intake and Output 07/24/17 07/24/17 07/24/17 05:59 13:59 21:59 Intake Total 620 / 620 210 / 210 422 / 422 Output Total 900 / 900 475 / 475 Balance -280 / -280 210 / 210 -53 / -53 Intake: Oral 0 / 0 Tube Feeding 420 / 420 322 / 322 GI Tube Flush 200 / 200 210 / 210 100 / 100 Output: Urine Catheter Amount 900 / 900 475 / 475 Medical - DS: Data Labs on day of discharge: Labs from last 24 hours 07/24/17 07/24/17 08:53 08:53 WBC 6.6 RBC 2.21 L Hgb 7.5 L Hct 23.2 L MCV 104.8 H MCH 34.0 MCHC 32.5 RDW 17.5 H Plt Count 62 L MPV 13.3 H Gran % 69.7 Lymph % (Auto) 15.8 [place] % (Auto) 10.9 Eos % (Auto) 3.1 Baso % (Auto) 0.5 Gran # 4.6 Lymph # (Auto) 1.0 L [place] # (Auto) 0.7 Eos # (Auto) 0.2 Baso # (Auto) 0 Sodium 141 Potassium 4.1 Chloride 105 Carbon Dioxide 27 Anion Gap 9.0 BUN 17 Creatinine 0.6 L GFR Calculation 99 Glucose 115 H Uric Acid 3.7 Calcium 9.0 Phosphorus 4.1 Magnesium 1.9 Total Bilirubin 0.3 Direct Bilirubin < 0.2 GGT 112 H AST 16 ALT 17 Alkaline Phosphatase 181 H Lactate Dehydrogenase 142 Total Protein 4.9 L Albumin 1.6 L Globulin 3.3 Albumin/Globulin Ratio 0.5 L Triglycerides 78 July 24: Chest x-ray: Shows complete opacification of the right hemithorax with volume loss, likely due to right lung collapse. Suspect mucous plugging of the right mainstem bronchus. Moderate right pleural effusion also noted. Also consolidation atelectasis is noted of the left lower lobe with small left pleural effusion, this is stable. July 20, 2017: CBC: White blood cell count is 9000, him hemoglobin 8.9, hematocrit 27.7, MCV 105, RDW 18, platelets 121,000. Differential shows 6800 granulocytes, and 1300 lymphocytes. Chemistry panel: Show sodium 145, potassium 4.3, chloride 112, CO2 28, BUN 20, creatinine 0.7, glucose 152 Alkaline phosphatase 226, GGT 202, albumin 1.7 Vancomycin trough level is 16 X July 18: Abdominal x-ray shows Dobbhoff feeding tube with its tip just past the ligament of Treitz. Bowel gas pattern much more normal than previous exam. July 14: Chest x-ray: Continues to show bilateral diffuse pulmonary parenchymal infiltrates and bilateral pleural effusions, essentially unchanged. July 11: Liver ultrasound: Densely calcified abnormality in the gallbladder fossa. Small amount of ascitic fluid. Right pleural fluid. July 09: Pleural fluid culture grew methicillin-resistant staph aureus, sensitive to vancomycin, clindamycin, gentamicin, linezolid, rifampin, tetracycline, Bactrim. Resistant to amoxicillin, ampicillin, cefazolin, erythromycin, imipenem, Levaquin, meropenem, oxacillin, Zosyn Urine culture also grew MRSA. Blood cultures also grew MRSA from July 05, 2017. Blood cultures from July 08, had no growth.. Echocardiogram: Left ventricle is normal in size, mild LVH. Ejection fraction 70%. Borderline dilated left atrium. Doppler findings suggest mild pulmonary hypertension. Mild aortic root dilation. Aortic root sclerosis. No vegetations seen. July 08: Chest CT: Bilateral pleural effusions, right greater than left, appearance consistent with loculation. Multiple subpleural pulmonary densities with cavitation, consistent with inflammatory disease. Noncalcified mass in the superior segment of the left lower lobe, may be due to pneumonia versus neoplasm. Nonspecific mediastinal adenopathy. Esophageal dilation: Esophagus containing semisolid material consistent with fluid, mass not excluded. Bilateral pulmonary parenchymal infiltrates consistent with pneumonia. July 07: ABG on BiPAP, FiO2 75%, rate of 6, pressures 12/6: 7.43, PCO2 42, PO2 90, bicarb 27, O2 saturation 97%. Next July 05: Right arm ultrasound: Technically limited. No detectable DVT. Medical - DS: A/P - Patient/Caregiver Discharge Instructions Activity: as instructed Diet: NPO - Follow up Plan Disposition: [facility] Prognosis: Serious Rehab Potential: Serious Overall status at discharge: patient is not back to baseline Medical - DS: Qual - VTE Deep Vein Thrombosis/Pulmonary Embolism Present on Admission: No
--- NOTE | 2017-07-24 20:40 | XRay Report ---
CLINICAL INFORMATION: Follow up right lung atelectasis COMPARISON: 07/24/2017 0921 hours FINDINGS: Moderate cardiomegaly is unchanged. Mediastinum is unremarkable. The right upper lobe has now reexpanded, but there is persistent dense consolidated atelectasis of the right middle and lower lobes. Moderate right pleural effusion has improved. Moderate left pleural effusion has worsened. Dense consolidated atelectasis of the left lower lobe is unchanged. New moderate, vague infiltrate or atelectasis developing in the left midlung. PICC line tip and OG tube in stable satisfactory position IMPRESSION: 1. Right upper lobe is now reexpanded. There is persistent dense consolidated atelectasis of the right middle and lower lobes. Moderate right pleural effusion has decreased. 2. Densely consolidated left lower lobe atelectasis - stable. Moderate left pleural effusion worsening. Small vague left midlung infiltrate progressing Interpreted and Authenticated by: Glen Hartley 07/24/17
== END 2017-07-24 20:40 | disposition short-term general hospital (02) | DRG 205 ==
LOC: MEDSUR 13:14
PROVIDERS: ADMIT Internal Medicine; ATTEND Internal Medicine